=== PATIENT | female | born 2005 | race Caucasian/White ===

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

== ENCOUNTER → 2024-01-06 | Outpatient (CLI) | payer OTHER, MEDICAID, SELFPAY ==
[2024-01-06 16:58] LABS: Absolute Lymphocyte Count 1.44 X10^3/uL (0.83-4.51); Absolute Neutrophil Count 5.6 X10^3/uL (2.0-7.7); Basophil# 0.02 X10^3/uL; Basophil% 0.3 % (0-1); Eosinophil# 0.05 X10^3/uL; Eosinophils% 0.7 % (0-5); Hematocrit 37.3 % (37-47); Hemoglobin 12.7 g/dL (12.0-15.0); Lymphocyte # 1.44 X10^3/ul (0.83-4.51); Lymphocyte % 19.2 % (19-41); Mean Platelet Vol. 11.2 fl (6.2-12.0); Monocyte# 0.32 X10^3/uL; Monocyte% 4.3 % (0-10); NRBC Flagged by Analyzer 0 % (0-5); Neutrophil # 5.63 X10^3/uL (2.7-7.7); Neutrophil % 75.1 % (47-70); Platelet Count 202 K/mm3 (150-450); RBC Distribution Width CV 12.4 % (11.6-14.6); RBC Distribution Width SD 39.9 fl (35.1-43.9); Red Blood Count 4.24 M/mm3 (4.2-5.4); White Blood Count 7.5 K/mm3 (4.4-11.0)
[2024-01-06 18:32] LABS: HIV - WCH Non-Reactive (Nonreactive); Hepatitis B Surface Antigen Non-Reactive (Nonreactive); Hepatitis C Antibody Non-Reactive (Nonreactive); Rubella IgG Reactive (Nonreactive); Syphilis Antibodies Non-reactive
== END | disposition home or self-care (01) ==
LOC: BWCLAB 15:56
PROVIDERS: PCP Nurse Practitioner Family; Referring Provider Advanced Practice Midwife; Visit Provider Advanced Practice Midwife
DX: Z34.81 Encounter for supervision of other normal pregnancy, first trimester (principal); Z3A.00 Weeks of gestation of pregnancy not specified
CPT/HCPCS: 36415; 85025; 86703; 86762; 86780; 86803; 86850; 86900; 86901; 87340

== ENCOUNTER → 2024-04-28 | Outpatient (CLI) | payer BC, MEDICAID, SELFPAY ==
[2024-04-28 14:18] LABS: Absolute Lymphocyte Count 1.43 X10^3/uL (0.83-4.51); Absolute Neutrophil Count 8.8 X10^3/uL (2.0-7.7); Basophil# 0.02 X10^3/uL; Basophil% 0.2 % (0-1); Eosinophil# 0.12 X10^3/uL; Eosinophils% 1.1 % (0-5); Hematocrit 30.9 % (37-47); Hemoglobin 10.2 g/dL (12.0-15.0); Lymphocyte # 1.43 X10^3/ul (0.83-4.51); Mean Corpuscular Hgb 30.1 pg (27.0-32.0); Mean Corpuscular Volume 91.2 fL (81-99); Mean Platelet Vol. 11.4 fl (6.2-12.0); Monocyte# 0.56 X10^3/uL; Monocyte% 5.1 % (0-10); NRBC Flagged by Analyzer 0 % (0-5); Neutrophil # 8.79 X10^3/uL (2.7-7.7); Neutrophil % 79.9 % (47-70); Platelet Count 176 K/mm3 (150-450); RBC Distribution Width SD 42.4 fl (35.1-43.9); Red Blood Count 3.39 M/mm3 (4.2-5.4)
[2024-04-28 15:56] LABS: Glucose Challenge Gest 1H 50g 74 mg/dL; HIV Nonreactive (Nonreactive); Syphilis Antibodies Nonreactive (Nonreactive)
== END | disposition home or self-care (01) ==
PROVIDERS: PCP Nurse Practitioner Family; Referring Provider Obstetrics & Gynecology; Visit Provider Obstetrics & Gynecology
DX: Z34.90 Encounter for supervision of normal pregnancy, unspecified, unspecified trimester (principal); Z3A.00 Weeks of gestation of pregnancy not specified
CPT/HCPCS: 82950; 85025; 86703; 86780

== ENCOUNTER → 2024-05-25 | Outpatient (CLI) | payer BC, MEDICAID, SELFPAY ==
[2024-05-25 14:00] LABS: Absolute Neutrophil Count 9.8 X10^3/uL (2.0-7.7); Basophil# 0.02 X10^3/uL; Basophil% 0.2 % (0-1); Eosinophils% 1.6 % (0-5); Hematocrit 30.8 % (37-47); Hemoglobin 10.2 g/dL (12.0-15.0); Lymphocyte % 13.7 % (19-41); Mean Corp Hgb Conc 33.1 g/dL (32-36); Mean Corpuscular Hgb 29.8 pg (27.0-32.0); Mean Corpuscular Volume 90.1 fL (81-99); Mean Platelet Vol. 10.7 fl (6.2-12.0); Monocyte# 0.63 X10^3/uL; Monocyte% 5.1 % (0-10); NRBC Flagged by Analyzer 0 % (0-5); Neutrophil # 9.82 X10^3/uL (2.7-7.7); Neutrophil % 78.8 % (47-70); Platelet Count 178 K/mm3 (150-450); RBC Distribution Width CV 13.2 % (11.6-14.6); RBC Distribution Width SD 43.2 fl (35.1-43.9); Red Blood Count 3.42 M/mm3 (4.2-5.4); White Blood Count 12.4 K/mm3 (4.4-11.0)
== END | disposition home or self-care (01) ==
LOC: LAB 13:24
PROVIDERS: PCP Nurse Practitioner Family; Referring Provider Obstetrics & Gynecology; Visit Provider Obstetrics & Gynecology
DX: D64.9 Anemia, unspecified (principal)
CPT/HCPCS: 36415; 85025

== ENCOUNTER → 2024-07-04 | Outpatient (CLI) | payer BC, MEDICAID, SELFPAY | END | disposition home or self-care (01) | LOC: LABSPEC 14:57 | PROVIDERS: PCP Nurse Practitioner Family; Referring Provider Advanced Practice Midwife; Visit Provider Advanced Practice Midwife | DX: Z34.90 Encounter for supervision of normal pregnancy, unspecified, unspecified trimester (principal) | CPT/HCPCS: 87081 ==

== ENCOUNTER → 2024-07-20 | Outpatient (CLI) | payer BC, MEDICAID, SELFPAY ==
[2024-07-20 15:12] LABS: Absolute Lymphocyte Count 1.97 X10^3/uL (0.83-4.51); Absolute Neutrophil Count 9.6 X10^3/uL (2.0-7.7); Basophil# 0.03 X10^3/uL; Basophil% 0.2 % (0-1); Eosinophil# 0.18 X10^3/uL; Eosinophils% 1.4 % (0-5); Hemoglobin 10.5 g/dL (12.0-15.0); Lymphocyte # 1.97 X10^3/ul (0.83-4.51); Lymphocyte % 15.7 % (19-41); Mean Corp Hgb Conc 32.8 g/dL (32-36); Mean Corpuscular Hgb 28.8 pg (27.0-32.0); Mean Corpuscular Volume 87.9 fL (81-99); Mean Platelet Vol. 11.9 fl (6.2-12.0); Monocyte# 0.67 X10^3/uL; Monocyte% 5.3 % (0-10); NRBC Flagged by Analyzer 0 % (0-5); Neutrophil # 9.64 X10^3/uL (2.7-7.7); Neutrophil % 76.8 % (47-70); Platelet Count 158 K/mm3 (150-450); RBC Distribution Width SD 44.4 fl (35.1-43.9); Red Blood Count 3.64 M/mm3 (4.2-5.4); White Blood Count 12.6 K/mm3 (4.4-11.0)
[2024-07-20 15:24] LABS: ALB/GLOB Ratio 1.3 RATIO (0.9-2.4); AST(SGOT) 18 U/L (<=31); Alanine Aminotransfer ALT/SGPT 9 U/L (<=34); Albumin, Serum 3.6 g/dL (3.5-5.0); Alkaline Phosphatase 160 U/L (35-104); Anion Gap 10 (5-15); BUN 6 mg/dL (4-19); Calcium,Total 8.8 mg/dL (7.6-11.0); Carbon Dioxide 22.1 mmol/L (21.0-32.0); Chloride 104 mmol/L (98-108); Creatinine, Serum 0.51 mg/dL (0.70-1.20); EST Glomerular Filtration Rate 138 (>60); Globulin 2.9 g/dL (2.2-4.2); Glucose 80 mg/dL (70-99); Potassium 3.8 mmol/L (3.3-5.1); Protein, Total 6.5 g/dL (5.9-8.4); Sodium Level 136 mmol/L (133-145); Total Bilirubin 0.66 mg/dL (0.00-1.30)
[2024-07-20 15:30] LABS: Protein, Urine (Random) 27.8 mg/dL (0.0-12.0); Protein:Creat Ratio 178 mg/g CRE (0-200)
== END | disposition home or self-care (01) ==
PROVIDERS: PCP Nurse Practitioner Family; Referring Provider Obstetrics & Gynecology; Visit Provider Obstetrics & Gynecology
DX: O16.3 Unspecified maternal hypertension, third trimester (principal); Z3A.00 Weeks of gestation of pregnancy not specified
CPT/HCPCS: 36415; 80053; 82570; 84156; 85025

== ENCOUNTER 2024-08-05 08:08 | Inpatient (IN) | payer BC, MEDICAID, SELFPAY ==
[2024-08-05] VITALS (43 sets, daily range): BP systolic 92–134; BP diastolic 51–80; PULSE 66–107; RESP 14–16; TEMP 36.9–37.3; O2SAT 92–97; BMI 30.2
--- OUTSIDE RECORDS SUMMARY | 2024-08-05 07:14 | XMS RPT_ITS | CCD ---
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 on above: Performed By: #### L 501.0900, L500.4050, L100.0100 ####[facility] [address] [place], [address] Basophils/100 WBC (Bld) 0.2 % Normal 0-1 [facility] Comment on above: Performed By: #### L 501.0900, L500.4050, L100.0100 ####[facility] [address] [place], [address] Eosinophils/100 WBC (Bld) 1.4 % Normal 0-5 [facility] Comment on above: Performed By: #### L 501.0900, L500.4050, L100.0100 ####[facility] [address] [place], [address] Erythrocyte distribution width (RBC) [Ratio] 14.0 % Normal 11.6-14.6 [facility] Comment on above: Performed By: #### L 501.0900, L500.4050, L100.0100 ####[facility] [address] [place], [address] Hematocrit (Bld) [Volume fraction] 32.0 % Low 37-47 [facility] Comment on above: Performed By: #### L 501.0900, L500.4050, L100.0100 ####[facility] [address] [place], [address] Hemoglobin (Bld) [Mass/Vol] 10.5 g/dL Low 12.0-15.0 [facility] Comment on above: Performed By: #### L 501.0900, L500.4050, L100.0100 ####[facility] [address] [place], [address] IG% 0.600 Normal 0.0-0.9 [facility] Comment on above: Result Comment: IG% - Immature Granulocytes (promyelocytes, myelocytes and metamyelocytes) > 1% indicates that a LEFT SHIFT is Present. Performed By: #### L 501.0900, L500.4050, L100.0100 ####[facility] [address] [place], [address] Lymphocytes/100 WBC (Bld) 15.7 % Low 19-41 [facility] Comment on above: Performed By: #### L 501.0900, L500.4050, L100.0100 ####[facility] [address] [place], [address] MCH (RBC) [Entitic mass] 28.8 pg Normal 27.0-32.0 [facility] Comment on above: Performed By: #### L 501.0900, L500.4050, L100.0100 ####[facility] [address] [place], [address] MCHC (RBC) [Mass/Vol] 32.8 g/dL Normal 32-36 [facility] Comment on above: Performed By: #### L 501.0900, L500.4050, L100.0100 ####[facility] [address] [place], [address] MCV (RBC) [Entitic vol] 87.9 fL Normal 81-99 [facility] Comment on above: Performed By: #### L 501.0900, L500.4050, L100.0100 ####[facility] [address] [place], [address] Monocytes/100 WBC (Bld) 5.3 % Normal 0-10 [facility] Comment on above: Performed By: #### L 501.0900, L500.4050, L100.0100 ####[facility] [address] [place], [address] Neutrophils/100 WBC (Bld) 76.8 % High 47-70 [facility] Comment on above: Performed By: #### L 501.0900, L500.4050, L100.0100 ####[facility] [address] [place], [address] Nucleated RBC (Bld) [#/Vol] 0 10*3/uL Normal 0-5 [facility] Comment on above: Performed By: #### L 501.0900, L500.4050, L100.0100 ####[facility] [address] [place], [address] Platelet mean volume (Bld) [Entitic vol] 11.9 fL Normal 6.2-12.0 [facility] Comment on above: Performed By: #### L 501.0900, L500.4050, L100.0100 ####[facility] [address] [place], [address] Platelets (Bld) [#/Vol] 158 10*3/uL Normal 150-450 [facility] Comment on above: Performed By: #### L 501.0900, L500.4050, L100.0100 ####[facility] [address] [place], [address] RBC (Bld) [#/Vol] 3.64 10*6/uL Low 4.2-5.4 [facility] Comment on above: Performed By: #### L 501.0900, L500.4050, L100.0100 ####[facility] [address] [place], [address] RDW SD 44.4 fl High 35.1-43.9 [facility] Comment on above: Performed By: #### L 501.0900, L500.4050, L100.0100 ####[facility] [address] [place], [address] WBC (Bld) [#/Vol] 12.6 10*3/uL High 4.4-11.0 [facility] Comment on above: Performed By: #### L 501.0900, L500.4050, L100.0100 ####[facility] [address] [place], [address] Carbon dioxide, total [Moles /volume] in Central venous bloodOrdered By: Francesca Yeung on 07-20-2024 CO2 [Moles/Vol] 22.1 mmol/L 21.0-32.0 [facility] Chloride assayOrdered By: Raciel Yeung on 07-20-2024 Chloride [Moles/Vol] 104 mmol/L 98-[address] [facility] Comprehensive Metabolic Prof ilon 07-20-2024 Albumin [Mass/Vol] 3.6 g/dL Normal 3.5-5.0 [facility] Comment on above: Performed By: #### L 501.0900, L500.4050, L100.0100 ####[facility] [address] [place], [address] Albumin/Globulin [Mass ratio] 1.3 {ratio} Normal 0.9-2.4 [facility] Comment on above: Performed By: #### L 501.0900, L500.4050, L100.0100 ####[facility] [address] [place], [address] ALK PHOS 160 U/L High 35-104 [facility] Comment on above: Performed By: #### L 501.0900, L500.4050, L100.0100 ####[facility] [address] [place], [address] ALT [Catalytic activity/Vol] 9 U/L Normal <=34 [facility] Comment on above: Performed By: #### L 501.0900, L500.4050, L100.0100 ####[facility] [address] [place], [address] AST [Catalytic activity/Vol] 18 U/L Normal <=31 [facility] Comment on above: Performed By: #### L 501.0900, L500.4050, L100.0100 ####[facility] [address] [place], [address] Bilirubin [Mass/Vol] 0.66 mg/dL Normal 0.00-1.[address] [facility] Comment on above: Performed By: #### L 501.0900, L500.4050, L100.0100 ####[facility] [address] [place], [address] BUN/CRE 12.0 RATIO Normal 10-20 [facility] Comment on above: Performed By: #### L 501.0900, L500.4050, L100.0100 ####[facility] [address] [place], [address] Calcium [Mass/Vol] 8.8 mg/dL Normal 7.6-11.0 [facility] Comment on above: Performed By: #### L 501.0900, L500.4050, L100.0100 ####[facility] [address] [place], [address] Chloride [Moles/Vol] 104 mmol/L Normal 98-[address] [facility] Comment on above: Performed By: #### L 501.0900, L500.4050, L100.0100 ####[facility] [address] [place], [address] CO2 [Moles/Vol] 22.1 mmol/L Normal 21.0-32.0 [facility] Comment on above: Performed By: #### L 501.0900, L500.4050, L100.0100 ####[facility] [address] [place], [address] Creatinine [Mass/Vol] 0.51 mg/dL Low 0.70-1.20 [facility] Comment on above: Performed By: #### L 501.0900, L500.4050, L100.0100 ####[facility] [address] [place], [address] GAP 10 Normal 5-15 [facility] Comment on above: Performed By: #### L 501.0900, L500.4050, L100.0100 ####[facility] [address] [place], [address] GFR/1.73 sq M.predicted among non-blacks MDRD (S/P/Bld) [Vol rate/Area] 138 mL/min/{1.73_m2} Normal >60 [facility] Comment on above: Result Comment: mL/m in/1.73m2 CKD-EPI Creatinine Equation (2020) Performed By: #### L 501.0900, L500.4050, L100.0100 ####[facility] [address] [place], [address] Globulin (S) [Mass/Vol] 2.9 g/dL Normal 2.2-4.2 [facility] Comment on above: Performed By: #### L 501.0900, L500.4050, L100.0100 ####[facility] [address] [place], [address] Glucose [Mass/Vol] 80 mg/dL Normal 70-99 [facility] Comment on above: Performed By: #### L 501.0900, L500.4050, L100.0100 ####[facility] [address] [place], [address] Potassium [Moles/Vol] 3.8 mmol/L Normal 3.3-5.1 [facility] Comment on above: Performed By: #### L 501.0900, L500.4050, L100.0100 ####[facility] [address] [place], [address] Sodium [Moles/Vol] 136 mmol/L Normal 133-145 [facility] Comment on above: Performed By: #### L 501.0900, L500.4050, L100.0100 ####[facility] [address] [place], [address] T PROT 6.5 g/dL Normal 5.9-8.4 [facility] Comment on above: Performed By: #### L 501.0900, L500.4050, L100.0100 ####[facility] [address] [place], [address] Urea nitrogen [Mass/Vol] 6 mg/dL Normal 4-19 [facility] Comment on above: Performed By: #### L 501.0900, L500.4050, L100.0100 ####[facility] [address] [place], [address] Eosinophil percentageOrdered By: Francesca Yeung on 07-20-2024 Eosinophils/100 WBC (Bld) 1.4 % 0-5 [facility] Erythrocyte distribution wid th ratioOrdered By: Francesca Yeung on 07-20-2024 Erythrocyte distribution width (RBC) [Ratio] 14.0 % 11.6-14.6 [facility] Erythrocyte distribution wid th standard deviationOrdered By: Francesca Yeung on 07-20-2024 Erythrocyte distribution width (RBC) [Ratio] 44.4 fl High 35.1-43.9 [facility] Glomerular filtration rate ( GFR) estimation/1.73 sq m using serum, plasma, or whole bOrdered By: Francesca Yeung on 07-20-2024 GFR/1.73 sq M.predicted among non-blacks MDRD (S/P/Bld) [Vol rate/Area] 138 mL/min/{1.73_m2} >60 [facility] Comment on above: mL/min/1.73m2 CKD-EP I Creatinine Equation (2020) Hematocrit Auto (Bld) [Volum e fraction]Ordered By: Francesca Yeung on 07-20-2024 Hematocrit (Bld) [Volume fraction] 32.0 % Low 37-47 [facility] Hemoglobin measurementOrdere d By: Francesca Yeung on 07-20-2024 Hemoglobin (Bld) [Mass/Vol] 10.5 g/dL Low 12.0-15.0 [facility] Immature granulocytes/100 WB C Auto (Bld)Ordered By: Francesca Yeung on 07-20-2024 Immature granulocytes/100 WBC (Bld) 0.600 % 0.0-0.9 [facility] Comment on above: IG% - Immature Granu locytes (promyelocytes, myelocytes and metamyelocytes) > 1% indicates that a LEFT SHIFT is Present. Laboratory - Chemistry and C hemistry - challengeOrdered By: Francesca Yeung on 07-20-2024 AST [Catalytic activity/Vol] 18 U/L <32 [facility] Glucose Ql (U) Negative [facility] Laboratory - UrinalysisOrder ed By: Francesca Yeung on 07-20-2024 Protein Ql (U) 1+ [facility] MCV (mean corpuscular volume ) determinationOrdered By: Francesca Yeung on 07-20-2024 MCV (RBC) [Entitic vol] 87.9 fL 81-99 [facility] Mean corpuscular hemoglobin (MCH) determinationOrdered By: Francesca Yeung on 07-20-2024 MCH (RBC) [Entitic mass] 28.8 pg 27.0-32.0 [facility] Mean corpuscular hemoglobin concentration (MCHC) determinationOrdered By: Francesca Yeung on 07-20-2024 MCHC (RBC) [Mass/Vol] 32.8 g/dL 32-36 [facility] Mean platelet volume determi nationOrdered By: Francesca Yeung on 07-20-2024 Platelet mean volume (Bld) [Entitic vol] 11.9 fL 6.2-12.0 [facility] Monocyte percentageOrdered B y: Francesca Yeung on 07-20-2024 Monocytes/100 WBC (Bld) 5.3 % 0-10 [facility] Neutrophil percentageOrdered By: Francescaoscar Turkulices on 07-20-2024 Neutrophils/100 WBC (Bld) 76.8 % High 47-70 [facility] Nucleated red blood cell per centageOrdered By: Francesca Yeung on 07-20-2024 Nucleated RBC/100 WBC (Bld) [Ratio] 0 % 0-5 [facility] [employer] Office Visit Reporton 07-20-2024 [employer] Office Visit Report [facility] [address], [address] [place] [address] OFFICE VISIT Date of Service: 07/20/24 MR#: [id number] Acct: [id number] Name: JD PRINGLE Rep #: [id number] : 2005 Provider: Dr. 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 Occupational Required: No Is patient in pain?: No Feel stressed/tense/nervo us/anxious/difficult y sleeping: not at all Allergies No Known Allergies Allergy (Verified 07/20/24 14:35) Medications ???Medication ???Instructions ???Recorded ???Confirmed ???Type PNV 153-FA 400 mcg-om3 35 mg-dha 1 tab PO 09/15/22 History 25 mg-epa 5 mg-fish oil chew tablet ferrous sulfate 325 mg (65 mg 325 mg PO QDAY 07/20/24 07/20/24 H istory iron) tablet Last Menstrual Period: 10/28/23 Zika: Zika virus screening: Negative : No PFSH PFSH Medical History Refuses tetanus, diphtheria, and acellular pertussis (Tdap) vaccination Anemia in preg-unspec Vaginal delivery Family History Mother Learning disability Grandmother Breast cancer Social History adopted: No household members: significant other, family and children current occupational status: unemployed current occupation: [employer] current occupational exposures/hazards: No pets and animals: Yes pets and animals: dog(s) history of recent travel: No sexually active: Yes Smoking Status: Never smoker alcohol intake: never substance use type: does not use well-balanced diet: about half the time caffeine: No eating out: 1-3 times/week during the past year weight has: remained stable what type of physical activity do you participate in: walking frequency: 3-4 times per week duration: 15-30 minutes/day roseline/yarsani: Buddhist seatbelt use: sometimes do you feel safe at home: Yes additional social history: BF: Arnold - Unemployed History 2 Elective abortions Hx Para 1 Spontaneous abortions Hx # Term Pregnancies 1 Ectopic pregnancies Hx # Pregnancies Multiple births # of living children 1 Past Pregnancies Del. Date Name GA/Weeks Outcome Route Bth Weight Infant Gen Labor Lgth Anesthesia Del Locatn Provider FOB 04/03/23 Everlee 39 live - full term 7lbs 10oz Female epidural [facility] Julia Ortiz Altaf Delivery Date: 04/03/23 Last Updated by: Catherine Day IOL poly HPI 38wk ob Details: JD PRINGLE is a 18 year old who presents for routine OB visit. OB Visit SARAHI Calculator Estimated Delivery Date Method Current WG Current Estimate 08/03/24 LMP (Certain) 38w 0d Other Estimates 08/04/24 Ultrasound #1 37w 6d Expected Delivery Route/Plan Labor Preferences- CB/BF classes: [] labor support person: [] labor intervention preferences: [] pain management options preferred: [] cut cord/dad catch: [] : [] PP control planned: [] discussed possible routes of delivery and associated risks: [] special requests: [] Specific Issue/Plans Covid status: [] Flu vaccine: [] Tdap vaccine: declined Rhogam: na LARC form signed: declined movement and labor precautions reviewed. Problem list reviewed and updated with the most current plan of care details and appropriate orders placed. Relevant counseling for the gestational age provided. Continue routine care and follow up unless otherwise noted in visit notes/problem list details Initial Weight: 132 lb Date -???-???-???-???-??? -???-???-???-???-??? -???-???- EGA Weight BP Urine Prot -???-???-???-???-??? -???-???-???-???-??? -???-???- Glucose FHR FuHt Pres Dilation -???-???-???-???-??? -???-???-???-???-??? -???-???- Effaced St Visit Note 12/30/23 -???-???-???-???-??? -???-???-???-???-??? -???-???- 9w 0d 132 lb (+0 oz) 96/52 -???-???-???-???-??? -???-???-???-???-??? -???-???- 171 -???-???-???-???-??? -???-???-???-???-??? -???-???- KW- CRL cons with dates. Accepts NIPT 02/01/24 -???-???-???-???-??? -???-???-???-???-??? -???-???- 13w 5d 132 lb (+0 oz) 109/55 Negative -???-???-???-???-??? -???-???-???-???-??? -???-???- Negative 144 -???-???-???-???-??? -???-???-???-???-??? -???-???- JV- panorama reviewed. CRL appropriate for gestational age. no complaints. 03/07/24 -???-???-???-???-??? -???-???-???-???-??? -???-???- 18w 5d 138 lb 4 oz (+6 lb 4 oz) 120/70 Negative -???-???-???-???-??? -??? (more content not included)... Normal [facility] Platelet countOrdered By: Raciel Yeung on 07-20-2024 Platelets (Bld) [#/Vol] 158 10*3/uL 150-450 [facility] Potassium measurement (mass/ volume)Ordered By: Francesca Yeung on 07-20-2024 Potassium (Unsp spec) [Mass/Vol] 3.8 mmol/L 3.3-5.1 [facility] Protein+Creatinine Ratio,Uri neon 07-20-2024 PROT:CRE RATIO 178 mg/g CRE Normal 0-200 [facility] Comment on above: Performed By: #### L 501.0900, L500.4050, L100.0100 ####[facility] [address] [place], [address] Protein (U) [Mass/Vol] 27.8 mg/dL High 0.0-12.0 [facility] Comment on above: Performed By: #### L 501.0900, L500.4050, L100.0100 ####[facility] [address] [place], [address] UR CREAT 156.00 mg/dL Normal 28.00-217.00 [facility] Comment on above: Performed By: #### L 501.0900, L500.4050, L100.0100 ####[facility] [address] [place], [address] RBC Auto (Bld) [#/Vol]Ordere d By: Francesca Yeung on 07-20-2024 RBC (Bld) [#/Vol] 3.64 10*6/uL Low 4.2-5.4 [facility] Random urine creatinine luis urement (mass/volume)Ordered By: Francesca Yeung on 07-20-2024 Creatinine Unsp time (U) [Mass/Vol] 156.00 mg/dL 28.00-217.00 [facility] Serum creatinine measurement (mass/volume)Ordered By: Francesca Yeung on 07-20-2024 Creatinine [Mass/Vol] 0.51 mg/dL Low 0.70-1.20 [facility] Serum globulin measurementOr dered By: Francesca Yeung on 07-20-2024 Globulin (S) [Mass/Vol] 2.9 g/dL 2.2-4.2 [facility] Serum glucose measurement (m ass/volume)Ordered By: Francesca Yeung on 07-20-2024 Glucose [Mass/Vol] 80 mg/dL 70-99 [facility] Serum or plasma alanine tate otransferase (ALT) measurementOrdered By: Francesca Yeung on 07-20-2024 ALT [Catalytic activity/Vol] 9 U/L <35 [facility] Serum or plasma albumin luis urement (mass/volume)Ordered By: Francesca Yeung on 07-20-2024 Albumin [Mass/Vol] 3.6 g/dL 3.5-5.0 [facility] Serum or plasma albumin/glob ulin mass ratioOrdered By: Francesca Yeung on 07-20-2024 Albumin/Globulin [Mass ratio] 1.3 {ratio} 0.9-2.4 [facility] Serum or plasma alkaline chi sphatase measurementOrdered By: Francesca Yeung on 07-20-2024 ALP [Catalytic activity/Vol] 160 U/L High 35-104 [facility] Serum or plasma calcium luis urement (mass/volume)Ordered By: Francesca Yeung on 07-20-2024 Calcium [Mass/Vol] 8.8 mg/dL 7.6-11.0 [facility] Serum or plasma urea nitroge n measurement (mass/volume)Ordered By: Francesca Yeung on 07-20-2024 Urea nitrogen [Mass/Vol] 6 mg/dL 4-19 [facility] Sodium levelOrdered By: Mick Yeung on 07-20-2024 Sodium [Moles/Vol] 136 mmol/L 133-145 [facility] Total proteinOrdered By: Hank Yeung on 07-20-2024 Protein [Mass/Vol] 6.5 g/dL 5.9-8.4 [facility] Urine protein measurement (m ass/volume)Ordered By: Francesca Yeung on 07-20-2024 Protein (U) [Mass/Vol] 27.8 mg/dL High 0.0-12.0 [facility] Urine protein/creatinine mas s ratioOrdered By: Francesca Yeung on 07-20-2024 Protein/Creatinine (U) [Mass ratio] 178 mg/g CRE 0-200 [facility] White blood cell (WBC) count Ordered By: Francesca Yeung on 07-20-2024 WBC (Bld) [#/Vol] 12.6 10*3/uL High 4.4-11.0 [facility] Laboratory - Chemistry and C hemistry - challengeOrdered By: Francesca Yeung on 07-13-2024 Glucose Ql (U) Negative [facility] Laboratory - UrinalysisOrder ed By: Francesca Yeung on 07-13-2024 Protein Ql (U) Trace [facility] Axle Bearing [employer]isher Office Visit Reporton 07-13-2024 Axle Bearing Polisher Office Visit Report [facility], [address] [place] [address] OFFICE VISIT Date of Service: 07/13/24 MR#: [id number] Acct: [id number] Name: JD PRINGLE Rep #: [id number] : 2005 Provider: Dr. 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 Occupational Required: No Is patient in pain?: No Feel stressed/tense/nervo us/anxious/difficult y sleeping: not at all Allergies No Known Allergies Allergy (Verified 07/13/24 13:40) Medications ???Medication ???Instructions ???Recorded ???Confirmed ???Type PNV 153-FA 400 mcg-om3 35 mg-dha 1 tab PO 09/15/22 History 25 mg-epa 5 mg-fish oil chew tablet Last Menstrual Period: 10/28/23 Zika: Zika virus screening: Negative : No PFSH PFSH Medical History Refuses tetanus, diphtheria, and acellular pertussis (Tdap) vaccination Anemia in preg-unspec Vaginal delivery Family History Mother Learning disability Grandmother Breast cancer Social History adopted: No household members: significant other, family and children current occupational status: unemployed current occupation: [employer] current occupational exposures/hazards: No pets and animals: Yes pets and animals: dog(s) history of recent travel: No sexually active: Yes Smoking Status: Never smoker alcohol intake: never substance use type: does not use well-balanced diet: about half the time caffeine: No eating out: 1-3 times/week during the past year weight has: remained stable what type of physical activity do you participate in: walking frequency: 3-4 times per week duration: 15-30 minutes/day roseline/yarsani: Buddhist seatbelt use: sometimes do you feel safe at home: Yes additional social history: BF: Arnold - Unemployed History 2 Elective abortions Hx Para 1 Spontaneous abortions Hx # Term Pregnancies 1 Ectopic pregnancies Hx # Pregnancies Multiple births # of living children 1 Past Pregnancies Del. Date Name GA/Weeks Outcome Route Bth Weight Gen Labor Lgth Anesthesia Del Locatn Provider FOB 04/03/23 Eversania 39 live - full term 7lbs 10oz Female epidural [facility] Julia Solitario Delivery Date: 04/03/23 Last Updated by: Catherine Day IOL poly HPI 37wk ob Details: JD PRINGLE is a 18 year old who presents for routine OB visit. OB Visit SARAHI Calculator Estimated Delivery Date Method Current WG Current Estimate 08/03/24 LMP (Certain) 37w 0d Other Estimates 08/04/24 Ultrasound #1 36w 6d Expected Delivery Route/Plan Labor Preferences- CB/BF classes: [] labor support person: [] labor intervention preferences: [] pain management options preferred: [] cut cord/dad catch: [] : [] PP control planned: [] discussed possible routes of delivery and associated risks: [] special requests: [] Specific Issue/Plans Covid status: [] Flu vaccine: [] Tdap vaccine: declined Rhogam: na LARC form signed: declined movement and labor precautions reviewed. Problem list reviewed and updated with the most current plan of care details and appropriate orders placed. Relevant counseling for the gestational age provided. Continue routine care and follow up unless otherwise noted in visit notes/problem list details Initial Weight: 132 lb Date -???-???-???-???-??? -???-???-???-???-??? -???-???- EGA Weight BP Urine Prot -???-???-???-???-??? -???-???-???-???-??? -???-???- Glucose FHR FuHt Pres Dilation -???-???-???-???-??? -???-???-???-???-??? -???-???- Effaced St Visit Note 12/30/23 -???-???-???-???-??? -???-???-???-???-??? -???-???- 9w 0d 132 lb (+0 oz) 96/52 -???-???-???-???-??? -???-???-???-???-??? -???-???- 171 -???-???-???-???-??? -???-???-???-???-??? -???-???- KW- CRL cons with dates. Accepts NIPT 02/01/24 -???-???-???-???-??? -???-???-???-???-??? -???-???- 13w 5d 132 lb (+0 oz) 109/55 Negative -???-???-???-???-??? -???-???-???-???-??? -???-???- Negative 144 -???-???-???-???-??? -???-???-???-???-??? -???-???- JV- panorama reviewed. CRL appropriate for gestational age. no complaints. 03/07/24 -???-???-???-???-??? -???-???-???-???-??? -???-???- 18w 5d 138 lb 4 oz (+6 lb 4 oz) 120/70 Negative -???-???-???-???-??? -???-???-???-???-??? -???-???- Negative 155 -???-???-???-???-??? -???-???-???-???-??? -???-???- JV (more content not included)... Normal [facility] Rule out Beta Strep (Grp. B) on 07-08-2024 ASHA Group B Beta Streptococcus is not isolated. Normal [facility] Comment on above: Performed By: #### M 100.2255 #### [facility] [address] [place], [address] Laboratory - Chemistry and C hemistry - challengeOrdered By: Julia Ortiz on 07-04-2024 Glucose Ql (U) Negative [facility] - UrinalysisOrder ed By: Julia Ortiz on 07-04-2024 Protein Ql (U) Negative [facility] Axle Bearing Polisher Office Visit Reporton 07-04-2024 Axle Bearing Polisher Office Visit Report [facility] [address], [address] [place] [address] OFFICE VISIT Date of Service: 07/04/24 MR#: [id number] Acct: [id number] Name: JD PRINGLE Rep #: [id number] : 2005 Provider: YAIR Brandt ams Age/Sex: 18/F Location: [facility] Status: Signed Intake Vital Signs 04/28/24 14:11 06/19/24 13:37 07/04/24 13:30 Height 5 ft 6 in 5 ft 6 in 5 ft 6 in Weight: 172 lb 8 oz BMI 27.8 BP 119/76 Intake Visit Reasons: 36 wk ob 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 Occupational Required: No Is patient in pain?: No Allergies No Known Allergies Allergy (Verified 07/04/24 13:29) Medications ???Medication ???Instructions ???Recorded ???Confirmed ???Type PNV 153-FA 400 mcg-om3 35 mg-dha 1 tab PO 09/15/22 History 25 mg-epa 5 mg-fish oil chew tablet Last Menstrual Period: 10/28/23 : No PFSH PFSH Medical History Refuses tetanus, diphtheria, and acellular pertussis (Tdap) vaccination Anemia in preg-unspec Vaginal delivery Family History Mother Learning disability Grandmother Breast cancer Social History adopted: No household members: significant other, family and children 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 current occupational exposures/hazards: No pets and animals: Yes pets and animals: dog(s) history of recent travel: No sexually active: Yes Smoking Status: Never smoker alcohol intake: never substance use type: does not use well-balanced diet: about half the time caffeine: No eating out: 1-3 times/week during the past year weight has: remained stable what type of physical activity do you participate in: walking frequency: 3-4 times per week duration: 15-30 minutes/day roseline/yarsani: Buddhist seatbelt use: sometimes do you feel safe at home: Yes additional social history: BF: Arnold - Unemployed History 2 Elective abortions Hx Para 1 Spontaneous abortions Hx # Term Pregnancies 1 Ectopic pregnancies Hx # Pregnancies Multiple births # of living children 1 Past Pregnancies Del. Date Name GA/Weeks Outcome Route Bth Weight Gen Labor Lgth Anesthesia Del Locatn Provider FOB 04/03/23 Everlee 39 live - full term 7lbs 10oz Female epidural [facility] Julia Solitaroi Delivery Date: 04/03/23 Last Updated by: Catherine Day IOL poly HPI 36 wk ob Details: JD PRINGLE is a 18 year old who presents for routine OB visit. OB Visit SARAHI Calculator Estimated Delivery Date Method Current WG Current Estimate 08/03/24 LMP (Certain) 35w 5d Other Estimates 08/04/24 Ultrasound #1 35w 4d Expected Delivery Route/Plan Labor Preferences- CB/BF classes: [] labor support person: [] labor intervention preferences: [] pain management options preferred: [] cut cord/dad catch: [] : [] PP control planned: [] discussed possible routes of delivery and associated risks: [] special requests: [] Specific Issue/Plans Covid status: [] Flu vaccine: [] Tdap vaccine: declined Rhogam: na LARC form signed: declined movement and labor precautions reviewed. Problem list reviewed and updated with the most current plan of care details and appropriate orders placed. Relevant counseling for the gestational age provided. Continue routine care and follow up unless otherwise noted in visit notes/problem list details Initial Weight: 132 lb Date -???-???-???-???-??? -???-???-???-???-??? -???-???- EGA Weight BP Urine Prot -???-???-???-???-??? -???-???-???-???-??? -???-???- Glucose FHR FuHt Pres Dilation -???-???-???-???-??? -???-???-???-???-??? -???-???- Effaced St Visit Note 12/30/23 -???-???-???-???-??? -???-???-???-???-??? -???-???- 9w 0d 132 lb (+0 oz) 96/52 -???-???-???-???-??? -???-???-???-???-??? -???-???- 171 -???-???-???-???-??? -???-???-???-???-??? -???-???- KW- CRL cons with dates. Accepts NIPT 02/01/24 -???-???-???-???-??? -???-???-???-???-??? -???-???- 13w 5d 132 lb (+0 oz) 109/55 Negative -???-???-???-???-??? -???-???-???-???-??? -???-???- Negative 144 -???-???-???-???-??? -???-???-???-???-??? -???-???- JV- panorama reviewed. CRL appropriate for gestational age. no complaints. 03/07/24 -???-???-???-???-??? -???-???-???-???-??? -???-???- 18w 5d 138 lb 4 oz (+6 lb 4 oz) 120/70 Negative -???-???-???-???-??? -???-???-???-???-??? -???-???- Negative 155 -???-???-???-???-??? -???-???-???-???-??? -???-???- JV- no compl aints today. questions how much weight should gain and when should feel baby move. has anatomy scan scheduled (more content not included)... Normal [facility] Screening beta-hemolytic Str eptococcus cultureOrdered By: Julia Ortiz on 07-04-2024 Beta-hemolytic Streptococcus culture Group B Beta Streptococcus is not isolated. [facility] - Chemistry and C hemistry - challengeOrdered By: Julia Ortiz on 06-19-2024 Glucose Ql (U) Negative [facility] - UrinalysisOrder ed By: Julia Ortiz on 06-19-2024 Protein Ql (U) Negative [facility] Axle Bearing Polisher Office Visit Reporton 06-19-2024 Axle Bearing Polisher Office Visit Report [facility] [address], [address] [place] [address] OFFICE VISIT Date of Service: 06/19/24 MR#: [id number] Acct: [id number] Name: JD PRINGLE Rep #: [id number] : 2005 Provider: YAIR Brandt ams Age/Sex: 18/F Location[place] [facility] [place] Status: Signed Intake Vital Signs 12/30/23 14:44 05/31/24 14:46 06/19/24 13:33 06/19/24 13:37 Height 5 ft 6 in 5 ft 6 in 5 ft 6 in 5 ft 6 in Weight: 170 lb BMI 27.4 BP 107/73 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 Occupational Required: No Is patient in pain?: No Allergies No Known Allergies Allergy (Verified 06/19/24 13:36) Medications ???Medication ???Instructions ???Recorded ???Confirmed ???Type PNV 153-FA 400 mcg-om3 35 mg-dha 1 tab PO 09/15/22 History 25 mg-epa 5 mg-fish oil chew tablet Last Menstrual Period: 10/28/23 Zika: Zika virus screening: Negative : No Have you fallen in the past year?: No PFSH PFSH Medical History Refuses tetanus, diphtheria, and acellular pertussis (Tdap) vaccination Anemia in preg-unspec Vaginal delivery Family History Mother Learning disability Grandmother Breast cancer Social History adopted: No household members: significant other, family and children current occupational status: unemployed current occupation: [employer] current occupational exposures/hazards: No pets and animals: Yes pets and animals: dog(s) history of recent travel: No sexually active: Yes Smoking Status: Never smoker alcohol intake: never substance use type: does not use well-balanced diet: about half the time caffeine: No eating out: 1-3 times/week during the past year weight has: remained stable what type of physical activity do you participate in: walking frequency: 3-4 times per week duration: 15-30 minutes/day roseline/yarsani: Buddhist seatbelt use: sometimes do you feel safe at home: Yes additional social history: BF: Arnold - Unemployed History 2 Elective abortions Hx Para 1 Spontaneous abortions Hx # Term Pregnancies 1 Ectopic pregnancies Hx # Pregnancies Multiple births # of living children 1 Past Pregnancies Del. Date Name GA/Weeks Outcome Route Bth Weight Infant Gen Labor Lgth Anesthesia Del Locatn Provider FOB 04/03/23 Everlee 39 live - full term 7lbs 10oz Female epidural [facility] Julia Solitario Delivery Date: 04/03/23 Last Updated by: Catherine Day IOL poly HPI 33wk ob Details: JD PRINGLE is a 18 year old who presents for routine OB visit. OB Visit SARAHI Calculator Estimated Delivery Date Method Current WG Current Estimate 08/03/24 LMP (Certain) 33w 4d Other Estimates 08/04/24 Ultrasound #1 33w 3d Expected Delivery Route/Plan Labor Preferences- CB/BF classes: [] labor support person: [] labor intervention preferences: [] pain management options preferred: [] cut cord/dad catch: [] : [] PP control planned: [] discussed possible routes of delivery and associated risks: [] special requests: [] Specific Issue/Plans Covid status: [] Flu vaccine: [] Tdap vaccine: declined Rhogam: na LARC form signed: declined movement and labor precautions reviewed. Problem list reviewed and updated with the most current plan of care details and appropriate orders placed. Relevant counseling for the gestational age provided. Continue routine care and follow up unless otherwise noted in visit notes/problem list details Initial Weight: 132 lb Date -???-???-???-???-??? -???-???-???-???-??? -???-???- EGA Weight BP Urine Prot -???-???-???-???-??? -???-???-???-???-??? -???-???- Glucose FHR FuHt Pres Dilation -???-???-???-???-??? -???-???-???-???-??? -???-???- Effaced St Visit Note 12/30/23 -???-???-???-???-??? -???-???-???-???-??? -???-???- 9w 0d 132 lb (+0 oz) 96/52 -???-???-???-???-??? -???-???-???-???-??? -???-???- 171 -???-???-???-???-??? -???-???-???-???-??? -???-???- KW- CRL cons with dates. Accepts NIPT 02/01/24 -???-???-???-???-??? -???-???-???-???-??? -???-???- 13w 5d 132 lb (+0 oz) 109/55 Negative -???-???-???-???-??? -???-???-???-???-??? -???-???- Negative 144 -???-???-???-???-??? -???-???-???-???-??? -???-???- JV- panorama reviewed. CRL appropriate for gestational age. no complaints. 03/07/24 -???-???-???-???-??? -???-???-???-???-??? -???-???- 18w 5d 138 lb 4 oz (+6 lb 4 oz) 120/70 Negative -???-???-???-???-??? -???-???-???-???-??? -???-???- Negative 155 -???-???-???-???-??? -???-???-???-???-??? -???-???- JV- no compl aints today. questions how muc (more content not included)... Normal [facility] - Chemistry and C hemistry - challengeOrdered By: Francesca Yeung on 05-31-2024 Glucose Ql (U) Negative [facility] - UrinalysisOrder ed By: Francesca Yeung on 05-31-2024 Protein Ql (U) Negative [facility] Axle Bearing Polisher Office Visit Reporton 05-31-2024 Axle Bearing Polisher Office Visit Report [facility] [address], [address] [place] [address] OFFICE VISIT Date of Service: 05/31/24 MR#: [id number] Acct: [id number] Name: JD PRINGLE Rep #: [id number] : 2005 Provider: Dr. 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 Required: No Is patient in pain?: No Feel stressed/tense/nervo us/anxious/difficult y sleeping: not at all Allergies No Known Allergies Allergy (Verified 05/31/24 14:48) Medications ???Medication ???Instructions ???Recorded ???Confirmed ???Type PNV 153-FA 400 mcg-om3 35 mg-dha 1 tab PO 09/15/22 History 25 mg-epa 5 mg-fish oil chew tablet Last Menstrual Period: 10/28/23 Zika: Zika virus screening: Negative : No PFSH PFSH Medical History Refuses tetanus, diphtheria, and acellular pertussis (Tdap) vaccination Anemia in preg-unspec Vaginal delivery Family History Mother Learning disability Grandmother Breast cancer Social History adopted: No household members: significant other, family and children current occupational status: unemployed current occupation: [employer] current occupational exposures/hazards: No pets and animals: Yes pets and animals: dog(s) history of recent travel: No sexually active: Yes Smoking Status: Never smoker alcohol intake: never substance use type: does not use well-balanced diet: about half the time caffeine: No eating out: 1-3 times/week during the past year weight has: remained stable what type of physical activity do you participate in: walking frequency: 3-4 times per week duration: 15-30 minutes/day roseline/yarsani: Buddhist seatbelt use: sometimes do you feel safe at home: Yes additional social history: BF: Arnold - Unemployed History 2 Elective abortions Hx Para 1 Spontaneous abortions Hx # Term Pregnancies 1 Ectopic pregnancies Hx # Pregnancies Multiple births # of living children 1 Past Pregnancies Del. Date Name GA/Weeks Outcome Route Bth Weight Infant Gen Labor Lgth Anesthesia Del Locatn Provider FOB 04/03/23 Everlee 39 live - full term 7lbs 10oz Female epidural [facility] Julia Angel Altaf Delivery Date: 04/03/23 Last Updated by: Catherine Day IOL poly HPI 31wk ob Details: JD PRINGLE is a 18 year old who presents for routine OB visit. OB Visit SARAHI Calculator Estimated Delivery Date Method Current WG Current Estimate 08/03/24 LMP (Certain) 30w 6d Other Estimates 08/04/24 Ultrasound #1 30w 5d Expected Delivery Route/Plan Labor Preferences- CB/BF classes: [] labor support person: [] labor intervention preferences: [] pain management options preferred: [] cut cord/dad catch: [] : [] PP control planned: [] discussed possible routes of delivery and associated risks: [] special requests: [] Specific Issue/Plans Covid status: [] Flu vaccine: [] Tdap vaccine: declined Rhogam: na LARC form signed: declined movement and labor precautions reviewed. Problem list reviewed and updated with the most current plan of care details and appropriate orders placed. Relevant counseling for the gestational age provided. Continue routine care and follow up unless otherwise noted in visit notes/problem list details Initial Weight: 132 lb Date -???-???-???-???-??? -???-???-???-???-??? -???-???- EGA Weight BP Urine Prot -???-???-???-???-??? -???-???-???-???-??? -???-???- Glucose FHR FuHt Pres Dilation -???-???-???-???-??? -???-???-???-???-??? -???-???- Effaced St Visit Note 12/30/23 -???-???-???-???-??? -???-???-???-???-??? -???-???- 9w 0d 132 lb (+0 oz) 96/52 -???-???-???-???-??? -???-???-???-???-??? -???-???- 171 -???-???-???-???-??? -???-???-???-???-??? -???-???- KW- CRL cons with dates. Accepts NIPT 02/01/24 -???-???-???-???-??? -???-???-???-???-??? -???-???- 13w 5d 132 lb (+0 oz) 109/55 Negative -???-???-???-???-??? -???-???-???-???-??? -???-???- Negative 144 -???-???-???-???-??? -???-???-???-???-??? -???-???- JV- panorama reviewed. CRL appropriate for gestational age. no complaints. 03/07/24 -???-???-???-???-??? -???-???-???-???-??? -???-???- 18w 5d 138 lb 4 oz (+6 lb 4 oz) 120/70 Negative -???-???-???-???-??? -???-???-???-???-??? -???-???- Negative 155 -???-???-???-???-??? -???-???-???-???-??? -???-???- JV- no compl aints today. q (more content not included)... Normal [facility] Absolute lymphocyte countOrd ered By: Tabatha Severino on 05-25-2024 Lymphocytes Auto (Unsp spec) [#/Vol] 1.70 10*3/uL 0.83-4.51 [facility] Absolute neutrophil countOrd ered By: Tabatha Severino on 05-25-2024 Neutrophils (Bld) [#/Vol] 9.8 10*3/uL High 2.0-7.7 [facility] Automated blood erythrocyte countOrdered By: Tabatha Severino on 05-25-2024 RBC (Bld) [#/Vol] 3.42 10*6/uL Low 4.2-5.4 [facility] Comment on above: Performed By: #### L 100.0100 ####[facility] [address] [place], [place], [phone] Automated blood hematocrit ( percentage)Ordered By: Tabatha Severino on 05-25-2024 Hematocrit (Bld) [Volume fraction] 30.8 % Low 37-47 [facility] Comment on above: Performed By: #### L 100.0100 ####[facility] [address] [place], [place], [id number] Automated lymphocyte count a s percentage of total leukocytesOrdered By: Tabatha Severino on 05-25-2024 Lymphocytes/100 WBC (Bld) 13.7 % Low 19-41 [facility] Comment on above: Performed By: #### L 100.0100 ####[facility] [address] [place], [address] Lymphocytes/100 WBC Auto (Unsp spec) 13.7 % Low 19-41 [facility] Basophil percentageOrdered B y: Tabatha Severino on 05-25-2024 Basophils/100 WBC (Bld) 0.2 % Normal 0-1 [facility] Comment on above: Performed By: #### L 100.0100 ####[facility] [address] [place], [address] CBC W/Diff, Automatedon 04-30 Absolute Lymph 1.70 X10 3/uL Normal 0.83-4.51 [facility] Comment on above: Performed By: #### L 100.0100 ####[facility] [address] [place], [address] Absolute Neut 9.8 X10 3/uL High 2.0-7.7 [facility] Comment on above: Performed By: #### L 100.0100 ####[facility] [address] [place], [address] IG% 0.600 Normal 0.0-0.9 [facility] Comment on above: Result Comment: IG% - Immature Granulocytes (promyelocytes, myelocytes and metamyelocytes) > 1% indicates that a LEFT SHIFT is Present. Performed By: #### L 100.0100 ####[facility] [address] [place], [address] Nucleated RBC (Bld) [#/Vol] 0 10*3/uL Normal 0-5 [facility] Comment on above: Performed By: #### L 100.0100 ####[facility] [address] [place], [address] RDW SD 43.2 fl Normal 35.1-43.9 [facility] Comment on above: Performed By: #### L 100.0100 ####[facility] [address] [place], [address] Eosinophil percentageOrdered By: Tabatha Severino on 05-25-2024 Eosinophils/100 WBC (Bld) 1.6 % Normal 0-5 [facility] Comment on above: Performed By: #### L 100.0100 ####[facility] [address] [place], [address] Erythrocyte distribution wid th (RBC) [Ratio]Ordered By: Tabatha Severino on 05-25-2024 Erythrocyte distribution width (RBC) [Entitic vol] 43.2 fL 35.1-43.9 [facility] Erythrocyte distribution wid th ratioOrdered By: Tabatha Severino on 05-25-2024 Erythrocyte distribution width (RBC) [Ratio] 13.2 % Normal 11.6-14.6 [facility] Comment on above: Performed By: #### L 100.0100 ####[facility] [address] [facility] [place], [place], [phone]) Erythrocyte distribution wid th standard deviationOrdered By: Tabatha Severino on 05-25-2024 Erythrocyte distribution width (RBC) [Ratio] 43.2 fl 35.1-43.9 [facility] Hemoglobin measurementOrdere d By: Tabatha Severino on 05-25-2024 Hemoglobin (Bld) [Mass/Vol] 10.2 g/dL Low 12.0-15.0 [facility] Comment on above: Performed By: #### L 100.0100 ####[facility] [address] [facility]. [place], [place], [phone]) Immature granulocytes/100 WB C Auto (Bld)Ordered By: Tabatha Severino on 05-25-2024 Immature granulocytes/100 WBC (Bld) 0.600 % 0.0-0.9 [facility] Comment on above: IG% - Immature Granu locytes (promyelocytes, myelocytes and metamyelocytes) > 1% indicates that a LEFT SHIFT is Present. Lymphocytes Auto (Unsp spec) [#/Vol]Ordered By: Tabatha Severino on 05-25-2024 Lymphocytes (Bld) [#/Vol] 1.70 10*3/uL 0.83-4.51 [facility] MCV (mean corpuscular volume ) determinationOrdered By: Tabatha Severino on 05-25-2024 MCV (RBC) [Entitic vol] 90.1 fL Normal 81-99 [facility] Comment on above: Performed By: #### L 100.0100 ####[facility] [address] [place], [address] Mean corpuscular hemoglobin (MCH) determinationOrdered By: Tabatha Severino on 05-25-2024 MCH (RBC) [Entitic mass] 29.8 pg Normal 27.0-32.0 [facility] Comment on above: Performed By: #### L 100.0100 ####[facility] [address] [facility] [address] Mean corpuscular hemoglobin concentration (MCHC) determinationOrdered By: Tabatha Severino on 05-25-2024 MCHC (RBC) [Mass/Vol] 33.1 g/dL Normal 32-36 [facility] Comment on above: Performed By: #### L 100.0100 ####[facility] [address] [place], [address] Mean platelet volume determi nationOrdered By: Tabatha Severino on 05-25-2024 Platelet mean volume (Bld) [Entitic vol] 10.7 fL Normal 6.2-12.0 [facility] Comment on above: Performed By: #### L 100.0100 ####[facility] [address] [place], [address] Monocyte percentageOrdered B y: Tabatha Severino on 05-25-2024 Monocytes/100 WBC (Bld) 5.1 % Normal 0-10 [facility] Comment on above: Performed By: #### L 100.0100 ####[facility] [address] [place], [place], [id number] Neutrophil percentageOrdered By: Tabatha Mere on 05-25-2024 Neutrophils/100 WBC (Bld) 78.8 % High 47-70 [facility] Comment on above: Performed By: #### L 100.0100 ####[facility] [address] [place], [place], [phone] Nucleated red blood cell per centageOrdered By: Tabatha Severino on 05-25-2024 Nucleated RBC/100 WBC (Bld) [Ratio] 0 % 0-5 [facility] Platelet countOrdered By: Rick deannajose Mere on 05-25-2024 Platelets (Bld) [#/Vol] 178 10*3/uL Normal 150-450 [facility] Comment on above: Performed By: #### L 100.0100 ####[facility] [address] [place], [place], [phone] White blood cell (WBC) count Ordered By: Tabatha Severino on 05-25-2024 WBC (Bld) [#/Vol] 12.4 10*3/uL High 4.4-11.0 [facility] Comment on above: Performed By: #### L 100.0100 ####[facility] [address] [place], [place], [phone] Absolute lymphocyte countOrd ered By: Tabatha Severino on 04-28-2024 Lymphocytes Auto (Unsp spec) [#/Vol] 1.43 10*3/uL 0.83-4.51 [facility] Absolute neutrophil countOrd ered By: Tabatha Severino on 04-28-2024 Neutrophils (Bld) [#/Vol] 8.8 10*3/uL High 2.0-7.7 [facility] Automated lymphocyte count a s percentage of total leukocytesOrdered By: Tabatha Severino on 04-28-2024 Lymphocytes/100 WBC Auto (Unsp spec) 13.0 % Low 19-41 [facility] Basophil percentageOrdered B y: Tabatha Severino on 04-28-2024 Basophils/100 WBC (Bld) 0.2 % 0-1 [facility] CBC W/Diff, Automatedon 02-2 -2024 Absolute Lymph 1.43 X10 3/uL Normal 0.83-4.51 [facility] Comment on above: Performed By: #### L 100.0100, L501.0250, L3890.6006, L509.8002 ####[facility] [address] [place], [address] Absolute Neut 8.8 X10 3/uL High 2.0-7.7 [facility] Comment on above: Performed By: #### L 100.0100, L501.0250, L3890.6006, L509.8002 ####[facility] [address] [place], [address] Basophils/100 WBC (Bld) 0.2 % Normal 0-1 [facility] Comment on above: Performed By: #### L 100.0100, L501.0250, L3890.6006, L509.8002 ####[facility] [address] [place], [address] Eosinophils/100 WBC (Bld) 1.1 % Normal 0-5 [facility] Comment on above: Performed By: #### L 100.0100, L501.0250, L3890.6006, L509.8002 ####[facility] [address] [place], [address] Erythrocyte distribution width (RBC) [Ratio] 13.0 % Normal 11.6-14.6 [facility] Comment on above: Performed By: #### L 100.0100, L501.0250, L3890.6006, L509.8002 ####[facility] [address] [place], [address] Hematocrit (Bld) [Volume fraction] 30.9 % Low 37-47 [facility] Comment on above: Performed By: #### L 100.0100, L501.0250, L3890.6006, L509.8002 ####[facility] [address] [place], [address] Hemoglobin (Bld) [Mass/Vol] 10.2 g/dL Low 12.0-15.0 [facility] Comment on above: Performed By: #### L 100.0100, L501.0250, L3890.6006, L509.8002 ####[facility] [address] [place], [address] IG% 0.700 Normal 0.0-0.9 [facility] Comment on above: Result Comment: IG% - Immature Granulocytes (promyelocytes, myelocytes and metamyelocytes) > 1% indicates that a LEFT SHIFT is Present. Performed By: #### L 100.0100, L501.0250, L3890.6006, L509.8002 ####[facility] [address] [place], [address] Lymphocytes/100 WBC (Bld) 13.0 % Low 19-41 [facility] Comment on above: Performed By: #### L 100.0100, L501.0250, L3890.6006, L509.8002 ####[facility] [address] [place], [address] MCH (RBC) [Entitic mass] 30.1 pg Normal 27.0-32.0 [facility] Comment on above: Performed By: #### L 100.0100, L501.0250, L3890.6006, L509.8002 ####[facility] [address] [place], [address] MCHC (RBC) [Mass/Vol] 33.0 g/dL Normal 32-36 [facility] Comment on above: Performed By: #### L 100.0100, L501.0250, L3890.6006, L509.8002 ####[facility] [address] [place], [address] MCV (RBC) [Entitic vol] 91.2 fL Normal 81-99 [facility] Comment on above: Performed By: #### L 100.0100, L501.0250, L3890.6006, L509.8002 ####[facility] [address] [place], [address] Monocytes/100 WBC (Bld) 5.1 % Normal 0-10 [facility] Comment on above: Performed By: #### L 100.0100, L501.0250, L3890.6006, L509.8002 ####[facility] [address] [place], [address] Neutrophils/100 WBC (Bld) 79.9 % High 47-70 [facility] Comment on above: Performed By: #### L 100.0100, L501.0250, L3890.6006, L509.8002 ####[facility] [address] [place], [address] Nucleated RBC (Bld) [#/Vol] 0 10*3/uL Normal 0-5 [facility] Comment on above: Performed By: #### L 100.0100, L501.0250, L3890.6006, L509.8002 ####[facility] [address] [place], [address] Platelet mean volume (Bld) [Entitic vol] 11.4 fL Normal 6.2-12.0 [facility] Comment on above: Performed By: #### L 100.0100, L501.0250, L3890.6006, L509.8002 ####[facility] [address] [place], [address] Platelets (Bld) [#/Vol] 176 10*3/uL Normal 150-450 [facility] Comment on above: Performed By: #### L 100.0100, L501.0250, L3890.6006, L509.8002 ####[facility] [address] [place], [address] RBC (Bld) [#/Vol] 3.39 10*6/uL Low 4.2-5.4 [facility] Comment on above: Performed By: #### L 100.0100, L501.0250, L3890.6006, L509.8002 ####[facility] [address] [place], [address] RDW SD 42.4 fl Normal 35.1-43.9 [facility] Comment on above: Performed By: #### L 100.0100, L501.0250, L3890.6006, L509.8002 ####[facility] [address] [place], [address] WBC (Bld) [#/Vol] 11.0 10*3/uL Normal 4.4-11.0 [facility] Comment on above: Performed By: #### L 100.0100, L501.0250, L3890.6006, L509.8002 ####[facility] [address] [place], [address] Eosinophil percentageOrdered By: Tabatha Severino on 04-28-2024 Eosinophils/100 WBC (Bld) 1.1 % 0-5 [facility] Erythrocyte distribution wid th ratioOrdered By: Tabatha Severino on 04-28-2024 Erythrocyte distribution width (RBC) [Ratio] 13.0 % 11.6-14.6 [facility] Erythrocyte distribution wid th standard deviationOrdered By: Tabatha Severino on 04-28-2024 Erythrocyte distribution width (RBC) [Entitic vol] 42.4 fL 35.1-43.9 [facility] Erythrocyte distribution width (RBC) [Ratio] 42.4 fl 35.1-43.9 [facility] Glucose 60min post-GTT OBOrd ered By: Tabatha Severino on 04-28-2024 Glucose [Mass/Vol] 74 mg/dL [facility] Glucose Challenge Gest 1H 50 namrata 04-28-2024 GLU GEST 50g 1H 74 mg/dL Normal [facility] Comment on above: Performed By: #### L 100.0100, L501.0250, L3890.6006, L509.8002 ####[facility] [address] [place], [place], [address] Hematocrit Auto (Bld) [Volum e fraction]Ordered By: Tabatha Severino on 04-28-2024 Hematocrit (Bld) [Volume fraction] 30.9 % Low 37-47 [facility] Hemoglobin measurementOrdere d By: Tabatha Severino on 04-28-2024 Hemoglobin (Bld) [Mass/Vol] 10.2 g/dL Low 12.0-15.0 [facility] Immature granulocytes/100 WB C Auto (Bld)Ordered By: Tabatha Severino on 04-28-2024 Immature granulocytes/100 WBC (Bld) 0.700 % 0.0-0.9 [facility] Comment on above: IG% - Immature Granu locytes (promyelocytes, myelocytes and metamyelocytes) > 1% indicates that a LEFT SHIFT is Present. L3890.6006on 04-28-2024 HIV Non-Reactive Normal Nonreactive [facility] Comment on above: Result Comment: Non- Reactive Reactive Repeatedly reactive samples must be confirmed according to CDC recommended confirmatory algorithms. The subresults for either HIVAG or AHIV can be used as an aid in the selection of the confirmation algorithm for reactive samples. Send out specimens with Reactive results to [facility] for confirmation. Order the HIV antibody detection and differentiation: lc#[id number] Performed By: #### L 100.0100, L501.0250, L3890.6006, L509.8002 ####[facility] [address] [place], [place], [id number] L509.8002on 04-28-2024 Syphilis Abs Non-Reactive Normal Nonreactive [facility] Comment on above: Performed By: #### L 100.0100, L501.0250, L3890.6006, L509.8002 ####[facility] [address] [place], [address] Laboratory - Chemistry and C hemistry - challengeOrdered By: Seema Ruiz on 04-28-2024 Glucose Ql (U) Negative [facility] Laboratory - UrinalysisOrder ed By: Seema Ruiz on 04-28-2024 Protein Ql (U) Negative [facility] Lymphocytes Auto (Unsp spec) [#/Vol]Ordered By: Tabatha Severino on 04-28-2024 Lymphocytes (Bld) [#/Vol] 1.43 10*3/uL 0.83-4.51 [facility] Lymphocytes/100 WBC Auto (Un sp spec)Ordered By: Tabatha Severino on 04-28-2024 Lymphocytes/100 WBC (Bld) 13.0 % Low 19-41 [facility] MCV (mean corpuscular volume ) determinationOrdered By: Tabatha Severino on 04-28-2024 MCV (RBC) [Entitic vol] 91.2 fL 81-99 [facility] Mean corpuscular hemoglobin (MCH) determinationOrdered By: Tabatha Severino on 04-28-2024 MCH (RBC) [Entitic mass] 30.1 pg 27.0-32.0 [facility] Mean corpuscular hemoglobin concentration (MCHC) determinationOrdered By: Tabatha Severino on 04-28-2024 MCHC (RBC) [Mass/Vol] 33.0 g/dL 32-36 [facility] Mean platelet volume determi nationOrdered By: Tabatha Severino on 04-28-2024 Platelet mean volume (Bld) [Entitic vol] 11.4 fL 6.2-12.0 [facility] Monocyte percentageOrdered B y: Tabatha Severino on 04-28-2024 Monocytes/100 WBC (Bld) 5.1 % 0-10 [facility] Neutrophil percentageOrdered By: Tabatha Severino on 04-28-2024 Neutrophils/100 WBC (Bld) 79.9 % High 47-70 [facility] No Panel InformationOrdered By: Tabatha Severino on 04-28-2024 HIV (1&2) Antibody Non-Reactive Nonreactive [facility] Comment on above: Non-ReactiveReactive Repeatedly reactive samples must be confirmed according to CDC recommended confirmatory algorithms. The subresults for either HIVAG or AHIV can be used as an aid in the selection of the confirmation algorithm for reactive samples.Send out specimens with Reactive results to [facility] for confirmation.Order the HIV antibody detection and differentiation: #[id number] Nucleated red blood cell per centageOrdered By: Tabatha Severino on 04-28-2024 Nucleated RBC/100 WBC (Bld) [Ratio] 0 % 0-5 [facility] Axle Bearing Polisher Office Visit Reporton 04-28-2024 Axle Bearing Polisher Office Visit Report [facility] [address], [address] [place] [address] OFFICE VISIT Date of Service: 04/28/24 MR#: [id number] Acct: [id number] Name: JD PRINGLE Rep #: [id number] : 2005 Provider: YAIR jorge Age/Sex: 18/F Location: [facility] Status: Signed Intake Vital Signs 12/30/23 14:44 04/06/24 13:42 04/28/24 14:11 Height 5 ft 6 in 5 ft 6 in 5 ft 6 in Weight: 157 lb 6 oz BMI 25.4 BP 88/55 L Intake Visit Reasons: 25 WK OB *pt needs to reschedule 05/17 appt* Therapist Occupational Required: No Is patient in pain?: No Allergies No Known Allergies Allergy (Verified 04/28/24 14:14) Medications ???Medication ???Instructions ???Recorded ???Confirmed ???Type PNV 153-FA 400 mcg-om3 35 mg-dha 1 tab PO 09/15/22 History 25 mg-epa 5 mg-fish oil chew tablet Last Menstrual Period: 10/28/23 : No PFSH PFSH Medical History Refuses tetanus, diphtheria, and acellular pertussis (Tdap) vaccination Anemia in preg-unspec Vaginal delivery Family History Mother Learning disability Grandmother Breast cancer Social History adopted: No household members: significant other, family and children current occupational status: unemployed current occupation: [employer] current occupational exposures/hazards: No pets and animals: Yes pets and animals: dog(s) history of recent travel: No sexually active: Yes Smoking Status: Never smoker alcohol intake: never substance use type: does not use well-balanced diet: about half the time caffeine: No eating out: 1-3 times/week during the past year weight has: remained stable what type of physical activity do you participate in: walking frequency: 3-4 times per week duration: 15-30 minutes/day roseline/yarsani: Buddhist seatbelt use: sometimes do you feel safe at home: Yes additional social history: BF: Arnold - Unemployed History 2 Elective abortions Hx Para 1 Spontaneous abortions Hx # Term Pregnancies 1 Ectopic pregnancies Hx # Pregnancies Multiple births # of living children 1 Past Pregnancies Del. Date Name GA/Weeks Outcome Route Bth Weight Infant Gen Labor Lgth Anesthesia Del Locatn Provider FOB 04/03/23 Everlee 39 live - full term 7lbs 10oz Female epidural [facility] Julia [facility] Delivery Date: 04/03/23 Last Updated by: Catherine Day IOL poly HPI 25 WK OB *pt needs to reschedule 05/17 appt* Details: JD PRINGLE is a 18 year old who presents for routine OB visit. OB Visit SARAHI Calculator Estimated Delivery Date Method Current WG Current Estimate 08/03/24 LMP (Certain) 26w 1d Other Estimates 08/04/24 Ultrasound #1 26w 0d Expected Delivery Route/Plan Labor Preferences- CB/BF classes: [] labor support person: [] labor intervention preferences: [] pain management options preferred: [] cut cord/dad catch: [] : [] PP control planned: [] discussed possible routes of delivery and associated risks: [] special requests: [] Specific Issue/Plans Covid status: [] Flu vaccine: [] Tdap vaccine: [] Rhogam: [] LARC form signed: [] Problem list reviewed and updated with the most current plan of care details and appropriate orders placed. Relevant counseling for the gestational age provided. Continue routine care and follow up unless otherwise noted in visit notes/problem list details Initial Weight: 132 lb Date -???-???-???-???-??? -???-???-???-???-??? -???-???- EGA Weight BP Urine Prot -???-???-???-???-??? -???-???-???-???-??? -???-???- Glucose FHR FuHt Pres Dilation -???-???-???-???-??? -???-???-???-???-??? -???-???- Effaced St Visit Note 12/30/23 -???-???-???-???-??? -???-???-???-???-??? -???-???- 9w 0d 132 lb (+0 oz) 96/52 -???-???-???-???-??? -???-???-???-???-??? -???-???- 171 -???-???-???-???-??? -???-???-???-???-??? -???-???- KW- CRL cons with dates. Accepts NIPT 02/01/24 -???-???-???-???-??? -???-???-???-???-??? -???-???- 13w 5d 132 lb (+0 oz) 109/55 Negative -???-???-???-???-??? -???-???-???-???-??? -???-???- Negative 144 -???-???-???-???-??? -???-???-???-???-??? -???-???- JV- panorama reviewed. CRL appropriate for gestational age. no complaints. 03/07/24 -???-???-???-???-??? -???-???-???-???-??? -???-???- 18w 5d 138 lb 4 oz (+6 lb 4 oz) 120/70 Negative -???-???-???-???-??? -???-???-???-???-??? -???-???- Negative 155 -???-???-???-???-??? -???-???-???-???-??? -???-???- JV- no compl aints today. questions how much weight should gain and when should feel baby move. has anatomy scan scheduled in 2 days. (more content not included)... Normal [facility] Platelet countOrdered By: Rick Severino on 04-28-2024 Platelets (Bld) [#/Vol] 176 10*3/uL 150-450 [facility] RBC Auto (Bld) [#/Vol]Ordere d By: Tabatha Severino on 04-28-2024 RBC (Bld) [#/Vol] 3.39 10*6/uL Low 4.2-5.4 [facility] T. pallidum abOrdered By: Rick Severino on 04-28-2024 Syphilis Total Antibody Non-Reactive Nonreactiv e [facility] White blood cell (WBC) count Ordered By: Tabatha Severino on 04-28-2024 WBC (Bld) [#/Vol] 11.0 10*3/uL 4.4-11.0 [facility] Laboratory - Chemistry and C hemistry - challengeOrdered By: Tabatha Severino on 04-06-2024 Glucose Ql (U) Negative [facility] Laboratory - UrinalysisOrder ed By: Tabatha Severino on 04-06-2024 Protein Ql (U) Negative [facility] Axle Bearing Polisher Office Visit Reporton 04-06-2024 Axle Bearing Polisher Office Visit Report [facility] [address], [address] [place] [address] OFFICE VISIT Date of Service: 04/06/24 MR#: [id number] Acct: [id number] Name: JD PRINGLE Rep #: [id number] : 2005 Provider: YAIR Brandt ams Age/Sex: 18/F Location: [facility] Status: Signed Intake Vital Signs 03/07/24 11:37 04/06/24 13:40 04/06/24 13:42 Height 5 ft 6 in 5 ft 6 in 5 ft 6 in Weight: 147 lb 8 oz BMI 23.8 BP 106/70 Intake Visit Reasons: 22 wk ob Therapist Occupational Required: No Is patient in pain?: No Allergies No Known Allergies Allergy (Verified 04/06/24 13:40) Medications ???Medication ???Instructions ???Recorded ???Confirmed ???Type PNV 153-FA 400 mcg-om3 35 mg-dha 1 tab PO 09/15/22 History 25 mg-epa 5 mg-fish oil chew tablet Last Menstrual Period: 10/28/23 Zika: Zika virus screening: Negative : No PFSH PFSH Medical History Refuses tetanus, diphtheria, and acellular pertussis (Tdap) vaccination Anemia in preg-unspec Vaginal delivery Family History Mother Learning disability Grandmother Breast cancer Social History adopted: No household members: significant other, family and children current occupational status: unemployed current occupation: [employer] current occupational exposures/hazards: No pets and animals: Yes pets and animals: dog(s) history of recent travel: No sexually active: Yes Smoking Status: Never smoker alcohol intake: never substance use type: does not use well-balanced diet: about half the time caffeine: No eating out: 1-3 times/week during the past year weight has: remained stable what type of physical activity do you participate in: walking frequency: 3-4 times per week duration: 15-30 minutes/day roseline/yarsani: Buddhist seatbelt use: sometimes do you feel safe at home: Yes additional social history: BF: Arnold - Unemployed History 2 Elective abortions Hx Para 1 Spontaneous abortions Hx # Term Pregnancies 1 Ectopic pregnancies Hx # Pregnancies Multiple births # of living children 1 Past Pregnancies Del. Date Name GA/Weeks Outcome Route Bth Weight Gen Labor Lgth Anesthesia Del Locatn Provider FOB 04/03/23 Everlee 39 live - full term 7lbs 10oz Female epidural [facility] Julia [facility] Delivery Date: 04/03/23 Last Updated by: Catherine Day IOL poly HPI 22 wk ob Details: JD PRINGLE is a 18 year old who presents for routine OB visit. OB Visit SARAHI Calculator Estimated Delivery Date Method Current WG Current Estimate 08/03/24 LMP (Certain) 23w 0d Other Estimates 08/04/24 Ultrasound #1 22w 6d Expected Delivery Route/Plan Labor Preferences- CB/BF classes: [] labor support person: [] labor intervention preferences: [] pain management options preferred: [] cut cord/dad catch: [] : [] PP control planned: [] discussed possible routes of delivery and associated risks: [] special requests: [] Specific Issue/Plans Covid status: [] Flu vaccine: [] Tdap vaccine: [] Rhogam: [] LARC form signed: [] Problem list reviewed and updated with the most current plan of care details and appropriate orders placed. Relevant counseling for the gestational age provided. Continue routine care and follow up unless otherwise noted in visit notes/problem list details Initial Weight: 132 lb Date -???-???-???-???-??? -???-???-???-???-??? -???-???- EGA Weight BP Urine Prot -???-???-???-???-??? -???-???-???-???-??? -???-???- Glucose FHR FuHt Pres Dilation -???-???-???-???-??? -???-???-???-???-??? -???-???- Effaced St Visit Note 12/30/23 -???-???-???-???-??? -???-???-???-???-??? -???-???- 9w 0d 132 lb (+0 oz) 96/52 -???-???-???-???-??? -???-???-???-???-??? -???-???- 171 -???-???-???-???-??? -???-???-???-???-??? -???-???- KW- CRL cons with dates. Accepts NIPT 02/01/24 -???-???-???-???-??? -???-???-???-???-??? -???-???- 13w 5d 132 lb (+0 oz) 109/55 Negative -???-???-???-???-??? -???-???-???-???-??? -???-???- Negative 144 -???-???-???-???-??? -???-???-???-???-??? -???-???- JV- panorama reviewed. CRL appropriate for gestational age. no complaints. 03/07/24 -???-???-???-???-??? -???-???-???-???-??? -???-???- 18w 5d 138 lb 4 oz (+6 lb 4 oz) 120/70 Negative -???-???-???-???-??? -???-???-???-???-??? -???-???- Negative 155 -???-???-???-???-??? -???-???-???-???-??? -???-???- JV- no compl aints today. questions how much weight should gain and when should feel baby move. has anatomy scan scheduled in 2 days. 04/06/24 -???-???-???- (more content not included)... Normal [facility] Laboratory - Chemistry and C hemistry - challengeon 03-07-2024 Glucose Ql (U) Negative [facility] Laboratory - Urinalysison Protein Ql (U) Negative [facility] Axle Bearing Polisher Office Visit Reporton 03-07-2024 Axle Bearing Polisher Office Visit Report [facility] [address], [address] [place] [address] OFFICE VISIT Date of Service: 03/07/24 MR#: [id number] Acct: [id number] Name: JD PRINGLE Rep #: [id number] : 2005 Provider: Dr. Tabatha Sotelo DO Age/Sex: 18/F Location: [facility] Status: Signed Intake Vital Signs 12/30/23 14:44 02/01/24 14:31 03/07/24 11:36 03/07/24 11:37 Height 5 ft 6 in 5 ft 6 in 5 ft 6 in 5 ft 6 in Weight: 138 lb 4 oz BMI 22.3 BP 120/70 Intake Visit Reasons: 17 WK OB Therapist Occupational Required: No Is patient in pain?: No Allergies No Known Allergies Allergy (Verified 02/01/24 14:30) Medications ???Medication ???Instructions ???Recorded ???Confirmed ???Type PNV 153-FA 400 mcg-om3 35 mg-dha 1 tab PO 09/15/22 03/07/24 History 25 mg-epa 5 mg-fish oil chew tablet Last Menstrual Period: 10/28/23 Zika: Zika virus screening: Negative : No PFSH PFSH Medical History Refuses tetanus, diphtheria, and acellular pertussis (Tdap) vaccination Anemia in preg-unspec Vaginal delivery Family History Mother Learning disability Grandmother Breast cancer Social History adopted: No household members: significant other, family and children current occupational status: unemployed current occupation: [employer] current occupational exposures/hazards: No pets and animals: Yes pets and animals: dog(s) history of recent travel: No sexually active: Yes Smoking Status: Never smoker alcohol intake: never substance use type: does not use well-balanced diet: about half the time caffeine: No eating out: 1-3 times/week during the past year weight has: remained stable what type of physical activity do you participate in: walking frequency: 3-4 times per week duration: 15-30 minutes/day roseline/yarsani: Buddhist seatbelt use: sometimes do you feel safe at home: Yes additional social history: BF: Arnold - Unemployed History 2 Elective abortions Hx Para 1 Spontaneous abortions Hx # Term Pregnancies 1 Ectopic pregnancies Hx # Pregnancies Multiple births # of living children 1 Past Pregnancies Del. Date Name GA/Weeks Outcome Route Bth Weight Gen Labor Lgth Anesthesia Del Locatn Provider FOB 04/03/23 Everlee 39 live - full term 7lbs 10oz Female epidural [facility] Julia [facility] Delivery Date: 04/03/23 Last Updated by: Catherine Day IOL poly HPI 17 WK OB Details: JD PRINGLE is a 18 year old who presents for routine OB visit. OB Visit SARAHI Calculator Estimated Delivery Date Method Current WG Current Estimate 08/03/24 LMP (Certain) 18w 5d Other Estimates 08/04/24 Ultrasound #1 18w 4d Expected Delivery Route/Plan Labor Preferences- CB/BF classes: [] labor support person: [] labor intervention preferences: [] pain management options preferred: [] cut cord/dad catch: [] : [] PP control planned: [] discussed possible routes of delivery and associated risks: [] special requests: [] Specific Issue/Plans Covid status: [] Flu vaccine: [] Tdap vaccine: [] Rhogam: [] LARC form signed: [] Problem list reviewed and updated with the most current plan of care details and appropriate orders placed. Relevant counseling for the gestational age provided. Continue routine care and follow up unless otherwise noted in visit notes/problem list details Initial Weight: Not Recorded Date -???-???-???-???-??? -???-???-???-???-??? -???-???- EGA Weight BP Urine Prot -???-???-???-???-??? -???-???-???-???-??? -???-???- Glucose FHR FuHt Pres Dilation -???-???-???-???-??? -???-???-???-???-??? -???-???- Effaced St Visit Note 12/30/23 -???-???-???-???-??? -???-???-???-???-??? -???-???- 9w 0d 132 lb 96/52 -???-???-???-???-??? -???-???-???-???-??? -???-???- 171 -???-???-???-???-??? -???-???-???-???-??? -???-???- KW- CRL cons with dates. Accepts NIPT 02/01/24 -???-???-???-???-??? -???-???-???-???-??? -???-???- 13w 5d 132 lb 109/55 Negative -???-???-???-???-??? -???-???-???-???-??? -???-???- Negative 144 -???-???-???-???-??? -???-???-???-???-??? -???-???- JV- panorama reviewed. CRL appropriate for gestational age. no complaints. 03/07/24 -???-???-???-???-??? -???-???-???-???-??? -???-???- 18w 5d 138 lb 4 oz 120/70 Negative -???-???-???-???-??? -???-???-???-???-??? -???-???- Negative 155 -???-???-???-???-??? -???-???-???-???-??? -???-???- JV- no compl aints today. questions how much weight should gain and when should feel baby move. has anatomy scan scheduled in 2 days. ACOG First (more content not included)... Normal [facility] Laboratory - Chemistry and C hemistry - challengeon 02-01-2024 Glucose Ql (U) Negative [facility] Laboratory - Urinalysison Protein Ql (U) Negative [facility] Axle Bearing Polisher Office Visit Reporton 02-01-2024 Axle Bearing Polisher Office Visit Report [facility] [address], [address] [place] [address] OFFICE VISIT Date of Service: 02/01/24 MR#: [id number] Acct: [id number] Name: JD PRINGLE Rep #: [id number] : 2005 Provider: Dr. Tabatha Sotelo DO Age/Sex: 18/F [place] [facility] Status: Signed Intake Vital Signs 05/14/23 10:41 12/30/23 14:44 02/01/24 14:30 02/01/24 14:31 Height 5 ft 6 in 5 ft 6 in 5 ft 6 in 5 ft 6 in Weight: 132 lb BMI 21.3 BP 109/55 L Intake Visit Reasons: 13wk OB Therapist Occupational Required: No Is patient in pain?: No Allergies No Known Allergies Allergy (Verified 02/01/24 14:30) Medications ???Medication ???Instructions ???Recorded ???Confirmed ???Type PNV 153-FA 400 mcg-om3 35 mg-dha 1 tab PO 09/15/22 02/01/24 History 25 mg-epa 5 mg-fish oil chew tablet Last Menstrual Period: 10/28/23 Zika: Zika virus screening: Negative : No PFSH PFSH Medical History Refuses tetanus, diphtheria, and acellular pertussis (Tdap) vaccination Anemia in preg-unspec Vaginal delivery Family History Mother Learning disability Grandmother Breast cancer Social History adopted: No household members: significant other, family and children current occupational status: unemployed current occupation: [employer] current occupational exposures/hazards: No pets and animals: Yes pets and animals: dog(s) history of recent travel: No sexually active: Yes Smoking Status: Never smoker alcohol intake: never substance use type: does not use well-balanced diet: about half the time caffeine: No eating out: 1-3 times/week during the past year weight has: remained stable what type of physical activity do you participate in: walking frequency: 3-4 times per week duration: 15-30 minutes/day roseline/yarsani: Buddhist seatbelt use: sometimes do you feel safe at home: Yes additional social history: BF: Arnold - Unemployed History 2 Elective abortions Hx Para 1 Spontaneous abortions Hx # Term Pregnancies 1 Ectopic pregnancies Hx # Pregnancies Multiple births # of living children 1 Past Pregnancies Del. Date Name GA/Weeks Outcome Route Bth Weight Gen Labor Lgth Anesthesia Del Locatn Provider FOB 04/03/23 Everlee 39 live - full term 7lbs 10oz Female epidural [facility] Julia Solitario Delivery Date: 04/03/23 Last Updated by: Catherine Day IOL poly HPI 13wk OB Details: JD PRINGLE is a 18 year old who presents for routine OB visit. OB Visit SARAHI Calculator Estimated Delivery Date Method Current WG Current Estimate 08/03/24 LMP (Certain) 13w 5d Other Estimates 08/04/24 Ultrasound #1 13w 4d Expected Delivery Route/Plan Labor Preferences- CB/BF classes: [] labor support person: [] labor intervention preferences: [] pain management options preferred: [] cut cord/dad catch: [] : [] PP control planned: [] discussed possible routes of delivery and associated risks: [] special requests: [] Specific Issue/Plans Covid status: [] Flu vaccine: [] Tdap vaccine: [] Rhogam: [] LARC form signed: [] Problem list reviewed and updated with the most current plan of care details and appropriate orders placed. Relevant counseling for the gestational age provided. Continue routine care and follow up unless otherwise noted in visit notes/problem list details Initial Weight: Not Recorded Date -???-???-???-???-??? -???-???-???-???-??? -???-???- EGA Weight BP Urine Prot -???-???-???-???-??? -???-???-???-???-??? -???-???- Glucose FHR FuHt Pres Dilation -???-???-???-???-??? -???-???-???-???-??? -???-???- Effaced St Visit Note 12/30/23 -???-???-???-???-??? -???-???-???-???-??? -???-???- 9w 0d 132 lb 96/52 -???-???-???-???-??? -???-???-???-???-??? -???-???- 171 -???-???-???-???-??? -???-???-???-???-??? -???-???- KW- CRL cons with dates. Accepts NIPT 02/01/24 -???-???-???-???-??? -???-???-???-???-??? -???-???- 13w 5d 132 lb 109/55 Negative -???-???-???-???-??? -???-???-???-???-??? -???-???- Negative 144 -???-???-???-???-??? -???-???-???-???-??? -???-???- JV- panorama reviewed. CRL appropriate for gestational age. no complaints. ACOG First Trimester First Trimester: Discussed Second Trimester Second Trimester: Signs and Symptoms of Labor, Selecting a care provider, Reproductive Life Planning Contreception, Care Planning, Depression/Anxiety and Intimate Partner Violence; Discussed Tobacco Cessation Third Trimester Third Trimester: Pain Management (more content not included)... Normal [facility] CBC W/Diff, Automatedon 11-0 Absolute Lymph 1.44 X10 3/uL Normal 0.83-4.51 [facility] Comment on above: Performed By: #### L 3890.6005, L900.0098, L3890.6300, BTS, L509.4005, L3890.6100, L509.8000, L100.0100 #### [facility] [address] [place], [address] Absolute Neut 5.6 X10 3/uL Normal 2.0-7.7 [facility] Comment on above: Performed By: #### L 3890.6005, L900.0098, L3890.6300, BTS, L509.4005, L3890.6100, L509.8000, L100.0100 #### [facility] [address] [place], [address] Basophils/100 WBC (Bld) 0.3 % Normal 0-1 [facility] Comment on above: Performed By: #### L 3890.6005, L900.0098, L3890.6300, BTS, L509.4005, L3890.6100, L509.8000, L100.0100 #### [facility] [address] [place], [address] Eosinophils/100 WBC (Bld) 0.7 % Normal 0-5 [facility] Comment on above: Performed By: #### L 3890.6005, L900.0098, L3890.6300, BTS, L509.4005, L3890.6100, L509.8000, L100.0100 #### [facility] [address] [place], [address] Erythrocyte distribution width (RBC) [Ratio] 12.4 % Normal 11.6-14.6 [facility] Comment on above: Performed By: #### L 3890.6005, L900.0098, L3890.6300, BTS, L509.4005, L3890.6100, L509.8000, L100.0100 #### [facility] [address] [place], [address] Hematocrit (Bld) [Volume fraction] 37.3 % Normal 37-47 [facility] Comment on above: Performed By: #### L 3890.6005, L900.0098, L3890.6300, BTS, L509.4005, L3890.6100, L509.8000, L100.0100 #### [facility] [address] [place], [address] Hemoglobin (Bld) [Mass/Vol] 12.7 g/dL Normal 12.0-15.0 [facility] Comment on above: Performed By: #### L 3890.6005, L900.0098, L3890.6300, BTS, L509.4005, L3890.6100, L509.8000, L100.0100 #### [facility] [address] [place], [address] IG% 0.400 Normal 0.0-0.9 [facility] Comment on above: Result Comment: IG% - Immature Granulocytes (promyelocytes, myelocytes and metamyelocytes) > 1% indicates that a LEFT SHIFT is Present. Performed By: #### L 3890.6005, L900.0098, L3890.6300, BTS, L509.4005, L3890.6100, L509.8000, L100.0100 #### [facility] [address] [place], [address] Lymphocytes/100 WBC (Bld) 19.2 % Normal 19-41 [facility] Comment on above: Performed By: #### L 3890.6005, L900.0098, L3890.6300, BTS, L509.4005, L3890.6100, L509.8000, L100.0100 #### [facility] [address] [place], [address] MCH (RBC) [Entitic mass] 30.0 pg Normal 27.0-32.0 [facility] Comment on above: Performed By: #### L 3890.6005, L900.0098, L3890.6300, BTS, L509.4005, L3890.6100, L509.8000, L100.0100 #### [facility] [address] [place], [address] MCHC (RBC) [Mass/Vol] 34.0 g/dL Normal 32-36 [facility] Comment on above: Performed By: #### L 3890.6005, L900.0098, L3890.6300, BTS, L509.4005, L3890.6100, L509.8000, L100.0100 #### [facility] [address] [place], [address] MCV (RBC) [Entitic vol] 88.0 fL Normal 81-99 [facility] Comment on above: Performed By: #### L 3890.6005, L900.0098, L3890.6300, BTS, L509.4005, L3890.6100, L509.8000, L100.0100 #### [facility] [address] [place], [address] Monocytes/100 WBC (Bld) 4.3 % Normal 0-10 [facility] Comment on above: Performed By: #### L 3890.6005, L900.0098, L3890.6300, BTS, L509.4005, L3890.6100, L509.8000, L100.0100 #### [facility] [address] [place], [address] Neutrophils/100 WBC (Bld) 75.1 % High 47-70 [facility] Comment on above: Performed By: #### L 3890.6005, L900.0098, L3890.6300, BTS, L509.4005, L3890.6100, L509.8000, L100.0100 #### [facility] [address] [place], [address] Nucleated RBC (Bld) [#/Vol] 0 10*3/uL Normal 0-5 [facility] Comment on above: Performed By: #### L 3890.6005, L900.0098, L3890.6300, BTS, L509.4005, L3890.6100, L509.8000, L100.0100 #### [facility] [address] [place], [address] Platelet mean volume (Bld) [Entitic vol] 11.2 fL Normal 6.2-12.0 [facility] Comment on above: Performed By: #### L 3890.6005, L900.0098, L3890.6300, BTS, L509.4005, L3890.6100, L509.8000, L100.0100 #### [facility] [address] [place], [address] Platelets (Bld) [#/Vol] 202 10*3/uL Normal 150-450 [facility] Comment on above: Performed By: #### L 3890.6005, L900.0098, L3890.6300, BTS, L509.4005, L3890.6100, L509.8000, L100.0100 #### [facility] [address] [place], [address] RBC (Bld) [#/Vol] 4.24 10*6/uL Normal 4.2-5.4 [facility] Comment on above: Performed By: #### L 3890.6005, L900.0098, L3890.6300, BTS, L509.4005, L3890.6100, L509.8000, L100.0100 #### [facility] [address] [place], [address] RDW SD 39.9 fl Normal 35.1-43.9 [facility] Comment on above: Performed By: #### L 3890.6005, L900.0098, L3890.6300, BTS, L509.4005, L3890.6100, L509.8000, L100.0100 #### [facility] [address] [place], [address] WBC (Bld) [#/Vol] 7.5 10*3/uL Normal 4.4-11.0 [facility] Comment on above: Performed By: #### L 3890.6005, L900.0098, L3890.6300, BTS, L509.4005, L3890.6100, L509.8000, L100.0100 #### [facility] [address] [place], [address] HIV - WCHon 01-06-2024 HIV Non-Reactive Normal Nonreactive [facility] Comment on above: Order Comment: Reaso n for Exam: Performed By: #### L 3890.6005, L900.0098, L3890.6300, BTS, L509.4005, L3890.6100, L509.8000, L100.0100 ####[facility] [address] [facility] [place], [place], [id number] Hepatitis B Surface Antigeno n 01-06-2024 HEP B Surf Ag [facility] Comment on above: Order Comment: Reaso n for Exam: Performed By: #### L 3890.6005, L900.0098, L3890.6300, BTS, L509.4005, L3890.6100, L509.8000, L100.0100 ####[facility] [address] [facility]. [place], [place], [id number] Hepatitis C Antibodyon 01-05 Hepatitis C AB Non-Reactive [facility] Comment on above: Order Comment: Reaso n for Exam: Result Comment: Non Reactive: < 0.8 Equivocal: >/= 0.8 to < 1.0 Reactive: >/= 1.0 The CDC requires that a reactive/equivocal HCV antibody result be sent out for confirmation. HCV Quant by PCR testing. Performed By: #### L 3890.6005, L900.0098, L3890.6300, BTS, L509.4005, L3890.6100, L509.8000, L100.0100 ####[facility] [address] [place], [address] L509.8000on 01-06-2024 Syphilis Abs Non-Reactive Normal [facility] Comment on above: Order Comment: Reaso n for Exam: Performed By: #### L 3890.6005, L900.0098, L3890.6300, BTS, L509.4005, L3890.6100, L509.8000, L100.0100 ####[facility] [address] [place], [address] NATERAon 01-06-2024 NATURA SEE SCANNED REPORT Normal [facility] Comment on above: Performed By: #### L 3890.6005, L900.0098, L3890.6300, BTS, L509.4005, L3890.6100, L509.8000, L100.0100 #### [facility] [address] [place], [address] Rubella IgGon 01-06-2024 Rubella IgG Reactive Normal Nonreactive [facility] Comment on above: Order Comment: Reaso n for Exam: Result Comment: Anti body Results Interpretation of Immune Status Non Reactive Presumed Non-Immune Equivocal Equivocal Reactive Presumed Immune Performed By: #### L 3890.6005, L900.0098, L3890.6300, BTS, L509.4005, L3890.6100, L509.8000, L100.0100 ####[facility] [address] [place], [address] Type AND Screenon 01-06-2024 ABO and Rh group Nom (Bld) Blood group A Rh(D) positive Normal [facility] Comment on above: Order Comment: PN Performed By: #### L 3890.6005, L900.0098, L3890.6300, BTS, L509.4005, L3890.6100, L509.8000, L100.0100 ####[facility] [address] [place], [address] Chlamydia/GC ANT aptimaon CHLAMY,NUC ACID Negative Normal Negative [facility] Comment on above: Performed By: #### L 7000.1800, M100.2200 ####[facility] [address] [place], [address] GC BY NUC ACID Negative Normal Negative [facility] Comment on above: Result Comment: Perf ormed at: =G - [facility] [address] [id number] Land Leveler: Rossy Modi MD, Phone: [phone] Performed By: #### L 7000.1800, M100.2200 ####[facility] [address] [place], [address] Urine Cultureon 01-01-2024 [facility] [place] Count = 7000 cfu/mL Below infection level. Presumptive E. coli [place] Count 1000-10,000 Normal [facility] Comment on above: Performed By: #### L 7000.1800, M100.2200 ####[facility] [address] [place], [address] [employer]earing [employer]isher Office Visit Reporton 12-30-2023 [employer]earing [employer] Office Visit Report [facility] [address], [address] [place] [address] OFFICE VISIT Date of Service: 12/30/23 MR#: [id number] Acct: [id number] Name: JD PRINGLE Rep #: [id number] : 2005 Provider: YAIR Brandt ams Age/Sex: 18/F Location: [facility] Status: Signed Intake Vital Signs 05/14/23 10:41 12/30/23 14:42 12/30/23 14:44 Height 5 ft 6 in 5 ft 6 in 5 ft 6 in Weight: 132 lb BMI 21.3 BP 96/52 L Intake Visit Reasons: New OB, LMP 10/27, SARAHI 08/03 Therapist Occupational Required: No Is patient in pain?: No Allergies No Known Allergies Allergy (Verified 12/30/23 14:42) Medications ???Medication ???Instructions ???Recorded ???Confirmed ???Type PNV 153-FA 400 mcg-om3 35 mg-dha 1 tab PO 09/15/22 12/30/23 History 25 mg-epa 5 mg-fish oil chew tablet Last Menstrual Period: 10/28/23 Zika: Zika virus screening: Negative : No Have you fallen in the past year?: No PFSH PFSH Medical History Refuses tetanus, diphtheria, and acellular pertussis (Tdap) vaccination Anemia in preg-unspec Vaginal delivery Family History Mother Learning disability Grandmother Breast cancer Social History adopted: No household members: significant other, family and children service: No current occupational status: unemployed current occupation: [employer] current occupational exposures/hazards: No pets and animals: Yes pets and animals: dog(s) history of recent travel: No sexually active: Yes Smoking Status: Never smoker alcohol intake: never substance use type: does not use well-balanced diet: about half the time caffeine: No eating out: 1-3 times/week during the past year weight has: remained stable what type of physical activity do you participate in: walking frequency: 3-4 times per week duration: 15-30 minutes/day roseline/yarsani: Buddhist seatbelt use: sometimes do you feel safe at home: Yes additional social history: BF: Arnold - Unemployed History 2 Elective abortions Hx Para 1 Spontaneous abortions Hx # Term Pregnancies 1 Ectopic pregnancies Hx # Pregnancies Multiple births # of living children 1 Past Pregnancies Del. Date Name GA/Weeks Outcome Route Bth Weight Infant Gen Labor Lgth Anesthesia Del Locatn Provider FOB 04/03/23 Everlee 39 live - full term 7lbs 10oz Female epidural [facility] Julia Solitario Delivery Date: 04/03/23 Last Updated by: Catherine Day IOL poly HPI New OB, LMP 10/27, SARAHI 08/03 Details: JD PRINGLE is a 18 year old who presents for New OB visit. OB Visit SARAHI Calculator Estimated Delivery Date Method Current WG Current Estimate 08/03/24 LMP (Certain) 9w 0d Other Estimates 08/04/24 Ultrasound #1 8w 6d Estimated Due Date: 08/03/24 Expected Delivery Route/Plan Labor Preferences- CB/BF classes: [] labor support person: [] labor intervention preferences: [] pain management options preferred: [] cut cord/dad catch: [] : [] PP control planned: [] discussed possible routes of delivery and associated risks: [] special requests: [] Specific Issue/Plans Covid status: [] Flu vaccine: [] Tdap vaccine: [] Rhogam: [] LARC form signed: [] Problem list reviewed and updated with the most current plan of care details and appropriate orders placed. Relevant counseling for the gestational age provided. Continue routine care and follow up unless otherwise noted in visit notes/problem list details Initial Weight: Not Recorded Date -???-???-???-???-??? -???-???-???-???-??? -???-???- EGA Weight BP Urine Prot -???-???-???-???-??? -???-???-???-???-??? -???-???- Glucose FHR FuHt Pres Dilation -???-???-???-???-??? -???-???-???-???-??? -???-???- Effaced St Visit Note 12/30/23 -???-???-???-???-??? -???-???-???-???-??? -???-???- 9w 0d 132 lb 96/52 -???-???-???-???-??? -???-???-???-???-??? -???-???- 171 -???-???-???-???-??? -???-???-???-???-??? -???-???- KW- CRL cons with dates. Accepts NIPT Menstrual History Last Menstrual Period: 10/28/23 Reported LMP: definite Normal amount/duration: Yes Frequency in days: 28 On hormonal BC at conception: No hCG+: 11/25/23 Antepartum Record Genetic Screening: Congenital Heart Defect: Other, Neural Tube Defect: Other, Hemoglobinopathy Or Carrier: Other, Cystic Fibrosis: Other, Chromosome Abnormality: Other, Hernandez-Sachs: Other, Hemophilia: Other, Intellectual Disability/Autism: Patient (Pt's mom with intellectual disability ), Recurrent Loss/Stillbirth: Other, Other Structural Defect: Other, Ot (more content not included)... Normal [facility] Absolute lymphocyte countOrd ered By: Julia Ortiz on 04-02-2023 Lymphocytes Auto (Unsp spec) [#/Vol] 1.60 10*3/uL 0.83-4.51 [facility] Automated lymphocyte count a s percentage of total leukocytesOrdered By: Julia Ortiz on 04-02-2023 Lymphocytes/100 WBC Auto (Unsp spec) 10.2 % 25-45 [facility] Basophil percentageOrdered B y: Julia Ortiz on 04-02-2023 Basophils/100 WBC (Bld) 0.2 % 0-1 [facility] Eosinophils/100 WBC (Bld) 0.6 % 0-3 [facility] Hemoglobin (Bld) [Mass/Vol] 11.8 g/dL 12.0-15.0 [facility] Monocytes/100 WBC (Bld) 5.9 % 3-6 [facility] Neutrophils (Bld) [#/Vol] 12.9 10*3/uL 2.0-7.7 [facility] Neutrophils/100 WBC (Bld) 82.5 % 34-64 [facility] WBC (Bld) [#/Vol] 15.6 10*3/uL 4.5-13.0 [facility] Determination of erythrocyte mean corpuscular volume (MCV)Ordered By: Julia Ortiz on 04-02-2023 MCV (RBC) [Entitic vol] 92.1 fL 78-96 [facility] Erythrocyte distribution wid th ratioOrdered By: Julia Ortiz on 04-02-2023 Erythrocyte distribution width (RBC) [Ratio] 12.8 % 11.6-14.6 [facility] Erythrocyte distribution wid th standard deviationOrdered By: Julia Ortiz on 04-02-2023 Erythrocyte distribution width (RBC) [Entitic vol] 42.5 fL 35.1-43.9 [facility] Hematocrit Auto (Bld) [Volum e fraction]Ordered By: Julia Ortiz on 04-02-2023 Hematocrit (Bld) [Volume fraction] 35.2 % 37-46 [facility] Immature granulocytes/100 WB C Auto (Bld)Ordered By: Julia Ortiz on 04-02-2023 Immature granulocytes/100 WBC (Bld) 0.600 % 0.0-0.9 [facility] Comment on above: IG% - Immature Granu locytes (promyelocytes, myelocytes and metamyelocytes) > 1% indicates that a LEFT SHIFT is Present. Laboratory - Hematology and Cell countsOrdered By: Julia Ortiz on 04-02-2023 MCH (RBC) [Entitic mass] 30.9 pg 25.0-35.0 [facility] MCHC (RBC) [Mass/Vol] 33.5 g/dL 32-36 [facility] Nucleated RBC/100 WBC (Bld) [Ratio] 0 % 0-5 [facility] Platelets (Bld) [#/Vol] 182 10*3/uL 150-450 [facility] Platelet mean volume Brent-Ec ker (Bld) [Entitic vol]Ordered By: Julia Ortiz on 04-02-2023 Platelet mean volume (Bld) [Entitic vol] 12.2 fL 6.2-12.0 [facility] RBC Auto (Bld) [#/Vol]Ordere d By: Julia Ortiz on 04-02-2023 RBC (Bld) [#/Vol] 3.82 10*6/uL 4.1-4.8 [facility] Serum Treponema species anti body detectionOrdered By: Julia Ortiz on 04-02-2023 Treponema sp Ab Ql (S) Non-Reactive [facility] - Chemistry and C hemistry - challengeon 03-31-2023 Glucose Ql (U) Negative [facility] - Urinalysison 01 -31-2024 Protein Ql (U) Negative [facility] - Chemistry and C hemistry - challengeon 03-24-2023 Glucose Ql (U) Negative [facility] - Urinalysison Protein Ql (U) Negative [facility] No Panel InformationOrdered By: Francesca Yeung on 03-18-2023 Group B Streptococcus Culture Group B Beta Streptococcus is not isolated. [facility] - Chemistry and C hemistry - challengeon 03-10-2023 Glucose Ql (U) Negative [facility] - Urinalysison Protein Ql (U) Negative [facility] Absolute lymphocyte countOrd ered By: Rosa Knight on 02-24-2023 Lymphocytes Auto (Unsp spec) [#/Vol] 1.60 10*3/uL 0.83-4.51 [facility] Basophil percentageOrdered B y: Rosa Knight on 02-24-2023 Basophils/100 WBC (Bld) 0.2 % 0-1 [facility] Eosinophils/100 WBC (Bld) 1.5 % 0-3 [facility] Neutrophils (Bld) [#/Vol] 10.4 10*3/uL 2.0-7.7 [facility] Neutrophils/100 WBC (Bld) 78.2 % 34-64 [facility] WBC (Bld) [#/Vol] 13.3 10*3/uL 4.5-13.0 [facility] Blood erythrocytes count (nu mber/volume)Ordered By: Rosa Knight on 02-24-2023 RBC (Bld) [#/Vol] 3.59 10*6/uL 4.1-4.8 [facility] Blood hemoglobin measurement (mass/volume)Ordered By: Rosa Knight on 02-24-2023 Hemoglobin (Bld) [Mass/Vol] 11.5 g/dL 12.0-15.0 [facility] Blood lymphocytes/100 leukoc ytesOrdered By: Rosa Knight on 02-24-2023 Lymphocytes/100 WBC (Bld) 12.0 % 25-45 [facility] Blood monocytes/100 leukocyt esOrdered By: Rosa Knight on 02-24-2023 Monocytes/100 WBC (Bld) 7.3 % 3-6 [facility] Blood platelet mean volumeOr dered By: Rosa Knight on 02-24-2023 Platelet mean volume (Bld) [Entitic vol] 11.0 fL 6.2-12.0 [facility] Determination of erythrocyte mean corpuscular volume (MCV)Ordered By: Rosa Knight on 02-24-2023 MCV (RBC) [Entitic vol] 94.2 fL 78-96 [facility] Hematocrit Auto (Bld) [Volum e fraction]Ordered By: Rosa Knight on 02-24-2023 Hematocrit (Bld) [Volume fraction] 33.8 % 37-46 [facility] - Chemistry and C hemistry - challengeon 02-24-2023 Glucose Ql (U) Negative [facility] - Hematology and Cell countsOrdered By: Rosa Knight on 02-24-2023 Erythrocyte distribution width (RBC) [Entitic vol] 43.5 fL 35.1-43.9 [facility] Erythrocyte distribution width (RBC) [Ratio] 12.6 % 11.6-14.6 [facility] Immature granulocytes/100 WBC (Bld) 0.800 % 0.0-0.9 [facility] Comment on above: IG% - Immature Granu locytes (promyelocytes, myelocytes and metamyelocytes) > 1% indicates that a LEFT SHIFT is Present. MCH (RBC) [Entitic mass] 32.0 pg 25.0-35.0 [facility] Nucleated RBC/100 WBC (Bld) [Ratio] 0 % 0-5 [facility] - Urinalysison Protein Ql (U) Trace [facility] MCHC Auto (RBC) [Mass/Vol]Or dered By: Rosa Knight on 02-24-2023 MCHC (RBC) [Mass/Vol] 34.0 g/dL 32-36 [facility] Platelets bldOrdered By: Darshan Knight on 02-24-2023 Platelets (Bld) [#/Vol] 170 10*3/uL 150-450 [facility] - Chemistry and C hemistry - challengeon 02-09-2023 Glucose Ql (U) Negative [facility] - Urinalysison Protein Ql (U) Negative [facility] - Chemistry and C hemistry - challengeon 01-29-2023 Glucose Ql (U) Negative [facility] - Urinalysison Protein Ql (U) Negative [facility] Absolute lymphocyte countOrd ered By: Rosa Knight on 01-08-2023 Lymphocytes Auto (Unsp spec) [#/Vol] 1.42 10*3/uL 0.83-4.51 [facility] Basophil percentageOrdered B y: Rosa Knight on 01-08-2023 Basophils/100 WBC (Bld) 0.3 % 0-1 [facility] Eosinophils/100 WBC (Bld) 2.1 % 0-3 [facility] Neutrophils (Bld) [#/Vol] 10.3 10*3/uL 2.0-7.7 [facility] Neutrophils/100 WBC (Bld) 80.1 % 34-64 [facility] WBC (Bld) [#/Vol] 12.9 10*3/uL 4.5-13.0 [facility] Blood erythrocytes count (nu mber/volume)Ordered By: Rosa Knight on 01-08-2023 RBC (Bld) [#/Vol] 3.45 10*6/uL 4.1-4.8 [facility] Blood hemoglobin measurement (mass/volume)Ordered By: Rosa Knight on 01-08-2023 Hemoglobin (Bld) [Mass/Vol] 10.8 g/dL 12.0-15.0 [facility] Blood lymphocytes/100 leukoc ytesOrdered By: Rosa Knight on 01-08-2023 Lymphocytes/100 WBC (Bld) 11.0 % 25-45 [facility] Blood monocytes/100 leukocyt esOrdered By: Rosa Knight on 01-08-2023 Monocytes/100 WBC (Bld) 5.8 % 3-6 [facility] Blood platelet mean volumeOr dered By: Rosa Knight on 01-08-2023 Platelet mean volume (Bld) [Entitic vol] 11.3 fL 6.2-12.0 [facility] Determination of erythrocyte mean corpuscular volume (MCV)Ordered By: Rosa Knight on 01-08-2023 MCV (RBC) [Entitic vol] 98.0 fL 78-96 [facility] Gestational diabetes screen 1-hour screen with 50g oral glucose loadOrdered By: Rosa Knight on 01-08-2023 Glucose 1 Hr post 50 g glucose PO [Mass/Vol] 104 mg/dL 70-140 [facility] HIV 1 and HIV-2 antibody ass ay with HIV-1 p24 antigen detectionOrdered By: Rosa Knight on 01-08-2023 HIV 1+2 Ab+HIV1 p24 Ag IA Ql Non-Reactive Nonreactive [facility] Hematocrit Auto (Bld) [Volum e fraction]Ordered By: Rosa Knight on 01-08-2023 Hematocrit (Bld) [Volume fraction] 33.8 % 37-46 [facility] Laboratory - Hematology and Cell countsOrdered By: Rosa Knight on 01-08-2023 Erythrocyte distribution width (RBC) [Entitic vol] 45.4 fL 35.1-43.9 [facility] Erythrocyte distribution width (RBC) [Ratio] 12.8 % 11.6-14.6 [facility] Immature granulocytes/100 WBC (Bld) 0.700 % 0.0-0.9 [facility] Comment on above: IG% - Immature Granu locytes (promyelocytes, myelocytes and metamyelocytes) > 1% indicates that a LEFT SHIFT is Present. MCH (RBC) [Entitic mass] 31.3 pg 25.0-35.0 [facility] Nucleated RBC/100 WBC (Bld) [Ratio] 0 % 0-5 [facility] MCHC Auto (RBC) [Mass/Vol]Or dered By: Rosa Knight on 01-08-2023 MCHC (RBC) [Mass/Vol] 32.0 g/dL 32-36 [facility] Platelets bldOrdered By: Darshan Knight on 01-08-2023 Platelets (Bld) [#/Vol] 178 10*3/uL 150-450 [facility] Serum Treponema species anti body detectionOrdered By: Rosa Knight on 11-10-2023 Treponema sp Ab Ql (S) Non-Reactive [facility] Laboratory - Chemistry and C hemistry - challengeon 10-16-2022 Glucose Ql (U) Negative [facility] - Urinalysison Protein Ql (U) Negative [facility] Absolute lymphocyte countOrd ered By: Tabatha Severino on 09-17-2022 Lymphocytes Auto (Unsp spec) [#/Vol] 1.42 10*3/uL 0.83-4.51 [facility] Basophil percentageOrdered B y: Tabatha Severino on 09-17-2022 Basophils/100 WBC (Bld) 0.2 % 0-1 [facility] Eosinophils/100 WBC (Bld) 0.3 % 0-3 [facility] Neutrophils (Bld) [#/Vol] 8.0 10*3/uL 2.0-7.7 [facility] Neutrophils/100 WBC (Bld) 80.5 % 34-64 [facility] WBC (Bld) [#/Vol] 10.0 10*3/uL 4.5-13.0 [facility] Blood erythrocytes count (nu mber/volume)Ordered By: Tabatha Severino on 09-17-2022 RBC (Bld) [#/Vol] 4.17 10*6/uL 4.1-4.8 [facility] Blood hemoglobin measurement (mass/volume)Ordered By: Tabatha Severino on 09-17-2022 Hemoglobin (Bld) [Mass/Vol] 12.9 g/dL 12.0-15.0 [facility] Blood lymphocytes/100 leukoc ytesOrdered By: Tabatha Severino on 09-17-2022 Lymphocytes/100 WBC (Bld) 14.3 % 25-45 [facility] Blood monocytes/100 leukocyt esOrdered By: Tabatha Severino on 09-17-2022 Monocytes/100 WBC (Bld) 4.1 % 3-6 [facility] Blood platelet mean volumeOr dered By: Tabatha Seevrino on 09-17-2022 Platelet mean volume (Bld) [Entitic vol] 10.3 fL 6.2-12.0 [facility] Chlamydia trachomatis rRNA d etection by probe and target amplification methodOrdered By: Tabatha Severino on 09-17-2022 C. trachomatis rRNA ANT+probe Ql (Unsp spec) Negative Negative [facility] Culture, urineOrdered By: Rick Severino on 09-17-2022 Bacteria identified Cx Nom (U) Staphylococcus saprophyticus [facility] Determination of erythrocyte mean corpuscular volume (MCV)Ordered By: Tabatha Severino on 09-17-2022 MCV (RBC) [Entitic vol] 92.1 fL 78-96 [facility] HIV 1 and HIV-2 antibody ass ay with HIV-1 p24 antigen detectionOrdered By: Tabatha Severino on 09-17-2022 HIV 1+2 Ab+HIV1 p24 Ag IA Ql Non-Reactive Nonreactive [facility] Hematocrit Auto (Bld) [Volum e fraction]Ordered By: Tabatha Severino on 09-17-2022 Hematocrit (Bld) [Volume fraction] 38.4 % 37-46 [facility] - Hematology and Cell countsOrdered By: Tabatha Severino on 09-17-2022 Erythrocyte distribution width (RBC) [Entitic vol] 40.5 fL 35.1-43.9 [facility] Erythrocyte distribution width (RBC) [Ratio] 12.0 % 11.6-14.6 [facility] Immature granulocytes/100 WBC (Bld) 0.600 % 0.0-0.9 [facility] Comment on above: IG% - Immature Granu locytes (promyelocytes, myelocytes and metamyelocytes) > 1% indicates that a LEFT SHIFT is Present. MCH (RBC) [Entitic mass] 30.9 pg 25.0-35.0 [facility] Nucleated RBC/100 WBC (Bld) [Ratio] 0 % 0-5 [facility] - Microbiology an d Antimicrobial susceptibilityOrdered By: Tabatha Severino on 09-17-2022 N. gonorrhoeae DNA ANT+probe Ql (Unsp spec) Negative Negative [facility] Comment on above: Performed at: =G - [address] [id number] Director: Rossy Modi MD, Phone: [phone] MCHC Auto (RBC) [Mass/Vol]Or dered By: Tabatha Severino on 09-17-2022 MCHC (RBC) [Mass/Vol] 33.6 g/dL 32-36 [facility] No Panel InformationOrdered By: Tabatha Severino on 09-17-2022 Hepatitis B Surface Antigen Non-Reactive Nonreactive [facility] Hepatitis C Antibody Non-Reactive Nonreactive [facility] Comment on above: Non Reactive: < 0.8 Equivocal: >/= 0.8 to < 1.0 Reactive: >/= 1.0The CDC recommends that a reactive/equivocal HCV antibody result be followed up by the HCV Nucleic Acid Amplificationtest (015290) Miscellaneous Test Comment MAILED SPECIMEN [facility] Rubella IgG Antibody Reactive Nonreactive [facility] Comment on above: Antibody Results Int erpretation of Immune Status Non Reactive Presumed Non-Immune Equivocal Equivocal Reactive Presumed Immune Platelets bldOrdered By: Lizbeth Severino on 09-17-2022 Platelets (Bld) [#/Vol] 192 10*3/uL 150-450 [facility] Serum Treponema species anti body detectionOrdered By: Tabatha Severino on 09-17-2022 Treponema sp Ab Ql (S) Non-Reactive [facility] PLASMA ZINCon 01-27-2017 PLASMA ZINC 84 ug/dL Normal 56-134 [facility] Comment on above: Result Comment: Dete ction Limit = 5PERFORMED AT [facility] Performed By: #### A CBC, CHEM7F, CHOL, FE2, FRTN ####[place] [address]#### GARRET XIONG ####Testing performed at [facility] SERUM COPPERon 01-27-2017 SERUM COPPER 95 ug/dL Normal 72-166 [facility] Comment on above: Result Comment: Dete ction Limit = 5PERFORMED AT [facility] Performed By: #### A CBC, CHEM7F, CHOL, FE2, FRTN ####[place] [address]#### ANTHONYPGARRET ####Testing performed at [facility] CBCon 11-27-2017 ABSOLUTE BAS 0.0 X10 Normal [facility] Comment on above: Result Comment: Test ing performed at [place] [address] Performed By: #### A CBC, CHEM7F, CHOL, FE2, FRTN ####[place] [address]#### LCOPP, LZN ####Testing performed at [facility] ABSOLUTE EOS 0.30 X10 Normal [facility] Comment on above: Performed By: #### A CBC, CHEM7F, CHOL, FE2, FRTN ####[place] [address]#### LCOPP, LZN ####Testing performed at [facility] Basophils/100 WBC Auto (Bld) 0.6 % Normal 0.0-2.0 [facility] Comment on above: Performed By: #### A CBC, CHEM7F, CHOL, FE2, FRTN ####[place] [address]#### LCOPP, LZN ####Testing performed at [facility] DTYPE AUTO DIFF [facility] Comment on above: Performed By: #### A CBC, CHEM7F, CHOL, FE2, FRTN ####[place] [address]#### LCOPP, LZN ####Testing performed at [facility] Eosinophils/100 leukocytes 4.1 % Normal 0.0-11.0 [facility] Comment on above: Performed By: #### A CBC, CHEM7F, CHOL, FE2, FRTN ####[place] [address]#### LCOPP, LZN ####Testing performed at [facility] Lymphocytes 1.80 X10 [facility] Comment on above: Performed By: #### A CBC, CHEM7F, CHOL, FE2, FRTN ####[place] [address]#### LCOPP, LZN ####Testing performed at [facility] Lymphocytes/100 leukocytes 27.9 % Normal 20.0-55.0 [facility] Comment on above: Performed By: #### A CBC, CHEM7F, CHOL, FE2, FRTN ####[place] [address]#### LCOPP, LZN ####Testing performed at [facility] Monocytes 0.6 X10 Normal [facility] Comment on above: Performed By: #### A CBC, CHEM7F, CHOL, FE2, FRTN ####[place] [address]#### LCOPP, LZN ####Testing performed at [facility] Monocytes/100 leukocytes 9.1 % Normal 0.0-10.0 [facility] Comment on above: Performed By: #### A CBC, CHEM7F, CHOL, FE2, FRTN ####[place] [address]#### LCOPP, LZN ####Testing performed at [facility] Neutrophils 3.7 x10 Normal 1.0-7.0 [facility] Comment on above: Performed By: #### A CBC, CHEM7F, CHOL, FE2, FRTN ####[place] [address]#### LCOPP, LZN ####Testing performed at [facility] Neutrophils/100 leukocytes 58.3 % Normal 37.0-75.0 [facility] Comment on above: Performed By: #### A CBC, CHEM7F, CHOL, FE2, FRTN ####[place] [address]#### LCOPP, LZN ####Testing performed at [facility] Erythrocyte distribution width Auto Ratio (RBC) 12.9 % Normal 11.5-14.5 [facility] Comment on above: Performed By: #### A CBC, CHEM7F, CHOL, FE2, FRTN ####[place] [address]#### LCOPP, LZN ####Testing performed at [facility] Erythrocytes (RBC) 4.46 /cmm Normal 4.0-5.4 [facility] Comment on above: Performed By: #### A CBC, CHEM7F, CHOL, FE2, FRTN ####[place] [address]#### LCOPP, LZN ####Testing performed at [facility] Hematocrit (HCT) 39.9 % Normal 36.0-48.0 [facility] Comment on above: Performed By: #### A CBC, CHEM7F, CHOL, FE2, FRTN ####[place] [address]#### LCOPP, LZN ####Testing performed at [facility] Hemoglobin mass conc (Bld) 13.3 g/dL Normal 12.0-16.0 [facility] Comment on above: Performed By: #### A CBC, CHEM7F, CHOL, FE2, FRTN ####[place] [address]#### LCOPP, LZN ####Testing performed at [facility] MCH 30.0 pg Normal 26.0-35.0 [facility] Comment on above: Performed By: #### A CBC, CHEM7F, CHOL, FE2, FRTN ####[place] [address]#### LCOPP, LZN ####Testing performed at [facility] MCHC mass conc (RBC) 33.5 g/dL Normal 27.0-37.0 [facility] Comment on above: Performed By: #### A CBC, CHEM7F, CHOL, FE2, FRTN ####[place] [address]#### LCOPP, LZN ####Testing performed at [facility] MCV 89.5 fL Normal 80.0-100.0 [facility] Comment on above: Performed By: #### A CBC, CHEM7F, CHOL, FE2, FRTN ####[place] [address]#### LCOPP, LZN ####Testing performed at [facility] Platelet mean volume (PMV) 8.9 fL Normal 7.4-11.0 [facility] Comment on above: Performed By: #### A CBC, CHEM7F, CHOL, FE2, FRTN ####[place] [address]#### LCOPP, LZN ####Testing performed at [facility] Platelets 168 /cmm Normal 130.0-400.0 [facility] Comment on above: Performed By: #### A CBC, CHEM7F, CHOL, FE2, FRTN ####[place] [address]#### LCOPP, LZN ####Testing performed at [facility] WBC (Leukocytes) 6.3 /cmm Normal 3.6-13.0 [facility] Comment on above: Performed By: #### A CBC, CHEM7F, CHOL, FE2, FRTN ####[place] [address]#### LCOPP, LZN ####Testing performed at [facility] CHEM 7 FASTINGon 01-25-2017 BUN (urea nitrogen) 11 mg/dL Normal 7-18 [facility] Comment on above: Performed By: #### A CBC, CHEM7F, CHOL, FE2, FRTN ####[place] [address]#### LCOPP, LZN ####Testing performed at [facility] Chloride 105 mmol/L Normal 98-107 [facility] Comment on above: Performed By: #### A CBC, CHEM7F, CHOL, FE2, FRTN ####[place] [address]#### LCOPP, LZN ####Testing performed at [facility] CO2 26 mmol/L Normal 22-30 [facility] Comment on above: Performed By: #### A CBC, CHEM7F, CHOL, FE2, FRTN ####[place] [address]#### LCOPP, LZN ####Testing performed at [facility] Creatinine 0.5 mg/dL Normal 0.4-1.0 [facility] Comment on above: Performed By: #### A CBC, CHEM7F, CHOL, FE2, FRTN ####[place] [address]#### LCOPP, LZN ####Testing performed at [facility] eGFR (non-black) Unable to calculate GFR due to inappropriate age/gender/creatinin e value. Normal [facility] Comment on above: Result Comment: Test ing performed at [place] [address] Performed By: #### A CBC, CHEM7F, CHOL, FE2, FRTN ####[place] [address]#### LCOPP, LZN ####Testing performed at [facility] Glucose mass conc 84 mg/dL Normal 70-100 [facility] Comment on above: Result Comment: NORM AL <100 mg/dLPREDIABETES 101-126 mg/dLDIABETES 126 mg/dL or higher Performed By: #### A CBC, CHEM7F, CHOL, FE2, FRTN ####[place] [address]#### LCOPP, LZN ####Testing performed at [facility] Potassium molar conc 4.1 mmol/L Normal 3.5-5.1 [facility] Comment on above: Performed By: #### A CBC, CHEM7F, CHOL, FE2, FRTN ####[place] [address]#### LCOPP, LZN ####Testing performed at [facility] Sodium 140 mmol/L Normal 137-145 [facility] Comment on above: Performed By: #### A CBC, CHEM7F, CHOL, FE2, FRTN ####[place] [address]#### LCOPP, LZN ####Testing performed at [facility] CHOLESTEROLon 01-25-2017 Cholesterol 175 mg/dL Normal 126-214 [facility] Comment on above: Result Comment: Test ing performed at [place] [address] Performed By: #### A CBC, CHEM7F, CHOL, FE2, FRTN ####[place] [address]#### LCOPP, LZN ####Testing performed at [facility] FERRITINon 01-25-2017 FERRITIN 20 NG/ML Normal 6.24-137 [facility] Comment on above: Result Comment: LUL ENOPAUSAL FEMALES 6.9-282.5POSTMENOPAUSAL FEMALES 14.0-233.1Testing performed at [place] [address] Performed By: #### A CBC, CHEM7F, CHOL, FE2, FRTN ####[place] [address]#### LCOPP, LZN ####Testing performed at [facility] IRONon 01-25-2017 Iron 72 ug/dL Normal 37-170 [facility] Comment on above: Result Comment: Test ing performed at [place] [address] Performed By: #### A CBC, CHEM7F, CHOL, FE2, FRTN ####Testing performed at [facility] [place] [address]#### LCGARRET MODI ####Testing performed at [facility] 01-19-2017 [facility] NOTES Normal [facility] Vital Signs Date Time Vital Sign Value Performing Clinician Facility 08-03-2024 15:26-0400 Body height 167.64 cm Supriya Callahan [employer] Work Phone: [facility] 08-03-2024 15:26-0400 Body mass index (BMI) [Percentile] Per age and sex 90.7 % Supriya Callahan [employer] Work Phone: [facility] 08-03-2024 15:26-0400 Body mass index (BMI) [Ratio] 28.4 kg/m2 Supriya Callahan [employer] Work Phone: [facility] 08-03-2024 15:26-0400 Body weight 79.94 kg Supriya Callahan [employer] Work Phone: [facility] 08-03-2024 15:26-0400 Diastolic blood pressure 83 mm[Hg] Supriya Callahan [employer] Work Phone: [facility] 08-03-2024 15:26-0400 Systolic blood pressure 118 mm[Hg] Supriya Callahan [employer] Work Phone: [facility] 07-28-2024 14:12-0400 Body height 167.64 cm Supriya Callahan [employer] Work Phone: [facility] 07-28-2024 14:12-0400 Body mass index (BMI) [Percentile] Per age and sex 90.3 % Supriya Callahan [employer] Work Phone: [facility] 07-28-2024 14:12-0400 Body mass index (BMI) [Ratio] 28.2 kg/m2 Supriya Callahan [employer] Work Phone: [facility] 07-28-2024 14:12-0400 Body weight 79.37 kg Supriya Callahan [employer] Work Phone: [facility] 07-28-2024 14:12-0400 Diastolic blood pressure 69 mm[Hg] Supriya Callahan [employer] Work Phone: [facility] 07-28-2024 14:12-0400 Systolic blood pressure 103 mm[Hg] Supriya Callahan [employer] Work Phone: [facility] 07-20-2024 14:34-0400 Body height 167.64 cm Supriya Callahan [employer] Work Phone: [facility] 07-20-2024 14:34-0400 Body mass index (BMI) [Percentile] Per age and sex 90.5 % Supriya Callahan [employer] Work Phone: [facility] 07-20-2024 14:34-0400 Body mass index (BMI) [Ratio] 28.3 kg/m2 Supriya Callahan [employer] Work Phone: [facility] 07-20-2024 14:34-0400 Body weight 79.43 kg Supriya Callahan [employer] Work Phone: [facility] 07-20-2024 14:34-0400 Diastolic blood pressure 78 mm[Hg] Supriya Callahan [employer] Work Phone: [facility] 07-20-2024 14:34-0400 Systolic blood pressure 122 mm[Hg] Supriya Callahan [employer] Work Phone: [facility] 07-13-2024 13:42-0400 Body height 167.64 cm Supriya Callahan [employer] Work Phone: [facility] 07-13-2024 13:42-0400 Body mass index (BMI) [Percentile] Per age and sex 89.6 % Supriya Callahan [employer] Work Phone: [facility] 07-13-2024 13:42-0400 Body mass index (BMI) [Ratio] 27.9 kg/m2 Supriya Callahan [employer] Work Phone: [facility] 07-13-2024 13:42-0400 Body weight 78.52 kg Supriya Callahan [employer] Work Phone: [facility] 07-13-2024 13:42-0400 Diastolic blood pressure 72 mm[Hg] Supriya Callahan [employer] Work Phone: [facility] 07-13-2024 13:42-0400 Systolic blood pressure 103 mm[Hg] Supriya Callahan [employer] Work Phone: [facility] 07-04-2024 13:30-0400 Body height 167.64 cm Supriya Callahan [employer] Work Phone: [facility] 07-04-2024 13:30-0400 Body mass index (BMI) [Percentile] Per age and sex 89.4 % Supriya Callahan [employer] Work Phone: [facility] 07-04-2024 13:30-0400 Body mass index (BMI) [Ratio] 27.8 kg/m2 Supriya Callahan [employer] Work Phone: [facility] 07-04-2024 13:30-0400 Body weight 78.24 kg Supriya Callahan [employer] Work Phone: [facility] 07-04-2024 13:30-0400 Diastolic blood pressure 76 mm[Hg] Supriya Callahan [employer] Work Phone: [facility] 07-04-2024 13:30-0400 Systolic blood pressure 119 mm[Hg] Supriya Callahan [employer] Work Phone: [facility] 06-19-2024 13:33-0400 Body mass index (BMI) [Percentile] Per age and sex 88.5 % Supriya Callahan [employer] Work Phone: [facility] 06-19-2024 13:33-0400 Body mass index (BMI) [Ratio] 27.4 kg/m2 Supriya Callahan [employer] Work Phone: [facility] 06-19-2024 13:33-0400 Body weight 77.11 kg Supriya Callahan [employer] Work Phone: [facility] 06-19-2024 13:33-0400 Diastolic blood pressure 73 mm[Hg] Supriya Callahan [employer] Work Phone: [facility] 06-19-2024 13:33-0400 Systolic blood pressure 107 mm[Hg] Supriya Callahan [employer] Work Phone: [facility] 05-31-2024 14:46-0400 Body height 167.64 cm Supriya Callahan [employer] Work Phone: [facility] 05-31-2024 14:46-0400 Body mass index (BMI) [Percentile] Per age and sex 87.1 % Supriya Callahan [employer] Work Phone: [facility] 05-31-2024 14:46-0400 Body mass index (BMI) [Ratio] 26.9 kg/m2 Supriya Callahan [employer] Work Phone: [facility] 05-31-2024 14:46-0400 Body weight 75.86 kg Supriya Callahan [employer] Work Phone: [facility] 05-31-2024 14:46-0400 Diastolic blood pressure 65 mm[Hg] Supriya Callahan [employer] Work Phone: [facility] 05-31-2024 14:46-0400 Systolic blood pressure 105 mm[Hg] Supriya Callahan [employer] Work Phone: [facility] 04-28-2024 14:11-0500 Body height 167.64 cm Supriya Callahan [employer] Work Phone: [facility] 04-28-2024 14:11-0500 Body mass index (BMI) [Percentile] Per age and sex 81.4 % Supriya Callahan [employer] Work Phone: [facility] 04-28-2024 14:11-0500 Body mass index (BMI) [Ratio] 25.4 kg/m2 Supriya Callahan [employer] Work Phone: [facility] 04-28-2024 14:11-0500 Body weight 71.38 kg Supriya Callahan [employer] Work Phone: [facility] 04-28-2024 14:11-0500 Diastolic blood pressure 55 mm[Hg] Supriya Callahan [employer] Work Phone: [facility] 04-28-2024 14:11-0500 Systolic blood pressure 88 mm[Hg] Supriya Callahan [employer] Work Phone: [facility] 04-06-2024 13:40-0500 Body mass index (BMI) [Percentile] Per age and sex 71.7 % Supriya Callahan [employer] [facility] Phone: [facility] [facility] 04-06-2024 13:40-0500 Body mass index (BMI) [Ratio] 23.8 kg/m2 Supriya Callahan [employer]ILLWRIGHT INSTRUCTOR-C Work Phone: [facility] 04-06-2024 13:40-0500 Body weight 66.9 kg Supriya Callahan MILLWRIGHT INSTRUCTOR-C Work Phone: [facility] 04-06-2024 13:40-0500 Diastolic blood pressure 70 mm[Hg] Supriya Callahan MILLWRIGHT INSTRUCTOR-C Work Phone: [facility] 04-06-2024 13:40-0500 Systolic blood pressure 106 mm[Hg] Supriya Callahan MILLWRIGHT INSTRUCTOR-C Work Phone: [facility] 03-07-2024 11:36-0500 Body mass index (BMI) [Percentile] Per age and sex 58.1 % Supriya Callahan MILLWRIGHT INSTRUCTOR-C Work Phone: [facility] 03-07-2024 11:36-0500 Body mass index (BMI) [Ratio] 22.3 kg/m2 Supriya Callahan MILLWRIGHT INSTRUCTOR-C Work Phone: [facility] 03-07-2024 11:36-0500 Body weight 62.7 kg Supriya Callahan MILLWRIGHT INSTRUCTOR-C Work Phone: [facility] 03-07-2024 11:36-0500 Diastolic blood pressure 70 mm[Hg] Supriya Callahan MILLWRIGHT INSTRUCTOR-C Work Phone: [facility] 03-07-2024 11:36-0500 Systolic blood pressure 120 mm[Hg] Supriya Callahan MILLWRIGHT INSTRUCTOR-C Work Phone: [facility] 02-01-2024 14:30-0500 Body mass index (BMI) [Percentile] Per age and sex 46.4 % Supriya Callahan MILLWRIGHT INSTRUCTOR-C Work Phone: [facility] 02-01-2024 14:30-0500 Body mass index (BMI) [Ratio] 21.3 kg/m2 Supriya Callahan MILLWRIGHT INSTRUCTOR-C Work Phone: [facility] 02-01-2024 14:30-0500 Body weight 59.87 kg Supriya Callahan MILLWRIGHT INSTRUCTOR-C Work Phone: [facility] 02-01-2024 14:30-0500 Diastolic blood pressure 55 mm[Hg] Supriya Callahan MILLWRIGHT INSTRUCTOR-C Work Phone: [facility] 02-01-2024 14:30-0500 Systolic blood pressure 109 mm[Hg] Supriya Callahan MILLWRIGHT INSTRUCTOR-C Work Phone: [facility] 04-05-2023 09:15-0500 Diastolic blood pressure 59 mm[Hg] [employer]WR[employer] INSTRUCTOR-C Supriya Callahan MILLWRIGHT INSTRUCTOR Work Phone: [facility] 04-05-2023 09:15-0500 Heart rate 89 /min [employer] IN[employer]CTOR-C Supriya Callahan MILLWRIGHT INSTRUCTOR Work Phone: [facility] 04-05-2023 09:15-0500 SaO2% (BldA) [Mass fraction] 98 % [employer] IN[employer]CTOR-C Supriya Callahan MILLWRIGHT INSTRUCTOR Work Phone: [facility] 04-05-2023 09:15-0500 Systolic blood pressure 100 mm[Hg] M[employer]WR[employer] INSTRUCTOR-C Supriya Callahan MILLWRIGHT INSTRUCTOR Work Phone: [facility] 04-05-2023 09:13-0500 Body temperature 97 [degF] [employer] IN[employer]CTOR-C Supriya Callahan MILLWRIGHT INSTRUCTOR Work Phone: [facility] 04-05-2023 09:13-0500 Respiratory rate 16 /min [employer] IN[employer]CTOR-C Supriya Callahan MILLWRIGHT INSTRUCTOR Work Phone: [facility] 04-02-2023 19:34-0500 Body height 167.64 cm [employer]WR[employer] INSTRUCTOR-C Supriya Callahan MILLWRIGHT INSTRUCTOR Work Phone: [facility] 04-02-2023 19:34-0500 Body mass index (BMI) [Percentile] Per age and sex 92.3 % [employer] IN[employer]CTOR-C Supriya Callahan MILLWRIGHT INSTRUCTOR Work Phone: [facility] 04-02-2023 19:34-0500 Body mass index (BMI) [Ratio] 28.5 kg/m2 [employer] IN[employer]CTOR-C Supriya Callaahn MILLWRIGHT INSTRUCTOR Work Phone: [facility] 04-02-2023 19:34-0500 Body weight 80.1 kg [employer]WR[employer] INSTRUCTOR-C Supriya Callahan MILLWRIGHT INSTRUCTOR Work Phone: [facility] 04-02-2023 14:23-0500 Body mass index (BMI) [Percentile] Per age and sex 92.1 % [employer] IN[employer]CTOR-C Supriya Callahan MILLWRIGHT INSTRUCTOR Work Phone: [facility] 04-02-2023 14:23-0500 Body mass index (BMI) [Ratio] 28.4 kg/m2 [employer] IN[employer]CTOR-C Supriya Callahan MILLWRIGHT INSTRUCTOR Work Phone: [facility] 04-02-2023 14:23-0500 Body weight 79.88 kg [employer]WR[employer] INSTRUCTOR-C Supriya Callahan MILLWRIGHT INSTRUCTOR Work Phone: [facility] 04-02-2023 14:23-0500 Diastolic blood pressure 67 mm[Hg] M[employer] INSTRUCTOR-C Supriya Callahan MILLWRIGHT INSTRUCTOR Work Phone: [facility] 04-02-2023 14:23-0500 Systolic blood pressure 113 mm[Hg] M[employer]WR[employer] INSTRUCTOR-C Supriya Callahan MILLWRIGHT INSTRUCTOR Work Phone: [facility] 03-31-2023 14:01-0500 Body mass index (BMI) [Percentile] Per age and sex 92.3 % [employer] IN[employer]CTOR-C Supriya Callahan MILLWRIGHT INSTRUCTOR Work Phone: [facility] 03-31-2023 14:01-0500 Body mass index (BMI) [Ratio] 28.5 kg/m2 [employer] IN[employer]CTOR-C Supriya Callahan MILLWRIGHT INSTRUCTOR Work Phone: [facility] 03-31-2023 14:01-0500 Body weight 80.28 kg [employer]WR[employer] INSTRUCTOR-C Supriya Callahan MILLWRIGHT INSTRUCTOR Work Phone: [facility] 03-31-2023 14:01-0500 Diastolic blood pressure 71 mm[Hg] M[employer]WR[employer] INSTRUCTOR-C Supriya Callahan MILLWRIGHT INSTRUCTOR Work Phone: [facility] 03-31-2023 14:01-0500 Systolic blood pressure 109 mm[Hg] M[employer]WR[employer] INSTRUCTOR-C Supriya Callahan MILLWRIGHT INSTRUCTOR Work Phone: [facility] 03-24-2023 15:05-0500 Body mass index (BMI) [Percentile] Per age and sex 91.5 % [employer] IN[employer]CTOR-C Supriya Callahan MILLWRIGHT INSTRUCTOR Work Phone: [facility] 03-24-2023 15:05-0500 Body mass index (BMI) [Ratio] 28.1 kg/m2 [employer] IN[employer]CTOR-C Supriya Callahan MILLWRIGHT INSTRUCTOR Work Phone: [facility] 03-24-2023 15:05-0500 Body weight 79.03 kg [employer]WR[employer] INSTRUCTOR-C Supriya Callahan MILLWRIGHT INSTRUCTOR Work Phone: [facility] 03-24-2023 15:05-0500 Diastolic blood pressure 72 mm[Hg] M[employer]WR[employer] INSTRUCTOR-C Supriya Callahan MILLWRIGHT INSTRUCTOR Work Phone: [facility] 03-24-2023 15:05-0500 Systolic blood pressure 106 mm[Hg] M[employer]WR[employer] INSTRUCTOR-C Supriya Callahan MILLWRIGHT INSTRUCTOR Work Phone: [facility] 03-18-2023 14:24-0500 Body height 167.64 cm [employer]WR[employer] INSTRUCTOR-C Supriya Callahan MILLWRIGHT INSTRUCTOR Work Phone: [facility] 03-18-2023 14:22-0500 Body mass index (BMI) [Percentile] Per age and sex 91.3 % [employer] IN[employer]CTOR-C Supriya Callahan MILLWRIGHT INSTRUCTOR Work Phone: [facility] 03-18-2023 14:22-0500 Body mass index (BMI) [Ratio] 28 kg/m2 [employer] INSTRUCTOR-C Supriya Callahan MILLWRIGHT INSTRUCTOR Work Phone: [facility] 03-18-2023 14:22-0500 Body weight 78.92 kg [employer]WR[employer] INSTRUCTOR-C Supriya Callahan MILLWRIGHT INSTRUCTOR Work Phone: [facility] 03-18-2023 14:22-0500 Diastolic blood pressure 62 mm[Hg] [employer]WR[employer] INSTRUCTOR-C Supriya Callahan MILLWRIGHT INSTRUCTOR Work Phone: [facility] 03-18-2023 14:22-0500 Systolic blood pressure 97 mm[Hg] M[employer]WR[employer] INSTRUCTOR-C Supriya Callahan MILLWRIGHT INSTRUCTOR Work Phone: [facility] 03-10-2023 14:03-0500 Body mass index (BMI) [Percentile] Per age and sex 91.2 % [employer] IN[employer]CTOR-C Supriya Callahan MILLWRIGHT INSTRUCTOR Work Phone: [facility] 03-10-2023 14:03-0500 Body mass index (BMI) [Ratio] 27.9 kg/m2 [employer] INSTRUCTOR-C Supriya Callahan MILLWRIGHT INSTRUCTOR Work Phone: [facility] 03-10-2023 14:03-0500 Body weight 78.58 kg [employer]WR[employer] INSTRUCTOR-C Supriya Callahan MILLWRIGHT INSTRUCTOR Work Phone: [facility] 03-10-2023 14:03-0500 Diastolic blood pressure 66 mm[Hg] M[employer]WR[employer] INSTRUCTOR-C Supriya Callahan MILLWRIGHT INSTRUCTOR Work Phone: [facility] 03-10-2023 14:03-0500 Systolic blood pressure 102 mm[Hg] M[employer]WR[employer] INSTRUCTOR-C Supriya Callahan MILLWRIGHT INSTRUCTOR Work Phone: [facility] 03-03-2023 11:19-0500 Body height 167.64 cm [employer]ILLWRIGHT INSTRUCTOR-C Supriya Callahan MILLWRIGHT INSTRUCTOR Work Phone: [facility] 03-03-2023 11:19-0500 Body mass index (BMI) [Percentile] Per age and sex 89.6 % [employer]WR[employer] INSTRUCTOR-C Supriya Vikki MILLWRIGHT INSTRUCTOR Work Phone: [facility] 03-03-2023 11:19-0500 Body mass index (BMI) [Ratio] 27.2 kg/m2 [employer]WR[employer] INSTRUCTOR-C Supriya Vikki MILLWRIGHT INSTRUCTOR Work Phone: [facility] 03-03-2023 11:19-0500 Body weight 76.65 kg [employer]WR[employer] INSTRUCTOR-C Supriya Callahan MILLWRIGHT INSTRUCTOR Work Phone: [facility] 03-03-2023 10:58-0500 Body temperature 98.3 [degF] M[employer]WR[employer] INSTRUCTOR-C Supriya Callahan MILLWRIGHT INSTRUCTOR Work Phone: [facility] 03-03-2023 10:58-0500 SaO2% (BldA) [Mass fraction] 98 % [employer]WR[employer] INSTRUCTOR-C Supriya Callahan MILLWRIGHT INSTRUCTOR Work Phone: [facility] 02-24-2023 15:52-0500 Body mass index (BMI) [Percentile] Per age and sex 88.8 % [employer] IN[employer]CTOR-C Supriya Vikki MILLWRIGHT INSTRUCTOR Work Phone: [facility] 02-24-2023 15:52-0500 Body mass index (BMI) [Ratio] 26.9 kg/m2 [employer]WR[employer] INSTRUCTOR-C Supriya Callahan MILLWRIGHT INSTRUCTOR Work Phone: [facility] 02-24-2023 15:52-0500 Body weight 75.86 kg MILLWR[employer] INSTRUCTOR-C Supriya Callahan MILLWRIGHT INSTRUCTOR Work Phone: [facility] 02-24-2023 15:52-0500 Diastolic blood pressure 74 mm[Hg] M[employer]WR[employer] INSTRUCTOR-C Supriya Callahan MILLWRIGHT INSTRUCTOR Work Phone: [facility] 02-24-2023 15:52-0500 Systolic blood pressure 112 mm[Hg] M[employer]WR[employer] INSTRUCTOR-C Supriya Callahan MILLWRIGHT INSTRUCTOR Work Phone: [facility] 02-09-2023 13:46-0500 Body mass index (BMI) [Percentile] Per age and sex 88.6 % [employer] IN[employer]CTOR-C Supriya Callahan MILLWRIGHT INSTRUCTOR Work Phone: [facility] 02-09-2023 13:46-0500 Body mass index (BMI) [Ratio] 26.8 kg/m2 [employer]WR[employer] INSTRUCTOR-C Supriya Callahan MILLWRIGHT INSTRUCTOR Work Phone: [facility] 02-09-2023 13:46-0500 Body weight 75.4 kg M[employer]WR[employer] INSTRUCTOR-C Supriya Callahan MILLWRIGHT INSTRUCTOR Work Phone: [facility] 02-09-2023 13:46-0500 Diastolic blood pressure 72 mm[Hg] M[employer]WR[employer] INSTRUCTOR-C Supriya Callahan MILLWRIGHT INSTRUCTOR Work Phone: [facility] 02-09-2023 13:46-0500 Systolic blood pressure 111 mm[Hg] M[employer]WR[employer] INSTRUCTOR-C Supriya Callahan MILLWRIGHT INSTRUCTOR Work Phone: [facility] 01-29-2023 16:10-0500 Body mass index (BMI) [Percentile] Per age and sex 85.2 % [employer]WR[employer] INSTRUCTOR-C Supriya Callahan MILLWRIGHT INSTRUCTOR Work Phone: [facility] 01-29-2023 16:10-0500 Body mass index (BMI) [Ratio] 25.8 kg/m2 [employer]WR[employer] INSTRUCTOR-C Supriya Callahan MILLWRIGHT INSTRUCTOR Work Phone: [facility] 01-29-2023 16:10-0500 Body weight 72.63 kg MILLWRIGHT INSTRUCTOR-C Supriya Callahan MILLWRIGHT INSTRUCTOR Work Phone: [facility] 01-29-2023 16:10-0500 Diastolic blood pressure 72 mm[Hg] M[employer]WRIGHT INSTRUCTOR-C Supriya Callahan MILLWRIGHT INSTRUCTOR Work Phone: [facility] 01-29-2023 16:10-0500 Systolic blood pressure 110 mm[Hg] M[employer]WR[employer] INSTRUCTOR-C Supriya Callahan MILLWRIGHT INSTRUCTOR Work Phone: [facility] 01-08-2023 15:38-0500 Body height 167.64 cm MILLWRIGHT INSTRUCTOR-C Supriya Callahan MILLWRIGHT INSTRUCTOR Work Phone: [facility] 01-08-2023 15:38-0500 Body mass index (BMI) [Percentile] Per age and sex 84.1 % [employer]WR[employer] INSTRUCTOR-C Supriya Callahan MILLWRIGHT INSTRUCTOR Work Phone: [facility] 01-08-2023 15:38-0500 Body mass index (BMI) [Ratio] 25.5 kg/m2 [employer]WR[employer] INSTRUCTOR-C Supriya Callahan MILLWRIGHT INSTRUCTOR Work Phone: [facility] 01-08-2023 15:38-0500 Body weight 71.89 kg [employer]WR[employer] INSTRUCTOR-C Supriya Callahan MILLWRIGHT INSTRUCTOR Work Phone: [facility] 01-08-2023 15:38-0500 Diastolic blood pressure 62 mm[Hg] M[employer]WR[employer] INSTRUCTOR-C Supriya Callahan MILLWRIGHT INSTRUCTOR Work Phone: [facility] 01-08-2023 15:38-0500 Systolic blood pressure 102 mm[Hg] M[employer]WRIGHT INSTRUCTOR-C Supriya Callahan MILLWRIGHT INSTRUCTOR Work Phone: [facility] 12-09-2022 13:43-0400 Body mass index (BMI) [Percentile] Per age and sex 71.9 % [employer]WR[employer] INSTRUCTOR-C Supriya Callahan MILLWRIGHT INSTRUCTOR Work Phone: [facility] 12-09-2022 13:43-0400 Body mass index (BMI) [Ratio] 23.4 kg/m2 M[employer]WR[employer] INSTRUCTOR-C Supriya Callahan MILLWRIGHT INSTRUCTOR Work Phone: [facility] 12-09-2022 13:43-0400 Body weight 65.88 kg MILLWRIGHT INSTRUCTOR-C Supriya Callahan MILLWRIGHT INSTRUCTOR Work Phone: [facility] 12-09-2022 13:43-0400 Diastolic blood pressure 64 mm[Hg] M[employer]WR[employer] INSTRUCTOR-C Supriya Callahan MILLWRIGHT INSTRUCTOR Work Phone: [facility] 12-09-2022 13:43-0400 Systolic blood pressure 100 mm[Hg] M[employer]WRIGHT INSTRUCTOR-C Supriya Callahan MILLWRIGHT INSTRUCTOR Work Phone: [facility] 11-13-2022 13:10-0400 Body mass index (BMI) [Percentile] Per age and sex 62.1 % [employer]WR[employer] INSTRUCTOR-C Supriya Callahan MILLWRIGHT INSTRUCTOR Work Phone: [facility] 11-13-2022 13:10-0400 Body mass index (BMI) [Ratio] 22.3 kg/m2 M[employer]WR[employer] INSTRUCTOR-C Supriya Callahan MILLWRIGHT INSTRUCTOR Work Phone: [facility] 11-13-2022 13:10-0400 Body weight 62.76 kg MILLWR[employer] INSTRUCTOR-C Supriya Callahan MILLWRIGHT INSTRUCTOR Work Phone: [facility] 11-13-2022 13:10-0400 Diastolic blood pressure 66 mm[Hg] M[employer]WR[employer] INSTRUCTOR-C Supriya Callahan MILLWRIGHT INSTRUCTOR Work Phone: [facility] 11-13-2022 13:10-0400 Systolic blood pressure 101 mm[Hg] M[employer]WR[employer] INSTRUCTOR-C Supriya Callahan MILLWRIGHT INSTRUCTOR Work Phone: [facility] 10-16-2022 14:43-0400 Body mass index (BMI) [Percentile] Per age and sex 56.9 % [employer]WR[employer] INSTRUCTOR-C Supriya Callahan MILLWRIGHT INSTRUCTOR Work Phone: [facility] 10-16-2022 14:43-0400 Body mass index (BMI) [Ratio] 21.8 kg/m2 M[employer]WR[employer] INSTRUCTOR-C Supriya Callahan MILLWRIGHT INSTRUCTOR Work Phone: [facility] 10-16-2022 14:43-0400 Body weight 61.34 kg MILLWRIGHT INSTRUCTOR-C Supriya Callahan MILLWRIGHT INSTRUCTOR Work Phone: [facility] 10-16-2022 14:43-0400 Diastolic blood pressure 62 mm[Hg] M[employer]WR[employer] INSTRUCTOR-C Supriya Callahan MILLWRIGHT INSTRUCTOR Work Phone: [facility] 10-16-2022 14:43-0400 Systolic blood pressure 97 mm[Hg] M[employer]WR[employer] INSTRUCTOR-C Supriya Callahan MILLWRIGHT INSTRUCTOR Work Phone: [facility] 09-17-2022 08:11-0400 Body mass index (BMI) [Percentile] Per age and sex 48.7 % [employer]WR[employer] INSTRUCTOR-C Supriya Callahan MILLWRIGHT INSTRUCTOR Work Phone: [facility] 09-17-2022 08:11-0400 Body mass index (BMI) [Ratio] 21.1 kg/m2 MILLWR[employer] INSTRUCTOR-C Supriya Tarangoson MILLWRIGHT INSTRUCTOR Work Phone: [facility] 09-17-2022 08:11-0400 Body weight 59.42 kg M[employer]WRIGHT INSTRUCTOR-C Supriya Callahan MILLWRIGHT INSTRUCTOR Work Phone: [facility] 09-17-2022 08:11-0400 Diastolic blood pressure 66 mm[Hg] M[employer]WR[employer] INSTRUCTOR-C Supriya Callahan MILLWRIGHT INSTRUCTOR Work Phone: [facility] 09-17-2022 08:11-0400 Systolic blood pressure 96 mm[Hg] M[employer]WRIGHT INSTRUCTOR-C Supriya Callahan MILLWRIGHT INSTRUCTOR Work Phone: [facility] 03-17-2022 01:44-0500 Body height 167.6 cm ABRAHAM PISANO MD [facility] 03-17-2022 01:44-0500 Body temperature 98.24 [degF] ABRAHAM PISANO MD [facility] 03-17-2022 01:44-0500 Body weight 64 kg ABRAHAM PISANO MD [facility] 03-17-2022 01:44-0500 Diastolic Blood Pressure Non-Invasive 78 1 ABRAHAM PISANO MD [facility] 03-17-2022 01:44-0500 Heart rate 85 /min ABRAHAM PISANO MD [facility] 03-17-2022 01:44-0500 Height ZScore 0.71 ABRAHAM PISANO MD [facility] Comment on above: Result Comment: ^~:!ZScore Source -[facility] 03-17-2022 01:44-0500 Percent Height for Age 76.20 1 ABRAHAM PISANO MD [facility] Comment on above: Result Comment: ^~:!Percentile Source -[facility] 03-17-2022 01:44-0500 Respiratory rate 16 /min ABRAHAM PISANO MD [facility] 03-17-2022 01:44-0500 Systolic Blood Pressure Non-Invasive 123 1 ABRAHAM PISANO MD [facility] Encounters Encounter Date Encounter Type Care Provider Facility Start: 08-03-2024 End: 08-03-2024 Patient encounter procedure Julia Ortiz CNM -[facility] Work Phone: Start: 08-03-2024 End: 08-03-2024 ambulatory Supriya Callahan MILLWRIGHT INSTRUCTOR Facility[place] Start: 07-28-2024 End: 07-28-2024 Patient encounter procedure Seema Ruiz CNM -[facility] Work Phone: Start: 07-28-2024 End: 07-28-2024 ambulatory Supriya Callahan MILLWRIGHT INSTRUCTOR-C Work Phone: [facility] Work Phone: Start: 07-20-2024 End: 07-20-[address] Francesca Yeung MD -[facility] Work Phone: Start: 07-20-2024 End: 07-20-2024 ambulatory Supriya Callahan MILLWRIGHT INSTRUCTOR-C Work Phone: [facility] Work Phone: Start: 07-20-2024 End: 07-20-2024 ambulatory Francesca Yeung Facility:[facility] Start: 07-13-2024 End: 07-13-[address] Francesca Yeung MD -[facility] Work Phone: Start: 07-13-2024 End: 07-13-2024 ambulatory Supriya Callahan MILLWRIGHT INSTRUCTOR-C Work Phone: [facility] Work Phone: Start: 07-04-2024 End: 07-04-2024 ambulatory Supriya Callahan MILLWRIGHT INSTRUCTOR-C Work Phone: [facility] Work Phone: Start: 07-04-2024 End: 07-04-2024 Patient encounter procedure Julia Ortiz CNM -Laboratory, Specimen Work Phone: Start: 07-04-2024 End: 07-04-2024 Patient encounter procedure Julia Ortiz [facility] -[facility] Work Phone: Start: 07-04-2024 End: 07-04-2024 ambulatory Supriya Callahan NP Facility:[facility] Start: 07-04-2024 End: 07-04-2024 ambulatory Supriya Callahan MILLWRIGHT INSTRUCTOR Facility:[facility] Start: 06-29-2024 ambulatory Supriya Callahan MILLWRIGHT INSTRUCTOR Facil ity:[facility] Start: 06-19-2024 End: 06-19-2024 Patient encounter procedure Julia Ortiz [facility] -[facility] Work Phone: Start: 06-19-2024 End: 06-19-2024 ambulatory Supriya Callahan MILLWRIGHT INSTRUCTOR Facility:[facility] Start: 05-31-2024 End: 05-31-[address] Francesca Yeung MD -[facility] Work Phone: Start: 05-31-2024 End: 05-31-2024 ambulatory Francesca Yeung Facility:[facility] Start: 05-25-2024 End: 05-25-2024 ambulatory Supriya Callahan MILLWRIGHT INSTRUCTOR-C Work Phone: [facility] Work Phone: Start: 05-25-2024 End: 05-25-[address] Tabatha Daniel DO -Laboratory Work Phone: Start: 05-25-2024 End: 05-25-2024 ambulatory Tabatha Daniel Facility:[facility] Start: 05-18-2024 ambulatory Supriya Callahan NP Facil ity:[facility] Start: 04-28-2024 End: 04-28-2024 ambulatory Supriya Callahan MILLWRIGHT INSTRUCTOR-C Work Phone: [facility] Work Phone: Start: 04-28-2024 End: 04-28-2024 Patient encounter procedure Seema Ruiz [facility] -[facility] Work Phone: Start: 04-28-2024 End: 04-28-2024 ambulatory Tabatha Daniel Facility:[facility] Start: 04-06-2024 End: 04-06-2024 Patient encounter procedure Julia Angel MAZARIEGOS -[facility] Work Phone: Start: 04-06-2024 End: 04-06-2024 ambulatory Supriya Callahan MILLWRIGHT INSTRUCTOR Facility:[facility] Start: 03-28-2024 ambulatory Francesca Scott lity:[facility] Start: 03-23-2024 End: 03-23-2024 ambulatory TABATHA Erin [facility] Start: 03-09-2024 End: 03-09-2024 [facility]ulatory [facility] Start: 03-07-2024 End: 03-07-[address] Tabatha Daniel DO [facility] Work Phone: Start: 03-07-2024 End: 03-07-2024 ambulatory Tabatha Daniel Facility:[facility] Start: 02-01-2024 End: 02-01-[address] Tabatha Daniel DO [facility] Work Phone: Start: 02-01-2024 End: 02-01-2024 ambulatory Tabatha Daniel Facility:[facility] Start: 01-06-2024 End: 01-06-2024 ambulatory Supriya Callahan MILLWRIGHT INSTRUCTOR Facility:[facility] Start: 12-30-2023 End: 12-30-2023 ambulatory Supriya Callahan MILLWRIGHT INSTRUCTOR Facility:[facility] Start: 12-30-2023 End: 12-30-2023 ambulatory Supriya Callahan MILLWRIGHT INSTRUCTOR Facility:[facility] Start: 12-17-2023 ambulatory Missy Carter Facility :[facility] Start: 04-05-2023 Non-patient / Non-visit [employer]WR[employer] INSTRUCTOR-C Supriya Callahan MILLWRIGHT INSTRUCTOR Work Phone: [facility] Start: 04-04-2023 Non-patient / Non-visit M[employer]WRIGHT INSTRUCTOR-C Supriya Callahan MILLWRIGHT INSTRUCTOR Work Phone: [facility] Start: 04-03-2023 Non-patient / Non-visit M[employer]WRIGHT INSTRUCTOR-C Supriya Callahan MILLWRIGHT INSTRUCTOR Work Phone: [facility] Start: 04-02-2023 Non-patient / Non-visit MILLWRIGHT INSTRUCTOR-C Supriya Callahan MILLWRIGHT INSTRUCTOR Work Phone: [facility] Start: 04-02-2023 End: 04-05-2023 Evaluation and management of inpatient MILLWRIGHT INSTRUCTOR-C Supriya Callahan MILLWRIGHT INSTRUCTOR Work Phone: [facility] Work Phone: Start: 04-02-2023 End: 04-02-2023 Patient encounter procedure M[employer]WRIGHT INSTRUCTOR-C Supriya Callahan MILLWRIGHT INSTRUCTOR Work Phone: [facility] Work Phone: Start: 04-02-2023 End: 04-02-2023 ambulatory MILLWRIGHT INSTRUCTOR-C Supriya Callahan MILLWRIGHT INSTRUCTOR Work Phone: [facility] Work Phone: Start: 04-02-2023 End: 04-02-2023 Patient encounter procedure M[employer]WRIGHT INSTRUCTOR-C Supriya Callahan MILLWRIGHT INSTRUCTOR Work Phone: [facility] Work Phone: Start: 03-31-2023 End: 03-31-2023 Patient encounter procedure M[employer]WRIGHT INSTRUCTOR-C Supriya Callahan MILLWRIGHT INSTRUCTOR Work Phone: [facility] Work Phone: Start: 03-24-2023 End: 03-24-2023 Patient encounter procedure M[employer]WRIGHT INSTRUCTOR-C Supriya Callahan MILLWRIGHT INSTRUCTOR Work Phone: [facility] Work Phone: Start: 03-18-2023 End: 03-18-2023 ambulatory MILLWRIGHT INSTRUCTOR-C Supriya Callahan MILLWRIGHT INSTRUCTOR Work Phone: [facility] Work Phone: Start: 03-18-2023 End: 03-18-2023 Patient encounter procedure M[employer]WRIGHT INSTRUCTOR-C Supriya Callahan MILLWRIGHT INSTRUCTOR Work Phone: [facility]-Laboratory, Specimen Work Phone: Start: 03-18-2023 End: 03-18-2023 Patient encounter procedure M[employer]WRIGHT INSTRUCTOR-C Supriya Callahan MILLWRIGHT INSTRUCTOR Work Phone: [facility] Work Phone: Start: 03-10-2023 End: 03-10-2023 Patient encounter procedure MILLWRIGHT INSTRUCTOR-C Supriya Callahan MILLWRIGHT INSTRUCTOR Work Phone: [facility] Work Phone: Start: 03-03-2023 Non-patient / Non-visit M[employer]WRIGHT INSTRUCTOR-C Supriya Callahan MILLWRIGHT INSTRUCTOR Work Phone: [facility] Start: 03-03-2023 End: 03-03-2023 ambulatory MILLWRIGHT INSTRUCTOR-C Supriya Callahan MILLWRIGHT INSTRUCTOR Work Phone: [facility] Work Phone: Start: 03-03-2023 End: 03-03-2023 Patient encounter procedure M[employer]WRIGHT INSTRUCTOR-C Supriya Callahan MILLWRIGHT INSTRUCTOR [facility] Work Phone: Start: 02-24-2023 End: 02-24-2023 Patient encounter procedure MILLWRIGHT INSTRUCTOR-C Supriya Callahan MILLWRIGHT INSTRUCTOR Work Phone: [facility] Work Phone: Start: 02-09-2023 End: 02-09-2023 Patient encounter procedure MILLWRIGHT INSTRUCTOR-C Supriya Callahan MILLWRIGHT INSTRUCTOR Work Phone: [facility] Work Phone: Start: 01-29-2023 End: 01-29-2023 Patient encounter procedure M[employer]WRIGHT INSTRUCTOR-C Supriya Callahan [employer] Work Phone: [facility] Work Phone: Start: 01-08-2023 End: 01-08-2023 ambulatory [employer]-C Supriya Callahan [employer] Work Phone: [facility] Work Phone: Start: 01-08-2023 End: 01-08-2023 Patient encounter procedure [employer]-C Supriya Callahan [employer]CTOR Work Phone: [facility] Work Phone: Start: 12-17-2022 End: 12-17-2022 Patient encounter procedure [employer]-C Supriya Callahan [employer] IN[employer]CTOR Work Phone: [facility], [facility] Work Phone: Start: 12-09-2022 End: 12-09-2022 Patient encounter procedure [employer]-C Supriya Callahan M[employer]WR[employer] INSTRUCTOR Work Phone: [facility] Work Phone: Start: 11-13-2022 End: 11-13-2022 Patient encounter procedure [employer]-C Supriya Callahan [employer] IN[employer]CTOR Work Phone: [facility] Work Phone: Start: 10-16-2022 End: 10-16-2022 Patient encounter procedure [employer]-C Supriya Callahan [employer] IN[employer]CTOR Work Phone: [facility] Work Phone: Start: 09-17-2022 End: 09-17-2022 Patient encounter procedure [employer]-C Supriya Callahan [employer] IN[employer]CTOR Work Phone: [facility] Work Phone: Start: 03-17-2022 End: 03-17-2022 Emergency department patient visit ABRAHAM PISANO MD Facility:B Start: 03-17-2022 End: 03-17-2022 Emergency department patient visit ABRAHAM PISANO MD [facility] Start: 02-19-2017 Ambulatory [facility] Start: 02-02-2017 Ambulatory [facility] Start: 01-25-2017 Ambulatory [facility] Start: 01-19-2017 Ambulatory [facility] Start: 01-19-2017 [facility] Procedures Date Procedure Procedure Detail Performing Clinician Start: 07-04-2024 Beta-hemolytic Strep tococcus culture Supriya Callahan M[employer]WR[employer] INSTRUCTOR-C Work Phone: Start: 04-28-2024 Serologic test for syphilis Supriya Callahan MILLWR[employer] INSTRUCTOR-C Work Phone: Start: 04-02-2023 Ultrasound scan for growth MILLWRIGHT INSTRUCTOR-Meeta Callahan M[employer]WR[employer] INSTRUCTOR Work Phone: Start: 03-18-2023 Group B Streptococcu s Culture [employer]WR[employer] IN[employer]CTOR-Meeta Callahan [employer]WR[employer] INSTRUCTOR Work Phone: Start: 12-17-2022 Ultrasonography in f irst trimester [employer]WR[employer] IN[employer]CTOR-Meeta Callahan M[employer]WR[employer] INSTRUCTOR Work Phone: Start: 09-17-2022 Urine culture [employer]WR[employer] INSTRUCTOR-C Jennifer Callahan M[employer]WR[employer] INSTRUCTOR Work Phone: Plan of Treatment Date Care Activity Detail Author Start: 04-05-2023 Patient discharge [facility] Start: 04-03-2023 Administration of medication [facility] Start: 04-03-2023 Application of ice c ollar, cap or bag [facility] Start: 04-03-2023 Catheterization of vein [facility] Start: 04-03-2023 Introduction of urinary catheter [facility] Start: 04-03-2023 Measuring intake and output [facility] Start: 04-03-2023 Notification of physician [facility] Start: 04-03-2023 Procedure discontinued [facility] Start: 04-03-2023 Provision of activity privileges [facility] Start: 04-03-2023 Vital signs measurements [facility] Start: 04-03-2023 [facility] Start: 04-03-2023 Consultation [facility] Start: 04-02-2023 Admission procedure [facility] Start: 03-03-2023 Nonstress test [facility] Start: 03-03-2023 Obstetric monitoring [facility] Start: 03-03-2023 [facility] Start: 03-03-2023 Vital signs measurements [facility] Start: 03-03-2023 Patient discharge [facility] Patient Education [facility] Work Phone: Patient referral [facility] Work Phone: [facility] Immunizations Immunization Date Immunization Notes Care Provider Fa cili 01-08-2019 influenza virus vacc ine, unspecified formulation ABRAHAM PISANO MD [facility] 10-22-2017 Human Papillomavirus Quadval ABRAHAM PISANO MD [facility] 10-22-2017 meningococcal polysaccharide (groups A, C, Y and W-135) diphtheria toxoid conjugate vaccine (MCV4P) ABRAHAM IPSANO MD [facility] 10-22-2017 tetanus toxoid, redu momo diphtheria toxoid, and acellular pertussis vaccine, adsorbed ABRAHAM PISANO MD [facility] 02-02-2017 meningococcal B vacc ine, recombinant, OMV, adjuvanted ABRAHAM PISANO MD [facility] 02-02-2017 tetanus toxoid, redu momo diphtheria toxoid, and acellular pertussis vaccine, adsorbed ABRAHAM PISANO MD [facility] 01-19-2017 influenza virus vacc ine, unspecified formulation ABRAHAM PISANO MD [facility] 01-19-2017 meningococcal polysaccharide (groups A, C, Y and W-135) diphtheria toxoid conjugate vaccine (MCV4P) ABRAHAM PISANO MD [facility] 12-29-2014 influenza virus vacc ine, unspecified formulation ABRAHAM PISANO MD [facility] 10-27-2013 hepatitis A vaccine, pediatric dosage, unspecified formulation ABRAHAM PISANO MD [facility] 09-22-2012 hepatitis A vaccine, pediatric dosage, unspecified formulation ABRAHAM PISANO MD [facility] 06-25-2010 varicella virus vaccine MAIKEL PISANO MD [facility] 01-02-2009 diphtheria, tetanus toxoids and acellular pertussis vaccine, unspecified formulation ABRAHAM PISANO MD [facility] 01-02-2009 measles/mumps/rubell a virus vaccine ABRAHAM PISANO MD [facility] 01-02-2009 poliovirus vaccine, inactivated ABRAHAM PISANO MD [facility] 06-01-2006 diphtheria, tetanus toxoids and acellular pertussis vaccine, unspecified formulation ABRAHAM PISANO MD [facility] 06-01-2006 poliovirus vaccine, inactivated ABRAHAM PISANO MD [facility] 04-01-2006 haemophilus influenz ae type b conjugate and Hepatitis B vaccine ABRAHAM PISANO MD [facility] 04-01-2006 measles/mumps/rubell a virus vaccine ABRAHAM PISANO MD [facility] 03-01-2006 measles/mumps/rubell a virus vaccine ABRAHAM PISANO MD [facility] 12-03-2005 pneumococcal conjuga te vaccine, 13 valboyd PISANO MD [facility] 12-03-2005 varicella virus vaccine MAIKEL PSIANO MD [facility] 09-02-2005 pneumococcal conjuga te vaccine, 13 valboyd PISANO MD [facility] 06-02-2005 diphtheria, tetanus toxoids and acellular pertussis vaccine, unspecified formulation ABRAHAM PISANO MD [facility] 06-02-2005 pneumococcal conjuga te vaccine, 13 valboyd PISANO MD [facility] 04-02-2005 diphtheria, tetanus toxoids and acellular pertussis vaccine, unspecified formulation ABRAHAM PISANO MD [facility] 04-02-2005 haemophilus influenz ae type b conjugate and Hepatitis B vaccine ABRAHAM PISANO MD [facility] 04-02-2005 poliovirus vaccine, inactivated ABRAHAM PISANO MD [facility] 01-27-2005 diphtheria, tetanus toxoids and acellular pertussis vaccine, unspecified formulation ABRAHAM PISANO MD [facility] 01-27-2005 haemophilus influenz ae type b conjugate and Hepatitis B vaccine ABRAHAM PISANO MD [facility] 01-27-2005 poliovirus vaccine, inactivated ABRAHAM PISANO MD [facility] Payers Date Payer Category Payer Unknown [id number] 2023 Self-pay [id number] 2023 Unknown [id number] 2022 Private Health Insurance [facility] [id number] 2022 Unknown [id number] 2004 Unknown [id number] 2.16. [id number] 2004 Unknown [id number] 2.16. 840.1.586655.3.579.2.479 1961 Unknown [id number] 2.16.8 40.1.150079.3.579.2.627 Unknown [id number] 2.16.8 40.1.609745.3.579.2.462 Unknown [id number] 2.16.8 40.1.305493.3.579.2.462 Unknown [id number] 2.16.8 40.1.648247.3.579.2.462 Unknown [id number] 2.16.8 40.1.294111.3.579.2.462 Unknown [id number] 2.16.8 40.1.577774.3.579.2.462 Unknown [id number] 2.16.8 40.1.785896.3.579.2.462 Unknown [id number] 2.16.8 40.1.608586.3.579.2.462 Unknown [id number] 2.16.8 40.1.991570.3.579.2.462 Unknown [id number] 2.16.8 40.1.961242.3.579.2.462 Unknown [id number] 2.16.8 40.1.730828.3.579.2.462 Unknown [id number] 2.16.8 40.1.081917.3.579.2.462 Unknown [id number] 2.16.8 40.1.672406.3.579.2.462 Unknown [id number] 2.16.8 40.1.857568.3.579.2.462 Unknown [id number] 2.16.8 40.1.587993.3.579.2.462 Unknown [id number] 2.16.8 40.1.736961.3.579.2.462 Unknown [id number] 2.16.8 40.1.979015.3.579.2.462 Unknown [id number] 2.16.8 40.1.008691.3.579.2.462 Unknown [id number] 2.16.8 40.1.676307.3.579.2.462 Unknown [id number] 2.16.8 40.1.229675.3.579.2.462 Unknown [id number] 2.16.8 40.1.339480.3.579.2.462 Unknown [id number] 2.16.8 40.1.826253.3.579.2.462 Unknown [id number] 2.16.8 40.1.693416.3.579.2.462 Social History Date Type Detail Facility Start: 11-10-2018 End: 12-17-2023 Tobacco smoking status Never smoked tobacco (finding) [facility] Start: 2005 Sex Assigned At Female [facility] Start: 01-08-2023 End: 04-02-2023 Tobacco smoking status ARIS Unknown if ever smoked [facility] Start: 05-12-2024 End: 06-01-2024 Sex Female (finding) [facility] Goals Date Patient Goal Desired Activity /State Functional Status Date Assessment Result Facility 03-17-2022 Functional Status Ambulating in rao, Ambulating in room, Awake [facility] Mental Status Date Assessment Result Facility 03-17-2022 Mental Status Orientation Oriented x 4 [facility]3] Clinical Notes 03-17-2022 to 08-03-2024 Note Date & Type Note Facility 08-03-2024 Progress note [facility] 08-03-2024 Progress note Note Date/Time August 03, 2024 3:48pm [facility] [address], [address] [place] [address] OFFICE VISIT Date of Service: 08/03/24 MR#: [id number] Acct: [id number] Name: JD PRINGLE Rep #: [id number] : 2005 Provider: YAIR Ortiz Age/Sex: 18/F Location: [facility] Status: Signed Intake Vital Signs 07/28/24 14:12 08/03/24 15:26 Height 5 ft 6 in 5 ft 6 in Weight: 175 lb 176 lb 4 oz BMI 28.2 28.4 BP 103/69 118/83 H Intake Visit Reasons: Happy Due Date! 40wk Chief Complaint: 40 Week OB Therapist Occupational Required: No Is patient in pain?: No Allergies No Known Allergies Allergy (Verified 08/03/24 15:28) Medications ?Medication ?Instructions ?Recorded ?Confirmed ?Type PNV 153-FA 400 mcg-om3 35 mg-dha 1 tab PO 08/03/24 History 25 mg-epa 5 mg-fish oil chew tablet ferrous sulfate 325 mg (65 mg 325 mg PO QDAY 07/20/24 08/03/24 History iron) tablet Last Menstrual Period: 10/28/23 Zika: Zika virus screening: Negative : No PFSH PFSH Medical History Refuses tetanus, diphtheria, and acellular pertussis (Tdap) vaccination Anemia in preg-unspec Vaginal delivery Family History Mother Learning disability Grandmother Breast cancer Social History adopted: No household members: significant other, family and children current occupational status: unemployed current occupation: [employer] current occupational exposures/hazards: No pets and animals: Yes pets and animals: dog(s) history of recent travel: No sexually active: Yes Smoking Status: Never smoker alcohol intake: never substance use type: does not use well-balanced diet: about half the time caffeine: No eating out: 1-3 times/week during the past year weight has: remained stable what type of physical activity do you participate in: walking frequency: 3-4 times per week duration: 15-30 minutes/day roseline/yarsani: Buddhist seatbelt use: sometimes do you feel safe at home: Yes additional social history: BF: Arnold - Unemployed History 2 Elective abortions Hx Para 1 Spontaneous abortions Hx # Term Pregnancies 1 Ectopic pregnancies Hx # Pregnancies Multiple births # of living children 1 Past Pregnancies Del. Date Name GA/Weeks Outcome Route Bth Weight Gen Labor Lgth Anesthesia Del Locatn Provider FOB 04/03/23 Everlee 39 live - full term 7lbs 10oz Female epidural [facility] Julia Ortiz Altaf Delivery Date: 04/03/23 Last Updated by: Catherine Day IOL poly HPI Happy Due Date! 40wk Details: JD PRINGLE is a 18 year old who presents for routine OB visit. OB Visit SARAHI Calculator Estimated Delivery Date Method Current WG Current Estimate 08/03/24 LMP (Certain) 40w 0d Other Estimates 08/04/24 Ultrasound #1 39w 6d Expected Delivery Route/Plan Labor Preferences- CB/BF classes: [] labor support person: [] labor intervention preferences: [] pain management options preferred: [] cut cord/dad catch: [] : [] PP control planned: [] discussed possible routes of delivery and associated risks: [] special requests: [] Specific Issue/Plans Covid status: [] Flu vaccine: [] Tdap vaccine: declined Rhogam: na LARC form signed: declined movement and labor precautions reviewed. Problem list reviewed and updated with the most current plan of care details and appropriate orders placed. Relevant counseling for the gestational age provided. Continue routine care and follow up unless otherwise noted in visit notes/problem list details Initial Weight: 132 lb Date -?-?-?-?-?-?-?-?-?-?-?-?- EGA Weight BP Urine Prot -?-?-?-?-?-?-?-?-?-?-?-?- Glucose FHR FuHt Pres Dilation -?-?-?-?-?-?-?-?-?-?-?-?- Effaced St Visit Note 12/30/23 -?-?-?-?-?-?-?-?-?-?-?-?- 9w 0d 132 lb (+0 oz) 96/52 -?-?-?-?-?-?-?-?-?-?-?-?- 171 -?-?-?-?-?-?-?-?-?-?-?-?- KW- CRL cons wit h dates. Accepts NIPT 02/01/24 -?-?-?-?-?-?-?-?-?-?-?-?- 13w 5d 132 lb (+0 oz) 109/55 Negative -?-?-?-?-?-?-?-?-?-?-?-?- Negative 144 -?-?-?-?-?-?-?-?-?-?-?-?- JV- panorama rev iewed. CRL appropriate for gestational age. no complaints. 03/07/24 -?-?-?-?-?-?-?-?-?-?-?-?- 18w 5d 138 lb 4 oz (+6 lb 4 oz) 120/70 Negative -?-?-?-?-?-?-?-?-?-?-?-?- Negative 155 -?-?-?-?-?-?-?-?-?-?-?-?- JV- no complaint s today. questions how much weight should gain and when should feel baby move. has anatomy scan scheduled in 2 days. 04/06/24 -?-?-?-?-?-?-?-?-?-?-?-?- 23w 0d 147 lb 8 oz (+15 lb 8 oz) 106/70 Negative -?-?-?-?-?-?-?-?-?-?-?-?- Negative 155 -?-?-?-?-?-?-?-?-?-?-?-?- KW- no vb/lof/ct x. good fm. 28 week labs discussed. 04/28/24 -?-?-?-?-?-?-?-?-?-?-?-?- 26w 1d 157 lb 6 oz (+25 lb 6 oz) 88/55 Negative -?-?-?-?-?-?-?-?-?-?-?-?- Negative 147 -?-?-?-?-?-?-?-?-?-?-?-?- LC- no vb/ctx/lo f. glucose obtained. hgb 10.2 to start on iron and repeat in 4 weeks. 05/31/24 -?-?-?-?-?-?-?-?-?-?-?-?- 30w 6d 167 lb 4 oz (+35 lb 4 oz) 105/65 Negative -?-?-?-?-?-?-?-?-?-?-?-?- Negative 145 31 -?-?-?-?-?-?-?-?-?-?-?-?- SM- no vb lof go od fm no reuglar ctx 06/19/24 -?-?-?-?-?-?-?-?-?-?-?-?- 33w 4d 170 lb (+38 lb) 107/73 Negative -?-?-?-?-?-?-?-?-?-?-?-?- Negative 140 34 -?-?-?-?-?-?-?-?-?-?-?-?- KW- no vb/lof/ct x. good fm. KW- no vb/lof/ctx. good fm. GBS next visit 07/04/24 -?-?-?-?-?-?-?-?-?-?-?-?- 35w 5d 172 lb 8 oz (+40 lb 8 oz) 119/76 Negative -?-?-?-?-?-?-?-?-?-?-?-?- Negative 130 36 Cephalic -?-?-?-?-?-?-?-?-?-?-?-?- KW- no vb/lof/ct x. good fm GBS today. 07/13/24 -?-?-?-?-?-?-?-?-?-?-?-?- 37w 0d 173 lb 2 oz (+41 lb 2 oz) 103/72 Trace -?-?-?-?-?-?-?-?-?-?-?-?- Negative 130 38 Cephalic -?-?-?-?-?-?-?-?-?-?-?-?- SM- no vb lof go od fm nr oegualr ctx 07/20/24 -?-?-?-?-?-?-?-?-?-?-?-?- 38w 0d 175 lb 2 oz (+43 lb 2 oz) 122/78 1+ -?-?-?-?-?-?-?-?-?-?-?-?- Negative 130 39 Cephalic -?-?-?-?-?-?-?-?-?-?-?-?- SM- no vb lof go od fm no regular ctx 07/28/24 -?-?-?-?-?-?-?-?-?-?-?-?- 39w 1d 175 lb (+43 lb) 103/69 Trace -?-?-?-?-?-?-?-?-?-?-?-?- Negative 132 39 Cephalic -?-?-?-?-?-?-?-?-?-?-?-?- LC- no vb/ctx/lo f. good fm. no concerns. 08/03/24 -?-?-?-?-?-?-?-?-?-?-?-?- 40w 0d 176 lb 4 oz (+44 lb 4 oz) 118/83 -?-?-?-?-?-?-?-?-?-?-?-?- 150 40 Cephalic 2.5 -?-?-?-?-?-?-?-?-?-?-?-?- 70 -1 KW- no vb/ lof/ctx. good fm. membrane sweep and IOL set up for 41 weeks ACOG First Trimester First Trimester: Discussed Second Trimester Second Trimester: Signs and Symptoms of Labor, Selecting a care provider, Reproductive Life Planning & Contreception, Care Planning, Depression/Anxiety and Intimate Partner Violence; Discussed Tobacco Cessation Third Trimester Third Trimester: Pain Management Plans, Labor support person(s), Immediate Larc, Movement Monitoring, Signs and Symptoms of Preeclampsia and Beatrice Education ROS Const Reports system reviewed and no additional complaints, except as documented Eyes Reports system reviewed and no additional complaints, except as documented ENT Reports system reviewed and no additional complaints, except as documented Card Reports system reviewed and no additional complaints, except as documented Resp Reports system reviewed and no additional complaints, except as documented GI Reports system reviewed and no additional complaints, except as documented, Denies nausea and Denies vomiting Reports system reviewed and no additional complaints, except as documented Musc Reports system reviewed and no additional complaints, except as documented Skin/Breast Reports system reviewed and no additional complaints, except as documented Neuro Yes system reviewed and no additional complaints, except as documented Psych Reports system reviewed and no additional complaints, except as documented Endo Reports system reviewed and no additional complaints, except as documented Yonatan/Lymph Reports system reviewed and no additional complaints, except as documented Aller/Immun Reports system reviewed and no additional complaints, except as documented Exam Const General: cooperative, healthy appearing and no acute distress Orientation: alert, awake and oriented x3 Neck Neck: normal visual inspection and full ROM Resp Effort & Inspection: normal respiratory effort, able to speak in complete sentences and symmetric chest movement GI Inspection: normal to inspection Palpation: soft and other Other: gravid Skin General: no rashes or lesions noted Neuro General: patient alert, patient awake and patient oriented x3 Cognition: normal cognition Speech: speech normal Gait: normal gait Motor: muscle tone normal throughout Extrem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 Callahan MILLWRIGHT INSTRUCTOR, MILLWRIGHT INSTRUCTOR-C Primary Care Provider Active Julia Ortiz CNM Admit Provider, Att ending Provider, Referring Provider Active Team Status: Inactive Member Role Status Dates Supriya Callahan MILLWRIGHT INSTRUCTOR, MILLWRIGHT INSTRUCTOR-C Primary Care Provider Active Start: February 01, 2024 End: February 01, 2024 Supriya Callahan MILLWRIGHT INSTRUCTOR, MILLWRIGHT INSTRUCTOR-C Referring Provider Active Start: February 01, 2024 End: February 01, 2024 Dr. Tabatha Daniel , Attending Provider Activ e Start: February 01, 2024 End: February 01, 2024 Team Status: Inactive Member Role Status Dates Supriya Callahan MILLWRIGHT INSTRUCTOR, MILLWRIGHT INSTRUCTOR-C Primary Care Provider Active Start: March 07, 2024 End: March 07, 2024 Supriya Callahan MILLWRIGHT INSTRUCTOR, MILLWRIGHT INSTRUCTOR-C Referring Provider Active Start: March 07, 2024 End: March 07, 2024 Dr. Tabatha Daniel DO Attending Provider Activ e Start: March 07, 2024 End: March 07, 2024 Team Status: Inactive Member Role Status Dates Supriya Callahan MILLWRIGHT INSTRUCTOR, MILLWRIGHT INSTRUCTOR-C Primary Care Provider Active Start: April 06, 2024 End: April 06, 2024 Supriya Callahan MILLWRIGHT INSTRUCTOR, MILLWRIGHT INSTRUCTOR-C Referring Provider Active Start: April 06, 2024 End: April 06, 2024 Julia Ortiz CNM Attending Provider Active S tart: April 06, 2024 End: April 06, 2024 Team Status: Inactive Member Role Status Dates Supriya Callahan MILLWRIGHT INSTRUCTOR, MILLWRIGHT INSTRUCTOR-C Primary Care Provider Active Start: April 28, 2024 End: April 28, 2024 Dr. Tabatha Daniel , Attending Provider Activ e Start: April 28, 2024 End: April 28, 2024 Dr. Tabatha Daniel DO Referring Provider Activ e Start: April 28, 2024 End: April 28, 2024 Team Status: Inactive Member Role Status Dates Supriya Callahan MILLWRIGHT INSTRUCTOR, MILLWRIGHT INSTRUCTOR-C Primary Care Provider Active Start: April 28, 2024 End: April 28, 2024 Supriya Callahan MILLWRIGHT INSTRUCTOR, MILLWRIGHT INSTRUCTOR-C Referring Provider Active Start: April 28, 2024 End: April 28, 2024 Seema Ruiz CNM Attending Provider Active Start: April 28, 2024 End: April 28, 2024 Team Status: Inactive Member Role Status Dates Supriya Callahan MILLWRIGHT INSTRUCTOR, MILLWRIGHT INSTRUCTOR-C Primary Care Provider Active Start: May 25, 2024 End: May 25, 2024 Dr. Tabatha Daniel DO Attending Provider Activ e Start: May 25, 2024 End: May 25, 2024 Dr. Tabatha Daniel DO Referring Provider Activ e Start: May 25, 2024 End: May 25, 2024 Team Status: Inactive Member Role Status Dates Supriya Callahan MILLWRIGHT INSTRUCTOR, MILLWRIGHT INSTRUCTOR-C Primary Care Provider Active Start: May 31, 2024 End: May 31, 2024 Supriya Callahan MILLWRIGHT INSTRUCTOR, MILLWRIGHT INSTRUCTOR-C Referring Provider Active Start: May 31, 2024 End: May 31, 2024 Dr. Francesca Yeung MD Attending Provider Active Start: May 31, 2024 End: May 31, 2024 Team Status: Inactive Member Role Status Dates Supriya Callahan MILLWRIGHT INSTRUCTOR, MILLWRIGHT INSTRUCTOR-C Primary Care Provider Active Start: June 19, 2024 End: June 19, 2024 Supriya Callahan MILLWRIGHT INSTRUCTOR, MILLWRIGHT INSTRUCTOR-C Referring Provider Active Start: June 19, 2024 End: June 19, 2024 Julia Ortiz CNM Attending Provider Active S tart: June 19, 2024 End: June 19, 2024 Team Status: Inactive Member Role Status Dates Supriya Callahan MILLWRIGHT INSTRUCTOR, MILLWRIGHT INSTRUCTOR-C Primary Care Provider Active Start: July 04, 2024 End: July 04, 2024 Supriya Callahan NP, MILLWRIGHT INSTRUCTOR-C Referring Provider Active Start: July 04, 2024 End: July 04, 2024 Julia Ortiz CNM Attending Provider Active S tart: July 04, 2024 End: July 04, 2024 Team Status: Inactive Member Role Status Dates Supriya Callahan [employer]IGHT [employer]STRUCTOR, [employer]WRIGHT INSTRUCTOR-C Primary Care Provider Active Start: July 04, 2024 End: July 04, 2024 Julia Ortiz CNM Attending Provider Active S tart: July 04, 2024 End: July 04, 2024 Julia Ortiz CNM Referring Provider Active S tart: July 04, 2024 End: July 04, 2024 Team Status: Inactive Member Role Status Dates Supriya Callahan NP, MILLWRIGHT INSTRUCTOR-C Primary Care Provider Active Start: July 13, 2024 End: July 13, 2024 Supriya Callahan NP, [employer]WRIGHT INSTRUCTOR-C Referring Provider Active Start: July 13, 2024 End: July 13, 2024 Dr. Francesca Yeung MD Attending Provider Active Start: July 13, 2024 End: July 13, 2024 Team Status: Inactive Member Role Status Dates Supriya Callahan NP, [employer]WR[employer] INSTRUCTOR-C Primary Care Provider Active Start: July 20, 2024 End: July 20, 2024 Supriya Callahan NP, M[employer]WR[employer] INSTRUCTOR-C Referring Provider Active Start: July 20, 2024 End: July 20, 2024 Dr. Francesca Yeung MD Attending Provider Active Start: July 20, 2024 End: July 20, 2024 Team Status: Inactive Member Role Status Dates Supriya Callahan NP, [employer]WR[employer] INSTRUCTOR-C Primary Care Provider Active Start: July 20, 2024 End: July 20, 2024 Dr. Francesca Yeung MD Attending Provider Active Start: July 20, 2024 End: July 20, 2024 Dr. Francesca Yeung MD Referring Provider Active Start: July 20, 2024 End: July 20, 2024 Team Status: Inactive Member Role Status Dates Supriya Callahan NP, [employer]WR[employer] INSTRUCTOR-C Primary Care Provider Active Start: July 28, 2024 End: July 28, 2024 Supriya Callahan NP, M[employer]WRIGHT INSTRUCTOR-C Referring Provider Active Start: July 28, 2024 End: July 28, 2024 Seema Ruiz CNM Attending Provider Active Start: July 28, 2024 End: July 28, 2024 Team Status: Inactive Member Role Status Dates Supriya Callahan NP, M[employer]WRIGHT INSTRUCTOR-C Primary Care Provider Active Start: August 03, 2024 End: August 03, 2024 Supriya Callahan NP, M[employer]WR[employer] INSTRUCTOR-C Referring Provider Active Start: August 03, 2024 End: August 03, 2024 Julia Ortiz CNM Attending Provider Active S tart: August 03, 2024 End: August 03, 2024 Goals (unrecognized section and content) Goals may be documented in a n alternate section FOR RECORDS PERTAINING TO PATIENTS WHO ARE [...] BE BASED ON THE PRIMARY CLINICAL RECORDS. [employer] [facility]. provides no warranty or guarantee of the accuracy or completeness of information in this document.
--- OUTSIDE RECORDS SUMMARY | 2024-08-05 08:26 | XMS RPT_ITS | CCD ---
Author Organization [facility] Care Team Providers Care Drug Safety Scientist Name Role Phone CHAVEZ, NAVID M Unavailable Unavailable SELF, SELF Unavailable Unavailable CHAVEZ, NAVID M Unavailable Unavailable CHAVEZ, NAVID M Unavailable Unavailable CHAVEZ, NAVID M Unavailable Unavailable CHAVEZ, NAVID M Unavailable Unavailable CHAVEZ, NAVID M Unavailable Unavailable SELF, SELF Unavailable Unavailable CHAVEZ, NAVID M Unavailable Unavailable SELF, SELF Unavailable Unavailable VIKKI DIETETIC AIDE-RN MDS COORDINATOR, SUPRIYA Primary Care Physician NORRIS JUAREZ, ABRAHAM Bee Attending Unavailable VIKKI DIETETIC AIDE-RN MDS COORDINATOR, SUPRIYA Primary Care Unavail able Vikki AFTERNOON BABYSITTER, AFTERNOON BABYSITTER-C Supriya Primary Care Provider Vikki AFTERNOON BABYSITTER, AFTERNOON BABYSITTER-C Supriya Referring Provider [phone] Dr. Tabatha Daniel Attending Provider [phone] Dr. Francesca Yeung Attending Provider [phone] Eugene GALARZA, AFTERNOON BABYSITTER-C Rosa Attending Provider [phone] YAIR Ortiz Attending Provider [phone] Vikki AFTERNOON BABYSITTER, AFTERNOON BABYSITTER-C Supriya Primary Care Provider [phone] Vikki AFTERNOON BABYSITTER, AFTERNOON BABYSITTER-C Supriya Referring Provider [phone] Dr. Tabatha Daniel Attending Provider [phone] Vikki AFTERNOON BABYSITTER, AFTERNOON BABYSITTER-C Supriya Primary Care Provider Vikki AFTERNOON BABYSITTER, AFTERNOON BABYSITTER-C Supriya Referring Provider [phone] Dr. Francesca Yeung Attending Provider [phone] YAIR Ruiz Attending Provider [phone] YAIR Ruiz Referring Provider [phone] YAIR Ruiz Other Provider [phone] YAIR Ortiz Admit Provider [phone] YAIR Ortiz Referring Provider [phone] YAIR Ortiz Other Provider [phone] TABATHA VALENTE Referring Unavailab le LORSON, SUPRIYA C Primary Care Unavailable JALEESA WASHINGTON Attending Unavailable TABATHA VALENTE Referring Unavailab le LORSON, SUPRIYA C Primary Care Unavailable RONNIE CORRALES Attending Unavailable [place] AFTERNOON BABYSITTER-C, [place] Primary Care Provider [phone] [place]on AFTERNOON BABYSITTER-C, Supriya Referring Provider [phone] Dr. Tabatha Daniel DO Attending Provider Julia Ortiz CNM Attending Provider [phone] Dr. Tabatha Daniel DO Referring Provider Joseph MAZARIEGOS, Seema Attending Provider [phone] [place] AFTERNOON BABYSITTER-C, [facility] Care Provider [phone] [place]on AFTERNOON BABYSITTER-C, [place] Referring Provider [phone] Dr. Tabatha Daniel DO Attending Provider Dr. Francesca Yeung MD Attending Provider [place] AFTERNOON BABYSITTER-C, [facility] Care Provider [phone] [place] AFTERNOON BABYSITTER-C, [place] Referring Provider [phone] Dr. Tabatha Daniel DO Attending Provider Julia Ortiz CNM Referring Provider [phone] Francesca Yeung MD Referring Provider [phone] Tabatha Daniel Referring Unavailabl e Tabatha Daniel Attending Unavailabl e [place] AFTERNOON BABYSITTER, [facility] Unavailable [place] AFTERNOON BABYSITTER, [place] Primary Care Unavailable [place] AFTERNOON BABYSITTER, [place] Referring Unavailable Julia Ortiz Attending Unavailable [place] AFTERNOON BABYSITTER, [place] Primary Care Unavailable [place] AFTERNOON BABYSITTER, Supriya Referring Unavailable Julia Ortiz Attending Unavailable [place] AFTERNOON BABYSITTER, [place] Primary Care Unavailable Julia Ortiz Referring Unavailable Julia Ortiz Attending Unavailable [place] AFTERNOON BABYSITTER, [place] Primary Care Unavailable Julia Ortiz Referring Unavailable Julia Ortiz Attending Unavailable [place] AFTERNOON BABYSITTER, [facility] Unavailable Julia Ortiz Referring Unavailable Julia Ortiz Attending Unavailable Francesca Yeung Referring Unavailable Francesca Yeung Attending Unavailable [place] AFTERNOON BABYSITTER, [facility] Unavailable Tabatha Daniel Referring UnavailTabatha Zamora Attending Unavailabl e [place] AFTERNOON BABYSITTER, [facility] Unavailable Seema Ruiz Attending Unavailable [place] AFTERNOON BABYSITTER, [place] Referring Unavailable [place] AFTERNOON BABYSITTER, [facility] Unavailable Francesca Yeung Attending Unavailable [place] AFTERNOON BABYSITTER, [facility] Unavailable [place] AFTERNOON BABYSITTER, [place] Referring Unavailable Francesca Yeung Attending Unavailable [place] AFTERNOON BABYSITTER, [facility] Unavailable [place] AFTERNOON BABYSITTER, [place] Referring Unavailable Seema Ruiz Attending Unavailable [place] AFTERNOON BABYSITTER, [facility] Unavailable [place] AFTERNOON BABYSITTER, [place] Referring Unavailable Francesca Yeung Attending Unavailable [place] AFTERNOON BABYSITTER, [facility] Unavailable [place] AFTERNOON BABYSITTER, [place] Referring Unavailable [place] AFTERNOON BABYSITTER, [facility] Unavailable [place] AFTERNOON BABYSITTER, [place] Referring Unavailable Julia Ortiz Attending Unavailable Tabatha Daniel Attending Unavailabl e [place] AFTERNOON BABYSITTER, [facility] Unavailable [place] AFTERNOON BABYSITTER, [place] Referring Unavailable Francesca Yeung Attending Unavailable [place] AFTERNOON BABYSITTER, [place] Referring Unavailable [place] AFTERNOON BABYSITTER, [facility] Unavailable Missy Carter Attending Unavailable [place] AFTERNOON BABYSITTER, [facility] Unavailable [place] AFTERNOON BABYSITTER, [facility] Unavailable [place] AFTERNOON BABYSITTER, [place] Referring Unavailable Julia Ortiz Attending Unavailable [place] AFTERNOON BABYSITTER, [facility] Unavailable [place] AFTERNOON BABYSITTER, [place] Referring Unavailable Julia Ortiz Attending Unavailable Tabatha Daniel Attending Unavailabl e [place] AFTERNOON BABYSITTER, [facility] Unavailable [place] AFTERNOON BABYSITTER, [place] Referring Unavailable [place] AFTERNOON BABYSITTER, [place] Referring Unavailable [place] AFTERNOON BABYSITTER, [facility] Unavailable Julia Ortiz Attending Unavailable [place] AFTERNOON BABYSITTER, [facility] Unavailable Julia Ortiz Attending Unavailable [place] AFTERNOON BABYSITTER, [place] Referring Unavailable Medications Current Medications Medication Drug Class(es) Dates Sig (Normalized) Sig (Original) ferrous sulfate 325 mg oral tablet (3 sources) Start: 07-20-2024 take 1 tablet by mouth once daily Ferrous Sulfate 325 mg (65 mg iron) tablet Active 325 mg PO daily July 20, 2024 12:00am Pn No.789-Nk-Bx4-Dha-E pa-Fish (5 sources) Start: 09-15-2022 Pnv No.301-Wt-On6-Dha- Epa-Fish Active 1 TABLET PO September 14, 2022 11:00pm Start: 09-15-2022 Pnv No.153-Fa- Mu9-Rcx-Tqy-Fish Active TABLET PO September 14, 2022 11:00pm Pnv No.620-Ex-Sw1-Dha-Epa-Fi sh 400 mcg-35 mg- 25 mg-5 mg tablet,chewable (7 sources) Start: 09-15-2022 Pnv No.935-Qe-Mh6-Dha-Epa-Fi sh 400 mcg-35 mg- 25 mg-5 mg [...] Test Name Value Interpretation Reference Range Facility Furnace Stock Inspector Office Visit Reporton 08-03-2024 Furnace Stock Inspector Office Visit Report [facility]'s [address], [address] [place] [address] OFFICE VISIT Date of Service: 08/03/24 MR#: [id number] Acct: [id number] Name: JD PRINGLE Rep #: [id number] : 2005 Provider: YAIR Brandt ams Age/Sex: 18/F Location: [facility] Status: Signed Intake Vital Signs 07/28/24 14:12 08/03/24 15:26 Height 5 ft 6 in 5 ft 6 in Weight: 175 lb 176 lb 4 oz BMI 28.2 28.4 BP 103/69 118/83 H Intake Visit Reasons: Happy Due Date! 40wk Chief Complaint: 40 Week OB Diagnostic Radiologic Technologist Required: No Is patient in pain?: No [...] children current occupational status: unemployed current occupation: [employer] current occupational exposures/hazards: No pets and animals: [...] 3-4 times per week duration: 15-30 minutes/day roseline/cheondoism: Hoahaoism seatbelt use: sometimes do you feel safe [...] - full term 7lbs 10oz Female epidural [facility] Julia Solitario Delivery Date: 04/03/23 Last Updated [...] 155 -???- (more content not included)... Normal [facility] Laboratory - Chemistry and C hemistry - challengeOrdered By: Seema Ruiz on 07-28-2024 Glucose Ql (U) Negative [facility] Laboratory - UrinalysisOrder ed By: Seema Ruiz on 07-28-2024 Protein Ql (U) Trace [facility] Furnace Stock Inspector Office Visit Reporton 07-28-2024 Furnace Stock Inspector Office Visit Report [facility]'s [facility] [address], [address] [place] [address] OFFICE VISIT Date of Service: 07/28/24 MR#: [id number] Acct: [id number] Name: JD PRINGLE Rep #: [id number] : 2005 Provider: YAIR jorge Age/Sex: 18/F Location[place] [facility] Status: Signed Intake Vital Signs 12/30/23 14:44 07/20/24 14:34 07/28/24 14:12 Height 5 ft 6 in 5 ft 6 in 5 ft 6 in Weight: 175 lb BMI 28.2 BP 103/69 Intake Visit Reasons: 39wk ob Diagnostic Radiologic Technologist Required: No Is patient in pain?: No [...] 3-4 times per week duration: 15-30 minutes/day roseline/cheondoism: Hoahaoism seatbelt use: sometimes do you feel safe [...] presents for routine OB visit. OB Visit SAARHI Calculator Estimated Delivery Date Method Current WG [...] -???-???-???-???-??? -???-???-???-? (more content not included)... Normal [facility] Absolute lymphocyte countOrd ered By: Francesca Yeung on 07-20-2024 Lymphocytes Auto (Unsp spec) [#/Vol] 1.97 10*3/uL 0.83-4.51 [facility] Absolute neutrophil countOrd ered By: Francesca Yeung on 07-20-2024 Neutrophils (Bld) [#/Vol] 9.6 10*3/uL High 2.0-7.7 [facility] Anion gap in Serum or Plasma Ordered By: Francesca Yeung on 07-20-2024 Anion gap [Moles/Vol] 10 mmol/L 5-15 [facility] Automated lymphocyte count a s percentage of total leukocytesOrdered By: Francesca Yeung on 07-20-2024 Lymphocytes/100 WBC Auto (Unsp spec) 15.7 % Low 19-41 [facility] BUN/creatinine ratioOrdered By: Francesca Yeung on 07-20-2024 Urea nitrogen/Creatinine [Mass ratio] 12.0 mg/mg 10-20 [facility] Basophil percentageOrdered B y: Francesca Yeung on 07-20-2024 Basophils/100 WBC (Bld) 0.2 % 0-1 [facility] Bilirubin, totalOrdered By: Francesca Yeung on 07-20-2024 Bilirubin [Mass/Vol] 0.66 mg/dL 0.00-1.30 [facility] CBC W/Diff, Automatedon 06-30 Absolute Lymph 1.97 X10 3/uL Normal 0.83-4.51 [facility] Comment on above: Performed By: #### L 501.0900, L500.4050, L100.0100 ####[facility] [address] [place], [address] Absolute Neut 9.6 X10 3/uL High 2.0-7.7 [facility] Comment on above: Performed By: #### L 501.0900, L500.4050, L100.0100 ####[facility] [address] [place], [address] Basophils/100 WBC (Bld) 0.2 % Normal 0-1 [facility] Comment on above: Performed By: #### L 501.0900, L500.4050, L100.0100 ####[facility] [address] [place], [address] Eosinophils/100 WBC (Bld) 1.4 % Normal 0-5 [facility] Comment on above: Performed By: #### L 501.0900, L500.4050, L100.0100 ####[facility] [address] [place], [address] Erythrocyte distribution width (RBC) [Ratio] 14.0 % Normal 11.6-14.6 [facility] Comment on above: Performed By: #### L 501.0900, L500.4050, L100.0100 ####[facility] [address] [place], [address] Hematocrit (Bld) [Volume fraction] 32.0 % Low 37-47 [facility] Comment on above: Performed By: #### L 501.0900, L500.4050, L100.0100 ####[facility] [address] [place], [address] Hemoglobin (Bld) [Mass/Vol] 10.5 g/dL Low 12.0-15.0 [facility] Comment on above: Performed By: #### L 501.0900, L500.4050, L100.0100 ####[facility] [address] [place], [address] IG% 0.600 Normal 0.0-0.9 [facility] Comment on above: Result Comment: IG% - Immature Granulocytes (promyelocytes, myelocytes and metamyelocytes) > 1% indicates that a LEFT SHIFT is Present. Performed By: #### L 501.0900, L500.4050, L100.0100 ####[facility] [address] [place], [address] Lymphocytes/100 WBC (Bld) 15.7 % Low 19-41 [facility] Comment on above: Performed By: #### L 501.0900, L500.4050, L100.0100 ####[facility] [address] [place], [address] MCH (RBC) [Entitic mass] 28.8 pg Normal 27.0-32.0 [facility] Comment on above: Performed By: #### L 501.0900, L500.4050, L100.0100 ####[facility] [address] [place], [address] MCHC (RBC) [Mass/Vol] 32.8 g/dL Normal 32-36 [facility] Comment on above: Performed By: #### L 501.0900, L500.4050, L100.0100 ####[facility] [address] [place], [address] MCV (RBC) [Entitic vol] 87.9 fL Normal 81-99 [facility] Comment on above: Performed By: #### L 501.0900, L500.4050, L100.0100 ####[facility] [address] [place], [address] Monocytes/100 WBC (Bld) 5.3 % Normal 0-10 [facility] Comment on above: Performed By: #### L 501.0900, L500.4050, L100.0100 ####[facility] [address] [place], [address] Neutrophils/100 WBC (Bld) 76.8 % High 47-70 [facility] Comment on above: Performed By: #### L 501.0900, L500.4050, L100.0100 ####[facility] [address] [place], [address] Nucleated RBC (Bld) [#/Vol] 0 10*3/uL Normal 0-5 [facility] Comment on above: Performed By: #### L 501.0900, L500.4050, L100.0100 ####[facility] [address] [place], [address] Platelet mean volume (Bld) [Entitic vol] 11.9 fL Normal 6.2-12.0 [facility] Comment on above: Performed By: #### L 501.0900, L500.4050, L100.0100 ####[facility] [address] [place], [address] Platelets (Bld) [#/Vol] 158 10*3/uL Normal 150-450 [facility] Comment on above: Performed By: #### L 501.0900, L500.4050, L100.0100 ####[facility] [address] [place], [address] RBC (Bld) [#/Vol] 3.64 10*6/uL Low 4.2-5.4 [facility] Comment on above: Performed By: #### L 501.0900, L500.4050, L100.0100 ####[facility] [address] [place], [address] RDW SD 44.4 fl High 35.1-43.9 [facility] Comment on above: Performed By: #### L 501.0900, L500.4050, L100.0100 ####[facility] [address] [place], [address] WBC (Bld) [#/Vol] 12.6 10*3/uL High 4.4-11.0 [facility] Comment on above: Performed By: #### L 501.0900, L500.4050, L100.0100 ####[facility] [address] [place], [address] Carbon dioxide, total [Moles /volume] in Central venous bloodOrdered By: Francesca Yeung on 07-20-2024 CO2 [Moles/Vol] 22.1 mmol/L 21.0-32.0 [facility] Chloride assayOrdered By: Raciel Yeung on 07-20-2024 Chloride [Moles/Vol] 104 mmol/L 98-108 [facility] Comprehensive Metabolic Prof ilon 07-20-2024 Albumin [Mass/Vol] 3.6 g/dL Normal 3.5-5.0 [facility] Comment on above: Performed By: #### L 501.0900, L500.4050, L100.0100 ####[facility] [address] [place], [address] Albumin/Globulin [Mass ratio] 1.3 {ratio} Normal 0.9-2.4 [facility] Comment on above: Performed By: #### L 501.0900, L500.4050, L100.0100 ####[facility] [address] [place], [address] ALK PHOS 160 U/L High 35-104 [facility] Comment on above: Performed By: #### L 501.0900, L500.4050, L100.0100 ####[facility] [address] [place], [address] ALT [Catalytic activity/Vol] 9 U/L Normal <=34 [facility] Comment on above: Performed By: #### L 501.0900, L500.4050, L100.0100 ####[facility] [address] [place], [address] AST [Catalytic activity/Vol] 18 U/L Normal <=31 [facility] Comment on above: Performed By: #### L 501.0900, L500.4050, L100.0100 ####[facility] [address] [place], [address] Bilirubin [Mass/Vol] 0.66 mg/dL Normal 0.00-1.30 [facility] Comment on above: Performed By: #### L 501.0900, L500.4050, L100.0100 ####[facility] [address] [place], [address] BUN/CRE 12.0 RATIO Normal 10-20 [facility] Comment on above: Performed By: #### L 501.0900, L500.4050, L100.0100 ####[facility] [address] [place], [address] Calcium [Mass/Vol] 8.8 mg/dL Normal 7.6-11.0 [facility] Comment on above: Performed By: #### L 501.0900, L500.4050, L100.0100 ####[facility] [address] [place], [address] Chloride [Moles/Vol] 104 mmol/L Normal 98-108 [facility] Comment on above: Performed By: #### L 501.0900, L500.4050, L100.0100 ####[facility] [address] [place], [address] CO2 [Moles/Vol] 22.1 mmol/L Normal 21.0-32.0 [facility] Comment on above: Performed By: #### L 501.0900, L500.4050, L100.0100 ####[facility] [address] [place], [address] Creatinine [Mass/Vol] 0.51 mg/dL Low 0.70-1.20 [facility] Comment on above: Performed By: #### L 501.0900, L500.4050, L100.0100 ####[facility] [address] [place], [address] GAP 10 Normal 5-15 [facility] Comment on above: Performed By: #### L 501.0900, L500.4050, L100.0100 ####[facility] [address] [place], [address] GFR/1.73 sq M.predicted among non-blacks MDRD (S/P/Bld) [Vol rate/Area] 138 mL/min/{1.73_m2} Normal >60 [facility] Comment on above: Result Comment: mL/m in/1.73m2 CKD-EPI Creatinine Equation (2020) Performed By: #### L 501.0900, L500.4050, L100.0100 ####[facility] [address] [place], [address] Globulin (S) [Mass/Vol] 2.9 g/dL Normal 2.2-4.2 [facility] Comment on above: Performed By: #### L 501.0900, L500.4050, L100.0100 ####[facility] [address] [place], [address] Glucose [Mass/Vol] 80 mg/dL Normal 70-99 [facility] Comment on above: Performed By: #### L 501.0900, L500.4050, L100.0100 ####[facility] [address] [place], [address] Potassium [Moles/Vol] 3.8 mmol/L Normal 3.3-5.1 [facility] Comment on above: Performed By: #### L 501.0900, L500.4050, L100.0100 ####[facility] [address] [place], [address] Sodium [Moles/Vol] 136 mmol/L Normal 133-145 [facility] Comment on above: Performed By: #### L 501.0900, L500.4050, L100.0100 ####[facility] [address] [place], [address] T PROT 6.5 g/dL Normal 5.9-8.4 [facility] Comment on above: Performed By: #### L 501.0900, L500.4050, L100.0100 ####[facility] [address] [place], [address] Urea nitrogen [Mass/Vol] 6 mg/dL Normal 4-19 [facility] Comment on above: Performed By: #### L 501.0900, L500.4050, L100.0100 ####[facility] [address] [place], [address] Eosinophil percentageOrdered By: Francesca Yeung on 07-20-2024 Eosinophils/100 WBC (Bld) 1.4 % 0-5 [facility] Erythrocyte distribution wid th ratioOrdered By: Francesca Yeung on 07-20-2024 Erythrocyte distribution width (RBC) [Ratio] 14.0 % 11.6-14.6 [facility] Erythrocyte distribution wid th standard deviationOrdered By: Francesca Yeung on 07-20-2024 Erythrocyte distribution width (RBC) [Ratio] 44.4 fl High 35.1-43.9 [facility] Glomerular filtration rate ( GFR) estimation/1.73 sq m using serum, plasma, or whole bOrdered By: Francesca Yeung on 07-20-2024 GFR/1.73 sq M.predicted among non-blacks MDRD (S/P/Bld) [Vol rate/Area] 138 mL/min/{1.73_m2} >60 [facility] Comment on above: mL/min/1.73m2 CKD-EP I Creatinine Equation (2020) Hematocrit Auto (Bld) [Volum e fraction]Ordered By: Francesca Yeung on 07-20-2024 Hematocrit (Bld) [Volume fraction] 32.0 % Low 37-47 [facility] Hemoglobin measurementOrdere d By: Francesca Yeung on 07-20-2024 Hemoglobin (Bld) [Mass/Vol] 10.5 g/dL Low 12.0-15.0 [facility] Immature granulocytes/100 WB C Auto (Bld)Ordered By: Francesca Yeung on 07-20-2024 Immature granulocytes/100 WBC (Bld) 0.600 % 0.0-0.9 [facility] Comment on above: IG% - Immature Granu locytes (promyelocytes, myelocytes and metamyelocytes) > 1% indicates that a LEFT SHIFT is Present. Laboratory - Chemistry and C hemistry - challengeOrdered By: Francesca Yeung on 07-20-2024 AST [Catalytic activity/Vol] 18 U/L <32 [facility] Glucose Ql (U) Negative [facility] Laboratory - UrinalysisOrder ed By: Francesca Yeung on 07-20-2024 Protein Ql (U) 1+ [facility] MCV (mean corpuscular volume ) determinationOrdered By: Francesca Yeung on 07-20-2024 MCV (RBC) [Entitic vol] 87.9 fL 81-99 [facility] Mean corpuscular hemoglobin (MCH) determinationOrdered By: Francesca Yeung on 07-20-2024 MCH (RBC) [Entitic mass] 28.8 pg 27.0-32.0 [facility] Mean corpuscular hemoglobin concentration (MCHC) determinationOrdered By: Francesca Yeung on 07-20-2024 MCHC (RBC) [Mass/Vol] 32.8 g/dL 32-36 [facility] Mean platelet volume determi nationOrdered By: Francesca Yeung on 07-20-2024 Platelet mean volume (Bld) [Entitic vol] 11.9 fL 6.2-12.0 [facility] Monocyte percentageOrdered B y: Francesca Yeung on 07-20-2024 Monocytes/100 WBC (Bld) 5.3 % 0-10 [facility] Neutrophil percentageOrdered By: Francescaoscar Turkulices on 07-20-2024 Neutrophils/100 WBC (Bld) 76.8 % High 47-70 [facility] Nucleated red blood cell per centageOrdered By: Francesca Yeung on 07-20-2024 Nucleated RBC/100 WBC (Bld) [Ratio] 0 % 0-5 [facility] Furnace Stock Inspector Office Visit Reporton 07-20-2024 Furnace Stock Inspector Office Visit Report [facility] [address], [address] [place] [address] OFFICE VISIT Date of Service: 07/20/24 MR#: [id number] Acct: [id number] Name: JD PRINGLE Rep #: [id number] : 2005 Provider: Dr. Francesca shannon MD Age/Sex: 18/F [place] [facility] [place]: Signed Intake Vital Signs 12/30/23 14:44 04/28/24 14:11 07/13/24 13:42 07/20/24 14:34 Height 5 ft 6 in 5 ft 6 in 5 ft 6 in 5 ft 6 in Weight: 175 lb 2 oz BMI 28.3 BP 122/78 H Intake Visit Reasons: 38wk ob Diagnostic Radiologic Technologist Required: No Is patient in pain?: No [...] children current occupational status: unemployed current occupation: [employer] current occupational exposures/hazards: No pets and animals: [...] 3-4 times per week duration: 15-30 minutes/day roseline/cheondoism: Hoahaoism seatbelt use: sometimes do you feel safe [...] - full term 7lbs 10oz Female epidural [facility] Julia Ortiz Altaf Delivery Date: 04/03/23 Last [...] -???-???-???-???-??? -??? (more content not included)... Normal [facility] Platelet countOrdered By: aRciel Yeung on 07-20-2024 Platelets (Bld) [#/Vol] 158 10*3/uL 150-450 [facility] Potassium measurement (mass/ volume)Ordered By: Francesca Yeung on 07-20-2024 Potassium (Unsp spec) [Mass/Vol] 3.8 mmol/L 3.3-5.1 [facility] Protein+Creatinine Ratio,Uri neon 07-20-2024 PROT:CRE RATIO 178 mg/g CRE Normal 0-200 [facility] Comment on above: Performed By: #### L 501.0900, L500.4050, L100.0100 ####[facility] [address] [place], [address] Protein (U) [Mass/Vol] 27.8 mg/dL High 0.0-12.0 [facility] Comment on above: Performed By: #### L 501.0900, L500.4050, L100.0100 ####[facility] [address] [place], [address] UR CREAT 156.00 mg/dL Normal 28.00-217.00 [facility] Comment on above: Performed By: #### L 501.0900, L500.4050, L100.0100 ####[facility] [address] [place], [address] RBC Auto (Bld) [#/Vol]Ordere d By: Francesca Yeung on 07-20-2024 RBC (Bld) [#/Vol] 3.64 10*6/uL Low 4.2-5.4 [facility] Random urine creatinine luis urement (mass/volume)Ordered By: Francesca Yeung on 07-20-2024 Creatinine Unsp time (U) [Mass/Vol] 156.00 mg/dL 28.00-217.00 [facility] Serum creatinine measurement (mass/volume)Ordered By: Francesca Yeung on 07-20-2024 Creatinine [Mass/Vol] 0.51 mg/dL Low 0.70-1.20 [facility] Serum globulin measurementOr dered By: Francesca Yeung on 07-20-2024 Globulin (S) [Mass/Vol] 2.9 g/dL 2.2-4.2 [facility] Serum glucose measurement (m ass/volume)Ordered By: Francesca Yeung on 07-20-2024 Glucose [Mass/Vol] 80 mg/dL 70-99 [facility] Serum or plasma alanine tate otransferase (ALT) measurementOrdered By: Francesca Yeung on 07-20-2024 ALT [Catalytic activity/Vol] 9 U/L <35 [facility] Serum or plasma albumin luis urement (mass/volume)Ordered By: Francesca Yeung on 07-20-2024 Albumin [Mass/Vol] 3.6 g/dL 3.5-5.0 [facility] Serum or plasma albumin/glob ulin mass ratioOrdered By: Francesca Yeung on 07-20-2024 Albumin/Globulin [Mass ratio] 1.3 {ratio} 0.9-2.4 [facility] Serum or plasma alkaline chi sphatase measurementOrdered By: Francesca Yeung on 07-20-2024 ALP [Catalytic activity/Vol] 160 U/L High 35-104 [facility] Serum or plasma calcium luis urement (mass/volume)Ordered By: Francesca eYung on 07-20-2024 Calcium [Mass/Vol] 8.8 mg/dL 7.6-11.0 [facility] Serum or plasma urea nitroge n measurement (mass/volume)Ordered By: Francesca Yeung on 07-20-2024 Urea nitrogen [Mass/Vol] 6 mg/dL 4-19 [facility] Sodium levelOrdered By: Mick Yeung on 07-20-2024 Sodium [Moles/Vol] 136 mmol/L 133-145 [facility] Total proteinOrdered By: Hank Yeung on 07-20-2024 Protein [Mass/Vol] 6.5 g/dL 5.9-8.4 [facility] Urine protein measurement (m ass/volume)Ordered By: Francesca Yeung on 07-20-2024 Protein (U) [Mass/Vol] 27.8 mg/dL High 0.0-12.0 [facility] Urine protein/creatinine mas s ratioOrdered By: Francesca Yeung on 07-20-2024 Protein/Creatinine (U) [Mass ratio] 178 mg/g CRE 0-200 [facility] White blood cell (WBC) count Ordered By: Francesca Yeung on 07-20-2024 WBC (Bld) [#/Vol] 12.6 10*3/uL High 4.4-11.0 [facility] Laboratory - Chemistry and C hemistry - challengeOrdered By: Francesca Yeung on 07-13-2024 Glucose Ql (U) Negative [facility] Laboratory - UrinalysisOrder ed By: Francesca Yeung on 07-13-2024 Protein Ql (U) Trace [facility] Furnace Stock Inspector Office Visit Reporton 07-13-2024 Furnace Stock Inspector Office Visit Report [facility]'[address], [address] [place] [address] OFFICE VISIT Date of Service: 07/13/24 MR#: [id number] Acct: [id number] Name: JD PRINGLE Rep #: [id number] : 2005 Provider: Dr. Francesca shannon MD Age/Sex: 18/F Location: [facility] Status: Signed Intake Vital Signs 12/30/23 14:44 06/19/24 13:37 07/04/24 13:30 07/13/24 13:42 Height 5 ft 6 in 5 ft 6 in 5 ft 6 in 5 ft 6 in Weight: 173 lb 2 oz BMI 27.9 BP 103/72 Intake Visit Reasons: 37wk ob Diagnostic Radiologic Technologist Required: No Is patient in pain?: No [...] children current occupational status: unemployed current occupation: [employer] current occupational exposures/hazards: No pets and [...] 3-4 times per week duration: 15-30 minutes/day roseline/cheondoism: Hoahaoism seatbelt use: sometimes do you feel safe [...] - full term 7lbs 10oz Female epidural [facility] Julia Solitario Delivery Date: 04/03/23 Last Updated [...] -???-???- JV (more content not included)... Normal [facility] Rule out Beta Strep (Grp. B) on 07-08-2024 ASHA Group B Beta Streptococcus is not isolated. Normal [facility] Comment on above: Performed By: #### M 100.5743 #### [facility] Laboratory [address] [place], [address] Laboratory - Chemistry and C hemistry - challengeOrdered By: Julia Ortiz on 07-04-2024 Glucose Ql (U) Negative [facility] Laboratory - UrinalysisOrder ed By: Julia Ortiz on 07-04-2024 Protein Ql (U) Negative [facility] Furnace Stock Inspector Office Visit Reporton 07-04-2024 Furnace Stock Inspector Office Visit Report [facility]'s [address], [address] [place] [address] OFFICE VISIT Date of Service: 07/04/24 MR#: [id number] Acct: [id number] Name: JD PRINGLE Rep #: [id number] : 2005 Provider: YAIR Brandt ams Age/Sex: 18/F [place] [facility] [place]: Signed Intake Vital Signs 04/28/24 14:11 06/19/24 13:37 07/04/24 13:30 Height 5 ft 6 in 5 ft 6 in 5 ft 6 in Weight: 172 lb 8 oz BMI 27.8 BP 119/76 Intake Visit Reasons: 36 wk ob Chief Complaint: 36wk OB Diagnostic Radiologic Technologist Required: No Is patient in pain?: No [...] 3-4 times per week duration: 15-30 minutes/day roseline/cheondoism: Hoahaoism seatbelt use: sometimes do you feel safe [...] scan scheduled (more content not included)... Normal [facility] Screening beta-hemolytic Str eptococcus cultureOrdered By: Julia Ortiz on 07-04-2024 Beta-hemolytic Streptococcus culture Group B Beta Streptococcus is not isolated. [facility] Laboratory - Chemistry and C hemistry - challengeOrdered By: Julia Ortiz on 06-19-2024 Glucose Ql (U) Negative [facility] Laboratory - UrinalysisOrder ed By: Julia Ortiz on 06-19-2024 Protein Ql (U) Negative [facility] Furnace Stock Inspector Office Visit Reporton 06-19-2024 Furnace Stock Inspector Office Visit Report [facility] [address], [address] [place] [address] OFFICE VISIT Date of Service: 06/19/24 MR#: [id number] Acct: [id number] Name: JD PRINGLE Rep #: [id number] : 2005 Provider: YAIR Brandt ams Age/Sex: 18/F Location: [facility] Status: Signed Intake Vital Signs 12/30/23 14:44 05/31/24 14:46 06/19/24 13:33 06/19/24 13:37 Height 5 ft 6 in 5 ft 6 in 5 ft 6 in 5 ft 6 in Weight: 170 lb BMI 27.4 BP 107/73 Intake Visit Reasons: 33wk ob Diagnostic Radiologic Technologist Required: No Is patient in pain?: No [...] children current occupational status: unemployed current occupation: [employer] current occupational exposures/hazards: No pets and animals: [...] 3-4 times per week duration: 15-30 minutes/day roseline/cheondoism: Hoahaoism seatbelt use: sometimes do you feel safe [...] - full term 7lbs 10oz Female epidural [facility] Julia Solitario Delivery Date: 04/03/23 Last Updated [...] how muc (more content not included)... Normal [facility] Laboratory - Chemistry and C hemistry - challengeOrdered By: Francesca Yeung on 05-31-2024 Glucose Ql (U) Negative [facility] Laboratory - UrinalysisOrder ed By: Francesca Yeung on 05-31-2024 Protein Ql (U) Negative [facility] Furnace Stock Inspector Office Visit Reporton 05-31-2024 Furnace Stock Inspector Office Visit Report [facility]'s [facility] [address], [address] [place] [address] OFFICE VISIT Date of Service: 05/31/24 MR#: [id number] Acct: [id number] Name: JD PRINGLE Rep #: [id number] : 2005 Provider: Dr. Francesca shannon MD Age/Sex: 18/F Location[place] [facility] [place]: Signed Intake Vital Signs 12/30/23 14:44 04/28/24 14:11 05/31/24 14:46 Height 5 ft 6 in 5 ft 6 in 5 ft 6 in Weight: 167 lb 4 oz BMI 26.9 BP 105/65 Intake Visit Reasons: 31wk ob Diagnostic Radiologic Technologist Required: No Is patient in pain?: No [...] children current occupational status: unemployed current occupation: [employer] current occupational exposures/hazards: No pets and animals: [...] 3-4 times per week duration: 15-30 minutes/day roseline/cheondoism: Hoahaoism seatbelt use: sometimes do you feel safe [...] - full term 7lbs 10oz Female epidural [facility] Julia [place] Altaf Delivery Date: 04/03/23 Last [...] today. q (more content not included)... Normal [facility] Absolute lymphocyte countOrd ered By: Tabatha Severino on 05-25-2024 Lymphocytes Auto (Unsp spec) [#/Vol] 1.70 10*3/uL 0.83-4.51 [facility] Absolute neutrophil countOrd ered By: Tabatha Severino on 05-25-2024 Neutrophils (Bld) [#/Vol] 9.8 10*3/uL High 2.0-7.7 [facility] Automated blood erythrocyte countOrdered By: Tabatha Severino on 05-25-2024 RBC (Bld) [#/Vol] 3.42 10*6/uL Low 4.2-5.4 [facility] Comment on above: Performed By: #### L 100.0100 ####[facility] [address] [place], [place], [id number] Automated blood hematocrit ( percentage)Ordered By: Tabatha Severino on 05-25-2024 Hematocrit (Bld) [Volume fraction] 30.8 % Low 37-47 [facility] Comment on above: Performed By: #### L 100.0100 ####[facility] [address] [place], [place], [id number] Automated lymphocyte count a s percentage of total leukocytesOrdered By: Tabatha Severino on 05-25-2024 Lymphocytes/100 WBC (Bld) 13.7 % Low 19-41 [facility] Comment on above: Performed By: #### L 100.0100 ####[facility] [address] [place], [address] Lymphocytes/100 WBC Auto (Unsp spec) 13.7 % Low 19-41 [facility] Basophil percentageOrdered B y: Tabatha Severino on 05-25-2024 Basophils/100 WBC (Bld) 0.2 % Normal 0-1 [facility] Comment on above: Performed By: #### L 100.0100 ####[facility] [address] [place], [address] CBC W/Diff, Automatedon 04-30 Absolute Lymph 1.70 X10 3/uL Normal 0.83-4.51 [facility] Comment on above: Performed By: #### L 100.0100 ####[facility] [address] [place], [address] Absolute Neut 9.8 X10 3/uL High 2.0-7.7 [facility] Comment on above: Performed By: #### L 100.0100 ####[facility] [address] [place], [address] IG% 0.600 Normal 0.0-0.9 [facility] Comment on above: Result Comment: IG% - Immature Granulocytes (promyelocytes, myelocytes and metamyelocytes) > 1% indicates that a LEFT SHIFT is Present. Performed By: #### L 100.0100 ####[facility] [address] [place], [address] Nucleated RBC (Bld) [#/Vol] 0 10*3/uL Normal 0-5 [facility] Comment on above: Performed By: #### L 100.0100 ####[facility] [address] [place], [address] RDW SD 43.2 fl Normal 35.1-43.9 [facility] Comment on above: Performed By: #### L 100.0100 ####[facility] [address] [place], [address] Eosinophil percentageOrdered By: Tabatha Severino on 05-25-2024 Eosinophils/100 WBC (Bld) 1.6 % Normal 0-5 [facility] Comment on above: Performed By: #### L 100.0100 ####[facility] [address] [place], [address] Erythrocyte distribution wid th (RBC) [Ratio]Ordered By: Tabatha Severino on 05-25-2024 Erythrocyte distribution width (RBC) [Entitic vol] 43.2 fL 35.1-43.9 [facility] Erythrocyte distribution wid th ratioOrdered By: Tabatha Severino on 05-25-2024 Erythrocyte distribution width (RBC) [Ratio] 13.2 % Normal 11.6-14.6 [facility] Comment on above: Performed By: #### L 100.0100 ####[facility] [address] [facility] [place], [place], [phone] Erythrocyte distribution wid th standard deviationOrdered By: Tabatha Severino on 05-25-2024 Erythrocyte distribution width (RBC) [Ratio] 43.2 fl 35.1-43.9 [facility] Hemoglobin measurementOrdere d By: Tabatha Severino on 05-25-2024 Hemoglobin (Bld) [Mass/Vol] 10.2 g/dL Low 12.0-15.0 [facility] Comment on above: Performed By: #### L 100.0100 ####[facility] [address] [facility] [place], [place], [phone] Immature granulocytes/100 WB C Auto (Bld)Ordered By: Tabatha Severino on 05-25-2024 Immature granulocytes/100 WBC (Bld) 0.600 % 0.0-0.9 [facility] Comment on above: IG% - Immature Granu locytes (promyelocytes, myelocytes and metamyelocytes) > 1% indicates that a LEFT SHIFT is Present. Lymphocytes Auto (Unsp spec) [#/Vol]Ordered By: Tabatha Severino on 05-25-2024 Lymphocytes (Bld) [#/Vol] 1.70 10*3/uL 0.83-4.51 [facility] MCV (mean corpuscular volume ) determinationOrdered By: Tabatha Severino on 05-25-2024 MCV (RBC) [Entitic vol] 90.1 fL Normal 81-99 [facility] Comment on above: Performed By: #### L 100.0100 ####[facility] [address] [place], [address] Mean corpuscular hemoglobin (MCH) determinationOrdered By: Tabatha Severino on 05-25-2024 MCH (RBC) [Entitic mass] 29.8 pg Normal 27.0-32.0 [facility] Comment on above: Performed By: #### L 100.0100 ####[facility] [address] [facility] [address] Mean corpuscular hemoglobin concentration (MCHC) determinationOrdered By: Tabatha Severino on 05-25-2024 MCHC (RBC) [Mass/Vol] 33.1 g/dL Normal 32-36 [facility] Comment on above: Performed By: #### L 100.0100 ####[facility] [address] [place], [address] Mean platelet volume determi nationOrdered By: Tabatha Severino on 05-25-2024 Platelet mean volume (Bld) [Entitic vol] 10.7 fL Normal 6.2-12.0 [facility] Comment on above: Performed By: #### L 100.0100 ####[facility] [address] [place], [address] Monocyte percentageOrdered B y: Tabatha Severino on 05-25-2024 Monocytes/100 WBC (Bld) 5.1 % Normal 0-10 [facility] Comment on above: Performed By: #### L 100.0100 ####[facility] [address] [place], [place], [address] Neutrophil percentageOrdered By: Tabatha Mere on 05-25-2024 Neutrophils/100 WBC (Bld) 78.8 % High 47-70 [facility] Comment on above: Performed By: #### L 100.0100 ####[facility] [address] [place], [place], [phone] Nucleated red blood cell per centageOrdered By: Tabatha Severino on 05-25-2024 Nucleated RBC/100 WBC (Bld) [Ratio] 0 % 0-5 [facility] Platelet countOrdered By: Rick deannajose Mere on 05-25-2024 Platelets (Bld) [#/Vol] 178 10*3/uL Normal 150-450 [facility] Comment on above: Performed By: #### L 100.0100 ####[facility] [address] [place], [place], [phone] White blood cell (WBC) count Ordered By: Tabatha Severino on 05-25-2024 WBC (Bld) [#/Vol] 12.4 10*3/uL High 4.4-11.0 [facility] Comment on above: Performed By: #### L 100.0100 ####[facility] [address] [place], [place], [phone] Absolute lymphocyte countOrd ered By: Tabatha Severino on 04-28-2024 Lymphocytes Auto (Unsp spec) [#/Vol] 1.43 10*3/uL 0.83-4.51 [facility] Absolute neutrophil countOrd ered By: Tabatha Severino on 04-28-2024 Neutrophils (Bld) [#/Vol] 8.8 10*3/uL High 2.0-7.7 [facility] Automated lymphocyte count a s percentage of total leukocytesOrdered By: Tabatha Severino on 04-28-2024 Lymphocytes/100 WBC Auto (Unsp spec) 13.0 % Low 19-41 [facility] Basophil percentageOrdered B y: Tabatha Severino on 04-28-2024 Basophils/100 WBC (Bld) 0.2 % 0-1 [facility] CBC W/Diff, Automatedon 02-2 -2024 Absolute Lymph 1.43 X10 3/uL Normal 0.83-4.51 [facility] Comment on above: Performed By: #### L 100.0100, L501.0250, L3890.6006, L509.8002 ####[facility] [address] [place], [address] Absolute Neut 8.8 X10 3/uL High 2.0-7.7 [facility] Comment on above: Performed By: #### L 100.0100, L501.0250, L3890.6006, L509.8002 ####[facility] [address] [place], [address] Basophils/100 WBC (Bld) 0.2 % Normal 0-1 [facility] Comment on above: Performed By: #### L 100.0100, L501.0250, L3890.6006, L509.8002 ####[facility] [address] [place], [address] Eosinophils/100 WBC (Bld) 1.1 % Normal 0-5 [facility] Comment on above: Performed By: #### L 100.0100, L501.0250, L3890.6006, L509.8002 ####[facility] [address] [place], [address] Erythrocyte distribution width (RBC) [Ratio] 13.0 % Normal 11.6-14.6 [facility] Comment on above: Performed By: #### L 100.0100, L501.0250, L3890.6006, L509.8002 ####[facility] [address] [place], [address] Hematocrit (Bld) [Volume fraction] 30.9 % Low 37-47 [facility] Comment on above: Performed By: #### L 100.0100, L501.0250, L3890.6006, L509.8002 ####[facility] [address] [place], [address] Hemoglobin (Bld) [Mass/Vol] 10.2 g/dL Low 12.0-15.0 [facility] Comment on above: Performed By: #### L 100.0100, L501.0250, L3890.6006, L509.8002 ####[facility] [address] [place], [address] IG% 0.700 Normal 0.0-0.9 [facility] Comment on above: Result Comment: IG% - Immature Granulocytes (promyelocytes, myelocytes and metamyelocytes) > 1% indicates that a LEFT SHIFT is Present. Performed By: #### L 100.0100, L501.0250, L3890.6006, L509.8002 ####[facility] [address] [place], [address] Lymphocytes/100 WBC (Bld) 13.0 % Low 19-41 [facility] Comment on above: Performed By: #### L 100.0100, L501.0250, L3890.6006, L509.8002 ####[facility] [address] [place], [address] MCH (RBC) [Entitic mass] 30.1 pg Normal 27.0-32.0 [facility] Comment on above: Performed By: #### L 100.0100, L501.0250, L3890.6006, L509.8002 ####[facility] [address] [place], [address] MCHC (RBC) [Mass/Vol] 33.0 g/dL Normal 32-36 [facility] Comment on above: Performed By: #### L 100.0100, L501.0250, L3890.6006, L509.8002 ####[facility] [address] [place], [address] MCV (RBC) [Entitic vol] 91.2 fL Normal 81-99 [facility] Comment on above: Performed By: #### L 100.0100, L501.0250, L3890.6006, L509.8002 ####[facility] [address] [place], [address] Monocytes/100 WBC (Bld) 5.1 % Normal 0-10 [facility] Comment on above: Performed By: #### L 100.0100, L501.0250, L3890.6006, L509.8002 ####[facility] [address] [place], [address] Neutrophils/100 WBC (Bld) 79.9 % High 47-70 [facility] Comment on above: Performed By: #### L 100.0100, L501.0250, L3890.6006, L509.8002 ####[facility] [address] [place], [address] Nucleated RBC (Bld) [#/Vol] 0 10*3/uL Normal 0-5 [facility] Comment on above: Performed By: #### L 100.0100, L501.0250, L3890.6006, L509.8002 ####[facility] [address] [place], [address] Platelet mean volume (Bld) [Entitic vol] 11.4 fL Normal 6.2-12.0 [facility] Comment on above: Performed By: #### L 100.0100, L501.0250, L3890.6006, L509.8002 ####[facility] [address] [place], [address] Platelets (Bld) [#/Vol] 176 10*3/uL Normal 150-450 [facility] Comment on above: Performed By: #### L 100.0100, L501.0250, L3890.6006, L509.8002 ####[facility] [address] [place], [address] RBC (Bld) [#/Vol] 3.39 10*6/uL Low 4.2-5.4 [facility] Comment on above: Performed By: #### L 100.0100, L501.0250, L3890.6006, L509.8002 ####[facility] [address] [place], [address] RDW SD 42.4 fl Normal 35.1-43.9 [facility] Comment on above: Performed By: #### L 100.0100, L501.0250, L3890.6006, L509.8002 ####[facility] [address] [place], [address] WBC (Bld) [#/Vol] 11.0 10*3/uL Normal 4.4-11.0 [facility] Comment on above: Performed By: #### L 100.0100, L501.0250, L3890.6006, L509.8002 ####[facility] [address] [place], [address] Eosinophil percentageOrdered By: Tabatha Severino on 04-28-2024 Eosinophils/100 WBC (Bld) 1.1 % 0-5 [facility] Erythrocyte distribution wid th ratioOrdered By: Tabatha Severino on 04-28-2024 Erythrocyte distribution width (RBC) [Ratio] 13.0 % 11.6-14.6 [facility] Erythrocyte distribution wid th standard deviationOrdered By: Tabatha Severino on 04-28-2024 Erythrocyte distribution width (RBC) [Entitic vol] 42.4 fL 35.1-43.9 [facility] Erythrocyte distribution width (RBC) [Ratio] 42.4 fl 35.1-43.9 [facility] Glucose 60min post-GTT OBOrd ered By: Tabatha Severino on 04-28-2024 Glucose [Mass/Vol] 74 mg/dL [facility] Glucose Challenge Gest 1H 50 namrata 04-28-2024 GLU GEST 50g 1H 74 mg/dL Normal [facility] Comment on above: Performed By: #### L 100.0100, L501.0250, L3890.6006, L509.8002 ####[facility] [address] [place], [place], [id number] Hematocrit Auto (Bld) [Volum e fraction]Ordered By: Tabatha Severino on 04-28-2024 Hematocrit (Bld) [Volume fraction] 30.9 % Low 37-47 [facility] Hemoglobin measurementOrdere d By: Tabatha Severino on 04-28-2024 Hemoglobin (Bld) [Mass/Vol] 10.2 g/dL Low 12.0-15.0 [facility] Immature granulocytes/100 WB C Auto (Bld)Ordered By: Tabatha Severino on 04-28-2024 Immature granulocytes/100 WBC (Bld) 0.700 % 0.0-0.9 [facility] Comment on above: IG% - Immature Granu locytes (promyelocytes, myelocytes and metamyelocytes) > 1% indicates that a LEFT SHIFT is Present. L3890.6006on 04-28-2024 HIV Non-Reactive Normal Nonreactive [facility] Comment on above: Result Comment: Non- Reactive Reactive Repeatedly reactive samples must be confirmed according to CDC recommended confirmatory algorithms. The subresults for either HIVAG or AHIV can be used as an aid in the selection of the confirmation algorithm for reactive samples. Send out specimens with Reactive results to [facility] for confirmation. Order the HIV antibody detection and differentiation: lc#[id number] Performed By: #### L 100.0100, L501.0250, L3890.6006, L509.8002 ####[facility] [address] [place], [place], [id number] L509.8002on 04-28-2024 Syphilis Abs Non-Reactive Normal Nonreactive [facility] Comment on above: Performed By: #### L 100.0100, L501.0250, L3890.6006, L509.8002 ####[facility] [address] [place], [address] Laboratory - Chemistry and C hemistry - challengeOrdered By: Seema Ruiz on 04-28-2024 Glucose Ql (U) Negative [facility] Laboratory - UrinalysisOrder ed By: Seema Ruiz on 04-28-2024 Protein Ql (U) Negative [facility] Lymphocytes Auto (Unsp spec) [#/Vol]Ordered By: Tabatha Severino on 04-28-2024 Lymphocytes (Bld) [#/Vol] 1.43 10*3/uL 0.83-4.51 [facility] Lymphocytes/100 WBC Auto (Un sp spec)Ordered By: Tabatha Severino on 04-28-2024 Lymphocytes/100 WBC (Bld) 13.0 % Low 19-41 [facility] MCV (mean corpuscular volume ) determinationOrdered By: Tabatha Severino on 04-28-2024 MCV (RBC) [Entitic vol] 91.2 fL 81-99 [facility] Mean corpuscular hemoglobin (MCH) determinationOrdered By: Tabatha Severino on 04-28-2024 MCH (RBC) [Entitic mass] 30.1 pg 27.0-32.0 [facility] Mean corpuscular hemoglobin concentration (MCHC) determinationOrdered By: Tabatha Severino on 04-28-2024 MCHC (RBC) [Mass/Vol] 33.0 g/dL 32-36 [facility] Mean platelet volume determi nationOrdered By: Tabatha Severino on 04-28-2024 Platelet mean volume (Bld) [Entitic vol] 11.4 fL 6.2-12.0 [facility] Monocyte percentageOrdered B y: Tabatha Severino on 04-28-2024 Monocytes/100 WBC (Bld) 5.1 % 0-10 [facility] Neutrophil percentageOrdered By: Tabatha Severino on 04-28-2024 Neutrophils/100 WBC (Bld) 79.9 % High 47-70 [facility] No Panel InformationOrdered By: Tabatha Severino on 04-28-2024 HIV (1&2) Antibody Non-Reactive Nonreactive [facility] Comment on above: Non-ReactiveReactive Repeatedly reactive samples must be confirmed according to CDC recommended confirmatory algorithms. The subresults for either HIVAG or AHIV can be used as an aid in the selection of the confirmation algorithm for reactive samples.Send out specimens with Reactive results to [facility] for confirmation.Order the HIV antibody detection and differentiation: #[id number] Nucleated red blood cell per centageOrdered By: Tabatha Severino on 04-28-2024 Nucleated RBC/100 WBC (Bld) [Ratio] 0 % 0-5 [facility] Furnace Stock Inspector Office Visit Reporton 04-28-2024 Furnace Stock Inspector Office Visit Report [facility]'s [address], [address] [place] [address] OFFICE VISIT Date of Service: 04/28/24 MR#: [id number] Acct: [id number] Name: JD PRINGLE Rep #: [id number] : 2005 Provider: YAIR jorge Age/Sex: 18/F [place] [facility] [place]: Signed Intake Vital Signs 12/30/23 14:44 04/06/24 13:42 04/28/24 14:11 Height 5 ft 6 in 5 ft 6 in 5 ft 6 in Weight: 157 lb 6 oz BMI 25.4 BP 88/55 L Intake Visit Reasons: 25 WK OB *pt needs to reschedule 05/17 appt* Diagnostic Radiologic Technologist Required: No Is patient in pain?: No [...] children current occupational status: unemployed current occupation: [employer] current occupational exposures/hazards: No pets and animals: [...] 3-4 times per week duration: 15-30 minutes/day roseline/cheondoism: Hoahaoism seatbelt use: sometimes do you feel safe [...] - full term 7lbs 10oz Female epidural [facility] Julia [facility] Delivery Date: 04/03/23 Last Updated by: [...] 2 days. (more content not included)... Normal [facility] Platelet countOrdered By: Rick Severino on 04-28-2024 Platelets (Bld) [#/Vol] 176 10*3/uL 150-450 [facility] RBC Auto (Bld) [#/Vol]Ordere d By: Tabatha Severino on 04-28-2024 RBC (Bld) [#/Vol] 3.39 10*6/uL Low 4.2-5.4 [facility] T. pallidum abOrdered By: Rick Severino on 04-28-2024 Syphilis Total Antibody Non-Reactive Nonreactiv e [facility] White blood cell (WBC) count Ordered By: Tabatha Severino on 04-28-2024 WBC (Bld) [#/Vol] 11.0 10*3/uL 4.4-11.0 [facility] Laboratory - Chemistry and C hemistry - challengeOrdered By: Tabatha Severino on 04-06-2024 Glucose Ql (U) Negative [facility] Laboratory - UrinalysisOrder ed By: Tabatha Severino on 04-06-2024 Protein Ql (U) Negative [facility] Furnace Stock Inspector Office Visit Reporton 04-06-2024 Furnace Stock Inspector Office Visit Report [facility] [address], [address] [place] [address] OFFICE VISIT Date of Service: 04/06/24 MR#: [id number] Acct: [id number] Name: JD PRINGLE Rep #: [id number] : 2005 Provider: YAIR Brandt ams Age/Sex: 18/F [place] [facility] [place]: Signed Intake Vital Signs 03/07/24 11:37 04/06/24 13:40 04/06/24 13:42 Height 5 ft 6 in 5 ft 6 in 5 ft 6 in Weight: 147 lb 8 oz BMI 23.8 BP 106/70 Intake Visit Reasons: 22 wk ob Diagnostic Radiologic Technologist Required: No Is patient in pain?: No [...] children current occupational status: unemployed current occupation: [employer] current occupational exposures/hazards: No pets and animals: [...] 3-4 times per week duration: 15-30 minutes/day roseline/cheondoism: Hoahaoism seatbelt use: sometimes do you feel safe [...] - full term 7lbs 10oz Female epidural [facility] Julia Ortiz [employer] Delivery Date: 04/03/23 Last [...] 04/06/24 -???-???-???- (more content not included)... Normal [facility] Laboratory - Chemistry and C hemistry - challengeon 03-07-2024 Glucose Ql (U) Negative [facility] Laboratory - Urinalysison Protein Ql (U) Negative [facility] Furnace Stock Inspector Office Visit Reporton 03-07-2024 Furnace Stock Inspector Office Visit Report [facility] [address], [address] [place] [address] OFFICE VISIT Date of Service: 03/07/24 MR#: [id number] Acct: [id number] Name: JD PRINGLE Rep #: [id number] : 2005 Provider: Dr. Tabatha Sotelo DO Age/Sex: 18/F Location[place] [facility] [place]: Signed Intake Vital Signs 12/30/23 14:44 02/01/24 14:31 03/07/24 11:36 03/07/24 11:37 Height 5 ft 6 in 5 ft 6 in 5 ft 6 in 5 ft 6 in Weight: 138 lb 4 oz BMI 22.3 BP 120/70 Intake Visit Reasons: 17 WK OB Diagnostic Radiologic Technologist Required: No Is patient in pain?: No [...] children current occupational status: unemployed current occupation: [employer] current occupational exposures/hazards: No pets and animals: [...] 3-4 times per week duration: 15-30 minutes/day roseline/cheondoism: Hoahaoism seatbelt use: sometimes do you feel safe [...] - full term 7lbs 10oz Female epidural [facility] Julia Solitario Delivery Date: 04/03/23 Last Updated [...] ACOG First (more content not included)... Normal [facility] Laboratory - Chemistry and C hemistry - challengeon 02-01-2024 Glucose Ql (U) Negative [facility] Laboratory - Urinalysison Protein Ql (U) Negative [facility] Furnace Stock Inspector Office Visit Reporton 02-01-2024 Furnace Stock Inspector Office Visit Report [facility] [address], [address] [place] [address] OFFICE VISIT Date of Service: 02/01/24 MR#: [id number] Acct: [id number] Name: JD PRINGLE Rep #: [id number] : 2005 Provider: Dr. Tabatha Sotelo DO Age/Sex: 18/F [place] [facility] [place]: Signed Intake Vital Signs 05/14/23 10:41 12/30/23 14:44 02/01/24 14:30 02/01/24 14:31 Height 5 ft 6 in 5 ft 6 in 5 ft 6 in 5 ft 6 in Weight: 132 lb BMI 21.3 BP 109/55 L Intake Visit Reasons: 13wk OB Diagnostic Radiologic Technologist Required: No Is patient in pain?: No [...] children current occupational status: unemployed current occupation: [employer] current occupational exposures/hazards: No pets and animals: [...] 3-4 times per week duration: 15-30 minutes/day roseline/cheondoism: Hoahaoism seatbelt use: sometimes do you feel safe [...] - full term 7lbs 10oz Female epidural [facility] Julia Solitario Delivery Date: 04/03/23 Last Updated [...] Pain Management (more content not included)... Normal [facility] CBC W/Diff, Automatedon 11-0 Absolute Lymph 1.44 X10 3/uL Normal 0.83-4.51 [facility] Comment on above: Performed By: #### L 3890.6005, L900.0098, L3890.6300, BTS, L509.4005, L3890.6100, L509.8000, L100.0100 #### [facility] Laboratory [address] [place], [address] Absolute Neut 5.6 X10 3/uL Normal 2.0-7.7 [facility] Comment on above: Performed By: #### L 3890.6005, L900.0098, L3890.6300, BTS, L509.4005, L3890.6100, L509.8000, L100.0100 #### [facility] [address] [place], [address] Basophils/100 WBC (Bld) 0.3 % Normal 0-1 [facility] Comment on above: Performed By: #### L 3890.6005, L900.0098, L3890.6300, BTS, L509.4005, L3890.6100, L509.8000, L100.0100 #### [facility] [address] [place], [address] Eosinophils/100 WBC (Bld) 0.7 % Normal 0-5 [facility] Comment on above: Performed By: #### L 3890.6005, L900.0098, L3890.6300, BTS, L509.4005, L3890.6100, L509.8000, L100.0100 #### [facility] [address] [place], [address] Erythrocyte distribution width (RBC) [Ratio] 12.4 % Normal 11.6-14.6 [facility] Comment on above: Performed By: #### L 3890.6005, L900.0098, L3890.6300, BTS, L509.4005, L3890.6100, L509.8000, L100.0100 #### [facility] [address] [place], [address] Hematocrit (Bld) [Volume fraction] 37.3 % Normal 37-47 [facility] Comment on above: Performed By: #### L 3890.6005, L900.0098, L3890.6300, BTS, L509.4005, L3890.6100, L509.8000, L100.0100 #### [facility] [address] [place], [address] Hemoglobin (Bld) [Mass/Vol] 12.7 g/dL Normal 12.0-15.0 [facility] Comment on above: Performed By: #### L 3890.6005, L900.0098, L3890.6300, BTS, L509.4005, L3890.6100, L509.8000, L100.0100 #### [facility] [address] [place], [address] IG% 0.400 Normal 0.0-0.9 [facility] Comment on above: Result Comment: IG% - Immature Granulocytes (promyelocytes, myelocytes and metamyelocytes) > 1% indicates that a LEFT SHIFT is Present. Performed By: #### L 3890.6005, L900.0098, L3890.6300, BTS, L509.4005, L3890.6100, L509.8000, L100.0100 #### [facility] [address] [place], [address] Lymphocytes/100 WBC (Bld) 19.2 % Normal 19-41 [facility] Comment on above: Performed By: #### L 3890.6005, L900.0098, L3890.6300, BTS, L509.4005, L3890.6100, L509.8000, L100.0100 #### [facility] [address] [place], [address] MCH (RBC) [Entitic mass] 30.0 pg Normal 27.0-32.0 [facility] Comment on above: Performed By: #### L 3890.6005, L900.0098, L3890.6300, BTS, L509.4005, L3890.6100, L509.8000, L100.0100 #### [facility] [address] [place], [address] MCHC (RBC) [Mass/Vol] 34.0 g/dL Normal 32-36 [facility] Comment on above: Performed By: #### L 3890.6005, L900.0098, L3890.6300, BTS, L509.4005, L3890.6100, L509.8000, L100.0100 #### [facility] [address] [place], [address] MCV (RBC) [Entitic vol] 88.0 fL Normal 81-99 [facility] Comment on above: Performed By: #### L 3890.6005, L900.0098, L3890.6300, BTS, L509.4005, L3890.6100, L509.8000, L100.0100 #### [facility] [address] [place], [address] Monocytes/100 WBC (Bld) 4.3 % Normal 0-10 [facility] Comment on above: Performed By: #### L 3890.6005, L900.0098, L3890.6300, BTS, L509.4005, L3890.6100, L509.8000, L100.0100 #### [facility] [address] [place], [address] Neutrophils/100 WBC (Bld) 75.1 % High 47-70 [facility] Comment on above: Performed By: #### L 3890.6005, L900.0098, L3890.6300, BTS, L509.4005, L3890.6100, L509.8000, L100.0100 #### [facility] [address] [place], [address] Nucleated RBC (Bld) [#/Vol] 0 10*3/uL Normal 0-5 [facility] Comment on above: Performed By: #### L 3890.6005, L900.0098, L3890.6300, BTS, L509.4005, L3890.6100, L509.8000, L100.0100 #### [facility] [address] [place], [address] Platelet mean volume (Bld) [Entitic vol] 11.2 fL Normal 6.2-12.0 [facility] Comment on above: Performed By: #### L 3890.6005, L900.0098, L3890.6300, BTS, L509.4005, L3890.6100, L509.8000, L100.0100 #### [facility] [address] [place], [address] Platelets (Bld) [#/Vol] 202 10*3/uL Normal 150-450 [facility] Comment on above: Performed By: #### L 3890.6005, L900.0098, L3890.6300, BTS, L509.4005, L3890.6100, L509.8000, L100.0100 #### [facility] [address] [place], [address] RBC (Bld) [#/Vol] 4.24 10*6/uL Normal 4.2-5.4 [facility] Comment on above: Performed By: #### L 3890.6005, L900.0098, L3890.6300, BTS, L509.4005, L3890.6100, L509.8000, L100.0100 #### [facility] [address] [place], [address] RDW SD 39.9 fl Normal 35.1-43.9 [facility] Comment on above: Performed By: #### L 3890.6005, L900.0098, L3890.6300, BTS, L509.4005, L3890.6100, L509.8000, L100.0100 #### [facility] [address] [place], [address] WBC (Bld) [#/Vol] 7.5 10*3/uL Normal 4.4-11.0 [facility] Comment on above: Performed By: #### L 3890.6005, L900.0098, L3890.6300, BTS, L509.4005, L3890.6100, L509.8000, L100.0100 #### [facility] [address] [place], [address] HIV - WCHon 01-06-2024 HIV Non-Reactive Normal Nonreactive [facility] Comment on above: Order Comment: Reaso n for Exam: Performed By: #### L 3890.6005, L900.0098, L3890.6300, BTS, L509.4005, L3890.6100, L509.8000, L100.0100 ####[facility] [address] [facility] [place], [place], [address] Hepatitis B Surface Antigeno n 01-06-2024 HEP B Surf Ag Non-Reactive [facility] Comment on above: Order Comment: Reaso n for Exam: Performed By: #### L 3890.6005, L900.0098, L3890.6300, BTS, L509.4005, L3890.6100, L509.8000, L100.0100 ####[facility] [address] [facility] [place], [place], [address] Hepatitis C Antibodyon 01-05 Hepatitis C AB Non-Reactive Normal [facility] Comment on above: Order Comment: Reaso n for Exam: Result Comment: Non Reactive: < 0.8 Equivocal: >/= 0.8 to < 1.0 Reactive: >/= 1.0 The CDC requires that a reactive/equivocal HCV antibody result be sent out for confirmation. HCV Quant by PCR testing. Performed By: #### L 3890.6005, L900.0098, L3890.6300, BTS, L509.4005, L3890.6100, L509.8000, L100.0100 ####[facility] [address] [place], [address] L509.8000on 01-06-2024 Syphilis Abs Non-Reactive Normal [facility] Comment on above: Order Comment: Reaso n for Exam: Performed By: #### L 3890.6005, L900.0098, L3890.6300, BTS, L509.4005, L3890.6100, L509.8000, L100.0100 ####[facility] [address] [place], [address] NATERAon 01-06-2024 NATURA SEE SCANNED REPORT Normal [facility] Comment on above: Performed By: #### L 3890.6005, L900.0098, L3890.6300, BTS, L509.4005, L3890.6100, L509.8000, L100.0100 #### [facility] [address] [place], [address] Rubella IgGon 01-06-2024 Rubella IgG Reactive Normal Nonreactive [facility] Comment on above: Order Comment: Reaso n for Exam: Result Comment: Anti body Results Interpretation of Immune Status Non Reactive Presumed Non-Immune Equivocal Equivocal Reactive Presumed Immune Performed By: #### L 3890.6005, L900.0098, L3890.6300, BTS, L509.4005, L3890.6100, L509.8000, L100.0100 ####[facility] [address] [place], [address] Type AND Screenon 01-06-2024 ABO and Rh group Nom (Bld) Blood group A Rh(D) positive Normal [facility] Comment on above: Order Comment: PN Performed By: #### L 3890.6005, L900.0098, L3890.6300, BTS, L509.4005, L3890.6100, L509.8000, L100.0100 ####[facility] [address] [place], [address] Chlamydia/GC ANT aptimaon CHLAMY,NUC ACID Negative Normal Negative [facility] Comment on above: Performed By: #### L 7000.1800, M100.2200 ####[facility] [address] [place], [address] GC BY NUC ACID Negative Normal Negative [facility] Comment on above: Result Comment: Perf ormed at: =G - [facility] [address] [id number] Cleaner Touch Up Worker: Rossy Modi MD, Phone: [phone] Performed By: #### L 7000.1800, M100.2200 ####[facility] [address] [place], [address] Urine Cultureon 01-01-2024 URC [place] Count = 7000 cfu/mL Below infection level. Presumptive E. coli [place] Count 1000-10,000 Normal [facility] Comment on above: Performed By: #### L 7000.1800, M100.2200 ####[facility] [address] [place], [address] Furnace Stock Inspector Office Visit Reporton 12-30-2023 Furnace Stock Inspector Office Visit Report [facility] [address], [address] [place] [address] OFFICE VISIT Date of Service: 12/30/23 MR#: [id number] Acct: [id number] Name: JD PRINGLE Rep #: [id number] : 2005 Provider: YAIR Brandt ams Age/Sex: 18/F [place] [facility] [place]: Signed Intake Vital Signs 05/14/23 10:41 12/30/23 14:42 12/30/23 14:44 Height 5 ft 6 in 5 ft 6 in 5 ft 6 in Weight: 132 lb BMI 21.3 BP 96/52 L Intake Visit Reasons: New OB, LMP 10/27, SARAHI 08/03 Diagnostic Radiologic Technologist Required: No Is patient in pain?: No [...] No current occupational status: unemployed current occupation: [employer] current occupational exposures/hazards: No pets and animals: [...] 3-4 times per week duration: 15-30 minutes/day roseline/cheondoism: Hoahaoism seatbelt use: sometimes do you feel safe [...] - full term 7lbs 10oz Female epidural [facility] Julia Solitario Delivery Date: 04/03/23 Last Updated [...] Other, Cystic Fibrosis: Other, Chromosome Abnormality: Other, Ehrnandez-Sachs: Other, Hemophilia: Other, Intellectual Disability/Autism: Patient (Pt's mom with intellectual disability ), Recurrent Loss/Stillbirth: Other, Other Structural Defect: Other, Ot (more content not included)... Normal [facility] Absolute lymphocyte countOrd ered By: Julia Ortiz on 04-02-2023 Lymphocytes Auto (Unsp spec) [#/Vol] 1.60 10*3/uL 0.83-4.51 [facility] Automated lymphocyte count a s percentage of total leukocytesOrdered By: Julia Ortiz on 04-02-2023 Lymphocytes/100 WBC Auto (Unsp spec) 10.2 % 25-45 [facility] Basophil percentageOrdered B y: Julia Ortiz on 04-02-2023 Basophils/100 WBC (Bld) 0.2 % 0-1 [facility] Eosinophils/100 WBC (Bld) 0.6 % 0-3 [facility] Hemoglobin (Bld) [Mass/Vol] 11.8 g/dL 12.0-15.0 [facility] Monocytes/100 WBC (Bld) 5.9 % 3-6 [facility] Neutrophils (Bld) [#/Vol] 12.9 10*3/uL 2.0-7.7 [facility] Neutrophils/100 WBC (Bld) 82.5 % 34-64 [facility] WBC (Bld) [#/Vol] 15.6 10*3/uL 4.5-13.0 [facility] Determination of erythrocyte mean corpuscular volume (MCV)Ordered By: Julia Ortiz on 04-02-2023 MCV (RBC) [Entitic vol] 92.1 fL 78-96 [facility] Erythrocyte distribution wid th ratioOrdered By: Julia Ortiz on 04-02-2023 Erythrocyte distribution width (RBC) [Ratio] 12.8 % 11.6-14.6 [facility] Erythrocyte distribution wid th standard deviationOrdered By: Julia Ortiz on 04-02-2023 Erythrocyte distribution width (RBC) [Entitic vol] 42.5 fL 35.1-43.9 [facility] Hematocrit Auto (Bld) [Volum e fraction]Ordered By: Julia Ortiz on 04-02-2023 Hematocrit (Bld) [Volume fraction] 35.2 % 37-46 [facility] Immature granulocytes/100 WB C Auto (Bld)Ordered By: Julia Ortiz on 04-02-2023 Immature granulocytes/100 WBC (Bld) 0.600 % 0.0-0.9 [facility] Comment on above: IG% - Immature Granu locytes (promyelocytes, myelocytes and metamyelocytes) > 1% indicates that a LEFT SHIFT is Present. Laboratory - Hematology and Cell countsOrdered By: Julia Ortiz on 04-02-2023 MCH (RBC) [Entitic mass] 30.9 pg 25.0-35.0 [facility] MCHC (RBC) [Mass/Vol] 33.5 g/dL 32-36 [facility] Nucleated RBC/100 WBC (Bld) [Ratio] 0 % 0-5 [facility] Platelets (Bld) [#/Vol] 182 10*3/uL 150-450 [facility] Platelet mean volume Brent-Ec ker (Bld) [Entitic vol]Ordered By: Julia Ortiz on 04-02-2023 Platelet mean volume (Bld) [Entitic vol] 12.2 fL 6.2-12.0 [facility] RBC Auto (Bld) [#/Vol]Ordere d By: Julia Ortiz on 04-02-2023 RBC (Bld) [#/Vol] 3.82 10*6/uL 4.1-4.8 [facility] Serum Treponema species anti body detectionOrdered By: Julia Ortiz on 04-02-2023 Treponema sp Ab Ql (S) Non-Reactive [facility] Laboratory - Chemistry and C hemistry - challengeon 03-31-2023 Glucose Ql (U) Negative [facility] Laboratory - Urinalysison 01 -31-2024 Protein Ql (U) Negative [facility] Laboratory - Chemistry and C hemistry - challengeon 03-24-2023 Glucose Ql (U) Negative [facility] Laboratory - Urinalysison Protein Ql (U) Negative [facility] No Panel InformationOrdered By: Francesca Yeung on 03-18-2023 Group B Streptococcus Culture Group B Beta Streptococcus is not isolated. [facility] Laboratory - Chemistry and C hemistry - challengeon 03-10-2023 Glucose Ql (U) Negative [facility] Laboratory - Urinalysison Protein Ql (U) Negative [facility] Absolute lymphocyte countOrd ered By: Rosa Knight on 02-24-2023 Lymphocytes Auto (Unsp spec) [#/Vol] 1.60 10*3/uL 0.83-4.51 [facility] Basophil percentageOrdered B y: Rosa Knight on 02-24-2023 Basophils/100 WBC (Bld) 0.2 % 0-1 [facility] Eosinophils/100 WBC (Bld) 1.5 % 0-3 [facility] Neutrophils (Bld) [#/Vol] 10.4 10*3/uL 2.0-7.7 [facility] Neutrophils/100 WBC (Bld) 78.2 % 34-64 [facility] WBC (Bld) [#/Vol] 13.3 10*3/uL 4.5-13.0 [facility] Blood erythrocytes count (nu mber/volume)Ordered By: Rosa Knight on 02-24-2023 RBC (Bld) [#/Vol] 3.59 10*6/uL 4.1-4.8 [facility] Blood hemoglobin measurement (mass/volume)Ordered By: Rosa Knight on 02-24-2023 Hemoglobin (Bld) [Mass/Vol] 11.5 g/dL 12.0-15.0 [facility] Blood lymphocytes/100 leukoc ytesOrdered By: Rosa Knight on 02-24-2023 Lymphocytes/100 WBC (Bld) 12.0 % 25-45 [facility] Blood monocytes/100 leukocyt esOrdered By: Rosa Knight on 02-24-2023 Monocytes/100 WBC (Bld) 7.3 % 3-6 [facility] Blood platelet mean volumeOr dered By: Rosa Knight on 02-24-2023 Platelet mean volume (Bld) [Entitic vol] 11.0 fL 6.2-12.0 [facility] Determination of erythrocyte mean corpuscular volume (MCV)Ordered By: Rosa Knight on 02-24-2023 MCV (RBC) [Entitic vol] 94.2 fL 78-96 [facility] Hematocrit Auto (Bld) [Volum e fraction]Ordered By: Rosa Knight on 02-24-2023 Hematocrit (Bld) [Volume fraction] 33.8 % 37-46 [facility] Laboratory - Chemistry and C hemistry - challengeon 02-24-2023 Glucose Ql (U) Negative [facility] Laboratory - Hematology and Cell countsOrdered By: Rosa Knight on 02-24-2023 Erythrocyte distribution width (RBC) [Entitic vol] 43.5 fL 35.1-43.9 [facility] Erythrocyte distribution width (RBC) [Ratio] 12.6 % 11.6-14.6 [facility] Immature granulocytes/100 WBC (Bld) 0.800 % 0.0-0.9 [facility] Comment on above: IG% - Immature Granu locytes (promyelocytes, myelocytes and metamyelocytes) > 1% indicates that a LEFT SHIFT is Present. MCH (RBC) [Entitic mass] 32.0 pg 25.0-35.0 [facility] Nucleated RBC/100 WBC (Bld) [Ratio] 0 % 0-5 [facility] Laboratory - Urinalysison Protein Ql (U) Trace [facility] MCHC Auto (RBC) [Mass/Vol]Or dered By: Rosa Knight on 02-24-2023 MCHC (RBC) [Mass/Vol] 34.0 g/dL 32-36 [facility] Platelets bldOrdered By: Darshan Knight on 02-24-2023 Platelets (Bld) [#/Vol] 170 10*3/uL 150-450 [facility] Laboratory - Chemistry and C hemistry - challengeon 02-09-2023 Glucose Ql (U) Negative [facility] Laboratory - Urinalysison Protein Ql (U) Negative [facility] Laboratory - Chemistry and C hemistry - challengeon 01-29-2023 Glucose Ql (U) Negative [facility] Laboratory - Urinalysison Protein Ql (U) Negative [facility] Absolute lymphocyte countOrd ered By: Rosa Knight on 01-08-2023 Lymphocytes Auto (Unsp spec) [#/Vol] 1.42 10*3/uL 0.83-4.51 [facility] Basophil percentageOrdered B y: Rosa Knight on 01-08-2023 Basophils/100 WBC (Bld) 0.3 % 0-1 [facility] Eosinophils/100 WBC (Bld) 2.1 % 0-3 [facility] Neutrophils (Bld) [#/Vol] 10.3 10*3/uL 2.0-7.7 [facility] Neutrophils/100 WBC (Bld) 80.1 % 34-64 [facility] WBC (Bld) [#/Vol] 12.9 10*3/uL 4.5-13.0 [facility] Blood erythrocytes count (nu mber/volume)Ordered By: Rosa Knight on 01-08-2023 RBC (Bld) [#/Vol] 3.45 10*6/uL 4.1-4.8 [facility] Blood hemoglobin measurement (mass/volume)Ordered By: Rosa Knight on 01-08-2023 Hemoglobin (Bld) [Mass/Vol] 10.8 g/dL 12.0-15.0 [facility] Blood lymphocytes/100 leukoc ytesOrdered By: Rosa Knight on 01-08-2023 Lymphocytes/100 WBC (Bld) 11.0 % 25-45 [facility] Blood monocytes/100 leukocyt esOrdered By: Rosa Knight on 01-08-2023 Monocytes/100 WBC (Bld) 5.8 % 3-6 [facility] Blood platelet mean volumeOr dered By: Rosa Knight on 01-08-2023 Platelet mean volume (Bld) [Entitic vol] 11.3 fL 6.2-12.0 [facility] Determination of erythrocyte mean corpuscular volume (MCV)Ordered By: Rosa Knight on 01-08-2023 MCV (RBC) [Entitic vol] 98.0 fL 78-96 [facility] Gestational diabetes screen 1-hour screen with 50g oral glucose loadOrdered By: Rosa Knight on 01-08-2023 Glucose 1 Hr post 50 g glucose PO [Mass/Vol] 104 mg/dL 70-140 [facility] HIV 1 and HIV-2 antibody ass ay with HIV-1 p24 antigen detectionOrdered By: Rosa Knight on 01-08-2023 HIV 1+2 Ab+HIV1 p24 Ag IA Ql Non-Reactive Nonreactive [facility] Hematocrit Auto (Bld) [Volum e fraction]Ordered By: Rosa Knight on 01-08-2023 Hematocrit (Bld) [Volume fraction] 33.8 % 37-46 [facility] Laboratory - Hematology and Cell countsOrdered By: Rosa Knight on 01-08-2023 Erythrocyte distribution width (RBC) [Entitic vol] 45.4 fL 35.1-43.9 [facility] Erythrocyte distribution width (RBC) [Ratio] 12.8 % 11.6-14.6 [facility] Immature granulocytes/100 WBC (Bld) 0.700 % 0.0-0.9 [facility] Comment on above: IG% - Immature Granu locytes (promyelocytes, myelocytes and metamyelocytes) > 1% indicates that a LEFT SHIFT is Present. MCH (RBC) [Entitic mass] 31.3 pg 25.0-35.0 [facility] Nucleated RBC/100 WBC (Bld) [Ratio] 0 % 0-5 [facility] MCHC Auto (RBC) [Mass/Vol]Or dered By: Rosa Knight on 01-08-2023 MCHC (RBC) [Mass/Vol] 32.0 g/dL 32-36 [facility] Platelets bldOrdered By: Darshan Knight on 01-08-2023 Platelets (Bld) [#/Vol] 178 10*3/uL 150-450 [facility] Serum Treponema species anti body detectionOrdered By: Rosa Knight on 11-10-2023 Treponema sp Ab Ql (S) Non-Reactive [facility] Laboratory - Chemistry and C hemistry - challengeon 10-16-2022 Glucose Ql (U) Negative [facility] Laboratory - Urinalysison Protein Ql (U) Negative [facility] Absolute lymphocyte countOrd ered By: Tabatha Severino on 09-17-2022 Lymphocytes Auto (Unsp spec) [#/Vol] 1.42 10*3/uL 0.83-4.51 [facility] Basophil percentageOrdered B y: Tabatha Severino on 09-17-2022 Basophils/100 WBC (Bld) 0.2 % 0-1 [facility] Eosinophils/100 WBC (Bld) 0.3 % 0-3 [facility] Neutrophils (Bld) [#/Vol] 8.0 10*3/uL 2.0-7.7 [facility] Neutrophils/100 WBC (Bld) 80.5 % 34-64 [facility] WBC (Bld) [#/Vol] 10.0 10*3/uL 4.5-13.0 [facility] Blood erythrocytes count (nu mber/volume)Ordered By: Tabatha Severino on 09-17-2022 RBC (Bld) [#/Vol] 4.17 10*6/uL 4.1-4.8 [facility] Blood hemoglobin measurement (mass/volume)Ordered By: Tabatha Severino on 09-17-2022 Hemoglobin (Bld) [Mass/Vol] 12.9 g/dL 12.0-15.0 [facility] Blood lymphocytes/100 leukoc ytesOrdered By: Tabatha Severino on 09-17-2022 Lymphocytes/100 WBC (Bld) 14.3 % 25-45 [facility] Blood monocytes/100 leukocyt esOrdered By: Tabatha Severino on 09-17-2022 Monocytes/100 WBC (Bld) 4.1 % 3-6 [facility] Blood platelet mean volumeOr dered By: Tabatha Severino on 09-17-2022 Platelet mean volume (Bld) [Entitic vol] 10.3 fL 6.2-12.0 [facility] Chlamydia trachomatis rRNA d etection by probe and target amplification methodOrdered By: Tabatha Severino on 09-17-2022 C. trachomatis rRNA ANT+probe Ql (Unsp spec) Negative Negative [facility] Culture, urineOrdered By: Rick Severino on 09-17-2022 Bacteria identified Cx Nom (U) Staphylococcus saprophyticus [facility] Determination of erythrocyte mean corpuscular volume (MCV)Ordered By: Tabatha Severino on 09-17-2022 MCV (RBC) [Entitic vol] 92.1 fL 78-96 [facility] HIV 1 and HIV-2 antibody ass ay with HIV-1 p24 antigen detectionOrdered By: Tabatha Severino on 09-17-2022 HIV 1+2 Ab+HIV1 p24 Ag IA Ql Non-Reactive Nonreactive [facility] Hematocrit Auto (Bld) [Volum e fraction]Ordered By: Tabatha Severino on 09-17-2022 Hematocrit (Bld) [Volume fraction] 38.4 % 37-46 [facility] Laboratory - Hematology and Cell countsOrdered By: Tabatha Severino on 09-17-2022 Erythrocyte distribution width (RBC) [Entitic vol] 40.5 fL 35.1-43.9 [facility] Erythrocyte distribution width (RBC) [Ratio] 12.0 % 11.6-14.6 [facility] Immature granulocytes/100 WBC (Bld) 0.600 % 0.0-0.9 [facility] Comment on above: IG% - Immature Granu locytes (promyelocytes, myelocytes and metamyelocytes) > 1% indicates that a LEFT SHIFT is Present. MCH (RBC) [Entitic mass] 30.9 pg 25.0-35.0 [facility] Nucleated RBC/100 WBC (Bld) [Ratio] 0 % 0-5 [facility] Laboratory - Microbiology an d Antimicrobial susceptibilityOrdered By: Tabatha Severino on 09-17-2022 N. gonorrhoeae DNA ANT+probe Ql (Unsp spec) Negative Negative [facility] Comment on above: Performed at: =G - [address] [id number] Director: Rossy Modi MD, Phone: [phone] MCHC Auto (RBC) [Mass/Vol]Or dered By: Tabatha Severino on 09-17-2022 MCHC (RBC) [Mass/Vol] 33.6 g/dL 32-36 [facility] No Panel InformationOrdered By: Tabatha Severino on 09-17-2022 Hepatitis B Surface Antigen Non-Reactive Nonreactive [facility] Hepatitis C Antibody Non-Reactive Nonreactive [facility] Comment on above: Non Reactive: < 0.8 Equivocal: >/= 0.8 to < 1.0 Reactive: >/= 1.0The CDC recommends that a reactive/equivocal HCV antibody result be followed up by the HCV Nucleic Acid Amplificationtest (016017) Miscellaneous Test Comment MAILED SPECIMEN [facility] Rubella IgG Antibody Reactive Nonreactive [facility] Comment on above: Antibody Results Int erpretation of Immune Status Non Reactive Presumed Non-Immune Equivocal Equivocal Reactive Presumed Immune Platelets bldOrdered By: Lizbeth Severino on 09-17-2022 Platelets (Bld) [#/Vol] 192 10*3/uL 150-450 [facility] Serum Treponema species anti body detectionOrdered By: Tabatha Severino on 09-17-2022 Treponema sp Ab Ql (S) Non-Reactive [facility] PLASMA ZINCon 01-27-2017 PLASMA ZINC 84 ug/dL Normal 56-134 [facility] Comment on above: Result Comment: Dete ction Limit = 5PERFORMED AT [facility] Performed By: #### A CBC, CHEM7F, CHOL, FE2, FRTN ####[place] [address]#### GARRET XIONG ####Testing performed at [facility] SERUM COPPERon 01-27-2017 SERUM COPPER 95 ug/dL Normal 72-166 [facility] Comment on above: Result Comment: Dete ction Limit = 5PERFORMED AT [facility] Performed By: #### A CBC, CHEM7F, CHOL, FE2, FRTN ####[place] [address]#### ANTHONYPGARRET ####Testing performed at [facility] CBCon 11-27-2017 ABSOLUTE BAS 0.0 X10 Normal [facility] Comment on above: Result Comment: Test ing performed at [place] [address] Performed By: #### A CBC, CHEM7F, CHOL, FE2, FRTN ####[place] [address]#### LCOPP, LZN ####Testing performed at [facility] ABSOLUTE EOS 0.30 X10 Normal [facility] Comment on above: Performed By: #### A CBC, CHEM7F, CHOL, FE2, FRTN ####[place] [address]#### LCOPP, LZN ####Testing performed at [facility] Basophils/100 WBC Auto (Bld) 0.6 % Normal 0.0-2.0 [facility] Comment on above: Performed By: #### A CBC, CHEM7F, CHOL, FE2, FRTN ####[place] [address]#### LCOPP, LZN ####Testing performed at [facility] DTYPE AUTO DIFF [facility] Comment on above: Performed By: #### A CBC, CHEM7F, CHOL, FE2, FRTN ####[place] [address]#### LCOPP, LZN ####Testing performed at [facility] Eosinophils/100 leukocytes 4.1 % Normal 0.0-11.0 [facility] Comment on above: Performed By: #### A CBC, CHEM7F, CHOL, FE2, FRTN ####[place] [address]#### LCOPP, LZN ####Testing performed at [facility] Lymphocytes 1.80 X10 [facility] Comment on above: Performed By: #### A CBC, CHEM7F, CHOL, FE2, FRTN ####[place] [address]#### LCOPP, LZN ####Testing performed at [facility] Lymphocytes/100 leukocytes 27.9 % Normal 20.0-55.0 [facility] Comment on above: Performed By: #### A CBC, CHEM7F, CHOL, FE2, FRTN ####[place] [address]#### LCOPP, LZN ####Testing performed at [facility] Monocytes 0.6 X10 Normal [facility] Comment on above: Performed By: #### A CBC, CHEM7F, CHOL, FE2, FRTN ####[place] [address]#### LCOPP, LZN ####Testing performed at [facility] Monocytes/100 leukocytes 9.1 % Normal 0.0-10.0 [facility] Comment on above: Performed By: #### A CBC, CHEM7F, CHOL, FE2, FRTN ####[place] [address]#### LCOPP, LZN ####Testing performed at [facility] Neutrophils 3.7 x10 Normal 1.0-7.0 [facility] Comment on above: Performed By: #### A CBC, CHEM7F, CHOL, FE2, FRTN ####[place] [address]#### LCOPP, LZN ####Testing performed at [facility] Neutrophils/100 leukocytes 58.3 % Normal 37.0-75.0 [facility] Comment on above: Performed By: #### A CBC, CHEM7F, CHOL, FE2, FRTN ####[place] [address]#### LCOPP, LZN ####Testing performed at [facility] Erythrocyte distribution width Auto Ratio (RBC) 12.9 % Normal 11.5-14.5 [facility] Comment on above: Performed By: #### A CBC, CHEM7F, CHOL, FE2, FRTN ####[place] [address]#### LCOPP, LZN ####Testing performed at [facility] Erythrocytes (RBC) 4.46 /cmm Normal 4.0-5.4 [facility] Comment on above: Performed By: #### A CBC, CHEM7F, CHOL, FE2, FRTN ####[place] [address]#### LCOPP, LZN ####Testing performed at [facility] Hematocrit (HCT) 39.9 % Normal 36.0-48.0 [facility] Comment on above: Performed By: #### A CBC, CHEM7F, CHOL, FE2, FRTN ####[place] [address]#### LCOPP, LZN ####Testing performed at [facility] Hemoglobin mass conc (Bld) 13.3 g/dL Normal 12.0-16.0 [facility] Comment on above: Performed By: #### A CBC, CHEM7F, CHOL, FE2, FRTN ####[place] [address]#### LCOPP, LZN ####Testing performed at [facility] MCH 30.0 pg Normal 26.0-35.0 [facility] Comment on above: Performed By: #### A CBC, CHEM7F, CHOL, FE2, FRTN ####[place] [address]#### LCOPP, LZN ####Testing performed at [facility] MCHC mass conc (RBC) 33.5 g/dL Normal 27.0-37.0 [facility] Comment on above: Performed By: #### A CBC, CHEM7F, CHOL, FE2, FRTN ####[place] [address]#### LCOPP, LZN ####Testing performed at [facility] MCV 89.5 fL Normal 80.0-100.0 [facility] Comment on above: Performed By: #### A CBC, CHEM7F, CHOL, FE2, FRTN ####[place] [address]#### LCOPP, LZN ####Testing performed at [facility] Platelet mean volume (PMV) 8.9 fL Normal 7.4-11.0 [facility] Comment on above: Performed By: #### A CBC, CHEM7F, CHOL, FE2, FRTN ####[place] [address]#### LCOPP, LZN ####Testing performed at [facility] Platelets 168 /cmm Normal 130.0-400.0 [facility] Comment on above: Performed By: #### A CBC, CHEM7F, CHOL, FE2, FRTN ####[place] [address]#### LCOPP, LZN ####Testing performed at [facility] WBC (Leukocytes) 6.3 /cmm Normal 3.6-13.0 [facility] Comment on above: Performed By: #### A CBC, CHEM7F, CHOL, FE2, FRTN ####[place] [address]#### LCOPP, LZN ####Testing performed at [facility] CHEM 7 FASTINGon 01-25-2017 BUN (urea nitrogen) 11 mg/dL Normal 7-18 [facility] Comment on above: Performed By: #### A CBC, CHEM7F, CHOL, FE2, FRTN ####[place] [address]#### LCOPP, LZN ####Testing performed at [facility] Chloride 105 mmol/L Normal 98-107 [facility] Comment on above: Performed By: #### A CBC, CHEM7F, CHOL, FE2, FRTN ####[place] [address]#### LCOPP, LZN ####Testing performed at [facility] CO2 26 mmol/L Normal 22-30 [facility] Comment on above: Performed By: #### A CBC, CHEM7F, CHOL, FE2, FRTN ####[place] [address]#### LCOPP, LZN ####Testing performed at [facility] Creatinine 0.5 mg/dL Normal 0.4-1.0 [facility] Comment on above: Performed By: #### A CBC, CHEM7F, CHOL, FE2, FRTN ####[place] [address]#### LCOPP, LZN ####Testing performed at [facility] eGFR (non-black) Unable to calculate GFR due to inappropriate age/gender/creatinin e value. Normal [facility] Comment on above: Result Comment: Test ing performed at [place] [address] Performed By: #### A CBC, CHEM7F, CHOL, FE2, FRTN ####[place] [address]#### LCOPP, LZN ####Testing performed at [facility] Glucose mass conc 84 mg/dL Normal 70-100 [facility] Comment on above: Result Comment: NORM AL <100 mg/dLPREDIABETES 101-126 mg/dLDIABETES 126 mg/dL or higher Performed By: #### A CBC, CHEM7F, CHOL, FE2, FRTN ####[place] [address]#### LCOPP, LZN ####Testing performed at [facility] Potassium molar conc 4.1 mmol/L Normal 3.5-5.1 [facility] Comment on above: Performed By: #### A CBC, CHEM7F, CHOL, FE2, FRTN ####[place] [address]#### LCOPP, LZN ####Testing performed at [facility] Sodium 140 mmol/L Normal 137-145 [facility] Comment on above: Performed By: #### A CBC, CHEM7F, CHOL, FE2, FRTN ####[place] [address]#### LCOPP, LZN ####Testing performed at [facility] CHOLESTEROLon 01-25-2017 Cholesterol 175 mg/dL Normal 126-214 [facility] Comment on above: Result Comment: Test ing performed at [place] [address] Performed By: #### A CBC, CHEM7F, CHOL, FE2, FRTN ####[place] [address]#### LCOPP, LZN ####Testing performed at [facility] FERRITINon 01-25-2017 FERRITIN 20 NG/ML Normal 6.24-137 [facility] Comment on above: Result Comment: LUL ENOPAUSAL FEMALES 6.9-282.5POSTMENOPAUSAL FEMALES 14.0-233.1Testing performed at [place] [address] Performed By: #### A CBC, CHEM7F, CHOL, FE2, FRTN ####[place] [address]#### LCOPP, LZN ####Testing performed at [facility] IRONon 01-25-2017 Iron 72 ug/dL Normal 37-170 [facility] Comment on above: Result Comment: Test ing performed at [place] [address] Performed By: #### A CBC, CHEM7F, CHOL, FE2, FRTN ####Testing performed at [facility] [place] [address]#### LCGARRET MODI ####Testing performed at [facility] 01-19-2017 [facility] NOTES Normal [facility] Vital Signs Date Time Vital Sign Value Performing Clinician Facility 08-03-2024 15:26-0400 Body height 167.64 cm Supriya Callahan [employer] Work Phone: [facility] 08-03-2024 15:26-0400 Body mass index (BMI) [Percentile] Per age and sex 90.7 % Supriya Callahan [employer] Work Phone: [facility] 08-03-2024 15:26-0400 Body mass index (BMI) [Ratio] 28.4 kg/m2 Supriya Callahan [employer] Work Phone: [facility] 08-03-2024 15:26-0400 Body weight 79.94 kg Supriya Callahan [employer] Work Phone: [facility] 08-03-2024 15:26-0400 Diastolic blood pressure 83 mm[Hg] Supriya Callahan [employer] Work Phone: [facility] 08-03-2024 15:26-0400 Systolic blood pressure 118 mm[Hg] Supriya Callahan [employer] Work Phone: [facility] 07-28-2024 14:12-0400 Body height 167.64 cm Supriya Callahan [employer] Work Phone: [facility] 07-28-2024 14:12-0400 Body mass index (BMI) [Percentile] Per age and sex 90.3 % Supriya Callahan [employer] Work Phone: [facility] 07-28-2024 14:12-0400 Body mass index (BMI) [Ratio] 28.2 kg/m2 Supriya Callahan [employer] Work Phone: [facility] 07-28-2024 14:12-0400 Body weight 79.37 kg Supriya Callahan [employer] Work Phone: [facility] 07-28-2024 14:12-0400 Diastolic blood pressure 69 mm[Hg] Supriya Callahan [employer] Work Phone: [facility] 07-28-2024 14:12-0400 Systolic blood pressure 103 mm[Hg] Supriya Callahan [employer] Work Phone: [facility] 07-20-2024 14:34-0400 Body height 167.64 cm Supriya Callahan [employer] Work Phone: [facility] 07-20-2024 14:34-0400 Body mass index (BMI) [Percentile] Per age and sex 90.5 % Supriya Callahan [employer] Work Phone: [facility] 07-20-2024 14:34-0400 Body mass index (BMI) [Ratio] 28.3 kg/m2 Supriya Callahan [employer] Work Phone: [facility] 07-20-2024 14:34-0400 Body weight 79.43 kg Supriya Callahan [employer] Work Phone: [facility] 07-20-2024 14:34-0400 Diastolic blood pressure 78 mm[Hg] Supriya Callahan [employer] Work Phone: [facility] 07-20-2024 14:34-0400 Systolic blood pressure 122 mm[Hg] Supriya Callahan [employer] Work Phone: [facility] 07-13-2024 13:42-0400 Body height 167.64 cm Supriya Callahan [employer] Work Phone: [facility] 07-13-2024 13:42-0400 Body mass index (BMI) [Percentile] Per age and sex 89.6 % Supriya Callahan [employer] Work Phone: [facility] 07-13-2024 13:42-0400 Body mass index (BMI) [Ratio] 27.9 kg/m2 Supriya Callahan [employer] Work Phone: [facility] 07-13-2024 13:42-0400 Body weight 78.52 kg Supriya Callahan [employer] Work Phone: [facility] 07-13-2024 13:42-0400 Diastolic blood pressure 72 mm[Hg] Supriya Callahan [employer] Work Phone: [facility] 07-13-2024 13:42-0400 Systolic blood pressure 103 mm[Hg] Supriya Callahan [employer] Work Phone: [facility] 07-04-2024 13:30-0400 Body height 167.64 cm Supriya Callahan [employer] Work Phone: [facility] 07-04-2024 13:30-0400 Body mass index (BMI) [Percentile] Per age and sex 89.4 % Supriya Callahan [employer] Work Phone: [facility] 07-04-2024 13:30-0400 Body mass index (BMI) [Ratio] 27.8 kg/m2 Supriya Callahan [employer] Work Phone: [facility] 07-04-2024 13:30-0400 Body weight 78.24 kg Supriya Callahan [employer] Work Phone: [facility] 07-04-2024 13:30-0400 Diastolic blood pressure 76 mm[Hg] Supriya Callahan [employer] Work Phone: [facility] 07-04-2024 13:30-0400 Systolic blood pressure 119 mm[Hg] Supriya Callahan [employer] Work Phone: [facility] 06-19-2024 13:33-0400 Body mass index (BMI) [Percentile] Per age and sex 88.5 % Supriya Callahan [employer] Work Phone: [facility] 06-19-2024 13:33-0400 Body mass index (BMI) [Ratio] 27.4 kg/m2 Supriya Callahan [employer] Work Phone: [facility] 06-19-2024 13:33-0400 Body weight 77.11 kg Supriya Callahan [employer] Work Phone: [facility] 06-19-2024 13:33-0400 Diastolic blood pressure 73 mm[Hg] Supriya Callahan [employer] Work Phone: [facility] 06-19-2024 13:33-0400 Systolic blood pressure 107 mm[Hg] Supriya Callahan [employer] Work Phone: [facility] 05-31-2024 14:46-0400 Body height 167.64 cm Supriya Callahan [employer] Work Phone: [facility] 05-31-2024 14:46-0400 Body mass index (BMI) [Percentile] Per age and sex 87.1 % Supriya Callahan [employer] Work Phone: [facility] 05-31-2024 14:46-0400 Body mass index (BMI) [Ratio] 26.9 kg/m2 Supriya Callahan [employer] Work Phone: [facility] 05-31-2024 14:46-0400 Body weight 75.86 kg Supriya Callahan [employer] Work Phone: [facility] 05-31-2024 14:46-0400 Diastolic blood pressure 65 mm[Hg] Supriya Callahan [employer] Work Phone: [facility] 05-31-2024 14:46-0400 Systolic blood pressure 105 mm[Hg] Supriya Callahan [employer] Work Phone: [facility] 04-28-2024 14:11-0500 Body height 167.64 cm Supriya Callahan [employer] Work Phone: [facility] 04-28-2024 14:11-0500 Body mass index (BMI) [Percentile] Per age and sex 81.4 % Supriya Callahan [employer] Work Phone: [facility] 04-28-2024 14:11-0500 Body mass index (BMI) [Ratio] 25.4 kg/m2 Supriya Callahan [employer] Work Phone: [facility] 04-28-2024 14:11-0500 Body weight 71.38 kg Supriya Callahan [employer] Work Phone: [facility] 04-28-2024 14:11-0500 Diastolic blood pressure 55 mm[Hg] Supriya Callahan [employer] Work Phone: [facility] 04-28-2024 14:11-0500 Systolic blood pressure 88 mm[Hg] Supriya Callahan [employer] Work Phone: [facility] 04-06-2024 13:40-0500 Body mass index (BMI) [Percentile] Per age and sex 71.7 % Supriya Callahan [employer] Work Phone: [facility] 04-06-2024 13:40-0500 Body mass index (BMI) [Ratio] 23.8 kg/m2 Supriya Callahan [employer] Work Phone: [facility] 04-06-2024 13:40-0500 Body weight 66.9 kg Supriya Callahan [employer] Work Phone: [facility] 04-06-2024 13:40-0500 Diastolic blood pressure 70 mm[Hg] Supriya Callahan [employer] Work Phone: [facility] 04-06-2024 13:40-0500 Systolic blood pressure 106 mm[Hg] Supriya Callahan [employer] Work Phone: [facility] 03-07-2024 11:36-0500 Body mass index (BMI) [Percentile] Per age and sex 58.1 % Supriya Callahan [employer] Work Phone: [facility] 03-07-2024 11:36-0500 Body mass index (BMI) [Ratio] 22.3 kg/m2 Supriya Callahan [employer] Work Phone: [facility] 03-07-2024 11:36-0500 Body weight 62.7 kg Supriya Callahan [employer] Work Phone: [facility] 03-07-2024 11:36-0500 Diastolic blood pressure 70 mm[Hg] Supriya Callahan [employer] Work Phone: [facility] 03-07-2024 11:36-0500 Systolic blood pressure 120 mm[Hg] Supriya Callahan [employer] Work Phone: [facility] 02-01-2024 14:30-0500 Body mass index (BMI) [Percentile] Per age and sex 46.4 % Supriya Callahan [employer] Work Phone: [facility] 02-01-2024 14:30-0500 Body mass index (BMI) [Ratio] 21.3 kg/m2 Supriya Callahan [employer] Work Phone: [facility] 02-01-2024 14:30-0500 Body weight 59.87 kg Supriya Callahan [employer] Work Phone: [facility] 02-01-2024 14:30-0500 Diastolic blood pressure 55 mm[Hg] Supriya Callahan [employer] Work Phone: [facility] 02-01-2024 14:30-0500 Systolic blood pressure 109 mm[Hg] Supriya Callahan [employer] Work Phone: [facility] 04-05-2023 09:15-0500 Diastolic blood pressure 59 mm[Hg] [employer] Supriya Callahan [employer] Work Phone: [facility] 04-05-2023 09:15-0500 Heart rate 89 /min [employer] Supriya Callahan [employer] Work Phone: [facility] 04-05-2023 09:15-0500 SaO2% (BldA) [Mass fraction] 98 % [employer] Supriya Callahan [employer] Work Phone: [facility] 04-05-2023 09:15-0500 Systolic blood pressure 100 mm[Hg] [employer] Supriya Callahan [employer] Work Phone: [facility] 04-05-2023 09:13-0500 Body temperature 97 [degF] [employer] Supriya Callahan [employer] Work Phone: [facility] 04-05-2023 09:13-0500 Respiratory rate 16 /min [employer] Supriya Callahan [employer] Work Phone: [facility] 04-02-2023 19:34-0500 Body height 167.64 cm [employer] Supriya Callahan [employer] Work Phone: [facility] 04-02-2023 19:34-0500 Body mass index (BMI) [Percentile] Per age and sex 92.3 % [employer] Supriya Callahan [employer] Work Phone: [facility] 04-02-2023 19:34-0500 Body mass index (BMI) [Ratio] 28.5 kg/m2 [employer] Supriya Callahan [employer] Work Phone: [facility] 04-02-2023 19:34-0500 Body weight 80.1 kg [employer] Supriya Callahan [employer] Work Phone: [facility] 04-02-2023 14:23-0500 Body mass index (BMI) [Percentile] Per age and sex 92.1 % [employer] Supriya Callahan [employer] Work Phone: [facility] 04-02-2023 14:23-0500 Body mass index (BMI) [Ratio] 28.4 kg/m2 [employer] Supriya Callahan [employer] Work Phone: [facility] 04-02-2023 14:23-0500 Body weight 79.88 kg [employer] Supriya Callahan [employer] Work Phone: [facility] 04-02-2023 14:23-0500 Diastolic blood pressure 67 mm[Hg] [employer] Supriya Callahan [employer] Work Phone: [facility] 04-02-2023 14:23-0500 Systolic blood pressure 113 mm[Hg] [employer] Supriya Callahan [employer] Work Phone: [facility] 03-31-2023 14:01-0500 Body mass index (BMI) [Percentile] Per age and sex 92.3 % [employer] Supriya Callahan [employer] Work Phone: [facility] 03-31-2023 14:01-0500 Body mass index (BMI) [Ratio] 28.5 kg/m2 [employer] Supriya Callahan [employer] Work Phone: [facility] 03-31-2023 14:01-0500 Body weight 80.28 kg [employer] Supriya Callahan [employer] Work Phone: [facility] 03-31-2023 14:01-0500 Diastolic blood pressure 71 mm[Hg] [employer] Supriya Callahan [employer] Work Phone: [facility] 03-31-2023 14:01-0500 Systolic blood pressure 109 mm[Hg] [employer] Supriya Callahan [employer] Work Phone: [facility] 03-24-2023 15:05-0500 Body mass index (BMI) [Percentile] Per age and sex 91.5 % [employer] Supriya Callahan [employer] Work Phone: [facility] 03-24-2023 15:05-0500 Body mass index (BMI) [Ratio] 28.1 kg/m2 [employer] Supriya Callahan [employer] Work Phone: [facility] 03-24-2023 15:05-0500 Body weight 79.03 kg [employer] Supriya Callahan [employer] Work Phone: [facility] 03-24-2023 15:05-0500 Diastolic blood pressure 72 mm[Hg] [employer] Supriya Callahan [employer] Work Phone: [facility] 03-24-2023 15:05-0500 Systolic blood pressure 106 mm[Hg] [employer] Supriya Callahan [employer] Work Phone: [facility] 03-18-2023 14:24-0500 Body height 167.64 cm [employer] Supriya Callahan [employer] Work Phone: [facility] 03-18-2023 14:22-0500 Body mass index (BMI) [Percentile] Per age and sex 91.3 % [employer] Supriya Callahan [employer] Work Phone: [facility] 03-18-2023 14:22-0500 Body mass index (BMI) [Ratio] 28 kg/m2 [employer] Supriya Callahan [employer] Work Phone: [facility] 03-18-2023 14:22-0500 Body weight 78.92 kg [employer] Supriya Callahan [employer] Work Phone: [facility] 03-18-2023 14:22-0500 Diastolic blood pressure 62 mm[Hg] [employer] Supriya Callahan [employer] Work Phone: [facility] 03-18-2023 14:22-0500 Systolic blood pressure 97 mm[Hg] [employer] Supriya Callahan [employer] Work Phone: [facility] 03-10-2023 14:03-0500 Body mass index (BMI) [Percentile] Per age and sex 91.2 % [employer] Supriya Callahan [employer] Work Phone: [facility] 03-10-2023 14:03-0500 Body mass index (BMI) [Ratio] 27.9 kg/m2 [employer] Supriya Callahan [employer] Work Phone: [facility] 03-10-2023 14:03-0500 Body weight 78.58 kg [employer] Supriya Callahan [employer] Work Phone: [facility] 03-10-2023 14:03-0500 Diastolic blood pressure 66 mm[Hg] [employer] Supriya Callahan [employer] Work Phone: [facility] 03-10-2023 14:03-0500 Systolic blood pressure 102 mm[Hg] [employer] Supriya Callahan [employer] Work Phone: [facility] 03-03-2023 11:19-0500 Body height 167.64 cm [employer] Supriya Callahan [employer] Work Phone: [facility] 03-03-2023 11:19-0500 Body mass index (BMI) [Percentile] Per age and sex 89.6 % [employer] Supriya Vikki [employer] Work Phone: [facility] 03-03-2023 11:19-0500 Body mass index (BMI) [Ratio] 27.2 kg/m2 [employer] Supriya Vikki [employer] Work Phone: [facility] 03-03-2023 11:19-0500 Body weight 76.65 kg [employer] Supriya Callahan [employer] Work Phone: [facility] 03-03-2023 10:58-0500 Body temperature 98.3 [degF] [employer] Supriya Callahan [employer] Work Phone: [facility] 03-03-2023 10:58-0500 SaO2% (BldA) [Mass fraction] 98 % [employer] Supriya Callahan [employer] Work Phone: [facility] 02-24-2023 15:52-0500 Body mass index (BMI) [Percentile] Per age and sex 88.8 % [employer] Supriya Vikki [employer] Work Phone: [facility] 02-24-2023 15:52-0500 Body mass index (BMI) [Ratio] 26.9 kg/m2 [employer] Supriya Callahan [employer] Work Phone: [facility] 02-24-2023 15:52-0500 Body weight 75.86 kg [employer] Supriya Callahan [employer] Work Phone: [facility] 02-24-2023 15:52-0500 Diastolic blood pressure 74 mm[Hg] [employer] Supriya Callahan [employer] Work Phone: [facility] 02-24-2023 15:52-0500 Systolic blood pressure 112 mm[Hg] [employer] Supriya Callahan [employer] Work Phone: [facility] 02-09-2023 13:46-0500 Body mass index (BMI) [Percentile] Per age and sex 88.6 % [employer] Supriya Callahan [employer] Work Phone: [facility] 02-09-2023 13:46-0500 Body mass index (BMI) [Ratio] 26.8 kg/m2 [employer] Supriya Callahan [employer] Work Phone: [facility] 02-09-2023 13:46-0500 Body weight 75.4 kg [employer] Supriya Callahan [employer] Work Phone: [facility] 02-09-2023 13:46-0500 Diastolic blood pressure 72 mm[Hg] [employer] Supriya Callahan [employer] Work Phone: [facility] 02-09-2023 13:46-0500 Systolic blood pressure 111 mm[Hg] [employer] Supriya Callahan [employer] Work Phone: [facility] 01-29-2023 16:10-0500 Body mass index (BMI) [Percentile] Per age and sex 85.2 % [employer] Supriya Callahan [employer] Work Phone: [facility] 01-29-2023 16:10-0500 Body mass index (BMI) [Ratio] 25.8 kg/m2 [employer] Supriya Callahan [employer] Work Phone: [facility] 01-29-2023 16:10-0500 Body weight 72.63 kg [employer] Supriya Callahan [employer] Work Phone: [facility] 01-29-2023 16:10-0500 Diastolic blood pressure 72 mm[Hg] [employer] Supriya Callahan [employer] Work Phone: [facility] 01-29-2023 16:10-0500 Systolic blood pressure 110 mm[Hg] [employer] Supriya Callahan [employer] Work Phone: [facility] 01-08-2023 15:38-0500 Body height 167.64 cm [employer] Supriya Callahan [employer] Work Phone: [facility] 01-08-2023 15:38-0500 Body mass index (BMI) [Percentile] Per age and sex 84.1 % [employer] Supriya Callahan [employer] Work Phone: [facility] 01-08-2023 15:38-0500 Body mass index (BMI) [Ratio] 25.5 kg/m2 [employer] Supriya Callahan [employer] Work Phone: [facility] 01-08-2023 15:38-0500 Body weight 71.89 kg [employer] Supriya Callahan [employer] Work Phone: [facility] 01-08-2023 15:38-0500 Diastolic blood pressure 62 mm[Hg] [employer] Supriya Callahan [employer] Work Phone: [facility] 01-08-2023 15:38-0500 Systolic blood pressure 102 mm[Hg] [employer] Supriya Callahan [employer] Work Phone: [facility] 12-09-2022 13:43-0400 Body mass index (BMI) [Percentile] Per age and sex 71.9 % [employer] Supriya Callahan [employer] Work Phone: [facility] 12-09-2022 13:43-0400 Body mass index (BMI) [Ratio] 23.4 kg/m2 [employer] Supriya Callahan [employer] Work Phone: [facility] 12-09-2022 13:43-0400 Body weight 65.88 kg [employer] Supriya Callahan [employer] Work Phone: [facility] 12-09-2022 13:43-0400 Diastolic blood pressure 64 mm[Hg] [employer] Supriya Callahan [employer] Work Phone: [facility] 12-09-2022 13:43-0400 Systolic blood pressure 100 mm[Hg] [employer] Supriya Callahan [employer] Work Phone: [facility] 11-13-2022 13:10-0400 Body mass index (BMI) [Percentile] Per age and sex 62.1 % [employer] Supriya Callahan [employer] Work Phone: [facility] 11-13-2022 13:10-0400 Body mass index (BMI) [Ratio] 22.3 kg/m2 [employer] Supriya Callahan [employer] Work Phone: [facility] 11-13-2022 13:10-0400 Body weight 62.76 kg [employer] Supriya Callahan [employer] Work Phone: [facility] 11-13-2022 13:10-0400 Diastolic blood pressure 66 mm[Hg] [employer] Supriya Callahan [employer] Work Phone: [facility] 11-13-2022 13:10-0400 Systolic blood pressure 101 mm[Hg] [employer] Supriya Callahan [employer] Work Phone: [facility] 10-16-2022 14:43-0400 Body mass index (BMI) [Percentile] Per age and sex 56.9 % [employer] Supriya Callahan [employer] Work Phone: [facility] 10-16-2022 14:43-0400 Body mass index (BMI) [Ratio] 21.8 kg/m2 [employer] Supriya Callahan [employer] Work Phone: [facility] 10-16-2022 14:43-0400 Body weight 61.34 kg [employer] Supriya Callahan [employer] Work Phone: [facility] 10-16-2022 14:43-0400 Diastolic blood pressure 62 mm[Hg] [employer] Supriya Callahan [employer] Work Phone: [facility] 10-16-2022 14:43-0400 Systolic blood pressure 97 mm[Hg] [employer] Supriya Callahan [employer] Work Phone: [facility] 09-17-2022 08:11-0400 Body mass index (BMI) [Percentile] Per age and sex 48.7 % [employer] Supriya Callahan [employer] Work Phone: [facility] 09-17-2022 08:11-0400 Body mass index (BMI) [Ratio] 21.1 kg/m2 [employer] Supriya Tarangoson [employer] Work Phone: [facility] 09-17-2022 08:11-0400 Body weight 59.42 kg [employer] Supriya Callahan [employer] Work Phone: [facility] 09-17-2022 08:11-0400 Diastolic blood pressure 66 mm[Hg] [employer] Supriya Callahan [employer] Work Phone: [facility] 09-17-2022 08:11-0400 Systolic blood pressure 96 mm[Hg] [employer] Supriya Callahan [employer] Work Phone: [facility] 03-17-2022 01:44-0500 Body height 167.6 cm ABRAHAM PISANO MD [facility] 03-17-2022 01:44-0500 Body temperature 98.24 [degF] ABRAHAM PISANO MD [facility] 03-17-2022 01:44-0500 Body weight 64 kg ABRAHAM PISANO MD [facility] 03-17-2022 01:44-0500 Diastolic Blood Pressure Non-Invasive 78 1 ABRAHAM PISANO MD [facility] 03-17-2022 01:44-0500 Heart rate 85 /min ABRAHAM PISANO MD [facility] 03-17-2022 01:44-0500 Height ZScore 0.71 ABRAHAM PISANO MD [facility] Comment on above: Result Comment: ^~:!ZScore Source -[facility] 03-17-2022 01:44-0500 Percent Height for Age 76.20 1 ABRAHAM PISANO MD [facility] Comment on above: Result Comment: ^~:!Percentile Source -[facility] 03-17-2022 01:44-0500 Respiratory rate 16 /min [facility] [facility] 03-17-2022 01:44-0500 Systolic Blood Pressure Non-Invasive 123 1 ABRAHAM PISANO MD [facility] Encounters Encounter Date Encounter Type Care Provider Facility Start: 08-03-2024 End: 08-03-2024 Patient encounter procedure Julia Ortiz CNM -[facility] Work Phone: Start: 08-03-2024 End: 08-03-2024 ambulatory Supriya Callahan AFTERNOON BABYSITTER Facility:[facility] Start: 07-28-2024 End: 07-28-2024 Patient encounter procedure Seema Ruiz CNM -[facility] Work Phone: Start: 07-28-2024 End: 07-28-2024 ambulatory Supriya Callahan AFTERNOON BABYSITTER-C Work Phone: [facility] Work Phone: Start: 07-20-2024 End: 07-20-[address] Francesca Yeung MD -[facility] Work Phone: Start: 07-20-2024 End: 07-20-2024 ambulatory Supriya Callahan AFTERNOON BABYSITTER-C Work Phone: [facility] Work Phone: Start: 07-20-2024 End: 07-20-2024 ambulatory Francesca Yeung Facility:[facility] Start: 07-13-2024 End: 07-13-[address] Francesca Yeung MD -[facility] Work Phone: Start: 07-13-2024 End: 07-13-2024 ambulatory Supriya Callahan AFTERNOON BABYSITTER-C Work Phone: [facility] Work Phone: Start: 07-04-2024 End: 07-04-2024 ambulatory Supriya Callahan AFTERNOON BABYSITTER-C Work Phone: [facility] Work Phone: Start: 07-04-2024 End: 07-04-2024 Patient encounter procedure Julia Ortiz CNM -Laboratory, Specimen Work Phone: Start: 07-04-2024 End: 07-04-2024 Patient encounter procedure Julia Ortiz [facility] -[facility] Work Phone: Start: 07-04-2024 End: 07-04-2024 ambulatory Supriya Callahan NP Facility:[facility] Start: 07-04-2024 End: 07-04-2024 ambulatory Supriya Callahan AFTERNOON BABYSITTER Facility:[facility] Start: 06-29-2024 ambulatory Supriya Callahan AFTERNOON BABYSITTER Facil ity:[facility] Start: 06-19-2024 End: 06-19-2024 Patient encounter procedure Julia Ortiz [facility] -[facility] Work Phone: Start: 06-19-2024 End: 06-19-2024 ambulatory Supriya Callahan AFTERNOON BABYSITTER Facility:[facility] Start: 05-31-2024 End: 05-31-[address] Francesca Yeung MD -[facility] Work Phone: Start: 05-31-2024 End: 05-31-2024 ambulatory Francesca Yeung Facility:[facility] Start: 05-25-2024 End: 05-25-2024 ambulatory Supriya Callahan AFTER[employer]ON BABYSITTER-C Work Phone: [facility] Work Phone: Start: 05-25-2024 End: 05-25-[address] Tabatha Daniel DO -Laboratory Work Phone: Start: 05-25-2024 End: 05-25-2024 ambulatory Tabatha Daniel Facility:[facility] Start: 05-18-2024 ambulatory Supriya Callahan NP Facil ity:[facility] Start: 04-28-2024 End: 04-28-2024 ambulatory Supriya Callahan [employer]ON BABYSITTER-C Work Phone: [facility] Work Phone: Start: 04-28-2024 End: 04-28-2024 Patient encounter procedure Seema Ruiz [facility] -[facility] Work Phone: Start: 04-28-2024 End: 04-28-2024 ambulatory Tabatha Daniel Facility:[facility] Start: 04-06-2024 End: 04-06-2024 Patient encounter procedure Julia Angel MAZARIEGOS -[facility] Work Phone: Start: 04-06-2024 End: 04-06-2024 ambulatory Supriya Callahan [employer]ON BABYSITTER Facility:[facility] Start: 03-28-2024 ambulatory Francesca Scott lity:[facility] Start: 03-23-2024 End: 03-23-2024 ambulatory TABATHA Erin [facility] Start: 03-09-2024 End: 03-09-2024 ambulatory TABATHA [facility] Start: 03-07-2024 End: 03-07-[address] Tabatha Daniel DO [facility] Work Phone: Start: 03-07-2024 End: 03-07-2024 ambulatory Tabatha Daniel Facility:[facility] Start: 02-01-2024 End: 02-01-[address] Tabatha Daniel DO [facility] Work Phone: Start: 02-01-2024 End: 02-01-2024 ambulatory Tabatha Daniel Facility:[facility] Start: 01-06-2024 End: 01-06-2024 ambulatory Supriya Callahan AFTERNOON BABYSITTER Facility:[facility] Start: 12-30-2023 End: 12-30-2023 ambulatory Supriya Callahan AFTERNOON BABYSITTER Facility:[facility] Start: 12-30-2023 End: 12-30-2023 ambulatory Supriya Callahan AFTERNOON BABYSITTER Facility:[facility] Start: 12-17-2023 ambulatory Missy Carter Facility :[facility] Start: 04-05-2023 Non-patient / Non-visit AFTERNOON BABYSITTER-C Supriya Callahan AFTER[employer]ON BABYSITTER Work Phone: [facility] Start: 04-04-2023 Non-patient / Non-visit AFTERNOON BABYSITTER-C Supriya Callahan AFTER[employer]ON BABYSITTER Work Phone: [facility] Start: 04-03-2023 Non-patient / Non-visit AFTERNOON BABYSITTER-C Supriya Callahan AFTER[employer]ON BABYSITTER Work Phone: [facility] Start: 04-02-2023 Non-patient / Non-visit AFTERNOON BABYSITTER-C Supriya Callahan AFTER[employer]ON BABYSITTER Work Phone: [facility] Start: 04-02-2023 End: 04-05-2023 Evaluation and management of inpatient AFTERNOON BABYSITTER-C Supriya Callahan AFTERNOON BABYSITTER Work Phone: [facility] Work Phone: Start: 04-02-2023 End: 04-02-2023 Patient encounter procedure AFTERNOON BABYSITTER-C Supriya Callahan AFTERNOON BABYSITTER Work Phone: [facility] Work Phone: Start: 04-02-2023 End: 04-02-2023 ambulatory AFTERNOON BABYSITTER-C Supriya Callahan AFTERNOON BABYSITTER Work Phone: [facility] Work Phone: Start: 04-02-2023 End: 04-02-2023 Patient encounter procedure AFTERNOON BABYSITTER-C Supriya Callahan AFTERNOON BABYSITTER Work Phone: [facility] Work Phone: Start: 03-31-2023 End: 03-31-2023 Patient encounter procedure AFTERNOON BABYSITTER-C Supriya Callahan AFTER[employer]ON BABYSITTER Work Phone: [facility] Work Phone: Start: 03-24-2023 End: 03-24-2023 Patient encounter procedure AFTERNOON BABYSITTER-C Supriya Callahan AFTERNOON BABYSITTER Work Phone: [facility] Work Phone: Start: 03-18-2023 End: 03-18-2023 ambulatory AFTERNOON BABYSITTER-C Supriya Callahan AFTERNOON BABYSITTER Work Phone: [facility] Work Phone: Start: 03-18-2023 End: 03-18-2023 Patient encounter procedure AFTERNOON BABYSITTER-C Supriya Callahan AFTERNOON BABYSITTER Work Phone: [facility]-Laboratory, Specimen Work Phone: Start: 03-18-2023 End: 03-18-2023 Patient encounter procedure AFTERNOON BABYSITTER-C Supriya Callahan AFTERNOON BABYSITTER Work Phone: [facility] Work Phone: Start: 03-10-2023 End: 03-10-2023 Patient encounter procedure AFTERNOON BABYSITTER-C Supriya Callahan AFTERNOON BABYSITTER Work Phone: [facility] Work Phone: Start: 03-03-2023 Non-patient / Non-visit AFTERNOON BABYSITTER-C Supriya Callahan AFTERNOON BABYSITTER Work Phone: [facility] Start: 03-03-2023 End: 03-03-2023 ambulatory AFTERNOON BABYSITTER-C Supriya Callahan AFTERNOON BABYSITTER Work Phone: [facility] Work Phone: Start: 03-03-2023 End: 03-03-2023 Patient encounter procedure AFTERNOON BABYSITTER-C Supriya Callahan AFTERNOON BABYSITTER [facility] Work Phone: Start: 02-24-2023 End: 02-24-2023 Patient encounter procedure AFTERNOON BABYSITTER-C Supriya Callahan AFTERNOON BABYSITTER Work Phone: [facility] Work Phone: Start: 02-09-2023 End: 02-09-2023 Patient encounter procedure AFTERNOON BABYSITTER-C Supriya Callahan AFTERNOON BABYSITTER Work Phone: [facility] Work Phone: Start: 01-29-2023 End: 01-29-2023 Patient encounter procedure AFTERNOON BABYSITTER-C Supriya Callahan AFTERNOON BABYSITTER Work Phone: [facility] Work Phone: Start: 01-08-2023 End: 01-08-2023 ambulatory AFTERNOON BABYSITTER-C Supriya Callahan AFTERNOON BABYSITTER Work Phone: [facility] Work Phone: Start: 01-08-2023 End: 01-08-2023 Patient encounter procedure AFTERNOON BABYSITTER-C Supriya Callahan AFTERNOON BABYSITTER Work Phone: [facility] Work Phone: Start: 12-17-2022 End: 12-17-2022 Patient encounter procedure AFTERNOON BABYSITTER-C Supriya Callahan AFTERNOON BABYSITTER Work Phone: [facility]-Ultrasound, [facility] Work Phone: Start: 12-09-2022 End: 12-09-2022 Patient encounter procedure AFTERNOON BABYSITTER-C Supriya Callahan AFTERNOON BABYSITTER Work Phone: [facility] Work Phone: Start: 11-13-2022 End: 11-13-2022 Patient encounter procedure AFTERNOON BABYSITTER-C Supriya Callahan AFTERNOON BABYSITTER Work Phone: [facility] Work Phone: Start: 10-16-2022 End: 10-16-2022 Patient encounter procedure AFTERNOON BABYSITTER-C Supriya Callahan AFTERNOON BABYSITTER [facility] Phone[facility] Work Phone: Start: 09-17-2022 End: 09-17-2022 Patient encounter procedure AFTERNOON BABYSITTER-C Supriya Callahan AFTERNOON BABYSITTER Work Phone: [facility] Work Phone: Start: 03-17-2022 End: 03-17-2022 Emergency department patient visit ABRAHAM PISANO MD Facility:[facility] Start: 03-17-2022 End: 03-17-2022 Emergency department patient visit ABRAHAM PISANO MD [facility] Start: 02-19-2017 Ambulatory [facility] Start: 02-02-2017 Ambulatory [facility] Start: 01-25-2017 Ambulatory [facility] Start: 01-19-2017 Ambulatory [facility] Start: 01-19-2017 [facility] Procedures Date Procedure Procedure Detail Performing Clinician Start: 07-04-2024 Beta-hemolytic Strep tococcus culture Supriya Callahan AFTERNOON BABYSITTER-C Work Phone: Start: 04-28-2024 Serologic test for syphilis Supriya Callahan AFTERNOON BABYSITTER-C Work Phone: Start: 04-02-2023 Ultrasound scan for growth AFTERNOON BABYSITTER-Meeta Callahan AFTERNOON BABYSITTER Work Phone: Start: 03-18-2023 Group B Streptococcu s Culture AFTERNOON BABYSITTER-Meeta Callahan AFTERNOON BABYSITTER Work Phone: Start: 12-17-2022 Ultrasonography in f irst trimester AFTERNOON BABYSITTER-Meeta Callahan AFTERNOON BABYSITTER Work Phone: Start: 09-17-2022 Urine culture AFTERNOON BABYSITTER-C Jennifer Callahan AFTERNOON BABYSITTER Work Phone: Plan of Treatment Date Care Activity Detail Author Start: 04-05-2023 Patient discharge [facility] Start: 04-03-2023 Administration of medication [facility] Start: 04-03-2023 Application of ice c ollar, cap or bag [facility] Start: 04-03-2023 Catheterization of vein [facility] Start: 04-03-2023 Introduction of urinary catheter [facility] Start: 04-03-2023 Measuring intake and output [facility] Start: 04-03-2023 Notification of physician [facility] Start: 04-03-2023 Procedure discontinued [facility] Start: 04-03-2023 Provision of activity privileges [facility] Start: 04-03-2023 Vital signs measurements [facility] Start: 04-03-2023 [facility] Start: 04-03-2023 Consultation [facility] Start: 04-02-2023 Admission procedure [facility] Start: 03-03-2023 Nonstress test [facility] Start: 03-03-2023 Obstetric monitoring [facility] Start: 03-03-2023 [facility] Start: 03-03-2023 Vital signs measurements [facility] Start: 03-03-2023 Patient discharge [facility] Patient Education [facility] Work Phone: Patient referral [facility] Work Phone: [facility] Immunizations Immunization Date Immunization Notes Care Provider Fa cili 01-08-2019 influenza virus vacc ine, unspecified formulation ABRAHAM PISANO MD [facility] 10-22-2017 Human Papillomavirus Quadval ABRAHAM PISANO MD [facility] 10-22-2017 meningococcal polysaccharide (groups A, C, Y and W-135) diphtheria toxoid conjugate vaccine (MCV4P) ABRAHAM PISANO MD [facility] 10-22-2017 tetanus toxoid, redu momo diphtheria toxoid, and acellular pertussis vaccine, adsorbed ABRAHAM PISANO MD [facility] 02-02-2017 meningococcal B vacc ine, recombinant, OMV, adjuvanted ABRAHAM PISANO MD [facility] 02-02-2017 tetanus toxoid, redu momo diphtheria toxoid, and acellular pertussis vaccine, adsorbed ABRAHAM PISANO MD [facility] 01-19-2017 influenza virus vacc ine, unspecified formulation ABRAHAM PISANO MD [facility] 01-19-2017 meningococcal polysaccharide (groups A, C, Y and W-135) diphtheria toxoid conjugate vaccine (MCV4P) ABRAHAM PISANO MD [facility] 12-29-2014 influenza virus vacc ine, unspecified formulation ABRAHAM PISANO MD [facility] 10-27-2013 hepatitis A vaccine, pediatric dosage, unspecified formulation ABRAHAM PISANO MD [facility] 09-22-2012 hepatitis A vaccine, pediatric dosage, unspecified formulation ABRAHAM PISANO MD [facility] 06-25-2010 varicella virus vaccine MAIKEL PISANO MD [facility] 01-02-2009 diphtheria, tetanus toxoids and acellular pertussis vaccine, unspecified formulation ABRAHAM PISANO MD [facility] 01-02-2009 measles/mumps/rubell a virus vaccine ABRAHAM PISANO MD [facility] 01-02-2009 poliovirus vaccine, inactivated ABRAHAM PISANO MD [facility] 06-01-2006 diphtheria, tetanus toxoids and acellular pertussis vaccine, unspecified formulation ABRAHAM PISANO MD [facility] 06-01-2006 poliovirus vaccine, inactivated ABRAHAM PISANO MD [facility] 04-01-2006 haemophilus influenz ae type b conjugate and Hepatitis B vaccine ABRAHAM PISANO MD [facility] 04-01-2006 measles/mumps/rubell a virus vaccine ABRAHAM PISANO MD [facility] 03-01-2006 measles/mumps/rubell a virus vaccine ABRAHAM PISANO MD [facility] 12-03-2005 pneumococcal conjuga te vaccine, 13 valboyd PISANO MD [facility] 12-03-2005 varicella virus vaccine MAIKEL PISANO MD [facility] 09-02-2005 pneumococcal conjuga te vaccine, 13 valboyd PISANO MD [facility] 06-02-2005 diphtheria, tetanus toxoids and acellular pertussis vaccine, unspecified formulation ABRAHAM PISANO MD [facility] 06-02-2005 pneumococcal conjuga te vaccine, 13 valboyd PISANO MD [facility] 04-02-2005 diphtheria, tetanus toxoids and acellular pertussis vaccine, unspecified formulation ABRAHAM PISANO MD [facility] 04-02-2005 haemophilus influenz ae type b conjugate and Hepatitis B vaccine ABRAHAM PISANO MD [facility] 04-02-2005 poliovirus vaccine, inactivated ABRAHAM PISANO MD [facility] 01-27-2005 diphtheria, tetanus toxoids and acellular pertussis vaccine, unspecified formulation ABRAHAM PISANO MD [facility] 01-27-2005 haemophilus influenz ae type b conjugate and Hepatitis B vaccine ABRAHAM PISANO MD [facility] 01-27-2005 poliovirus vaccine, inactivated ABRAHAM PISANO MD [facility] Payers Date Payer Category Payer Unknown [id number] 2023 Self-pay [id number] 2023 Unknown [id number] 2022 Private Health Insurance [facility] [id number] 2022 Unknown [id number] 2004 Unknown [id number] 2.16. [id number] 2004 Unknown [id number] 2.16. [id number] 1961 Unknown [id number] 2.16.8 40.1.102776.3.579.2.627 Unknown [id number] 2.16.8 40.1.311598.3.579.2.462 Unknown [id number] 2.16.8 40.1.659930.3.579.2.462 Unknown [id number] 2.16.8 40.1.127380.3.579.2.462 Unknown [id number] 2.16.8 40.1.438083.3.579.2.462 Unknown [id number] 2.16.8 40.1.178504.3.579.2.462 Unknown [id number] 2.16.8 40.1.200192.3.579.2.462 Unknown [id number] 2.16.8 40.1.016669.3.579.2.462 Unknown [id number] 2.16.8 40.1.124719.3.579.2.462 Unknown [id number] 2.16.8 40.1.354314.3.579.2.462 Unknown [id number] 2.16.8 40.1.799629.3.579.2.462 Unknown [id number] 2.16.8 40.1.491369.3.579.2.462 Unknown [id number] 2.16.8 40.1.388598.3.579.2.462 Unknown [id number] 2.16.8 40.1.824672.3.579.2.462 Unknown [id number] 2.16.8 40.1.890341.3.579.2.462 Unknown [id number] 2.16.8 40.1.313680.3.579.2.462 Unknown [id number] 2.16.8 40.1.312358.3.579.2.462 Unknown [id number] 2.16.8 40.1.463677.3.579.2.462 Unknown [id number] 2.16.8 40.1.408618.3.579.2.462 Unknown [id number] 2.16.8 40.1.549202.3.579.2.462 Unknown [id number] 2.16.8 40.1.656584.3.579.2.462 Unknown [id number] 2.16.8 40.1.224328.3.579.2.462 Unknown [id number] 2.16.8 40.1.900543.3.579.2.462 Social History Date Type Detail Facility Start: 11-10-2018 End: 12-17-2023 Tobacco smoking status Never smoked tobacco (finding) [facility] Start: 2005 Sex Assigned At Female A [facility] Start: 01-08-2023 End: 04-02-2023 Tobacco smoking status INIS Unknown if ever smoked [facility] Start: 05-12-2024 End: 06-01-2024 Sex Female (finding) [facility] Goals Date Patient Goal Desired Activity /State Functional Status Date Assessment Result Facility 03-17-2022 Functional Status Ambulating in rao, Ambulating in room, Awake [facility] Mental Status Date Assessment Result Facility 03-17-2022 Mental Status Orientation Oriented x 4 [facility] Clinical Notes 03-17-2022 to 08-03-2024 Note Date & Type Note Facility 08-03-2024 Progress note [facility] 08-03-2024 Progress note Note Date/Time August 03, 2024 3:48pm [facility] [address], [address] [place] [address] OFFICE VISIT Date of Service: 08/03/24 MR#: [id number] Acct: [id number] Name: JD PRINGLE Rep #: [id number] : 2005 Provider: YAIR Ortiz Age/Sex: 18/F Location[place] [facility] Status: Signed Intake Vital Signs 07/28/24 14:12 08/03/24 15:26 Height 5 ft 6 in 5 ft 6 in Weight: 175 lb 176 lb 4 oz BMI 28.2 28.4 BP 103/69 118/83 H Intake Visit Reasons: Happy Due Date! 40wk Chief Complaint: 40 Week OB Diagnostic Radiologic Technologist Required: No Is patient in pain?: No [...] children current occupational status: unemployed current occupation: [employer] current occupational exposures/hazards: No pets and animals: [...] 3-4 times per week duration: 15-30 minutes/day roseline/cheondoism: Hoahaoism seatbelt use: sometimes do you feel safe [...] - full term 7lbs 10oz Female epidural [facility] Julia Ortiz Altaf Delivery Date: 04/03/23 Last [...] Monitoring, Signs and Symptoms of Preeclampsia and Sanborn Education ROS Const Reports system reviewed and [...] this visit. GA appropriate handout given. 08/03/24 [id number] <Electronically signed by Julia bee CNM> Date _ Julia Ortiz CNM Cosignmarine Signature: Date (if applicable) CC: ~ [facility] Work Phone: 1(862) 965-976605-30-2025 Progress [facility] [address] [place] [address], [address] [place] [address] OFFICE VISIT Date of Service: 07/28/24 MR#: [id number] Acct: [id number] Name: JD PRINGLE Rep #: [id number] : 2005 Provider: YAIR Ruiz Age/Sex: 18/F Location[place] [facility] Status: Signed Intake Vital Signs 12/30/23 14:44 07/20/24 14:34 07/28/24 14:12 Height 5 ft 6 in 5 ft 6 in 5 ft 6 in Weight: 175 lb BMI 28.2 BP 103/69 Intake Visit Reasons: 39wk ob Diagnostic Radiologic Technologist Required: No Is patient in pain?: No [...] children current occupational status: unemployed current occupation: [employer] current occupational exposures/hazards: No pets and [...] 3-4 times per week duration: 15-30 minutes/day roseline/cheondoism: Hoahaoism seatbelt use: sometimes do you feel safe [...] - full term 7lbs 10oz Female epidural [facility] Julia Solitario Delivery Date: 04/03/23 Last Updated [...] Cosigner Signature: Date (if applicable) CC: ~ [facility]05-30-2025 Progress note Author Seema Ruiz [facility] Note Date/Time July 28, 2024 2:38p m [facility] [address] [place] [address], [address] [place] [address] OFFICE VISIT Date of Service: 07/28/24 MR#: [id number] Acct: [id number] Name: JD PRINGLE Rep #: [id number] : 2005 Provider: YAIR Ruiz Age/Sex: 18/F Location: [facility] Status: Signed Intake Vital Signs 12/30/23 14:44 07/20/24 14:34 07/28/24 14:12 Height 5 ft 6 in 5 ft 6 in 5 ft 6 in Weight: 175 lb BMI 28.2 BP 103/69 Intake Visit Reasons: 39wk ob Diagnostic Radiologic Technologist Required: No Is patient in pain?: No [...] children current occupational status: unemployed current occupation: [employer] current occupational exposures/hazards: No pets and animals: [...] 3-4 times per week duration: 15-30 minutes/day roseline/cheondoism: Hoahaoism seatbelt use: sometimes do you feel safe [...] Monitoring, Signs and Symptoms of Preeclampsia and Sanborn Education ROS Const Reports system reviewed and [...] Office Urine Protein Trace Last Edit by Caorle Huffman on 07/28/24 14:19 Coding Level of [...] Smith Signature: Date (if applicable) CC: ~ [facility] Work Phone: 1(993) 927-608105-15-2025 Progress [facility] [address] [place] [address], [address] [place] [address] OFFICE VISIT Date of Service: 07/13/24 MR#: [id number] Acct: [id number] Name: JD PRINGLE Rep #: [id number] : 2005 Provider: Dr. Mick Yeung MD Age/Sex: 18/F Location: [facility] Status: Signed Intake Vital Signs 12/30/23 14:44 06/19/24 13:37 07/04/24 13:30 07/13/24 13:42 Height 5 ft 6 in 5 ft 6 in 5 ft 6 in 5 ft 6 in Weight: 173 lb 2 oz BMI 27.9 BP 103/72 Intake Visit Reasons: 37wk ob Diagnostic Radiologic Technologist Required: No Is patient in pain?: No [...] 3-4 times per week duration: 15-30 minutes/day roseline/cheondoism: Hoahaoism seatbelt use: sometimes do you feel safe at home: Yes additional social history: BF: Arnold - Unemployed History 2 Elective abortions Hx Para 1 Spontaneous abortions Hx # Term Pregnancies 1 Ectopic pregnancies Hx # Pregnancies Multiple births # of living children 1 Past Pregnancies Del. Date Name GA/Weeks Outcome Route Bth Weight Infant [facility] 04/03/23 Everlee 39 live - full term 7lbs 10oz Female epidural [facility] Julia Solitario Delivery Date: 04/03/23 Last Updated [...] Monitoring, Signs and Symptoms of Preeclampsia and Sanborn Education ROS Const Denies fever(s) GI Reports [...] Today 07/13/24 1442 julian JUAREZ> Date _ Francesca Yeung MD Cosign Signature: Date (if applicable) CC: ~ [facility] [id number] Progress note Author Francesca Yeung [facility] Note Date/Time July 13, 2024 2:42p [facility] [address] [place] [address], [address] [place] [address] OFFICE VISIT Date of Service: 07/13/24 MR#: [id number] Acct: [id number] Name: JD PRINGLE Rep #: [id number] : 2005 Provider: Dr. Mick Yeung MD Age/Sex: 18/F Location[place] [facility] Status: Signed Intake Vital Signs 12/30/23 14:44 06/19/24 13:37 07/04/24 13:30 07/13/24 13:42 Height 5 ft 6 in 5 ft 6 in 5 ft 6 in 5 ft 6 in Weight: 173 lb 2 oz BMI 27.9 BP 103/72 Intake Visit Reasons: 37wk ob Diagnostic Radiologic Technologist Required: No Is patient in pain?: No [...] children current occupational status: unemployed current occupation: [employer] current occupational exposures/hazards: No pets and animals: [...] 3-4 times per week duration: 15-30 minutes/day roseline/cheondoism: Hoahaoism seatbelt use: sometimes do you feel safe [...] - full term 7lbs 10oz Female epidural [facility] Julia Solitario Delivery Date: 04/03/23 Last Updated [...] Monitoring, Signs and Symptoms of Preeclampsia and Sanborn Education ROS Const Denies fever(s) GI Reports [...] Acute Comment: PRR, , SARAHI 08/03/24, girl itan PC: [place] BF: Arnold (3) : Status: [...] Cosigner Signature: Date (if applicable) CC: ~ [place] [employer] [facility] Work Phone: 1(912) 634-129202-06-2025 Evaluation note* Diagnosis Onset Date Resolution Status [...] 1:26pm Depression chronic July 04, 2024 1:26pm [facility] Work Phone: 1([phone]) 202-656002-06-2025 Evaluation note* Diagnosis Onset Date Resolution Status [...] 1:15pm Depression chronic July 13, 2024 1:15pm [facility] Work Phone: 1([phone]) 153-675602-06-2025 Evaluation note* Diagnosis Onset Date Resolution Status [...] 2:25pm Depression chronic July 20, 2024 2:25pm [facility] Work Phone: 1([phone]) 718-795702-06-2025 Evaluation note* Diagnosis Onset Date Resolution Status [...] 2:09pm Depression chronic July 28, 2024 2:09pm [facility] Work Phone: [phone]) 314-359402-06-2025 Evaluation note* Diagnosis Onset Date Resolution Status [...] 3:37pm Depression chronic August 03, 2024 3:37pm [facility] Work Phone: 1(902) 247-371101-07-2025 Evaluation note* Diagnosis Onset Date Resolution Status [...] 31 2:38pm Depression chronic May 31 2:38pm [facility] Work Phone: [phone]) 211-755212-03-2024 Evaluation note* Diagnosis Onset Date Resolution Status [...] 2:08pm Depression chronic April 28, 2024 2:08pm [facility] Work Phone: 1(371) 759-993202-05-2024 Discharge summary Author Tabatha Severino [facility] April 05, 2023 6:54am Note Date/Time April 05, 2023 6 :55am [facility] Medical Records Department [address] [place] [address] Discharge Summary 04/05/23 0653 MR#: [id number] Acct: [id number] Name: JD PRINGLE Rep #:[id number] : 2005 17 From: Tabatha Daniel DO PCP: BRISEIDA Anderson Status:ADM I N Location: [place] [address] Providers Date of Admission: 04/02/23 Primary Care [...] NP Discharge Orders/Prescriptions Prescriptions: No Action PNV no.660-CR-in1-jlk-chy-hncw 400 mcg-35 mg- 25 mg-5 mg tablet,chewable 1 tab PO Referrals / Follow Up: Supriya Callahan NP, AFTERNOON BABYSITTER-C [Primary Care Provider] - 04/05/23 0654 <Electronically signed by Tabatha Daniel DO> Cosigner Signature (if applicable): CC: BRISEIDA Callahan; Dr. Tabatha Daniel DO~ Signed [facility] Work Phone: 1(450) 129-798002-04-2024 Progress note Author Julia Ortiz [facility] April 04, 2023 8:31am Note Date/Time April 04, 2023 8 :31am [facility] Medical Records Department [address] [place] [address] Progress Note - OBGYN 04/04/23 0829 MR#: [id number] Acct: [id number] Name: JD PRINGLE Rep #:[id number] : 2005 17 From: Julia Ortiz CNM PCP: SHONA AndersonC Status:ADM I N Location: [place] [address] Subjective Subjective Patient doing well without complaints. [...] trimester COMMENT: PRR , SARAHI 04/21/23 girl [place] lives with aunt Kelsi Villar involved (13) : QUALIFIERS: Weeks of gestation: 39 weeks Qualified Code(s): Z3A.39 - 39 weeks gestation of COMMENT: GBS Negative, carrier testing neg. , NIPT low risk, anatomy nl Charges/Coding Multi Select Codes Urinary/Genital Urinary/Genital CPT Codes: No Charge 04/04/23 0831 <Electronically signed by Julia Ortiz CNM> Cosigner Signature (if applicable): CC: ~ Signed [facility] Work Phone: 1(380) 823-829302-03-2024 Procedure [facility] 04-03-2023 Progress note Author Francesca Yeung [facility] April 03, 2023 3:00am Note Date/Time April 03, 2023 3 :01am [facility] Medical Records Department [address] [place] [address] Progress Note 04/03/23257 MR#: [id number] Acct: [id number] Name: JD PRINGLE Rep #:[id number] : 2005 17 From: Francesca morales MD PCP: Supriya Callahan NP-C Status:ADM I N Location: [place] [id number] Progress Note arom clear fluid internal monitors placed with some blood noted in [facility] current tracing after ROM: FHT: 150 min-Moderate variability reactive no decelerations category II tracing Pickwick: q 1-2 Contractions reviewed tracing abnormalities since last note: had episode of recurrent late decels after lfoley came out, resolved with position changes and then ROM A/P: continue expectantmanagement, now 4-5 70 0 posterior, no pitocin at this time. will start PRN 04/03/23 0300 <Electronically signed by Francesca Yeung MD> Francesca Yeung MD Cosigner Signature (if applicable): CC: ~ Signed [facility] Work Phone: 1(671) 642-239202-03-2024 Progress note Author Julia Ortiz [facility] April 03, 2023 12:07am Note Date/Time April 03, 2023 1 2:08am [facility] Medical Records Department [address] [place] [address] Progress Note 04/03/23 0001 MR#: [id number] Acct: [id number] Name: JD PRINGLE Rep #:[id number] : 2005 17 From: Julia Ortiz CNM PCP: BRISEIDA Anderson Status:ADM I N Location: [place] [address] Progress Note Coping well with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
--- OUTSIDE RECORDS SUMMARY | 2024-08-05 08:28 | XMS RPT_ITS | CCD ---
Author Organization [facility] Care Team Providers Care Building Admin Name Role Phone CHAVEZ, NAVID M Unavailable Unavailable SELF, SELF Unavailable Unavailable CHAVEZ, NAVID M Unavailable Unavailable CHAVEZ, NAVID M Unavailable Unavailable CHAVEZ, NAVID M Unavailable Unavailable CHAVEZ, NAVID M Unavailable Unavailable CHAVEZ, NAVID M Unavailable Unavailable SELF, SELF Unavailable Unavailable CHAVEZ, NAVID M Unavailable Unavailable SELF, SELF Unavailable Unavailable VIKKI CERTIFIED VETERINARY TECHNICIAN-VACUUM FILTER OPERATOR, SUPRIYA Primary Care Physician NORRIS JUAREZ, ABRAHAM Bee Attending Unavailable VIKKI CERTIFIED VETERINARY TECHNICIAN-VACUUM FILTER OPERATOR, SUPRIYA Primary Care Unavail able Vikki FISHER TROLL LINE, FISHER TROLL LINE-C Supriya Primary Care Provider [phone] Vikki FISHER TROLL LINE, FISHER TROLL LINE-C Supriya Referring Provider [phone] Dr. Tabatha Dnaiel Attending Provider [phone] Dr. Francesca Yeung Attending Provider [phone] Eugene GALARZA, FISHER TROLL LINE-C Rosa Attending Provider [phone] YAIR Ortiz Attending Provider [phone] Vikki FISHER TROLL LINE, FISHER TROLL LINE-C Supriya Primary Care Provider Vikki FISHER TROLL LINE, FISHER TROLL LINE-C Supriya Referring Provider [phone] Dr. Tabatha Daniel Attending Provider [phone] Vikki FISHER TROLL LINE, FISHER TROLL LINE-C Supriya Primary Care Provider Vikki FISHER TROLL LINE, FISHER TROLL LINE-C Supriya Referring Provider [phone] Dr. Francesca Yeung Attending Provider [phone] YAIR Ruiz Attending Provider [phone] YAIR Ruiz Referring Provider [phone] YAIR Ruiz Other Provider [phone] YAIR Ortiz Admit Provider [phone] YAIR Ortiz Referring Provider [phone] YAIR Ortiz Other Provider [phone] TABATHA VALENTE Referring Unavailab le LORSON, SUPRIYA C Primary Care Unavailable JALEESA WASHINGTON Attending Unavailable TABATHA VALENTE Referring Unavailab le LORSON, SUPRIYA C Primary Care Unavailable RONNIE CORRALES Attending Unavailable Lorson FISHER TROLL LINE-C, [place] Primary Care Provider [phone] Lorson FISHER TROLL LINE-C, Supriya Referring Provider [phone] Dr. Tabatha Daniel DO Attending Provider Julia Ortiz CNM Attending Provider [phone] Dr. Tabatha Daniel DO Referring Provider Joseph MAZARIEGOS, Seema Attending Provider [phone] Lorson FISHER TROLL LINE-C, [facility] Care Provider [phone] Lorson FISHER TROLL LINE-C, [place] Referring Provider [phone] Dr. Tabatha Daniel DO Attending Provider Dr. Francesca Yeung MD Attending Provider Lorson FISHER TROLL LINE-C, [facility] Care Provider [phone] Lorson FISHER TROLL LINE-C, [place] Referring Provider [phone] Dr. Tabatha Daniel DO Attending Provider Julia Ortiz CNM Referring Provider [phone] Francesca Yeung MD Referring Provider [phone] Tabatha Dainel Referring Unavailabl e Tabatha Daniel Attending Unavailabl e Lorson FISHER TROLL LINE, [facility] Unavailable Lorson FISHER TROLL LINE, [place] [facility] Unavailable Lorson FISHER TROLL LINE, [place] Referring Unavailable Julia Ortiz Attending Unavailable Lorson FISHER TROLL LINE, [place] [facility] Unavailable Lorson FISHER TROLL LINE, Supriya Referring Unavailable Julia Ortiz Attending Unavailable Lorson FISHER TROLL LINE, [place] [facility] Unavailable Julia Ortiz Referring Unavailable Julia Ortiz Attending Unavailable Lorson FISHER TROLL LINE, [place] [facility] Unavailable Julia Ortiz Referring Unavailable Julia Ortiz Attending Unavailable Lorson FISHER TROLL LINE, [facility] Unavailable Julia Ortiz Referring Unavailable Julia Ortiz Attending Unavailable Francesca Yeung Referring Unavailable Francesca Yeung Attending Unavailable [place]on FISHER TROLL LINE, [facility] Unavailable Tabatha Daniel Referring UnavailTabatha Zamora Attending Unavailabl e Lorson FISHER TROLL LINE, [facility] Unavailable Seema Ruiz Attending Unavailable L[place]on FISHER TROLL LINE, [place] Referring Unavailable L[place]on FISHER TROLL LINE, [facility] Care Unavailable Francesca Yeung Attending Unavailable Lorson FISHER TROLL LINE, [facility] Unavailable Lorson FISHER TROLL LINE, [place] Referring Unavailable Francesca Yeung Attending Unavailable L[place]on FISHER TROLL LINE, [facility] Care Unavailable Lorson FISHER TROLL LINE, [place] Referring Unavailable Seema Ruiz Attending Unavailable L[place]on FISHER TROLL LINE, [facility] Unavailable Lorson FISHER TROLL LINE, [place] Referring Unavailable Francesca Yeung Attending Unavailable [place] FISHER TROLL LINE, [facility] Unavailable Lorson FISHER TROLL LINE, [place] Referring Unavailable L[place]on FISHER TROLL LINE, [facility] Care Unavailable Lorson FISHER TROLL LINE, [place] Referring Unavailable Julia Ortiz Attending Unavailable Tabatha Daniel Attending Unavailabl e L[place]on FISHER TROLL LINE, [facility] Unavailable Lorson FISHER TROLL LINE, [place] Referring Unavailable Francesca Yeung Attending Unavailable L[place]on FISHER TROLL LINE, [place] Referring Unavailable L[place]on FISHER TROLL LINE, [facility] Unavailable Missy Carter Attending Unavailable [place]on FISHER TROLL LINE, [facility] Unavailable Lorson FISHER TROLL LINE, [facility] Unavailable Lorson FISHER TROLL LINE, [place] Referring Unavailable Julia Ortiz Attending Unavailable [place] FISHER TROLL LINE, [facility] Unavailable Lorson FISHER TROLL LINE, [place] Referring Unavailable Julia Ortiz Attending Unavailable Tabatha Daniel Attending Unavailabl e [place]on FISHER TROLL LINE, [facility] Unavailable Lorson FISHER TROLL LINE, [place] Referring Unavailable Lorson FISHER TROLL LINE, [place] Referring Unavailable L[place]on FISHER TROLL LINE, [facility] Unavailable Julia Ortiz Attending Unavailable Lorson FISHER TROLL LINE, [facility] Unavailable Julia Ortiz Attending Unavailable Lorson FISHER TROLL LINE, [place] Referring Unavailable Medications Current Medications Medication Drug Class(es) Dates Sig (Normalized) Sig (Original) ferrous sulfate 325 mg oral tablet (3 sources) Start: 07-20-2024 take 1 tablet by mouth once daily Ferrous Sulfate 325 mg (65 mg iron) tablet Active 325 mg PO daily July 20, 2024 12:00am Pn No.051-Oa-Pt5-Dha-E pa-Fish (5 sources) Start: 09-15-2022 Pnv No.281-Rd-Mu8-Dha- Epa-Fish Active 1 TABLET PO September 14, 2022 11:00pm Start: 09-15-2022 Pnv No.153-Fa- Nf5-Cyl-Nis-Fish Active TABLET PO September 14, 2022 11:00pm Pnv No.639-Ya-Uv0-Dha-Epa-Fi sh 400 mcg-35 mg- 25 mg-5 mg tablet,chewable (7 sources) Start: 09-15-2022 Pnv No.224-Xi-Vm4-Dha-Epa-Fi sh 400 mcg-35 mg- 25 mg-5 mg [...] Test Name Value Interpretation Reference Range Facility Exterminator Helper Office Visit Reporton 08-03-2024 Exterminator Helper Office Visit Report [facility]'s [address], [address] [place] [address] OFFICE VISIT Date of Service: 08/03/24 MR#: [id number] Acct: [id number] Name: JD PRINGLE Rep #: [id number] : 2005 Provider: YAIR Brandt ams Age/Sex: 18/F Location: [facility] [place] Status: Signed Intake Vital Signs 07/28/24 14:12 08/03/24 15:26 Height 5 ft 6 in 5 ft 6 in Weight: 175 lb 176 lb 4 oz BMI 28.2 28.4 BP 103/69 118/83 H Intake Visit Reasons: Happy Due Date! 40wk Chief Complaint: 40 Week OB Drug Department Worker Required: No Is patient in pain?: No [...] children current occupational status: unemployed current occupation: [employer] current occupational exposures/hazards: No pets and animals: [...] 3-4 times per week duration: 15-30 minutes/day roseline/spiritism: Rastafarian seatbelt use: sometimes do you feel safe [...] - full term 7lbs 10oz Female epidural [facility] Julia Solitario Delivery Date: 04/03/23 [...] 155 -???- (more content not included)... Normal [facility] - Chemistry and C hemistry - challengeOrdered By: Seema Ruiz on 07-28-2024 Glucose Ql (U) Negative [facility] - UrinalysisOrder ed By: Seema Ruiz on 07-28-2024 Protein Ql (U) Trace [facility] Exterminator Helper Office Visit Reporton 07-28-2024 Exterminator Helper Office Visit Report [facility] [address] [facility], [address] [place] [address] OFFICE VISIT Date of Service: 07/28/24 MR#: [id number] Acct: [id number] Name: JD PRINGLE Rep #: [id number] : 2005 Provider: YAIR jorge Age/Sex: 18/F Location[place] [facility] [place] Status: Signed Intake Vital Signs 12/30/23 14:44 07/20/24 14:34 07/28/24 14:12 Height 5 ft 6 in 5 ft 6 in 5 ft 6 in Weight: 175 lb BMI 28.2 BP 103/69 Intake Visit Reasons: 39wk ob Drug Department Worker Required: No Is patient in pain?: No [...] 3-4 times per week duration: 15-30 minutes/day roseline/spiritism: Rastafarian seatbelt use: sometimes do you feel safe [...] -???-???-???-???-??? -???-???-???-? (more content not included)... [facility] Absolute lymphocyte countOrd ered By: Francesca Yeung on 07-20-2024 Lymphocytes Auto (Unsp spec) [#/Vol] 1.97 10*3/uL 0.83-4.51 [facility] Absolute neutrophil countOrd ered By: Francesca Yeung on 07-20-2024 Neutrophils (Bld) [#/Vol] 9.6 10*3/uL High 2.0-7.7 [facility] Anion gap in Serum or Plasma Ordered By: Francesca Yeung on 07-20-2024 Anion gap [Moles/Vol] 10 mmol/L 5-15 [facility] Automated lymphocyte count a s percentage of total leukocytesOrdered By: Francesca Yeung on 07-20-2024 Lymphocytes/100 WBC Auto (Unsp spec) 15.7 % Low 19-41 [facility] BUN/creatinine ratioOrdered By: Francesca Yeung on 07-20-2024 Urea nitrogen/Creatinine [Mass ratio] 12.0 mg/mg 10-20 [facility] Basophil percentageOrdered B y: Francesca Yeung on 07-20-2024 Basophils/100 WBC (Bld) 0.2 % 0-1 [facility] Bilirubin, totalOrdered By: Francesca Yeung on 07-20-2024 Bilirubin [Mass/Vol] 0.66 mg/dL 0.00-1.30 [facility] CBC W/Diff, Automatedon 06-30 Absolute Lymph 1.97 X10 3/uL Normal 0.83-4.51 [facility] Comment on above: Performed By: #### L 501.0900, L500.4050, L100.0100 ####[facility] [address] [place], [address] Absolute Neut 9.6 X10 3/uL High 2.0-7.7 [facility] Comment on above: Performed By: #### L 501.0900, L500.4050, L100.0100 ####[facility] [address] [place], [address] Basophils/100 WBC (Bld) 0.2 % Normal 0-1 [facility] Comment on above: Performed By: #### L 501.0900, L500.4050, L100.0100 ####[facility] [address] [place], [address] Eosinophils/100 WBC (Bld) 1.4 % Normal 0-5 [facility] Comment on above: Performed By: #### L 501.0900, L500.4050, L100.0100 ####[facility] [address] [place], [address] Erythrocyte distribution width (RBC) [Ratio] 14.0 % Normal 11.6-14.6 [facility] Comment on above: Performed By: #### L 501.0900, L500.4050, L100.0100 ####[facility] [address] [place], [address] Hematocrit (Bld) [Volume fraction] 32.0 % Low 37-47 [facility] Comment on above: Performed By: #### L 501.0900, L500.4050, L100.0100 ####[facility] [address] [place], [address] Hemoglobin (Bld) [Mass/Vol] 10.5 g/dL Low 12.0-15.0 [facility] Comment on above: Performed By: #### L 501.0900, L500.4050, L100.0100 ####[facility] [address] [place], [address] IG% 0.600 Normal 0.0-0.9 [facility] Comment on above: Result Comment: IG% - Immature Granulocytes (promyelocytes, myelocytes and metamyelocytes) > 1% indicates that a LEFT SHIFT is Present. Performed By: #### L 501.0900, L500.4050, L100.0100 ####[facility] [address] [place], [address] Lymphocytes/100 WBC (Bld) 15.7 % Low 19-41 [facility] Comment on above: Performed By: #### L 501.0900, L500.4050, L100.0100 ####[facility] [address] [place], [address] MCH (RBC) [Entitic mass] 28.8 pg Normal 27.0-32.0 [facility] Comment on above: Performed By: #### L 501.0900, L500.4050, L100.0100 ####[facility] [address] [place], [address] MCHC (RBC) [Mass/Vol] 32.8 g/dL Normal 32-36 [facility] Comment on above: Performed By: #### L 501.0900, L500.4050, L100.0100 ####[facility] [address] [place], [address] MCV (RBC) [Entitic vol] 87.9 fL Normal 81-99 [facility] Comment on above: Performed By: #### L 501.0900, L500.4050, L100.0100 ####[facility] [address] [place], [address] Monocytes/100 WBC (Bld) 5.3 % Normal 0-10 [facility] Comment on above: Performed By: #### L 501.0900, L500.4050, L100.0100 ####[facility] [address] [place], [address] Neutrophils/100 WBC (Bld) 76.8 % High 47-70 [facility] Comment on above: Performed By: #### L 501.0900, L500.4050, L100.0100 ####[facility] [address] [place], [address] Nucleated RBC (Bld) [#/Vol] 0 10*3/uL Normal 0-5 [facility] Comment on above: Performed By: #### L 501.0900, L500.4050, L100.0100 ####[facility] [address] [place], [address] Platelet mean volume (Bld) [Entitic vol] 11.9 fL Normal 6.2-12.0 [facility] Comment on above: Performed By: #### L 501.0900, L500.4050, L100.0100 ####[facility] [address] [place], [address] Platelets (Bld) [#/Vol] 158 10*3/uL Normal 150-450 [facility] Comment on above: Performed By: #### L 501.0900, L500.4050, L100.0100 ####[facility] [address] [place], [address] RBC (Bld) [#/Vol] 3.64 10*6/uL Low 4.2-5.4 [facility] Comment on above: Performed By: #### L 501.0900, L500.4050, L100.0100 ####[facility] [address] [place], [address] RDW SD 44.4 fl High 35.1-43.9 [facility] Comment on above: Performed By: #### L 501.0900, L500.4050, L100.0100 ####[facility] [address] [place], [address] WBC (Bld) [#/Vol] 12.6 10*3/uL High 4.4-11.0 [facility] Comment on above: Performed By: #### L 501.0900, L500.4050, L100.0100 ####[facility] [address] [place], [address] Carbon dioxide, total [Moles /volume] in Central venous bloodOrdered By: Francesca Yeung on 07-20-2024 CO2 [Moles/Vol] 22.1 mmol/L 21.0-32.0 [facility] Chloride assayOrdered By: Raciel Yeung on 07-20-2024 Chloride [Moles/Vol] 104 mmol/L 98-108 [facility] Comprehensive Metabolic Prof ilon 07-20-2024 Albumin [Mass/Vol] 3.6 g/dL Normal 3.5-5.0 [facility] Comment on above: Performed By: #### L 501.0900, L500.4050, L100.0100 ####[facility] [address] [place], [address] Albumin/Globulin [Mass ratio] 1.3 {ratio} Normal 0.9-2.4 [facility] Comment on above: Performed By: #### L 501.0900, L500.4050, L100.0100 ####[facility] [address] [place], [address] ALK PHOS 160 U/L High 35-104 [facility] Comment on above: Performed By: #### L 501.0900, L500.4050, L100.0100 ####[facility] [address] [place], [address] ALT [Catalytic activity/Vol] 9 U/L Normal <=34 [facility] Comment on above: Performed By: #### L 501.0900, L500.4050, L100.0100 ####[facility] [address] [place], [address] AST [Catalytic activity/Vol] 18 U/L Normal <=31 [facility] Comment on above: Performed By: #### L 501.0900, L500.4050, L100.0100 ####[facility] [address] [place], [address] Bilirubin [Mass/Vol] 0.66 mg/dL Normal 0.00-1.30 [facility] Comment on above: Performed By: #### L 501.0900, L500.4050, L100.0100 ####[facility] [address] [place], [address] BUN/CRE 12.0 RATIO Normal 10-20 [facility] Comment on above: Performed By: #### L 501.0900, L500.4050, L100.0100 ####[facility] [address] [place], [address] Calcium [Mass/Vol] 8.8 mg/dL Normal 7.6-11.0 [facility] Comment on above: Performed By: #### L 501.0900, L500.4050, L100.0100 ####[facility] [address] [place], [address] Chloride [Moles/Vol] 104 mmol/L Normal 98-108 [facility] Comment on above: Performed By: #### L 501.0900, L500.4050, L100.0100 ####[facility] [address] [place], [address] CO2 [Moles/Vol] 22.1 mmol/L Normal 21.0-32.0 [facility] Comment on above: Performed By: #### L 501.0900, L500.4050, L100.0100 ####[facility] [address] [place], [address] Creatinine [Mass/Vol] 0.51 mg/dL Low 0.70-1.20 [facility] Comment on above: Performed By: #### L 501.0900, L500.4050, L100.0100 ####[facility] [address] [place], [address] GAP 10 Normal 5-15 [facility] Comment on above: Performed By: #### L 501.0900, L500.4050, L100.0100 ####[facility] [address] [place], [address] GFR/1.73 sq M.predicted among non-blacks MDRD (S/P/Bld) [Vol rate/Area] 138 mL/min/{1.73_m2} Normal >60 [facility] Comment on above: Result Comment: mL/m in/1.73m2 CKD-EPI Creatinine Equation (2020) Performed By: #### L 501.0900, L500.4050, L100.0100 ####[facility] [address] [place], [address] Globulin (S) [Mass/Vol] 2.9 g/dL Normal 2.2-4.2 [facility] Comment on above: Performed By: #### L 501.0900, L500.4050, L100.0100 ####[facility] [address] [place], [address] Glucose [Mass/Vol] 80 mg/dL Normal 70-99 [facility] Comment on above: Performed By: #### L 501.0900, L500.4050, L100.0100 ####[facility] [address] [place], [address] Potassium [Moles/Vol] 3.8 mmol/L Normal 3.3-5.1 [facility] Comment on above: Performed By: #### L 501.0900, L500.4050, L100.0100 ####[facility] [address] [place], [address] Sodium [Moles/Vol] 136 mmol/L Normal 133-145 [facility] Comment on above: Performed By: #### L 501.0900, L500.4050, L100.0100 ####[facility] [address] [place], [address] T PROT 6.5 g/dL Normal 5.9-8.4 [facility] Comment on above: Performed By: #### L 501.0900, L500.4050, L100.0100 ####[facility] [address] [place], [address] Urea nitrogen [Mass/Vol] 6 mg/dL Normal 4-19 [facility] Comment on above: Performed By: #### L 501.0900, L500.4050, L100.0100 ####[facility] [address] [place], [address] Eosinophil percentageOrdered By: Francesca Yeung on 07-20-2024 Eosinophils/100 WBC (Bld) 1.4 % 0-5 [facility] Erythrocyte distribution wid th ratioOrdered By: Francesca Yeung on 07-20-2024 Erythrocyte distribution width (RBC) [Ratio] 14.0 % 11.6-14.6 [facility] Erythrocyte distribution wid th standard deviationOrdered By: Francesca Yeung on 07-20-2024 Erythrocyte distribution width (RBC) [Ratio] 44.4 fl High 35.1-43.9 [facility] Glomerular filtration rate ( GFR) estimation/1.73 sq m using serum, plasma, or whole bOrdered By: Francesca Yeung on 07-20-2024 GFR/1.73 sq M.predicted among non-blacks MDRD (S/P/Bld) [Vol rate/Area] 138 mL/min/{1.73_m2} >60 [facility] Comment on above: mL/min/1.73m2 CKD-EP I Creatinine Equation (2020) Hematocrit Auto (Bld) [Volum e fraction]Ordered By: Francesca Yeung on 07-20-2024 Hematocrit (Bld) [Volume fraction] 32.0 % Low 37-47 [facility] Hemoglobin measurementOrdere d By: Francesca Yeung on 07-20-2024 Hemoglobin (Bld) [Mass/Vol] 10.5 g/dL Low 12.0-15.0 [facility] Immature granulocytes/100 WB C Auto (Bld)Ordered By: Francesca Yeung on 07-20-2024 Immature granulocytes/100 WBC (Bld) 0.600 % 0.0-0.9 [facility] Comment on above: IG% - Immature Granu locytes (promyelocytes, myelocytes and metamyelocytes) > 1% indicates that a LEFT SHIFT is Present. Laboratory - Chemistry and C hemistry - challengeOrdered By: Francesca Yeung on 07-20-2024 AST [Catalytic activity/Vol] 18 U/L <32 [facility] Glucose Ql (U) Negative [facility] - UrinalysisOrder ed By: Francesca Yeung on 07-20-2024 Protein Ql (U) 1+ [facility] MCV (mean corpuscular volume ) determinationOrdered By: Francesca Yeung on 07-20-2024 MCV (RBC) [Entitic vol] 87.9 fL 81-99 [facility] Mean corpuscular hemoglobin (MCH) determinationOrdered By: Francesca Yeung on 07-20-2024 MCH (RBC) [Entitic mass] 28.8 pg 27.0-32.0 [facility] Mean corpuscular hemoglobin concentration (MCHC) determinationOrdered By: Francesca Yeung on 07-20-2024 MCHC (RBC) [Mass/Vol] 32.8 g/dL 32-36 [facility] Mean platelet volume determi nationOrdered By: Francesca Yeung on 07-20-2024 Platelet mean volume (Bld) [Entitic vol] 11.9 fL 6.2-12.0 [facility] Monocyte percentageOrdered B y: Francesca Yeung on 07-20-2024 Monocytes/100 WBC (Bld) 5.3 % 0-10 [facility] Neutrophil percentageOrdered By: Francescaoscar Turkulices on 07-20-2024 Neutrophils/100 WBC (Bld) 76.8 % High 47-70 [facility] Nucleated red blood cell per centageOrdered By: Francesca Yeung on 07-20-2024 Nucleated RBC/100 WBC (Bld) [Ratio] 0 % 0-5 [facility] Exterminator Helper Office Visit Reporton 07-20-2024 Exterminator Helper Office Visit Report [facility] [address], [address] [place] [address] OFFICE VISIT Date of Service: 07/20/24 MR#: [id number] Acct: [id number] Name: JD PRINGLE Rep #: [id number] : 2005 Provider: Dr. Francesca shannon MD Age/Sex: 18/F [place] [facility] [place] Status: Signed Intake Vital Signs 12/30/23 14:44 04/28/24 14:11 07/13/24 13:42 07/20/24 14:34 Height 5 ft 6 in 5 ft 6 in 5 ft 6 in 5 ft 6 in Weight: 175 lb 2 oz BMI 28.3 BP 122/78 H Intake Visit Reasons: 38wk ob Drug Department Worker Required: No Is patient in pain?: No [...] children current occupational status: unemployed current occupation: [employer] current occupational exposures/hazards: No pets and animals: [...] 3-4 times per week duration: 15-30 minutes/day roseline/spiritism: Rastafarian seatbelt use: sometimes do you feel safe [...] - full term 7lbs 10oz Female epidural [facility] Julia Ortiz Altaf Delivery Date: [...] -???-???-???-???-??? -??? (more content not included)... [facility] Platelet countOrdered By: Raciel Yeung on 07-20-2024 Platelets (Bld) [#/Vol] 158 10*3/uL 150-450 [facility] Potassium measurement (mass/ volume)Ordered By: Francesca Yeung on 07-20-2024 Potassium (Unsp spec) [Mass/Vol] 3.8 mmol/L 3.3-5.1 [facility] Protein+Creatinine Ratio,Uri neon 07-20-2024 PROT:CRE RATIO 178 mg/g CRE Normal 0-200 [facility] Comment on above: Performed By: #### L 501.0900, L500.4050, L100.0100 ####[facility] [address] [place], [address] Protein (U) [Mass/Vol] 27.8 mg/dL High 0.0-12.0 [facility] Comment on above: Performed By: #### L 501.0900, L500.4050, L100.0100 ####[facility] [address] [place], [address] UR CREAT 156.00 mg/dL Normal 28.00-217.00 [facility] Comment on above: Performed By: #### L 501.0900, L500.4050, L100.0100 ####[facility] [address] [place], [address] RBC Auto (Bld) [#/Vol]Ordere d By: Francesca Yeung on 07-20-2024 RBC (Bld) [#/Vol] 3.64 10*6/uL Low 4.2-5.4 [facility] Random urine creatinine luis urement (mass/volume)Ordered By: Francesca Yeung on 07-20-2024 Creatinine Unsp time (U) [Mass/Vol] 156.00 mg/dL 28.00-217.00 [facility] Serum creatinine measurement (mass/volume)Ordered By: Francesca Yeung on 07-20-2024 Creatinine [Mass/Vol] 0.51 mg/dL Low 0.70-1.20 [facility] Serum globulin measurementOr dered By: Francesca Yeung on 07-20-2024 Globulin (S) [Mass/Vol] 2.9 g/dL 2.2-4.2 [facility] Serum glucose measurement (m ass/volume)Ordered By: Francesca Yeung on 07-20-2024 Glucose [Mass/Vol] 80 mg/dL 70-99 [facility] Serum or plasma alanine tate otransferase (ALT) measurementOrdered By: Francesca Yeung on 07-20-2024 ALT [Catalytic activity/Vol] 9 U/L <35 [facility] Serum or plasma albumin luis urement (mass/volume)Ordered By: Francesca Yeung on 07-20-2024 Albumin [Mass/Vol] 3.6 g/dL 3.5-5.0 [facility] Serum or plasma albumin/glob ulin mass ratioOrdered By: Francesca Yeung on 07-20-2024 Albumin/Globulin [Mass ratio] 1.3 {ratio} 0.9-2.4 [facility] Serum or plasma alkaline chi sphatase measurementOrdered By: Francesca Yeung on 07-20-2024 ALP [Catalytic activity/Vol] 160 U/L High 35-104 [facility] Serum or plasma calcium luis urement (mass/volume)Ordered By: Francesca Yeung on 07-20-2024 Calcium [Mass/Vol] 8.8 mg/dL 7.6-11.0 [facility] Serum or plasma urea nitroge n measurement (mass/volume)Ordered By: Francesca Yeung on 07-20-2024 Urea nitrogen [Mass/Vol] 6 mg/dL 4-19 [facility] Sodium levelOrdered By: Mick Yeung on 07-20-2024 Sodium [Moles/Vol] 136 mmol/L 133-145 [facility] Total proteinOrdered By: Hank Yeung on 07-20-2024 Protein [Mass/Vol] 6.5 g/dL 5.9-8.4 [facility] Urine protein measurement (m ass/volume)Ordered By: Francesca Yeung on 07-20-2024 Protein (U) [Mass/Vol] 27.8 mg/dL High 0.0-12.0 [facility] Urine protein/creatinine mas s ratioOrdered By: Francesca Yeung on 07-20-2024 Protein/Creatinine (U) [Mass ratio] 178 mg/g CRE 0-200 [facility] White blood cell (WBC) count Ordered By: Francesca Yeung on 07-20-2024 WBC (Bld) [#/Vol] 12.6 10*3/uL High 4.4-11.0 [facility] Laboratory - Chemistry and C hemistry - challengeOrdered By: Francesca Yeung on 07-13-2024 Glucose Ql (U) Negative [facility] - UrinalysisOrder ed By: Francesca Yeung on 07-13-2024 Protein Ql (U) Trace [facility] Ex[facility] [employer] Office Visit Reporton 07-13-2024 Exterminator Helper Office Visit Report [facility]'[address], [address] [place] [address] OFFICE VISIT Date of Service: 07/13/24 MR#: [id number] Acct: [id number] Name: JD PRINGLE Rep #: [id number] : 2005 Provider: Dr. Francesca shannon MD Age/Sex: 18/F Location: [facility] [place] Status: Signed Intake Vital Signs 12/30/23 14:44 06/19/24 13:37 07/04/24 13:30 07/13/24 13:42 Height 5 ft 6 in 5 ft 6 in 5 ft 6 in 5 ft 6 in Weight: 173 lb 2 oz BMI 27.9 BP 103/72 Intake Visit Reasons: 37wk ob Drug Department Worker Required: No Is patient in pain?: No [...] children current occupational status: unemployed current occupation: [employer] current occupational exposures/hazards: No pets and [...] 3-4 times per week duration: 15-30 minutes/day roseline/spiritism: Rastafarian seatbelt use: sometimes do you feel safe [...] - full term 7lbs 10oz Female epidural [facility] Julia Solitario Delivery Date: 04/03/23 [...] -???-???- JV (more content not included)... [facility] Rule out Beta Strep (Grp. B) on 07-08-2024 ASHA Group B Beta Streptococcus is not isolated. [facility] Comment on above: Performed By: #### M 100.7413 #### [facility] [address] [place], [address] Laboratory - Chemistry and C hemistry - challengeOrdered By: Julia Ortiz on 07-04-2024 Glucose Ql (U) Negative [facility] - UrinalysisOrder ed By: Julia Ortiz on 07-04-2024 Protein Ql (U) Negative [facility] Exterminator Helper Office Visit Reporton 07-04-2024 Exterminator Helper Office Visit Report [facility]'s [address], [address] [place] [address] OFFICE VISIT Date of Service: 07/04/24 MR#: [id number] Acct: [id number] Name: JD PRINGLE Rep #: [id number] : 2005 Provider: YAIR Brandt ams Age/Sex: 18/F [place] [facility] [place]: Signed Intake Vital Signs 04/28/24 14:11 06/19/24 13:37 07/04/24 13:30 Height 5 ft 6 in 5 ft 6 in 5 ft 6 in Weight: 172 lb 8 oz BMI 27.8 BP 119/76 Intake Visit Reasons: 36 wk ob Chief Complaint: 36wk OB Drug Department Worker Required: No Is patient in pain?: No [...] 3-4 times per week duration: 15-30 minutes/day roseline/spiritism: Rastafarian seatbelt use: sometimes do you feel safe [...] scan scheduled (more content not included)... [facility] Screening beta-hemolytic Str eptococcus cultureOrdered By: Julia Ortiz on 07-04-2024 Beta-hemolytic Streptococcus culture Group B Beta Streptococcus is not isolated. [facility] - Chemistry and C hemistry - challengeOrdered By: Julia Ortiz on 06-19-2024 Glucose Ql (U) Negative [facility] - UrinalysisOrder ed By: Julia Ortiz on 06-19-2024 Protein Ql (U) Negative [facility] Exterminator Helper Office Visit Reporton 06-19-2024 Exterminator Helper Office Visit Report [facility] [address], [address] [place] [address] OFFICE VISIT Date of Service: 06/19/24 MR#: [id number] Acct: [id number] Name: JD PRINGLE Rep #: [id number] : 2005 Provider: YAIR Brandt ams Age/Sex: 18/F Location: [facility] [place] Status: Signed Intake Vital Signs 12/30/23 14:44 05/31/24 14:46 06/19/24 13:33 06/19/24 13:37 Height 5 ft 6 in 5 ft 6 in 5 ft 6 in 5 ft 6 in Weight: 170 lb BMI 27.4 BP 107/73 Intake Visit Reasons: 33wk ob Drug Department Worker Required: No Is patient in pain?: No [...] children current occupational status: unemployed current occupation: [employer] current occupational exposures/hazards: No pets and animals: [...] 3-4 times per week duration: 15-30 minutes/day roseline/spiritism: Rastafarian seatbelt use: sometimes do you feel safe [...] - full term 7lbs 10oz Female epidural [facility] Julia Solitario Delivery Date: 04/03/23 [...] how muc (more content not included)... [facility] Laboratory - Chemistry and C hemistry - challengeOrdered By: Francesca Yeung on 05-31-2024 Glucose Ql (U) Negative [facility] - UrinalysisOrder ed By: Francesca Yeung on 05-31-2024 Protein Ql (U) Negative [facility] Exterminator Helper Office Visit Reporton 05-31-2024 Exterminator Helper Office Visit Report [facility]'s [facility] [address] [facility] [address] [address] [facility], [address] [place] [address] OFFICE VISIT Date of Service: 05/31/24 MR#: [id number] Acct: [id number] Name: JD PRINGLE Rep #: [id number] : 2005 Provider: Dr. Francesca shannon MD Age/Sex: 18/F [place] [facility] [place] Status: Signed Intake Vital Signs 12/30/23 14:44 04/28/24 14:11 05/31/24 14:46 Height 5 ft 6 in 5 ft 6 in 5 ft 6 in Weight: 167 lb 4 oz BMI 26.9 BP 105/65 Intake Visit Reasons: 31wk ob Drug Department Worker Required: No Is patient in pain?: No [...] children current occupational status: unemployed current occupation: [employer] current occupational exposures/hazards: No pets and animals: [...] 3-4 times per week duration: 15-30 minutes/day roseline/spiritism: Rastafarian seatbelt use: sometimes do you feel safe [...] - full term 7lbs 10oz Female epidural [facility] Julai Angel Altaf Delivery Date: 04/03/23 Last Updated [...] today. q (more content not included)... [facility] Absolute lymphocyte countOrd ered By: Tabatha Severino on 05-25-2024 Lymphocytes Auto (Unsp spec) [#/Vol] 1.70 10*3/uL 0.83-4.51 [facility] Absolute neutrophil countOrd ered By: Tabatha Severino on 05-25-2024 Neutrophils (Bld) [#/Vol] 9.8 10*3/uL High 2.0-7.7 [facility] Automated blood erythrocyte countOrdered By: Tabatha Severino on 05-25-2024 RBC (Bld) [#/Vol] 3.42 10*6/uL Low 4.2-5.4 [facility] Comment on above: Performed By: #### L 100.0100 ####[facility] [address] [place], [place], [id number] Automated blood hematocrit ( percentage)Ordered By: Tabatha Severino on 05-25-2024 Hematocrit (Bld) [Volume fraction] 30.8 % Low 37-47 [facility] Comment on above: Performed By: #### L 100.0100 ####[facility] [address] [place], [place], [id number] Automated lymphocyte count a s percentage of total leukocytesOrdered By: Tabatha Severino on 05-25-2024 Lymphocytes/100 WBC (Bld) 13.7 % Low 19-41 [facility] Comment on above: Performed By: #### L 100.0100 ####[facility] [address] [place], [address] Lymphocytes/100 WBC Auto (Unsp spec) 13.7 % Low 19-41 [facility] Basophil percentageOrdered B y: Tabatha Severino on 05-25-2024 Basophils/100 WBC (Bld) 0.2 % Normal 0-1 [facility] Comment on above: Performed By: #### L 100.0100 ####[facility] [address] [place], [address] CBC W/Diff, Automatedon 04-30 Absolute Lymph 1.70 X10 3/uL Normal 0.83-4.51 [facility] Comment on above: Performed By: #### L 100.0100 ####[facility] [address] [place], [address] Absolute Neut 9.8 X10 3/uL High 2.0-7.7 [facility] Comment on above: Performed By: #### L 100.0100 ####[facility] [address] [place], [address] IG% 0.600 Normal 0.0-0.9 [facility] Comment on above: Result Comment: IG% - Immature Granulocytes (promyelocytes, myelocytes and metamyelocytes) > 1% indicates that a LEFT SHIFT is Present. Performed By: #### L 100.0100 ####[facility] [address] [place], [address] Nucleated RBC (Bld) [#/Vol] 0 10*3/uL Normal 0-5 [facility] Comment on above: Performed By: #### L 100.0100 ####[facility] [address] [place], [address] RDW SD 43.2 fl Normal 35.1-43.9 [facility] Comment on above: Performed By: #### L 100.0100 ####[facility] [address] [place], [address] Eosinophil percentageOrdered By: Tabatha Severino on 05-25-2024 Eosinophils/100 WBC (Bld) 1.6 % Normal 0-5 [facility] Comment on above: Performed By: #### L 100.0100 ####[facility] [address] [place], [address] Erythrocyte distribution wid th (RBC) [Ratio]Ordered By: Tabatha Severino on 05-25-2024 Erythrocyte distribution width (RBC) [Entitic vol] 43.2 fL 35.1-43.9 [facility] Erythrocyte distribution wid th ratioOrdered By: Tabatha Severino on 05-25-2024 Erythrocyte distribution width (RBC) [Ratio] 13.2 % Normal 11.6-14.6 [facility] Comment on above: Performed By: #### L 100.0100 ####[facility] [address] [facility] [place], [place], [phone] Erythrocyte distribution wid th standard deviationOrdered By: Tabatha Severino on 05-25-2024 Erythrocyte distribution width (RBC) [Ratio] 43.2 fl 35.1-43.9 [facility] Hemoglobin measurementOrdere d By: Tabatha Severino on 05-25-2024 Hemoglobin (Bld) [Mass/Vol] 10.2 g/dL Low 12.0-15.0 [facility] Comment on above: Performed By: #### L 100.0100 ####[facility] [address] [facility]. [place], [place], [phone] Immature granulocytes/100 WB C Auto (Bld)Ordered By: Tabatha Severino on 05-25-2024 Immature granulocytes/100 WBC (Bld) 0.600 % 0.0-0.9 [facility] Comment on above: IG% - Immature Granu locytes (promyelocytes, myelocytes and metamyelocytes) > 1% indicates that a LEFT SHIFT is Present. Lymphocytes Auto (Unsp spec) [#/Vol]Ordered By: Tabatha Severino on 05-25-2024 Lymphocytes (Bld) [#/Vol] 1.70 10*3/uL 0.83-4.51 [facility] MCV (mean corpuscular volume ) determinationOrdered By: Tabatha Severino on 05-25-2024 MCV (RBC) [Entitic vol] 90.1 fL Normal 81-99 [facility] Comment on above: Performed By: #### L 100.0100 ####[facility] [address] [place], [address] Mean corpuscular hemoglobin (MCH) determinationOrdered By: Tabatha Severino on 05-25-2024 MCH (RBC) [Entitic mass] 29.8 pg Normal 27.0-32.0 [facility] Comment on above: Performed By: #### L 100.0100 ####[facility] [address] [facility] [address] Mean corpuscular hemoglobin concentration (MCHC) determinationOrdered By: Tabatha Severino on 05-25-2024 MCHC (RBC) [Mass/Vol] 33.1 g/dL Normal 32-36 [facility] Comment on above: Performed By: #### L 100.0100 ####[facility] [address] [place], [address] Mean platelet volume determi nationOrdered By: Tabatha Severino on 05-25-2024 Platelet mean volume (Bld) [Entitic vol] 10.7 fL Normal 6.2-12.0 [facility] Comment on above: Performed By: #### L 100.0100 ####[facility] [address] [place], [address] Monocyte percentageOrdered B y: Tabatha Severino on 05-25-2024 Monocytes/100 WBC (Bld) 5.1 % Normal 0-10 [facility] Comment on above: Performed By: #### L 100.0100 ####[facility] [address] [place], [place], [phone] Neutrophil percentageOrdered By: Tabatha Mere on 05-25-2024 Neutrophils/100 WBC (Bld) 78.8 % High 47-70 [facility] Comment on above: Performed By: #### L 100.0100 ####[facility] [address] [place], [place], [phone] Nucleated red blood cell per centageOrdered By: Tabatha Severino on 05-25-2024 Nucleated RBC/100 WBC (Bld) [Ratio] 0 % 0-5 [facility] Platelet countOrdered By: Rick deannajose Mere on 05-25-2024 Platelets (Bld) [#/Vol] 178 10*3/uL Normal 150-450 [facility] Comment on above: Performed By: #### L 100.0100 ####[facility] [address] [place], [place], [phone] White blood cell (WBC) count Ordered By: Tabatha Severino on 05-25-2024 WBC (Bld) [#/Vol] 12.4 10*3/uL High 4.4-11.0 [facility] Comment on above: Performed By: #### L 100.0100 ####[facility] [address] [place], [place], [phone] Absolute lymphocyte countOrd ered By: Tabatha Severino on 04-28-2024 Lymphocytes Auto (Unsp spec) [#/Vol] 1.43 10*3/uL 0.83-4.51 [facility] Absolute neutrophil countOrd ered By: Tabatha Severino on 04-28-2024 Neutrophils (Bld) [#/Vol] 8.8 10*3/uL High 2.0-7.7 [facility] Automated lymphocyte count a s percentage of total leukocytesOrdered By: Tabatha Severino on 04-28-2024 Lymphocytes/100 WBC Auto (Unsp spec) 13.0 % Low 19-41 [facility] Basophil percentageOrdered B y: Tabatha Severino on 04-28-2024 Basophils/100 WBC (Bld) 0.2 % 0-1 [facility] CBC W/Diff, Automatedon 02-2 -2024 Absolute Lymph 1.43 X10 3/uL Normal 0.83-4.51 [facility] Comment on above: Performed By: #### L 100.0100, L501.0250, L3890.6006, L509.8002 ####[facility] [address] [place], [address] Absolute Neut 8.8 X10 3/uL High 2.0-7.7 [facility] Comment on above: Performed By: #### L 100.0100, L501.0250, L3890.6006, L509.8002 ####[facility] [address] [place], [address] Basophils/100 WBC (Bld) 0.2 % Normal 0-1 [facility] Comment on above: Performed By: #### L 100.0100, L501.0250, L3890.6006, L509.8002 ####[facility] [address] [place], [address] Eosinophils/100 WBC (Bld) 1.1 % Normal 0-5 [facility] Comment on above: Performed By: #### L 100.0100, L501.0250, L3890.6006, L509.8002 ####[facility] [address] [place], [address] Erythrocyte distribution width (RBC) [Ratio] 13.0 % Normal 11.6-14.6 [facility] Comment on above: Performed By: #### L 100.0100, L501.0250, L3890.6006, L509.8002 ####[facility] [address] [place], [address] Hematocrit (Bld) [Volume fraction] 30.9 % Low 37-47 [facility] Comment on above: Performed By: #### L 100.0100, L501.0250, L3890.6006, L509.8002 ####[facility] [address] [place], [address] Hemoglobin (Bld) [Mass/Vol] 10.2 g/dL Low 12.0-15.0 [facility] Comment on above: Performed By: #### L 100.0100, L501.0250, L3890.6006, L509.8002 ####[facility] [address] [place], [address] IG% 0.700 Normal 0.0-0.9 [facility] Comment on above: Result Comment: IG% - Immature Granulocytes (promyelocytes, myelocytes and metamyelocytes) > 1% indicates that a LEFT SHIFT is Present. Performed By: #### L 100.0100, L501.0250, L3890.6006, L509.8002 ####[facility] [address] [place], [address] Lymphocytes/100 WBC (Bld) 13.0 % Low 19-41 [facility] Comment on above: Performed By: #### L 100.0100, L501.0250, L3890.6006, L509.8002 ####[facility] [address] [place], [address] MCH (RBC) [Entitic mass] 30.1 pg Normal 27.0-32.0 [facility] Comment on above: Performed By: #### L 100.0100, L501.0250, L3890.6006, L509.8002 ####[facility] [address] [place], [address] MCHC (RBC) [Mass/Vol] 33.0 g/dL Normal 32-36 [facility] Comment on above: Performed By: #### L 100.0100, L501.0250, L3890.6006, L509.8002 ####[facility] [address] [place], [address] MCV (RBC) [Entitic vol] 91.2 fL Normal 81-99 [facility] Comment on above: Performed By: #### L 100.0100, L501.0250, L3890.6006, L509.8002 ####[facility] [address] [place], [address] Monocytes/100 WBC (Bld) 5.1 % Normal 0-10 [facility] Comment on above: Performed By: #### L 100.0100, L501.0250, L3890.6006, L509.8002 ####[facility] [address] [place], [address] Neutrophils/100 WBC (Bld) 79.9 % High 47-70 [facility] Comment on above: Performed By: #### L 100.0100, L501.0250, L3890.6006, L509.8002 ####[facility] [address] [place], [address] Nucleated RBC (Bld) [#/Vol] 0 10*3/uL Normal 0-5 [facility] Comment on above: Performed By: #### L 100.0100, L501.0250, L3890.6006, L509.8002 ####[facility] [address] [place], [address] Platelet mean volume (Bld) [Entitic vol] 11.4 fL Normal 6.2-12.0 [facility] Comment on above: Performed By: #### L 100.0100, L501.0250, L3890.6006, L509.8002 ####[facility] [address] [place], [address] Platelets (Bld) [#/Vol] 176 10*3/uL Normal 150-450 [facility] Comment on above: Performed By: #### L 100.0100, L501.0250, L3890.6006, L509.8002 ####[facility] [address] [place], [address] RBC (Bld) [#/Vol] 3.39 10*6/uL Low 4.2-5.4 [facility] Comment on above: Performed By: #### L 100.0100, L501.0250, L3890.6006, L509.8002 ####[facility] [address] [place], [address] RDW SD 42.4 fl Normal 35.1-43.9 [facility] Comment on above: Performed By: #### L 100.0100, L501.0250, L3890.6006, L509.8002 ####[facility] [address] [place], [address] WBC (Bld) [#/Vol] 11.0 10*3/uL Normal 4.4-11.0 [facility] Comment on above: Performed By: #### L 100.0100, L501.0250, L3890.6006, L509.8002 ####[facility] [address] [place], [address] Eosinophil percentageOrdered By: Tabatha Severino on 04-28-2024 Eosinophils/100 WBC (Bld) 1.1 % 0-5 [facility] Erythrocyte distribution wid th ratioOrdered By: Tabatha Severino on 04-28-2024 Erythrocyte distribution width (RBC) [Ratio] 13.0 % 11.6-14.6 [facility] Erythrocyte distribution wid th standard deviationOrdered By: Tabatha Severino on 04-28-2024 Erythrocyte distribution width (RBC) [Entitic vol] 42.4 fL 35.1-43.9 [facility] Erythrocyte distribution width (RBC) [Ratio] 42.4 fl 35.1-43.9 [facility] Glucose 60min post-GTT OBOrd ered By: Tabatha Severino on 04-28-2024 Glucose [Mass/Vol] 74 mg/dL [facility] Glucose Challenge Gest 1H 50 namrata 04-28-2024 GLU GEST 50g 1H 74 mg/dL Normal [facility] Comment on above: Performed By: #### L 100.0100, L501.0250, L3890.6006, L509.8002 ####[facility] [address] [place], [place], [address] Hematocrit Auto (Bld) [Volum e fraction]Ordered By: Tabatha Severino on 04-28-2024 Hematocrit (Bld) [Volume fraction] 30.9 % Low 37-47 [facility] Hemoglobin measurementOrdere d By: Tabatha Severino on 04-28-2024 Hemoglobin (Bld) [Mass/Vol] 10.2 g/dL Low 12.0-15.0 [facility] Immature granulocytes/100 WB C Auto (Bld)Ordered By: Tabatha Severino on 04-28-2024 Immature granulocytes/100 WBC (Bld) 0.700 % 0.0-0.9 [facility] Comment on above: IG% - Immature Granu locytes (promyelocytes, myelocytes and metamyelocytes) > 1% indicates that a LEFT SHIFT is Present. L3890.6006on 04-28-2024 HIV Non-Reactive Normal Nonreactive [facility] Comment on above: Result Comment: Non- Reactive Reactive Repeatedly reactive samples must be confirmed according to CDC recommended confirmatory algorithms. The subresults for either HIVAG or AHIV can be used as an aid in the selection of the confirmation algorithm for reactive samples. Send out specimens with Reactive results to [facility] for confirmation. Order the HIV antibody detection and differentiation: lc#[id number] Performed By: #### L 100.0100, L501.0250, L3890.6006, L509.8002 ####[facility] [address] [place], [place], [address] L509.8002on 04-28-2024 Syphilis Abs Non-Reactive Normal Nonreactive [facility] Comment on above: Performed By: #### L 100.0100, L501.0250, L3890.6006, L509.8002 ####[facility] [address] [place], [address] Laboratory - Chemistry and C hemistry - challengeOrdered By: Seema Ruiz on 04-28-2024 Glucose Ql (U) Negative [facility] - UrinalysisOrder ed By: Seema Ruiz on 04-28-2024 Protein Ql (U) Negative [facility] Lymphocytes Auto (Unsp spec) [#/Vol]Ordered By: Tabatha Severino on 04-28-2024 Lymphocytes (Bld) [#/Vol] 1.43 10*3/uL 0.83-4.51 [facility] Lymphocytes/100 WBC Auto (Un sp spec)Ordered By: Tabatha Severino on 04-28-2024 Lymphocytes/100 WBC (Bld) 13.0 % Low 19-41 [facility] MCV (mean corpuscular volume ) determinationOrdered By: Tabatha Severino on 04-28-2024 MCV (RBC) [Entitic vol] 91.2 fL 81-99 [facility] Mean corpuscular hemoglobin (MCH) determinationOrdered By: Tabatha Severino on 04-28-2024 MCH (RBC) [Entitic mass] 30.1 pg 27.0-32.0 [facility] Mean corpuscular hemoglobin concentration (MCHC) determinationOrdered By: Tabatha Severino on 04-28-2024 MCHC (RBC) [Mass/Vol] 33.0 g/dL 32-36 [facility] Mean platelet volume determi nationOrdered By: Tabatha Severino on 04-28-2024 Platelet mean volume (Bld) [Entitic vol] 11.4 fL 6.2-12.0 [facility] Monocyte percentageOrdered B y: Tabatha Severino on 04-28-2024 Monocytes/100 WBC (Bld) 5.1 % 0-10 [facility] Neutrophil percentageOrdered By: Tabatha Severino on 04-28-2024 Neutrophils/100 WBC (Bld) 79.9 % High 47-70 [facility] No Panel InformationOrdered By: Tabatha Severino on 04-28-2024 HIV (1&2) Antibody Non-Reactive Nonreactive [facility] Comment on above: Non-ReactiveReactive Repeatedly reactive samples must be confirmed according to CDC recommended confirmatory algorithms. The subresults for either HIVAG or AHIV can be used as an aid in the selection of the confirmation algorithm for reactive samples.Send out specimens with Reactive results to [facility] for confirmation.Order the HIV antibody detection and differentiation: #[id number] Nucleated red blood cell per centageOrdered By: Tabatha Severino on 04-28-2024 Nucleated RBC/100 WBC (Bld) [Ratio] 0 % 0-5 [facility] Ex[employer]ator Helper Office Visit Reporton 04-28-2024 Exterminator Helper Office Visit Report [facility] [address] [address] [place] [address] OFFICE VISIT Date of Service: 04/28/24 MR#: [id number] Acct: [id number] Name: JD PRINGLE Rep #: [id number] : 2005 Provider: YAIR jorge Age/Sex: 18/F [place] [facility] [place]: Signed Intake Vital Signs 12/30/23 14:44 04/06/24 13:42 04/28/24 14:11 Height 5 ft 6 in 5 ft 6 in 5 ft 6 in Weight: 157 lb 6 oz BMI 25.4 BP 88/55 L Intake Visit Reasons: 25 WK OB *pt needs to reschedule 05/17 appt* Drug Department Worker Required: No Is patient in pain?: No [...] children current occupational status: unemployed current occupation: [employer] current occupational exposures/hazards: No pets and animals: [...] 3-4 times per week duration: 15-30 minutes/day roseline/spiritism: Rastafarian seatbelt use: sometimes do you feel safe [...] - full term 7lbs 10oz Female epidural [facility] Julia [facility] Delivery Date: 04/03/23 Last Updated by: [...] 2 days. (more content not included)... [facility] Platelet countOrdered By: Rick Severino on 04-28-2024 Platelets (Bld) [#/Vol] 176 10*3/uL 150-450 [facility] RBC Auto (Bld) [#/Vol]Ordere d By: Tabatha Severino on 04-28-2024 RBC (Bld) [#/Vol] 3.39 10*6/uL Low 4.2-5.4 [facility] T. pallidum abOrdered By: Rick Severino on 04-28-2024 Syphilis Total Antibody Non-Reactive Nonreactiv e [facility] White blood cell (WBC) count Ordered By: Tabatha Severino on 04-28-2024 WBC (Bld) [#/Vol] 11.0 10*3/uL 4.4-11.0 [facility] Laboratory - Chemistry and C hemistry - challengeOrdered By: Tabatha Severino on 04-06-2024 Glucose Ql (U) Negative [facility] - UrinalysisOrder ed By: Tabatha Severino on 04-06-2024 Protein Ql (U) Negative [facility] Exterminator Helper Office Visit Reporton 04-06-2024 Exterminator Helper Office Visit Report [facility] [address] [facility], [address] [place] [address] OFFICE VISIT Date of Service: 04/06/24 MR#: [id number] Acct: [id number] Name: JD PRINGLE Rep #: [id number] : 2005 Provider: YAIR Brandt ams Age/Sex: 18/F [place] [facility] [place]: Signed Intake Vital Signs 03/07/24 11:37 04/06/24 13:40 04/06/24 13:42 Height 5 ft 6 in 5 ft 6 in 5 ft 6 in Weight: 147 lb 8 oz BMI 23.8 BP 106/70 Intake Visit Reasons: 22 wk ob Drug Department Worker Required: No Is patient in pain?: No [...] children current occupational status: unemployed current occupation: [employer] current occupational exposures/hazards: No pets and animals: [...] 3-4 times per week duration: 15-30 minutes/day roseline/spiritism: Rastafarian seatbelt use: sometimes do you feel safe [...] - full term 7lbs 10oz Female epidural [facility] Julia Ortiz Altaf Delivery Date: [...] 04/06/24 -???-???-???- (more content not included)... Normal [facility] Laboratory - Chemistry and C hemistry - challengeon 03-07-2024 Glucose Ql (U) Negative [facility] Laboratory - Urinalysison Protein Ql (U) Negative [facility] Exterminator Helper Office Visit Reporton 03-07-2024 Exterminator Helper Office Visit Report [facility] [address], [address] [place] [address] OFFICE VISIT Date of Service: 03/07/24 MR#: [id number] Acct: [id number] Name: JD PRINGLE Rep #: [id number] : 2005 Provider: Dr. Tabatha Sotelo DO Age/Sex: 18/F [place] [facility] [place] Status: Signed Intake Vital Signs 12/30/23 14:44 02/01/24 14:31 03/07/24 11:36 03/07/24 11:37 Height 5 ft 6 in 5 ft 6 in 5 ft 6 in 5 ft 6 in Weight: 138 lb 4 oz BMI 22.3 BP 120/70 Intake Visit Reasons: 17 WK OB Drug Department Worker Required: No Is patient in pain?: No [...] children current occupational status: unemployed current occupation: [employer] current occupational exposures/hazards: No pets and animals: [...] 3-4 times per week duration: 15-30 minutes/day roseline/spiritism: Rastafarian seatbelt use: sometimes do you feel safe [...] - full term 7lbs 10oz Female epidural [facility] Julia Solitario Delivery Date: 04/03/23 [...] ACOG First (more content not included)... Normal [facility] - Chemistry and C hemistry - challengeon 02-01-2024 Glucose Ql (U) Negative [facility] - Urinalysison Protein Ql (U) Negative [facility] Exterminator Helper Office Visit Reporton 02-01-2024 Exterminator Helper Office Visit Report [facility] [address], [address] [place] [address] OFFICE VISIT Date of Service: 02/01/24 MR#: [id number] Acct: [id number] Name: JD PRINGLE Rep #: [id number] : 2005 Provider: Dr. Tabatha Sotelo DO Age/Sex: 18/F Location[place] [facility] [place] Status: Signed Intake Vital Signs 05/14/23 10:41 12/30/23 14:44 02/01/24 14:30 02/01/24 14:31 Height 5 ft 6 in 5 ft 6 in 5 ft 6 in 5 ft 6 in Weight: 132 lb BMI 21.3 BP 109/55 L Intake Visit Reasons: 13wk OB Drug Department Worker Required: No Is patient in pain?: No [...] children current occupational status: unemployed current occupation: [employer] current occupational exposures/hazards: No pets and animals: [...] 3-4 times per week duration: 15-30 minutes/day roseline/spiritism: Rastafarian seatbelt use: sometimes do you feel safe [...] - full term 7lbs 10oz Female epidural [facility] Julia Solitario Delivery Date: 04/03/23 [...] Pain Management (more content not included)... [facility] CBC W/Diff, Automatedon 11-0 Absolute Lymph 1.44 X10 3/uL Normal 0.83-4.51 [facility] Comment on above: Performed By: #### L 3890.6005, L900.0098, L3890.6300, BTS, L509.4005, L3890.6100, L509.8000, L100.0100 #### [facility] [address] [place], [address] Absolute Neut 5.6 X10 3/uL Normal 2.0-7.7 [facility] Comment on above: Performed By: #### L 3890.6005, L900.0098, L3890.6300, BTS, L509.4005, L3890.6100, L509.8000, L100.0100 #### [facility] [address] [place], [address] Basophils/100 WBC (Bld) 0.3 % Normal 0-1 [facility] Comment on above: Performed By: #### L 3890.6005, L900.0098, L3890.6300, BTS, L509.4005, L3890.6100, L509.8000, L100.0100 #### [facility] [address] [place], [address] Eosinophils/100 WBC (Bld) 0.7 % Normal 0-5 [facility] Comment on above: Performed By: #### L 3890.6005, L900.0098, L3890.6300, BTS, L509.4005, L3890.6100, L509.8000, L100.0100 #### [facility] [address] [place], [address] Erythrocyte distribution width (RBC) [Ratio] 12.4 % Normal 11.6-14.6 [facility] Comment on above: Performed By: #### L 3890.6005, L900.0098, L3890.6300, BTS, L509.4005, L3890.6100, L509.8000, L100.0100 #### [facility] [address] [place], [address] Hematocrit (Bld) [Volume fraction] 37.3 % Normal 37-47 [facility] Comment on above: Performed By: #### L 3890.6005, L900.0098, L3890.6300, BTS, L509.4005, L3890.6100, L509.8000, L100.0100 #### [facility] [address] [place], [address] Hemoglobin (Bld) [Mass/Vol] 12.7 g/dL Normal 12.0-15.0 [facility] Comment on above: Performed By: #### L 3890.6005, L900.0098, L3890.6300, BTS, L509.4005, L3890.6100, L509.8000, L100.0100 #### [facility] [address] [place], [address] IG% 0.400 Normal 0.0-0.9 [facility] Comment on above: Result Comment: IG% - Immature Granulocytes (promyelocytes, myelocytes and metamyelocytes) > 1% indicates that a LEFT SHIFT is Present. Performed By: #### L 3890.6005, L900.0098, L3890.6300, BTS, L509.4005, L3890.6100, L509.8000, L100.0100 #### [facility] [address] [place], [address] Lymphocytes/100 WBC (Bld) 19.2 % Normal 19-41 [facility] Comment on above: Performed By: #### L 3890.6005, L900.0098, L3890.6300, BTS, L509.4005, L3890.6100, L509.8000, L100.0100 #### [facility] [address] [place], [address] MCH (RBC) [Entitic mass] 30.0 pg Normal 27.0-32.0 [facility] Comment on above: Performed By: #### L 3890.6005, L900.0098, L3890.6300, BTS, L509.4005, L3890.6100, L509.8000, L100.0100 #### [facility] [address] [place], [address] MCHC (RBC) [Mass/Vol] 34.0 g/dL Normal 32-36 [facility] Comment on above: Performed By: #### L 3890.6005, L900.0098, L3890.6300, BTS, L509.4005, L3890.6100, L509.8000, L100.0100 #### [facility] [address] [place], [address] MCV (RBC) [Entitic vol] 88.0 fL Normal 81-99 [facility] Comment on above: Performed By: #### L 3890.6005, L900.0098, L3890.6300, BTS, L509.4005, L3890.6100, L509.8000, L100.0100 #### [facility] [address] [place], [address] Monocytes/100 WBC (Bld) 4.3 % Normal 0-10 [facility] Comment on above: Performed By: #### L 3890.6005, L900.0098, L3890.6300, BTS, L509.4005, L3890.6100, L509.8000, L100.0100 #### [facility] [address] [place], [address] Neutrophils/100 WBC (Bld) 75.1 % High 47-70 [facility] Comment on above: Performed By: #### L 3890.6005, L900.0098, L3890.6300, BTS, L509.4005, L3890.6100, L509.8000, L100.0100 #### [facility] [address] [place], [address] Nucleated RBC (Bld) [#/Vol] 0 10*3/uL Normal 0-5 [facility] Comment on above: Performed By: #### L 3890.6005, L900.0098, L3890.6300, BTS, L509.4005, L3890.6100, L509.8000, L100.0100 #### [facility] [address] [place], [address] Platelet mean volume (Bld) [Entitic vol] 11.2 fL Normal 6.2-12.0 [facility] Comment on above: Performed By: #### L 3890.6005, L900.0098, L3890.6300, BTS, L509.4005, L3890.6100, L509.8000, L100.0100 #### [facility] [address] [place], [address] Platelets (Bld) [#/Vol] 202 10*3/uL Normal 150-450 [facility] Comment on above: Performed By: #### L 3890.6005, L900.0098, L3890.6300, BTS, L509.4005, L3890.6100, L509.8000, L100.0100 #### [facility] [address] [place], [address] RBC (Bld) [#/Vol] 4.24 10*6/uL Normal 4.2-5.4 [facility] Comment on above: Performed By: #### L 3890.6005, L900.0098, L3890.6300, BTS, L509.4005, L3890.6100, L509.8000, L100.0100 #### [facility] [address] [place], [address] RDW SD 39.9 fl Normal 35.1-43.9 [facility] Comment on above: Performed By: #### L 3890.6005, L900.0098, L3890.6300, BTS, L509.4005, L3890.6100, L509.8000, L100.0100 #### [facility] [address] [place], [address] WBC (Bld) [#/Vol] 7.5 10*3/uL Normal 4.4-11.0 [facility] Comment on above: Performed By: #### L 3890.6005, L900.0098, L3890.6300, BTS, L509.4005, L3890.6100, L509.8000, L100.0100 #### [facility] [address] [place], [address] HIV - WCHon 01-06-2024 HIV Non-Reactive Normal Nonreactive [facility] Comment on above: Order Comment: Reaso n for Exam: Performed By: #### L 3890.6005, L900.0098, L3890.6300, BTS, L509.4005, L3890.6100, L509.8000, L100.0100 ####[facility] [address] [facility] [place], [place], [address] Hepatitis B Surface Antigeno n 01-06-2024 HEP B Surf Ag Non-Reactive [facility] Comment on above: Order Comment: Reaso n for Exam: Performed By: #### L 3890.6005, L900.0098, L3890.6300, BTS, L509.4005, L3890.6100, L509.8000, L100.0100 ####[facility] [address] [facility] [place], [place], [address] Hepatitis C Antibodyon 01-05 Hepatitis C AB Non-Reactive [facility] Comment on above: Order Comment: Reaso n for Exam: Result Comment: Non Reactive: < 0.8 Equivocal: >/= 0.8 to < 1.0 Reactive: >/= 1.0 The CDC requires that a reactive/equivocal HCV antibody result be sent out for confirmation. HCV Quant by PCR testing. Performed By: #### L 3890.6005, L900.0098, L3890.6300, BTS, L509.4005, L3890.6100, L509.8000, L100.0100 ####[facility] [address] [place], [address] L509.8000on 01-06-2024 Syphilis Abs Non-Reactive Normal [facility] Comment on above: Order Comment: Reaso n for Exam: Performed By: #### L 3890.6005, L900.0098, L3890.6300, BTS, L509.4005, L3890.6100, L509.8000, L100.0100 ####[facility] [address] [place], [address] NATERAon 01-06-2024 NATURA SEE SCANNED REPORT Normal [facility] Comment on above: Performed By: #### L 3890.6005, L900.0098, L3890.6300, BTS, L509.4005, L3890.6100, L509.8000, L100.0100 #### [facility] [address] [place], [address] Rubella IgGon 01-06-2024 Rubella IgG Reactive Normal Nonreactive [facility] Comment on above: Order Comment: Reaso n for Exam: Result Comment: Anti body Results Interpretation of Immune Status Non Reactive Presumed Non-Immune Equivocal Equivocal Reactive Presumed Immune Performed By: #### L 3890.6005, L900.0098, L3890.6300, BTS, L509.4005, L3890.6100, L509.8000, L100.0100 ####[facility] [address] [place], [address] Type AND Screenon 01-06-2024 ABO and Rh group Nom (Bld) Blood group A Rh(D) positive Normal [facility] Comment on above: Order Comment: PN Performed By: #### L 3890.6005, L900.0098, L3890.6300, BTS, L509.4005, L3890.6100, L509.8000, L100.0100 ####[facility] [address] [place], [address] Chlamydia/GC ANT aptimaon CHLAMY,NUC ACID Negative Normal Negative [facility] Comment on above: Performed By: #### L 7000.1800, M100.2200 ####[facility] [address] [place], [address] GC BY NUC ACID Negative Normal Negative [facility] Comment on above: Result Comment: Perf ormed at: =G - [facility] [address] [id number] Family Sociologist: Rossy Modi MD, Phone: [phone] Performed By: #### L 7000.1800, M100.2200 ####[facility] [address] [place], [address] Urine Cultureon 01-01-2024 [facility] [place] Count = 7000 cfu/mL Below infection level. Presumptive E. coli [place] Count 1000-10,000 Normal [facility] Comment on above: Performed By: #### L 7000.1800, M100.2200 ####[facility] [address] [place], [address] Exterminator Helper Office Visit Reporton 12-30-2023 Exterminator Helper Office Visit Report [facility] [address], [address] [place] [address] OFFICE VISIT Date of Service: 12/30/23 MR#: [id number] Acct: [id number] Name: JD PRINGLE Rep #: [id number] : 2005 Provider: YAIR Brandt ams Age/Sex: 18/F [place] [facility] [place] Status: Signed Intake Vital Signs 05/14/23 10:41 12/30/23 14:42 12/30/23 14:44 Height 5 ft 6 in 5 ft 6 in 5 ft 6 in Weight: 132 lb BMI 21.3 BP 96/52 L Intake Visit Reasons: New OB, LMP 10/27, SARAHI 08/03 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 [facility] Absolute lymphocyte countOrd ered By: Julia Ortiz on 04-02-2023 Lymphocytes Auto (Unsp spec) [#/Vol] 1.60 10*3/uL 0.83-4.51 [facility] Automated lymphocyte count a s percentage of total leukocytesOrdered By: Julia Ortiz on 04-02-2023 Lymphocytes/100 WBC Auto (Unsp spec) 10.2 % 25-45 [facility] Basophil percentageOrdered B y: Julia Ortiz on 04-02-2023 Basophils/100 WBC (Bld) 0.2 % 0-1 [facility] Eosinophils/100 WBC (Bld) 0.6 % 0-3 [facility] Hemoglobin (Bld) [Mass/Vol] 11.8 g/dL 12.0-15.0 [facility] Monocytes/100 WBC (Bld) 5.9 % 3-6 [facility] Neutrophils (Bld) [#/Vol] 12.9 10*3/uL 2.0-7.7 [facility] Neutrophils/100 WBC (Bld) 82.5 % 34-64 [facility] WBC (Bld) [#/Vol] 15.6 10*3/uL 4.5-13.0 [facility] Determination of erythrocyte mean corpuscular volume (MCV)Ordered By: Julia Ortiz on 04-02-2023 MCV (RBC) [Entitic vol] 92.1 fL 78-96 [facility] Erythrocyte distribution wid th ratioOrdered By: Julia Ortiz on 04-02-2023 Erythrocyte distribution width (RBC) [Ratio] 12.8 % 11.6-14.6 [facility] Erythrocyte distribution wid th standard deviationOrdered By: Julia Ortiz on 04-02-2023 Erythrocyte distribution width (RBC) [Entitic vol] 42.5 fL 35.1-43.9 [facility] Hematocrit Auto (Bld) [Volum e fraction]Ordered By: Julia Ortiz on 04-02-2023 Hematocrit (Bld) [Volume fraction] 35.2 % 37-46 [facility] Immature granulocytes/100 WB C Auto (Bld)Ordered By: Julia Ortiz on 04-02-2023 Immature granulocytes/100 WBC (Bld) 0.600 % 0.0-0.9 [facility] Comment on above: IG% - Immature Granu locytes (promyelocytes, myelocytes and metamyelocytes) > 1% indicates that a LEFT SHIFT is Present. Laboratory - Hematology and Cell countsOrdered By: Julia Ortiz on 04-02-2023 MCH (RBC) [Entitic mass] 30.9 pg 25.0-35.0 [facility] MCHC (RBC) [Mass/Vol] 33.5 g/dL 32-36 [facility] Nucleated RBC/100 WBC (Bld) [Ratio] 0 % 0-5 [facility] Platelets (Bld) [#/Vol] 182 10*3/uL 150-450 [facility] Platelet mean volume Brent-Ec ker (Bld) [Entitic vol]Ordered By: Julia Ortiz on 04-02-2023 Platelet mean volume (Bld) [Entitic vol] 12.2 fL 6.2-12.0 [facility] RBC Auto (Bld) [#/Vol]Ordere d By: Julia Ortiz on 04-02-2023 RBC (Bld) [#/Vol] 3.82 10*6/uL 4.1-4.8 [facility] Serum Treponema species anti body detectionOrdered By: Julia Ortiz on 04-02-2023 Treponema sp Ab Ql (S) Non-Reactive [facility] Laboratory - Chemistry and C hemistry - challengeon 03-31-2023 Glucose Ql (U) Negative [facility] - Urinalysison 01 -31-2024 Protein Ql (U) Negative [facility] - Chemistry and C hemistry - challengeon 03-24-2023 Glucose Ql (U) Negative [facility] - Urinalysison Protein Ql (U) Negative [facility] No Panel InformationOrdered By: Francesca Yeung on 03-18-2023 Group B Streptococcus Culture Group B Beta Streptococcus is not isolated. [facility] - Chemistry and C hemistry - challengeon 03-10-2023 Glucose Ql (U) Negative [facility] - Urinalysison Protein Ql (U) Negative [facility] Absolute lymphocyte countOrd ered By: Rosa Knight on 02-24-2023 Lymphocytes Auto (Unsp spec) [#/Vol] 1.60 10*3/uL 0.83-4.51 [facility] Basophil percentageOrdered B y: Rosa Knight on 02-24-2023 Basophils/100 WBC (Bld) 0.2 % 0-1 [facility] Eosinophils/100 WBC (Bld) 1.5 % 0-3 [facility] Neutrophils (Bld) [#/Vol] 10.4 10*3/uL 2.0-7.7 [facility] Neutrophils/100 WBC (Bld) 78.2 % 34-64 [facility] WBC (Bld) [#/Vol] 13.3 10*3/uL 4.5-13.0 [facility] Blood erythrocytes count (nu mber/volume)Ordered By: Rosa Knight on 02-24-2023 RBC (Bld) [#/Vol] 3.59 10*6/uL 4.1-4.8 [facility] Blood hemoglobin measurement (mass/volume)Ordered By: Rosa Knight on 02-24-2023 Hemoglobin (Bld) [Mass/Vol] 11.5 g/dL 12.0-15.0 [facility] Blood lymphocytes/100 leukoc ytesOrdered By: Rosa Knight on 02-24-2023 Lymphocytes/100 WBC (Bld) 12.0 % 25-45 [facility] Blood monocytes/100 leukocyt esOrdered By: Rosa Knight on 02-24-2023 Monocytes/100 WBC (Bld) 7.3 % 3-6 [facility] Blood platelet mean volumeOr dered By: Rosa Knight on 02-24-2023 Platelet mean volume (Bld) [Entitic vol] 11.0 fL 6.2-12.0 [facility] Determination of erythrocyte mean corpuscular volume (MCV)Ordered By: Rosa Knight on 02-24-2023 MCV (RBC) [Entitic vol] 94.2 fL 78-96 [facility] Hematocrit Auto (Bld) [Volum e fraction]Ordered By: Rosa Knight on 02-24-2023 Hematocrit (Bld) [Volume fraction] 33.8 % 37-46 [facility] Laboratory - Chemistry and C hemistry - challengeon 02-24-2023 Glucose Ql (U) Negative [facility] Laboratory - Hematology and Cell countsOrdered By: Rosa Knight on 02-24-2023 Erythrocyte distribution width (RBC) [Entitic vol] 43.5 fL 35.1-43.9 [facility] Erythrocyte distribution width (RBC) [Ratio] 12.6 % 11.6-14.6 [facility] Immature granulocytes/100 WBC (Bld) 0.800 % 0.0-0.9 [facility] Comment on above: IG% - Immature Granu locytes (promyelocytes, myelocytes and metamyelocytes) > 1% indicates that a LEFT SHIFT is Present. MCH (RBC) [Entitic mass] 32.0 pg 25.0-35.0 [facility] Nucleated RBC/100 WBC (Bld) [Ratio] 0 % 0-5 [facility] - Urinalysison Protein Ql (U) Trace [facility] MCHC Auto (RBC) [Mass/Vol]Or dered By: Rosa Knight on 02-24-2023 MCHC (RBC) [Mass/Vol] 34.0 g/dL 32-36 [facility] Platelets bldOrdered By: Darshan Knight on 02-24-2023 Platelets (Bld) [#/Vol] 170 10*3/uL 150-450 [facility] - Chemistry and C hemistry - challengeon 02-09-2023 Glucose Ql (U) Negative [facility] - Urinalysison Protein Ql (U) Negative [facility] - Chemistry and C hemistry - challengeon 01-29-2023 Glucose Ql (U) Negative [facility] - Urinalysison Protein Ql (U) Negative [facility] Absolute lymphocyte countOrd ered By: Rosa Knight on 01-08-2023 Lymphocytes Auto (Unsp spec) [#/Vol] 1.42 10*3/uL 0.83-4.51 [facility] Basophil percentageOrdered B y: Rosa Knight on 01-08-2023 Basophils/100 WBC (Bld) 0.3 % 0-1 [facility] Eosinophils/100 WBC (Bld) 2.1 % 0-3 [facility] Neutrophils (Bld) [#/Vol] 10.3 10*3/uL 2.0-7.7 [facility] Neutrophils/100 WBC (Bld) 80.1 % 34-64 [facility] WBC (Bld) [#/Vol] 12.9 10*3/uL 4.5-13.0 [facility] Blood erythrocytes count (nu mber/volume)Ordered By: Rosa Knight on 01-08-2023 RBC (Bld) [#/Vol] 3.45 10*6/uL 4.1-4.8 [facility] Blood hemoglobin measurement (mass/volume)Ordered By: Rosa Knight on 01-08-2023 Hemoglobin (Bld) [Mass/Vol] 10.8 g/dL 12.0-15.0 [facility] Blood lymphocytes/100 leukoc ytesOrdered By: Rosa Knight on 01-08-2023 Lymphocytes/100 WBC (Bld) 11.0 % 25-45 [facility] Blood monocytes/100 leukocyt esOrdered By: Rosa Knight on 01-08-2023 Monocytes/100 WBC (Bld) 5.8 % 3-6 [facility] Blood platelet mean volumeOr dered By: Rosa Knight on 01-08-2023 Platelet mean volume (Bld) [Entitic vol] 11.3 fL 6.2-12.0 [facility] Determination of erythrocyte mean corpuscular volume (MCV)Ordered By: Rosa Knight on 01-08-2023 MCV (RBC) [Entitic vol] 98.0 fL 78-96 [facility] Gestational diabetes screen 1-hour screen with 50g oral glucose loadOrdered By: Rosa Knight on 01-08-2023 Glucose 1 Hr post 50 g glucose PO [Mass/Vol] 104 mg/dL 70-140 [facility] HIV 1 and HIV-2 antibody ass ay with HIV-1 p24 antigen detectionOrdered By: Rosa Knight on 01-08-2023 HIV 1+2 Ab+HIV1 p24 Ag IA Ql Non-Reactive Nonreactive [facility] Hematocrit Auto (Bld) [Volum e fraction]Ordered By: Rosa Knight on 01-08-2023 Hematocrit (Bld) [Volume fraction] 33.8 % 37-46 [facility] Laboratory - Hematology and Cell countsOrdered By: Rosa Knight on 01-08-2023 Erythrocyte distribution width (RBC) [Entitic vol] 45.4 fL 35.1-43.9 [facility] Erythrocyte distribution width (RBC) [Ratio] 12.8 % 11.6-14.6 [facility] Immature granulocytes/100 WBC (Bld) 0.700 % 0.0-0.9 [facility] Comment on above: IG% - Immature Granu locytes (promyelocytes, myelocytes and metamyelocytes) > 1% indicates that a LEFT SHIFT is Present. MCH (RBC) [Entitic mass] 31.3 pg 25.0-35.0 [facility] Nucleated RBC/100 WBC (Bld) [Ratio] 0 % 0-5 [facility] MCHC Auto (RBC) [Mass/Vol]Or dered By: Rosa Knight on 01-08-2023 MCHC (RBC) [Mass/Vol] 32.0 g/dL 32-36 [facility] Platelets bldOrdered By: Darshan Knight on 01-08-2023 Platelets (Bld) [#/Vol] 178 10*3/uL 150-450 [facility] Serum Treponema species anti body detectionOrdered By: Rosa Knight on 11-10-2023 Treponema sp Ab Ql (S) Non-Reactive [facility] - Chemistry and C hemistry - challengeon 10-16-2022 Glucose Ql (U) Negative [facility] - Urinalysison Protein Ql (U) Negative [facility] Absolute lymphocyte countOrd ered By: Tabatha Severino on 09-17-2022 Lymphocytes Auto (Unsp spec) [#/Vol] 1.42 10*3/uL 0.83-4.51 [facility] Basophil percentageOrdered B y: Tabatha Severino on 09-17-2022 Basophils/100 WBC (Bld) 0.2 % 0-1 [facility] Eosinophils/100 WBC (Bld) 0.3 % 0-3 [facility] Neutrophils (Bld) [#/Vol] 8.0 10*3/uL 2.0-7.7 [facility] Neutrophils/100 WBC (Bld) 80.5 % 34-64 [facility] WBC (Bld) [#/Vol] 10.0 10*3/uL 4.5-13.0 [facility] Blood erythrocytes count (nu mber/volume)Ordered By: Tabatha Severino on 09-17-2022 RBC (Bld) [#/Vol] 4.17 10*6/uL 4.1-4.8 [facility] Blood hemoglobin measurement (mass/volume)Ordered By: Tabatha Severino on 09-17-2022 Hemoglobin (Bld) [Mass/Vol] 12.9 g/dL 12.0-15.0 [facility] Blood lymphocytes/100 leukoc ytesOrdered By: Tabatha Severino on 09-17-2022 Lymphocytes/100 WBC (Bld) 14.3 % 25-45 [facility] Blood monocytes/100 leukocyt esOrdered By: Tabatha Severino on 09-17-2022 Monocytes/100 WBC (Bld) 4.1 % 3-6 [facility] Blood platelet mean volumeOr dered By: Tabatha Severino on 09-17-2022 Platelet mean volume (Bld) [Entitic vol] 10.3 fL 6.2-12.0 [facility] Chlamydia trachomatis rRNA d etection by probe and target amplification methodOrdered By: Tabatha Severino on 09-17-2022 C. trachomatis rRNA ANT+probe Ql (Unsp spec) Negative Negative [facility] Culture, urineOrdered By: Rick Severino on 09-17-2022 Bacteria identified Cx Nom (U) Staphylococcus saprophyticus [facility] Determination of erythrocyte mean corpuscular volume (MCV)Ordered By: Tabatha Severino on 09-17-2022 MCV (RBC) [Entitic vol] 92.1 fL 78-96 [facility] HIV 1 and HIV-2 antibody ass ay with HIV-1 p24 antigen detectionOrdered By: Tabatha Severino on 09-17-2022 HIV 1+2 Ab+HIV1 p24 Ag IA Ql Non-Reactive Nonreactive [facility] Hematocrit Auto (Bld) [Volum e fraction]Ordered By: Tabatha Severino on 09-17-2022 Hematocrit (Bld) [Volume fraction] 38.4 % 37-46 [facility] - Hematology and Cell countsOrdered By: Tabatha Severino on 09-17-2022 Erythrocyte distribution width (RBC) [Entitic vol] 40.5 fL 35.1-43.9 [facility] Erythrocyte distribution width (RBC) [Ratio] 12.0 % 11.6-14.6 [facility] Immature granulocytes/100 WBC (Bld) 0.600 % 0.0-0.9 [facility] Comment on above: IG% - Immature Granu locytes (promyelocytes, myelocytes and metamyelocytes) > 1% indicates that a LEFT SHIFT is Present. MCH (RBC) [Entitic mass] 30.9 pg 25.0-35.0 [facility] Nucleated RBC/100 WBC (Bld) [Ratio] 0 % 0-5 [facility] - Microbiology an d Antimicrobial susceptibilityOrdered By: Tabatha Severino on 09-17-2022 N. gonorrhoeae DNA ANT+probe Ql (Unsp spec) Negative Negative [facility] Comment on above: Performed at: =G - [address] [id number] Director: Rossy Modi MD, Phone: [phone] MCHC Auto (RBC) [Mass/Vol]Or dered By: Tabatha Severino on 09-17-2022 MCHC (RBC) [Mass/Vol] 33.6 g/dL 32-36 [facility] No Panel InformationOrdered By: Tabatha Severino on 09-17-2022 Hepatitis B Surface Antigen Non-Reactive Nonreactive [facility] Hepatitis C Antibody Non-Reactive Nonreactive [facility] Comment on above: Non Reactive: < 0.8 Equivocal: >/= 0.8 to < 1.0 Reactive: >/= 1.0The CDC recommends that a reactive/equivocal HCV antibody result be followed up by the HCV Nucleic Acid Amplificationtest (490153) Miscellaneous Test Comment MAILED SPECIMEN [facility] Rubella IgG Antibody Reactive Nonreactive [facility] Comment on above: Antibody Results Int erpretation of Immune Status Non Reactive Presumed Non-Immune Equivocal Equivocal Reactive Presumed Immune Platelets bldOrdered By: Lizbeth Severino on 09-17-2022 Platelets (Bld) [#/Vol] 192 10*3/uL 150-450 [facility] Serum Treponema species anti body detectionOrdered By: Tabahta Severino on 09-17-2022 Treponema sp Ab Ql (S) Non-Reactive [facility] PLASMA ZINCon 01-27-2017 PLASMA ZINC 84 ug/dL Normal 56-134 [facility] Comment on above: Result Comment: Dete ction Limit = 5PERFORMED AT [facility] Performed By: #### A CBC, CHEM7F, CHOL, FE2, FRTN ####[place] [address]#### GARRET XIONG ####Testing performed at [facility] [place][note 2] SERUM COPPERon 01-27-2017 SERUM COPPER 95 ug/dL Normal 72-166 [facility] Comment on above: Result Comment: Dete ction Limit = 5PERFORMED AT [facility] Performed By: #### A CBC, CHEM7F, CHOL, FE2, FRTN ####[place] [address]#### ANTHONYPGARRET ####Testing performed at [facility] [place][note 2] CBCon 11-27-2017 ABSOLUTE BAS 0.0 X10 Normal [facility] Comment on above: Result Comment: Test ing performed at [place] [address] Performed By: #### A CBC, CHEM7F, CHOL, FE2, FRTN ####[place] [address]#### LCOPP, LZN ####Testing performed at [facility] [place][note 2] ABSOLUTE EOS 0.30 X10 Normal [facility] Comment on above: Performed By: #### A CBC, CHEM7F, CHOL, FE2, FRTN ####[place] [address]#### LCOPP, LZN ####Testing performed at [facility] [place][note 2] Basophils/100 WBC Auto (Bld) 0.6 % Normal 0.0-2.0 [facility] Comment on above: Performed By: #### A CBC, CHEM7F, CHOL, FE2, FRTN ####[place] [address]#### LCOPP, LZN ####Testing performed at [facility] [place][note 2] DTYPE AUTO DIFF [facility] Comment on above: Performed By: #### A CBC, CHEM7F, CHOL, FE2, FRTN ####[place] [address]#### LCOPP, LZN ####Testing performed at [facility] [place][note 2] Eosinophils/100 leukocytes 4.1 % Normal 0.0-11.0 [facility] Comment on above: Performed By: #### A CBC, CHEM7F, CHOL, FE2, FRTN ####[place] [address]#### LCOPP, LZN ####Testing performed at [facility] [place][note 2] Lymphocytes 1.[address] [facility] Comment on above: Performed By: #### A CBC, CHEM7F, CHOL, FE2, FRTN ####[place] [address]#### LCOPP, LZN ####Testing performed at [facility] [place][note 2] Lymphocytes/100 leukocytes 27.9 % Normal 20.0-55.0 [facility] Comment on above: Performed By: #### A CBC, CHEM7F, CHOL, FE2, FRTN ####[place] [address]#### LCOPP, LZN ####Testing performed at [facility] [place][note 2] Monocytes 0.6 X10 Normal [facility] Comment on above: Performed By: #### A CBC, CHEM7F, CHOL, FE2, FRTN ####[place] [address]#### LCOPP, LZN ####Testing performed at [facility] [place][note 2] Monocytes/100 leukocytes 9.1 % Normal 0.0-10.0 [facility] Comment on above: Performed By: #### A CBC, CHEM7F, CHOL, FE2, FRTN ####[place] [address]#### LCOPP, LZN ####Testing performed at [facility] [place][note 2] Neutrophils 3.7 x10 Normal 1.0-7.0 [facility] Comment on above: Performed By: #### A CBC, CHEM7F, CHOL, FE2, FRTN ####[place] [address]#### LCOPP, LZN ####Testing performed at [facility] [place][note 2] Neutrophils/100 leukocytes 58.3 % Normal 37.0-75.0 [facility] Comment on above: Performed By: #### A CBC, CHEM7F, CHOL, FE2, FRTN ####[place] [address]#### LCOPP, LZN ####Testing performed at [facility] [place][note 2] Erythrocyte distribution width Auto Ratio (RBC) 12.9 % Normal 11.5-14.5 [facility] Comment on above: Performed By: #### A CBC, CHEM7F, CHOL, FE2, FRTN ####[place] [address]#### LCOPP, LZN ####Testing performed at [facility] [place][note 2] Erythrocytes (RBC) 4.46 /cmm Normal 4.0-5.4 [facility] Comment on above: Performed By: #### A CBC, CHEM7F, CHOL, FE2, FRTN ####[place] [address]#### LCOPP, LZN ####Testing performed at [facility] [place][note 2] Hematocrit (HCT) 39.9 % Normal 36.0-48.0 [facility] Comment on above: Performed By: #### A CBC, CHEM7F, CHOL, FE2, FRTN ####[place] [address]#### LCOPP, LZN ####Testing performed at [facility] [place][note 2] Hemoglobin mass conc (Bld) 13.3 g/dL Normal 12.0-16.0 [facility] Comment on above: Performed By: #### A CBC, CHEM7F, CHOL, FE2, FRTN ####[place] [address]#### LCOPP, LZN ####Testing performed at [facility] [place][note 2] MCH 30.0 pg Normal 26.0-35.0 [facility] Comment on above: Performed By: #### A CBC, CHEM7F, CHOL, FE2, FRTN ####[place] [address]#### LCOPP, LZN ####Testing performed at [facility] [place][note 2] MCHC mass conc (RBC) 33.5 g/dL Normal 27.0-37.0 [facility] Comment on above: Performed By: #### A CBC, CHEM7F, CHOL, FE2, FRTN ####[place] [address]#### LCOPP, LZN ####Testing performed at [facility] [place][note 2] MCV 89.5 fL Normal 80.0-100.0 [facility] Comment on above: Performed By: #### A CBC, CHEM7F, CHOL, FE2, FRTN ####[place] [address]#### LCOPP, LZN ####Testing performed at [facility] [place][note 2] Platelet mean volume (PMV) 8.9 fL Normal 7.4-11.0 [facility] Comment on above: Performed By: #### A CBC, CHEM7F, CHOL, FE2, FRTN ####[place] [address]#### LCOPP, LZN ####Testing performed at [facility] [place][note 2] Platelets 168 /cmm Normal 130.0-400.0 [facility] Comment on above: Performed By: #### A CBC, CHEM7F, CHOL, FE2, FRTN ####[place] [address]#### LCOPP, LZN ####Testing performed at [facility] [place][note 2] WBC (Leukocytes) 6.3 /cmm Normal 3.6-13.0 [facility] Comment on above: Performed By: #### A CBC, CHEM7F, CHOL, FE2, FRTN ####[place] [address]#### LCOPP, LZN ####Testing performed at [facility] [place][note 2] CHEM 7 FASTINGon 01-25-2017 BUN (urea nitrogen) 11 mg/dL Normal 7-18 [facility] Comment on above: Performed By: #### A CBC, CHEM7F, CHOL, FE2, FRTN ####[place] [address]#### LCOPP, LZN ####Testing performed at [facility] [place][note 2] Chloride 105 mmol/L Normal 98-107 [facility] Comment on above: Performed By: #### A CBC, CHEM7F, CHOL, FE2, FRTN ####[place] [address]#### LCOPP, LZN ####Testing performed at [facility] [place][note 2] CO2 26 mmol/L Normal 22-30 [facility] Comment on above: Performed By: #### A CBC, CHEM7F, CHOL, FE2, FRTN ####[place] [address]#### LCOPP, LZN ####Testing performed at [facility] [place][note 2] Creatinine 0.5 mg/dL Normal 0.4-1.0 [facility] Comment on above: Performed By: #### A CBC, CHEM7F, CHOL, FE2, FRTN ####[place] [address]#### LCOPP, LZN ####Testing performed at [facility] [place][note 2] eGFR (non-black) Unable to calculate GFR due to inappropriate age/gender/creatinin e value. Normal [facility] Comment on above: Result Comment: Test ing performed at [place] [address] Performed By: #### A CBC, CHEM7F, CHOL, FE2, FRTN ####[place] [address]#### LCOPP, LZN ####Testing performed at [facility] [place][note 2] Glucose mass conc 84 mg/dL Normal 70-100 [facility] Comment on above: Result Comment: NORM AL <100 mg/dLPREDIABETES 101-126 mg/dLDIABETES 126 mg/dL or higher Performed By: #### A CBC, CHEM7F, CHOL, FE2, FRTN ####[place] [address]#### LCOPP, LZN ####Testing performed at [facility] [place][note 2] Potassium molar conc 4.1 mmol/L Normal 3.5-5.1 [facility] Comment on above: Performed By: #### A CBC, CHEM7F, CHOL, FE2, FRTN ####[place] [address]#### LCOPP, LZN ####Testing performed at [facility] [place][note 2] Sodium 140 mmol/L Normal 137-145 [facility] Comment on above: Performed By: #### A CBC, CHEM7F, CHOL, FE2, FRTN ####[place] [address]#### LCOPP, LZN ####Testing performed at [facility] [place][note 2] CHOLESTEROLon 01-25-2017 Cholesterol 175 mg/dL Normal 126-214 [facility] Comment on above: Result Comment: Test ing performed at [place] [address] Performed By: #### A CBC, CHEM7F, CHOL, FE2, FRTN ####[place] [address]#### LCOPP, LZN ####Testing performed at [facility] [place][note 2] FERRITINon 01-25-2017 FERRITIN 20 NG/ML Normal 6.24-137 [facility] Comment on above: Result Comment: LUL ENOPAUSAL FEMALES 6.9-282.5POSTMENOPAUSAL FEMALES 14.0-233.1Testing performed at [place] [address] Performed By: #### A CBC, CHEM7F, CHOL, FE2, FRTN ####[place] [address]#### LCOPP, LZN ####Testing performed at [facility] [place][note 2] IRONon 01-25-2017 Iron 72 ug/dL Normal 37-170 [facility] Comment on above: Result Comment: Test ing performed at [place] [address] Performed By: #### A CBC, CHEM7F, CHOL, FE2, FRTN ####Testing performed at [facility] [place] [address]#### LCGARRET MODI ####Testing performed at [facility] 01-19-2017 [facility] NOTES Normal [facility] Vital Signs Date Time Vital Sign Value Performing Clinician Facility 08-03-2024 15:26-0400 Body height 167.64 cm Supriya Callahan [employer] Work Phone: [facility] 08-03-2024 15:26-0400 Body mass index (BMI) [Percentile] Per age and sex 90.7 % Supriya Callahan [employer] Work Phone: [facility] 08-03-2024 15:26-0400 Body mass index (BMI) [Ratio] 28.4 kg/m2 Supriya Callahan [employer] Work Phone: [facility] 08-03-2024 15:26-0400 Body weight 79.94 kg Supriya Callahan [employer] Work Phone: [facility] 08-03-2024 15:26-0400 Diastolic blood pressure 83 mm[Hg] Supriya Callahan [employer] Work Phone: [facility] 08-03-2024 15:26-0400 Systolic blood pressure 118 mm[Hg] Supriya Callahan [employer] Work Phone: [facility] 07-28-2024 14:12-0400 Body height 167.64 cm Supriya Callahan [employer] Work Phone: [facility] 07-28-2024 14:12-0400 Body mass index (BMI) [Percentile] Per age and sex 90.3 % Supriya Callahan [employer] Work Phone: [facility] 07-28-2024 14:12-0400 Body mass index (BMI) [Ratio] 28.2 kg/m2 Supriya Callahan [employer] Work Phone: [facility] 07-28-2024 14:12-0400 Body weight 79.37 kg Supriya Callahan [employer] Work Phone: [facility] 07-28-2024 14:12-0400 Diastolic blood pressure 69 mm[Hg] Supriya Callahan [employer] Work Phone: [facility] 07-28-2024 14:12-0400 Systolic blood pressure 103 mm[Hg] Supriya Callahan [employer] Work Phone: [facility] 07-20-2024 14:34-0400 Body height 167.64 cm Supriya Callahan [employer] Work Phone: [facility] 07-20-2024 14:34-0400 Body mass index (BMI) [Percentile] Per age and sex 90.5 % Supriya Callahan [employer] Work Phone: [facility] 07-20-2024 14:34-0400 Body mass index (BMI) [Ratio] 28.3 kg/m2 Supriya Callahan [employer] Work Phone: [facility] 07-20-2024 14:34-0400 Body weight 79.43 kg Supriya Callahan [employer] Work Phone: [facility] 07-20-2024 14:34-0400 Diastolic blood pressure 78 mm[Hg] Supriya Callahan [employer] Work Phone: [facility] 07-20-2024 14:34-0400 Systolic blood pressure 122 mm[Hg] Supriya Callahan [employer] Work Phone: [facility] 07-13-2024 13:42-0400 Body height 167.64 cm Supriya Callahan [employer] Work Phone: [facility] 07-13-2024 13:42-0400 Body mass index (BMI) [Percentile] Per age and sex 89.6 % Supriya Callahan [employer] Work Phone: [facility] 07-13-2024 13:42-0400 Body mass index (BMI) [Ratio] 27.9 kg/m2 Supriya Callahan [employer] Work Phone: [facility] 07-13-2024 13:42-0400 Body weight 78.52 kg Supriya Callahan [employer] Work Phone: [facility] 07-13-2024 13:42-0400 Diastolic blood pressure 72 mm[Hg] Supriya Callahan [employer] Work Phone: [facility] 07-13-2024 13:42-0400 Systolic blood pressure 103 mm[Hg] Supriya Callahan [employer] Work Phone: [facility] 07-04-2024 13:30-0400 Body height 167.64 cm Supriya Callahan [employer] Work Phone: [facility] 07-04-2024 13:30-0400 Body mass index (BMI) [Percentile] Per age and sex 89.4 % Supriya Callahan [employer] Work Phone: [facility] 07-04-2024 13:30-0400 Body mass index (BMI) [Ratio] 27.8 kg/m2 Supriya Callahan [employer] Work Phone: [facility] 07-04-2024 13:30-0400 Body weight 78.24 kg Supriya Callahan [employer] Work Phone: [facility] 07-04-2024 13:30-0400 Diastolic blood pressure 76 mm[Hg] Supriya Callahan [employer] Work Phone: [facility] 07-04-2024 13:30-0400 Systolic blood pressure 119 mm[Hg] Supriya Callahan [employer] Work Phone: [facility] 06-19-2024 13:33-0400 Body mass index (BMI) [Percentile] Per age and sex 88.5 % Supriya Callahan [employer] Work Phone: [facility] 06-19-2024 13:33-0400 Body mass index (BMI) [Ratio] 27.4 kg/m2 Supriya Callahan [employer] Work Phone: [facility] 06-19-2024 13:33-0400 Body weight 77.11 kg Supriya Callahan [employer] Work Phone: [facility] 06-19-2024 13:33-0400 Diastolic blood pressure 73 mm[Hg] Supriya Callahan [employer] Work Phone: [facility] 06-19-2024 13:33-0400 Systolic blood pressure 107 mm[Hg] Supriya Callahan [employer] Work Phone: [facility] 05-31-2024 14:46-0400 Body height 167.64 cm Supriya Callahan [employer] Work Phone: [facility] 05-31-2024 14:46-0400 Body mass index (BMI) [Percentile] Per age and sex 87.1 % Supriya Callahan [employer] Work Phone: [facility] 05-31-2024 14:46-0400 Body mass index (BMI) [Ratio] 26.9 kg/m2 Supriya Callahan [employer] Work Phone: [facility] 05-31-2024 14:46-0400 Body weight 75.86 kg Supriya Callahan [employer] Work Phone: [facility] 05-31-2024 14:46-0400 Diastolic blood pressure 65 mm[Hg] Supriya Callahan [employer] Work Phone: [facility] 05-31-2024 14:46-0400 Systolic blood pressure 105 mm[Hg] Supriya Callahan [employer] Work Phone: [facility] 04-28-2024 14:11-0500 Body height 167.64 cm Supriya Callahan [employer] Work Phone: [facility] 04-28-2024 14:11-0500 Body mass index (BMI) [Percentile] Per age and sex 81.4 % Supriya Callahan [employer] Work Phone: [facility] 04-28-2024 14:11-0500 Body mass index (BMI) [Ratio] 25.4 kg/m2 Supriya Callahan [employer] Work Phone: [facility] 04-28-2024 14:11-0500 Body weight 71.38 kg Supriya Callahan [employer] Work Phone: [facility] 04-28-2024 14:11-0500 Diastolic blood pressure 55 mm[Hg] Supriya Callahan [employer] Work Phone: [facility] 04-28-2024 14:11-0500 Systolic blood pressure 88 mm[Hg] Supriya Callahan [employer] Work Phone: [facility] 04-06-2024 13:40-0500 Body mass index (BMI) [Percentile] Per age and sex 71.7 % Supriya Callahan [employer] Work Phone: [facility] 04-06-2024 13:40-0500 Body mass index (BMI) [Ratio] 23.8 kg/m2 Supriya Callahan [employer] Work Phone: [facility] 04-06-2024 13:40-0500 Body weight 66.9 kg Supriya Callahan [employer] Work Phone: [facility] 04-06-2024 13:40-0500 Diastolic blood pressure 70 mm[Hg] Supriya Callahan [employer] Work Phone: [facility] 04-06-2024 13:40-0500 Systolic blood pressure 106 mm[Hg] Supriya Callahan [employer] Work Phone: [facility] 03-07-2024 11:36-0500 Body mass index (BMI) [Percentile] Per age and sex 58.1 % Supriya Callahan [employer] Work Phone: [facility] 03-07-2024 11:36-0500 Body mass index (BMI) [Ratio] 22.3 kg/m2 Supriya Callahan [employer] Work Phone: [facility] 03-07-2024 11:36-0500 Body weight 62.7 kg Supriya Callahan [employer] Work Phone: [facility] 03-07-2024 11:36-0500 Diastolic blood pressure 70 mm[Hg] Supriya Callahan [employer] Work Phone: [facility] 03-07-2024 11:36-0500 Systolic blood pressure 120 mm[Hg] Supriya Callahan [employer] Work Phone: [facility] 02-01-2024 14:30-0500 Body mass index (BMI) [Percentile] Per age and sex 46.4 % Supriya Callahan [employer] Work Phone: [facility] 02-01-2024 14:30-0500 Body mass index (BMI) [Ratio] 21.3 kg/m2 Supriya Callahan [employer] Work Phone: [facility] 02-01-2024 14:30-0500 Body weight 59.87 kg Supriya Callahan [employer] Work Phone: [facility] 02-01-2024 14:30-0500 Diastolic blood pressure 55 mm[Hg] Supriya Callahan [employer] Work Phone: [facility] 02-01-2024 14:30-0500 Systolic blood pressure 109 mm[Hg] Supriya Callahan [employer] Work Phone: [facility] 04-05-2023 09:15-0500 Diastolic blood pressure 59 mm[Hg] [employer] Supriya Callahan [employer] Work Phone: [facility] 04-05-2023 09:15-0500 Heart rate 89 /min [employer] Supriya Callahan [employer] Work Phone: [facility] 04-05-2023 09:15-0500 SaO2% (BldA) [Mass fraction] 98 % [employer] Supriya Callahan [employer] Work Phone: [facility] 04-05-2023 09:15-0500 Systolic blood pressure 100 mm[Hg] [employer] Supriya Callahan [employer] Work Phone: [facility] 04-05-2023 09:13-0500 Body temperature 97 [degF] [employer] Supriya Callahan [employer] Work Phone: [facility] 04-05-2023 09:13-0500 Respiratory rate 16 /min [employer] Supriya Callahan [employer] Work Phone: [facility] 04-02-2023 19:34-0500 Body height 167.64 cm [employer] Supriya Callahan [employer] Work Phone: [facility] 04-02-2023 19:34-0500 Body mass index (BMI) [Percentile] Per age and sex 92.3 % [employer] Supriya Callahan [employer] Work Phone: [facility] 04-02-2023 19:34-0500 Body mass index (BMI) [Ratio] 28.5 kg/m2 [employer] Supriya Callahan [employer] Work Phone: [facility] [facility] 04-[facility]-2023 19:34-0500 Body weight 80.1 kg [employer] Supriya Callahan [employer] Work Phone: [facility] 04-02-2023 14:23-0500 Body mass index (BMI) [Percentile] Per age and sex 92.1 % [employer] Supriya Callahan [employer] Work Phone: [facility] 04-02-2023 14:23-0500 Body mass index (BMI) [Ratio] 28.4 kg/m2 [employer] Supriya Callahan [employer] Work Phone: [facility] 04-02-2023 14:23-0500 Body weight 79.88 kg [employer] Supriya Callahan [employer] Work Phone: [facility] 04-02-2023 14:23-0500 Diastolic blood pressure 67 mm[Hg] [employer] Supriya Callahan [employer] Work Phone: [facility] 04-02-2023 14:23-0500 Systolic blood pressure 113 mm[Hg] [employer] Supriya Callahan [employer] Work Phone: [facility] 03-31-2023 14:01-0500 Body mass index (BMI) [Percentile] Per age and sex 92.3 % [employer] Supriya Callahan [employer] Work Phone: [facility] 03-31-2023 14:01-0500 Body mass index (BMI) [Ratio] 28.5 kg/m2 [employer] Supriya Callahan [employer] Work Phone: [facility] 03-31-2023 14:01-0500 Body weight 80.28 kg [employer] Supriya Callahan [employer] Work Phone: [facility] 03-31-2023 14:01-0500 Diastolic blood pressure 71 mm[Hg] [employer] Supriya Callahan [employer] Work Phone: [facility] 03-31-2023 14:01-0500 Systolic blood pressure 109 mm[Hg] [employer] Supriya Callahan [employer] Work Phone: [facility] 03-24-2023 15:05-0500 Body mass index (BMI) [Percentile] Per age and sex 91.5 % [employer] Supriya Callahan [employer] Work Phone: [facility] 03-24-2023 15:05-0500 Body mass index (BMI) [Ratio] 28.1 kg/m2 [employer] Supriya Callahan [employer] Work Phone: [facility] 03-24-2023 15:05-0500 Body weight 79.03 kg [employer] Supriya Callahan [employer] Work Phone: [facility] 03-24-2023 15:05-0500 Diastolic blood pressure 72 mm[Hg] [employer] Supriya Callahan [employer] Work Phone: [facility] 03-24-2023 15:05-0500 Systolic blood pressure 106 mm[Hg] [employer] Supriya Callahan [employer] Work Phone: [facility] 03-18-2023 14:24-0500 Body height 167.64 cm [employer] Supriya Callahan [employer] Work Phone: [facility] 03-18-2023 14:22-0500 Body mass index (BMI) [Percentile] Per age and sex 91.3 % [employer] Supriya Callahan [employer] Work Phone: [facility] 03-18-2023 14:22-0500 Body mass index (BMI) [Ratio] 28 kg/m2 [employer] Supriya Callahan [employer] Work Phone: [facility] 03-18-2023 14:22-0500 Body weight 78.92 kg [employer] Supriya Callahan [employer] Work Phone: [facility] 03-18-2023 14:22-0500 Diastolic blood pressure 62 mm[Hg] [employer] Supriya Callahan [employer] Work Phone: [facility] 03-18-2023 14:22-0500 Systolic blood pressure 97 mm[Hg] [employer] Supriya Callahan [employer] Work Phone: [facility] 03-10-2023 14:03-0500 Body mass index (BMI) [Percentile] Per age and sex 91.2 % [employer] Supriya Callahan [employer] Work Phone: [facility] 03-10-2023 14:03-0500 Body mass index (BMI) [Ratio] 27.9 kg/m2 [employer] Supryia Callahan [employer] Work Phone: [facility] 03-10-2023 14:03-0500 Body weight 78.58 kg [employer] Supriya Callahan [employer] Work Phone: [facility] 03-10-2023 14:03-0500 Diastolic blood pressure 66 mm[Hg] [employer] Supriya Callahan [employer] Work Phone: [facility] 03-10-2023 14:03-0500 Systolic blood pressure 102 mm[Hg] [employer] Supriya Callahan [employer] Work Phone: [facility] 03-03-2023 11:19-0500 Body height 167.64 cm [employer] Supriya Callahan [employer] Work Phone: [facility] 03-03-2023 11:19-0500 Body mass index (BMI) [Percentile] Per age and sex 89.6 % [employer] Supriya Vikki [employer] Work Phone: [facility] 03-03-2023 11:19-0500 Body mass index (BMI) [Ratio] 27.2 kg/m2 [employer] Supriya Vikki [employer] Work Phone: [facility] 03-03-2023 11:19-0500 Body weight 76.65 kg [employer] Supriya Callahan [employer] Work Phone: [facility] 03-03-2023 10:58-0500 Body temperature 98.3 [degF] [employer] Supriya Callahan [employer] Work Phone: [facility] 03-03-2023 10:58-0500 SaO2% (BldA) [Mass fraction] 98 % [employer] Supriya Callahan [employer] Work Phone: [facility] 02-24-2023 15:52-0500 Body mass index (BMI) [Percentile] Per age and sex 88.8 % [employer] Supriya Vikki [employer] Work Phone: [facility] 02-24-2023 15:52-0500 Body mass index (BMI) [Ratio] 26.9 kg/m2 [employer] Supriya Callahan [employer] Work Phone: [facility] 02-24-2023 15:52-0500 Body weight 75.86 kg [employer] Supriya Callahan [employer] Work Phone: [facility] 02-24-2023 15:52-0500 Diastolic blood pressure 74 mm[Hg] [employer] Supriya Callahan [employer] Work Phone: [facility] 02-24-2023 15:52-0500 Systolic blood pressure 112 mm[Hg] [employer] Supriya Callahan [employer] Work Phone: [facility] 02-09-2023 13:46-0500 Body mass index (BMI) [Percentile] Per age and sex 88.6 % [employer] Supriya Callahan [employer] Work Phone: [facility] 02-09-2023 13:46-0500 Body mass index (BMI) [Ratio] 26.8 kg/m2 [employer] Supriya Callahan [employer] Work Phone: [facility] 02-09-2023 13:46-0500 Body weight 75.4 kg [employer] Supriya Callahan [employer] Work Phone: [facility] 02-09-2023 13:46-0500 Diastolic blood pressure 72 mm[Hg] [employer] Supriya Callahan [employer] Work Phone: [facility] 02-09-2023 13:46-0500 Systolic blood pressure 111 mm[Hg] [employer] Supriya Callahan [employer] Work Phone: [facility] 01-29-2023 16:10-0500 Body mass index (BMI) [Percentile] Per age and sex 85.2 % [employer] Supriya Callahan [employer] Work Phone: [facility] 01-29-2023 16:10-0500 Body mass index (BMI) [Ratio] 25.8 kg/m2 [employer] Supriya Callahan [employer] Work Phone: [facility] 01-29-2023 16:10-0500 Body weight 72.63 kg [employer] Supriya Callahan [employer] Work Phone: [facility] 01-29-2023 16:10-0500 Diastolic blood pressure 72 mm[Hg] [employer] Supriya Callahan [employer] Work Phone: [facility] 01-29-2023 16:10-0500 Systolic blood pressure 110 mm[Hg] [employer] Supriya Callahan [employer] Work Phone: [facility] 01-08-2023 15:38-0500 Body height 167.64 cm [employer] Supriya Callahan [employer] Work Phone: [facility] 01-08-2023 15:38-0500 Body mass index (BMI) [Percentile] Per age and sex 84.1 % [employer] Supriya Callahan [employer] Work Phone: [facility] 01-08-2023 15:38-0500 Body mass index (BMI) [Ratio] 25.5 kg/m2 [employer] Supriya Callahan [employer] Work Phone: [facility] 01-08-2023 15:38-0500 Body weight 71.89 kg [employer] Supriya Callahan [employer] Work Phone: [facility] 01-08-2023 15:38-0500 Diastolic blood pressure 62 mm[Hg] [employer] Supriya Callahan [employer] Work Phone: [facility] 01-08-2023 15:38-0500 Systolic blood pressure 102 mm[Hg] [employer] Supriya Callahan [employer] Work Phone: [facility] 12-09-2022 13:43-0400 Body mass index (BMI) [Percentile] Per age and sex 71.9 % [employer] Supriya Callahan [employer] Work Phone: [facility] 12-09-2022 13:43-0400 Body mass index (BMI) [Ratio] 23.4 kg/m2 [employer] Supriya Callahan [employer] Work Phone: [facility] 12-09-2022 13:43-0400 Body weight 65.88 kg [employer] Supriya Callahan [employer] Work Phone: [facility] 12-09-2022 13:43-0400 Diastolic blood pressure 64 mm[Hg] [employer] Supriya Callahan [employer] Work Phone: [facility] 12-09-2022 13:43-0400 Systolic blood pressure 100 mm[Hg] [employer] Supriya Callahan [employer] Work Phone: [facility] 11-13-2022 13:10-0400 Body mass index (BMI) [Percentile] Per age and sex 62.1 % [employer] Supriya Callahan [employer] Work Phone: [facility] 11-13-2022 13:10-0400 Body mass index (BMI) [Ratio] 22.3 kg/m2 [employer] Supriya Callahan [employer] Work Phone: [facility] 11-13-2022 13:10-0400 Body weight 62.76 kg [employer] Supriya Callahan [employer] Work Phone: [facility] 11-13-2022 13:10-0400 Diastolic blood pressure 66 mm[Hg] [employer] Supriya Callahan [employer] Work Phone: [facility] 11-13-2022 13:10-0400 Systolic blood pressure 101 mm[Hg] [employer] Supriya Callahan [employer] Work Phone: [facility] 10-16-2022 14:43-0400 Body mass index (BMI) [Percentile] Per age and sex 56.9 % [employer] Supriya Calalhan [employer] Work Phone: [facility] 10-16-2022 14:43-0400 Body mass index (BMI) [Ratio] 21.8 kg/m2 [employer] Supriya Callahan [employer] Work Phone: [facility] 10-16-2022 14:43-0400 Body weight 61.34 kg [employer] Supriya Callahan [employer] Work Phone: [facility] 10-16-2022 14:43-0400 Diastolic blood pressure 62 mm[Hg] [employer] Supriya Callahan [employer] Work Phone: [facility] 10-16-2022 14:43-0400 Systolic blood pressure 97 mm[Hg] [employer] Supriya Callahan [employer] Work Phone: [facility] 09-17-2022 08:11-0400 Body mass index (BMI) [Percentile] Per age and sex 48.7 % [employer] Supriya Callahan [employer] Work Phone: [facility] 09-17-2022 08:11-0400 Body mass index (BMI) [Ratio] 21.1 kg/m2 [employer] Supriya Tarangoson [employer] Work Phone: [facility] 09-17-2022 08:11-0400 Body weight 59.42 kg [employer] Supriya Callahan [employer] Work Phone: [facility] 09-17-2022 08:11-0400 Diastolic blood pressure 66 mm[Hg] [employer] Supriya Callahan [employer] Work Phone: [facility] 09-17-2022 08:11-0400 Systolic blood pressure 96 mm[Hg] [employer] Supriya Callahan [employer] Work Phone: [facility] 03-17-2022 01:44-0500 Body height 167.6 cm ABRAHAM PISANO MD [facility] 03-17-2022 01:44-0500 Body temperature 98.24 [degF] ABRAHAM PISANO MD [facility] 03-17-2022 01:44-0500 Body weight 64 kg ABRAHAM PISANO MD [facility] 03-17-2022 01:44-0500 Diastolic Blood Pressure Non-Invasive 78 1 ABRAHAM PISANO MD [facility] 03-17-2022 01:44-0500 Heart rate 85 /min ABRAHAM PISANO MD [facility] 03-17-2022 01:44-0500 Height ZScore 0.71 ABRAHAM PISANO MD [facility] Comment on above: Result Comment: ^~:!ZScore Source -[facility] 03-17-2022 01:44-0500 Percent Height for Age 76.20 1 ABRAHAM PISANO MD [facility] Comment on above: Result Comment: ^~:!Percentile Source -[facility] 03-17-2022 01:44-0500 Respiratory rate 16 /min ABRAHAM PISANO MD [facility] 03-17-2022 01:44-0500 Systolic Blood Pressure Non-Invasive 123 1 ABRAHAM PISANO MD [facility] Encounters Encounter Date Encounter Type Care Provider Facility Start: 08-03-2024 End: 08-03-2024 Patient encounter procedure Julia Ortiz [facility] Work Phone: Start: 08-03-2024 End: 08-03-2024 ambulatory Supriya Callahan [employer] Facility:[facility] Start: 07-28-2024 End: 07-28-2024 Patient encounter procedure Seema Ruiz [facility] Work Phone: Start: 07-28-2024 End: 07-28-2024 ambulatory Supriya Callahan [employer] Work Phone: [facility] Work Phone: Start: 07-20-2024 End: 07-20-[address] Francesca Yeung [facility] Work Phone: Start: 07-20-2024 End: 07-20-2024 ambulatory Supriya Callahan [employer] Work Phone: [facility] Work Phone: Start: 07-20-2024 End: 07-20-2024 ambulatory Francesca Yeung Facility[facility] Start: 07-13-2024 End: 07-13-[address] Francesca Yeung [facility] Work Phone: Start: 07-13-2024 End: 07-13-2024 ambulatory Supriya Callahan [employer] Work Phone: [facility] Work Phone: Start: 07-04-2024 End: 07-04-2024 ambulatory Supriya Callahan [employer] Work Phone: [facility] Work Phone: Start: 07-04-2024 End: 07-04-2024 Patient encounter procedure Julia Ortiz CNM -[facility], Spec[facility] Work Phone: Start: 07-04-2024 End: 07-04-2024 Patient encounter procedure Julia Ortiz [facility] Work Phone: Start: 07-04-2024 End: 07-04-2024 ambulatory Supriya Callahan NP Facility:[facility] Start: 07-04-2024 End: 07-04-2024 ambulatory Supriya Callahan [employer] Facility[facility] Start: 06-29-2024 ambulatory Supriya Callahan [employer] Facil ity:[facility] Start: 06-19-2024 End: 06-19-2024 Patient encounter procedure Julia Ortiz [facility] Work Phone: Start: 06-19-2024 End: 06-19-2024 ambulatory Supriya Callahan [employer] Facility:[facility] Start: 05-31-2024 End: 05-31-[address] Francesca Yeung [facility] Work Phone: Start: 05-31-2024 End: 05-31-2024 ambulatory Francesca Yeung Facility:[facility] Start: 05-25-2024 End: 05-25-2024 ambulatory Supriya Callahan [employer] Work Phone: [facility] Work Phone: Start: 05-25-2024 End: 05-25-[address] Tabatha Daniel DO -[facility] Work Phone: Start: 05-25-2024 End: 05-25-2024 ambulatory Tabatha Daniel Facility[facility] Start: 05-18-2024 ambulatory Supriya Callahan NP Facil ity:[facility] Start: 04-28-2024 End: 04-28-2024 ambulatory Supriya Callahan [employer] Work Phone: [facility] Work Phone: Start: 04-28-2024 End: 04-28-2024 Patient encounter procedure Seema Ruiz [facility] Work Phone: Start: 04-28-2024 End: 04-28-2024 ambulatory Tabatha Daniel [facility] Start: 04-06-2024 End: 04-06-2024 Patient encounter procedure Julia Angel MAZARIEGOS [facility] Work Phone: Start: 04-06-2024 End: 04-06-2024 ambulatory Supriya Callahan [employer] Facility:[facility] Start: 03-28-2024 ambulatory Francesca Scott lity:[facility] Start: 03-23-2024 End: 03-23-2024 ambulatory TABATHA Erin [facility] Start: 03-09-2024 End: 03-09-2024 [facility] Start: 03-07-2024 End: 03-07-[address] Tabatha Daniel DO [facility] Work Phone: Start: 03-07-2024 End: 03-07-2024 ambulatory Tabatha Daniel Facility:[facility] Start: 02-01-2024 End: 02-01-[address] Tabatha Daniel DO [facility] Work Phone: Start: 02-01-2024 End: 02-01-2024 ambulatory Tabatha Daniel Facility:[facility] Start: 01-06-2024 End: 01-06-2024 ambulatory Supriya Callahan [employer] [facility] Start: 12-30-2023 End: 12-30-2023 ambulatory Supriya Callahan [employer] Facility:[facility] Start: 12-30-2023 End: 12-30-2023 ambulatory Supriya Callahan [employer] [facility] Start: 12-17-2023 ambulatory Missy Carter Facility :[facility] Start: 04-05-2023 Non-patient / Non-visit [employer] Supriya Callahan [employer] Work Phone: [facility] Start: 04-04-2023 Non-patient / Non-visit [employer] Supriya Callahan [employer] Work Phone: [facility] Start: 04-03-2023 Non-patient / Non-visit [employer] Supriya Callahan [employer] Work Phone: [facility] Start: 04-02-2023 Non-patient / Non-visit [employer] Supriya Callahan [employer] Work Phone: [facility] Start: 04-02-2023 End: 04-05-2023 Evaluation and management of inpatient [employer] Supriya Callahan [employer] Work Phone: [facility] Work Phone: Start: 04-02-2023 End: 04-02-2023 Patient encounter procedure [employer] Supriya Callahan [employer] Work Phone: [facility] Work Phone: Start: 04-02-2023 End: 04-02-2023 ambulatory [employer] Supriya Callahan [employer] Work Phone: [facility] Work Phone: Start: 04-02-2023 End: 04-02-2023 Patient encounter procedure [employer] Supriya Callahan [employer] Work Phone: [facility] Work Phone: Start: 03-31-2023 End: 03-31-2023 Patient encounter procedure [employer] Supriya Callahan [employer] Work Phone: [facility] Work Phone: Start: 03-24-2023 End: 03-24-2023 Patient encounter procedure [employer] Supriya Callahan [employer] Work Phone: [facility] Work Phone: Start: 03-18-2023 End: 03-18-2023 ambulatory [employer] Supriya Callahan [employer] Work Phone: [facility] Work Phone: Start: 03-18-2023 End: 03-18-2023 Patient encounter procedure [employer] Supriya Callahan [employer] Work Phone: [facility] Work Phone: Start: 03-18-2023 End: 03-18-2023 Patient encounter procedure [employer] Supriya Callahan [employer] Work Phone: [facility] Work Phone: Start: 03-10-2023 End: 03-10-2023 Patient encounter procedure [employer] Supriya Callahan [employer] Work Phone: [facility] Work Phone: Start: 03-03-2023 Non-patient / Non-visit [employer] Supriya Callahan [employer] Work Phone: [facility] Start: 03-03-2023 End: 03-03-2023 ambulatory [employer] Supriya Callahan [employer] Work Phone: [facility] Work Phone: Start: 03-03-2023 End: 03-03-2023 Patient encounter procedure [employer] Supriya Callahan [employer] [facility] Work Phone: Start: 02-24-2023 End: 02-24-2023 Patient encounter procedure [employer] Supriya Callahan [employer] Work Phone: [facility] Work Phone: Start: 02-09-2023 End: 02-09-2023 Patient encounter procedure [employer] Supriya Callahan [employer] Work Phone: [facility] Work Phone: Start: 01-29-2023 End: 01-29-2023 Patient encounter procedure [employer] Supriya Callahan [employer] Work Phone: [facility] Work Phone: Start: 01-08-2023 End: 01-08-2023 ambulatory [employer] Supriya Callahan [employer] Work Phone: [facility] Work Phone: Start: 01-08-2023 End: 01-08-2023 Patient encounter procedure [employer] Supriya Callahan [employer] Work Phone: [facility] Work Phone: Start: 12-17-2022 End: 12-17-2022 Patient encounter procedure [employer] Supriya Callahan [employer] Work Phone: [facility] Work Phone: Start: 12-09-2022 End: 12-09-2022 Patient encounter procedure [employer] Supriya Callahan [employer] Work Phone: [facility] Work Phone: Start: 11-13-2022 End: 11-13-2022 Patient encounter procedure [employer] Supriya Callahan [employer] Work Phone: [facility] Work Phone: Start: 10-16-2022 End: 10-16-2022 Patient encounter procedure [employer] Supriya Callahan [employer] Work Phone: [facility] Work Phone: Start: 09-17-2022 End: 09-17-2022 Patient encounter procedure [employer] Supriya Callahan [employer] Work Phone: [facility] Work Phone: Start: 03-17-2022 End: 03-17-2022 Emergency department patient visit ABRAHAM PISANO MD Facility:[facility] Start: 03-17-2022 End: 03-17-2022 Emergency department patient visit ABRAHAM PISANO MD [facility] Start: 02-19-2017 Ambulatory [facility] Start: 02-02-2017 Ambulatory [facility] Start: 01-25-2017 Ambulatory [facility] Start: 01-19-2017 Ambulatory [facility] Start: 01-19-2017 [facility] Procedures Date Procedure Procedure Detail Performing Clinician Start: 07-04-2024 Beta-hemolytic Strep tococcus culture Supriya Callahan [employer] Work Phone: Start: 04-28-2024 Serologic test for syphilis Supriya Callahan [employer] Work Phone: Start: 04-02-2023 Ultrasound scan for growth [employer]-Meeta Callahan [employer] Work Phone: Start: 03-18-2023 Group B Streptococcu s Culture [employer]-Meeta Callahan [employer] Work Phone: Start: 12-17-2022 Ultrasonography in f irst trimester [employer]-Meeta Callahan [employer] Work Phone: Start: 09-17-2022 Urine culture [employer] Jennifer Callahan [employer] Work Phone: Plan of Treatment Date Care Activity Detail Author Start: 04-05-2023 Patient discharge [facility] Start: 04-03-2023 Administration of medication [facility] Start: 04-03-2023 Application of ice c ollar, cap or bag [facility] Start: 04-03-2023 Catheterization of vein [facility] Start: 04-03-2023 Introduction of urinary catheter [facility] Start: 04-03-2023 Measuring intake and output [facility] Start: 04-03-2023 Notification of physician [facility] Start: 04-03-2023 Procedure discontinued [facility] Start: 04-03-2023 Provision of activity privileges [facility] Start: 04-03-2023 Vital signs measurements [facility] Start: 04-03-2023 [facility] Start: 04-03-2023 Consultation [facility] Start: 04-02-2023 Admission procedure [facility] Start: 03-03-2023 Nonstress test [facility] Start: 03-03-2023 Obstetric monitoring [facility] Start: 03-03-2023 [facility] Start: 03-03-2023 Vital signs measurements [facility] Start: 03-03-2023 Patient discharge [facility] Patient Education [facility] Work Phone: Patient referral [facility] Work Phone: [facility] Immunizations Immunization Date Immunization Notes Care Provider Fa cili 01-08-2019 influenza virus vacc ine, unspecified formulation ABRAHAM PISANO MD [facility] 10-22-2017 Human Papillomavirus Quadval ABRAHAM PISANO MD [facility] 10-22-2017 meningococcal polysaccharide (groups A, C, Y and W-135) diphtheria toxoid conjugate vaccine ([id number]) ABRAHAM PISANO MD [facility] 10-22-2017 tetanus toxoid, redu momo diphtheria toxoid, and acellular pertussis vaccine, adsorbed ABRAHAM PISANO MD [facility] 02-02-2017 meningococcal B vacc ine, recombinant, OMV, adjuvanted ABRAHAM PISANO MD [facility] 02-02-2017 tetanus toxoid, redu momo diphtheria toxoid, and acellular pertussis vaccine, adsorbed ABRAHAM PISANO MD [facility] 01-19-2017 influenza virus vacc ine, unspecified formulation ABRAHAM PISANO MD [facility] 01-19-2017 meningococcal polysaccharide (groups A, C, Y and W-135) diphtheria toxoid conjugate vaccine (MCV4P) ABRAHAM PISANO MD [facility] 12-29-2014 influenza virus vacc ine, unspecified formulation ABRAHAM PISANO MD [facility] 10-27-2013 hepatitis A vaccine, pediatric dosage, unspecified formulation ABRAHAM PISANO MD [facility] 09-22-2012 hepatitis A vaccine, pediatric dosage, unspecified formulation ABRAHAM PISANO MD [facility] 06-25-2010 varicella virus vaccine MAIKEL PISANO MD [facility] 01-02-2009 diphtheria, tetanus toxoids and acellular pertussis vaccine, unspecified formulation ABRAHAM PISANO MD [facility] 01-02-2009 measles/mumps/rubell a virus vaccine ABRAHAM PISANO MD [facility] 01-02-2009 poliovirus vaccine, inactivated ABRAHAM PISANO MD [facility] 06-01-2006 diphtheria, tetanus toxoids and acellular pertussis vaccine, unspecified formulation ABRAHAM PISANO MD [facility] 06-01-2006 poliovirus vaccine, inactivated ABRAHAM PISANO MD [facility] 04-01-2006 haemophilus influenz ae type b conjugate and Hepatitis B vaccine ABRAHAM PISANO MD [facility] 04-01-2006 measles/mumps/rubell a virus vaccine ABRAHAM PISANO MD [facility] 03-01-2006 measles/mumps/rubell a virus vaccine ABRAHAM PISANO MD [facility] 12-03-2005 pneumococcal conjuga te vaccine, 13 valboyd PISANO MD [facility] 12-03-2005 varicella virus vaccine MAIKEL PISANO MD [facility] 09-02-2005 pneumococcal conjuga te vaccine, 13 valboyd PISANO MD [facility] 06-02-2005 diphtheria, tetanus toxoids and acellular pertussis vaccine, unspecified formulation ABRAHAM PISANO MD [facility] 06-02-2005 pneumococcal conjuga te vaccine, 13 valboyd PISANO MD [facility] 04-02-2005 diphtheria, tetanus toxoids and acellular pertussis vaccine, unspecified formulation ABRAHAM PISANO MD [facility] 04-02-2005 haemophilus influenz ae type b conjugate and Hepatitis B vaccine ABRAHAM PISANO MD [facility] 04-02-2005 poliovirus vaccine, inactivated ABRAHAM PISANO MD [facility] 01-27-2005 diphtheria, tetanus toxoids and acellular pertussis vaccine, unspecified formulation ABRAHAM PISANO MD [facility] 01-27-2005 haemophilus influenz ae type b conjugate and Hepatitis B vaccine ABRAHMA PISANO MD [facility] 01-27-2005 poliovirus vaccine, inactivated ABRAHAM PISANO MD [facility] Payers Date Payer Category Payer Unknown [id number] 2023 Self-pay [id number] 2023 Unknown [id number] 2022 Private Health Insurance [facility] [id number] 2022 Unknown [id number] 2004 Unknown [id number] 2.16. 840.1.201755.3.579.2.479 2004 Unknown [id number] 2.16. 840.1.531685.3.579.2.479 1961 Unknown [id number] 2.16.8 40.1.283016.3.579.2.627 Unknown [id number] 2.16.8 40.1.357680.3.579.2.462 Unknown [id number] 2.16.8 40.1.361446.3.579.2.462 Unknown [id number] 2.16.8 40.1.977466.3.579.2.462 Unknown [id number] 2.16.8 40.1.286444.3.579.2.462 Unknown [id number] 2.16.8 40.1.811567.3.579.2.462 Unknown [id number] 2.16.8 40.1.187211.3.579.2.462 Unknown [id number] 2.16.8 40.1.826005.3.579.2.462 Unknown [id number] 2.16.8 40.1.478892.3.579.2.462 Unknown [id number] 2.16.8 40.1.845363.3.579.2.462 Unknown [id number] 2.16.8 40.1.161456.3.579.2.462 Unknown [id number] 2.16.8 40.1.514597.3.579.2.462 Unknown [id number] 2.16.8 40.1.457754.3.579.2.462 Unknown [id number] 2.16.8 40.1.946549.3.579.2.462 Unknown [id number] 2.16.8 40.1.195740.3.579.2.462 Unknown [id number] 2.16.8 40.1.560719.3.579.2.462 Unknown [id number] 2.16.8 40.1.380280.3.579.2.462 Unknown [id number] 2.16.8 40.1.391711.3.579.2.462 Unknown [id number] 2.16.8 40.1.503719.3.579.2.462 Unknown [id number] 2.16.8 40.1.365774.3.579.2.462 Unknown [id number] 2.16.8 40.1.409680.3.579.2.462 Unknown [id number] 2.16.8 40.1.317202.3.579.2.462 Unknown [id number] 2.16.8 40.1.196856.3.579.2.462 Social History Date Type Detail Facility Start: 11-10-2018 End: 12-17-2023 Tobacco smoking status Never smoked tobacco (finding) [facility] Start: 2005 Sex Assigned At Female A [facility] Start: 01-08-2023 End: 04-02-2023 Tobacco smoking status INIS Unknown if ever smoked [facility] Start: 05-12-2024 End: 06-01-2024 Sex Female (finding) [facility] Goals Date Patient Goal Desired Activity /State Functional Status Date Assessment Result Facility 03-17-2022 Functional Status Ambulating in rao, Ambulating in room, Awake [facility] Mental Status Date Assessment Result Facility 03-17-2022 Mental Status Orientation Oriented x 4 [facility] Clinical Notes 03-17-2022 to 08-03-2024 Note Date & Type Note Facility 08-03-2024 Progress note [facility] 08-03-2024 Progress note Note Date/Time August 03, 2024 3:48pm [facility] [address] [place] [address] OFFICE VISIT Date of Service: 08/03/24 MR#: [id number] Acct: [id number] Name: JD PRINGLE Rep #: [id number] : 2005 Provider: YAIR Ortiz Age/Sex: 18/F Location[place] [facility] Status: Signed Intake Vital Signs 07/28/24 14:12 08/03/24 15:26 Height 5 ft 6 in 5 ft 6 in Weight: 175 lb 176 lb 4 oz BMI 28.2 28.4 BP 103/69 118/83 H Intake Visit Reasons: Happy Due Date! 40wk Chief Complaint: 40 Week OB Drug Department Worker Required: No Is patient in pain?: No [...] children current occupational status: unemployed current occupation: [employer] current occupational exposures/hazards: No pets and animals: [...] 3-4 times per week duration: 15-30 minutes/day roseline/spiritism: Rastafarian seatbelt use: sometimes do you feel safe [...] - full term 7lbs 10oz Female epidural [facility] Julia Ortiz Altaf Delivery Date: [...] Monitoring, Signs and Symptoms of Preeclampsia and Riva Education ROS Const Reports system reviewed and [...] this visit. GA appropriate handout given. 08/03/24 5646 <Electronically signed by Julia bee CNM> Date _ Julia Ortiz CNM Cosignmarine Signature: Date (if applicable) CC: ~ [facility] Work Phone: 1(396) 589-157105-30-2025 Progress [facility] [address] [place] [address], [address] [place] [address] OFFICE VISIT Date of Service: 07/28/24 MR#: [id number] Acct: [id number] Name: JD PRINGLE Rep #: [id number] : 2005 Provider: YAIR Ruiz Age/Sex: 18/F Location[place] [facility] Status: Signed Intake Vital Signs 12/30/23 14:44 07/20/24 14:34 07/28/24 14:12 Height 5 ft 6 in 5 ft 6 in 5 ft 6 in Weight: 175 lb BMI 28.2 BP 103/69 Intake Visit Reasons: 39wk ob Drug Department Worker Required: No Is patient in pain?: No [...] children current occupational status: unemployed current occupation: [employer] current occupational exposures/hazards: No pets and [...] 3-4 times per week duration: 15-30 minutes/day roseline/spiritism: Rastafarian seatbelt use: sometimes do you feel safe [...] - full term 7lbs 10oz Female epidural [facility] Julia Solitario Delivery Date: 04/03/23 [...] Cosigner Signature: Date (if applicable) CC: ~ [facility]05-30-2025 Progress note Author Seema Ruiz [facility] Note Date/Time July 28, 2024 2:38p m [facility] [address] [place] [address], [address] [place] [address] OFFICE VISIT Date of Service: 07/28/24 MR#: [id number] Acct: [id number] Name: JD PRINGLE Rep #: [id number] : 2005 Provider: YAIR Ruiz Age/Sex: 18/F Location[place] [facility] Status: Signed Intake Vital Signs 12/30/23 14:44 07/20/24 14:34 07/28/24 14:12 Height 5 ft 6 in 5 ft 6 in 5 ft 6 in Weight: 175 lb BMI 28.2 BP 103/69 Intake Visit Reasons: 39wk ob Drug Department Worker Required: No Is patient in pain?: No [...] children current occupational status: unemployed current occupation: [employer] current occupational exposures/hazards: No pets and animals: [...] 3-4 times per week duration: 15-30 minutes/day roseline/spiritism: Rastafarian seatbelt use: sometimes do you feel safe [...] Monitoring, Signs and Symptoms of Preeclampsia and Riva Education ROS Const Reports system reviewed and [...] Acute Comment: PRR, , SARAHI 08/03/24, girl tain PC: [place], BF: Arnold (3) : Status: [...] Smith Signature: Date (if applicable) CC: ~ [facility] Work Phone: 1(643) 428-711605-15-2025 Progress [facility] [address] [place] [address], [address] [place] [address] OFFICE VISIT Date of Service: 07/13/24 MR#: [id number] Acct: [id number] Name: JD PRINGLE Rep #: [id number] : 2005 Provider: Dr. Mick Yeung MD Age/Sex: 18/F Location[place] [facility] Status: Signed Intake Vital Signs 12/30/23 14:44 06/19/24 13:37 07/04/24 13:30 07/13/24 13:42 Height 5 ft 6 in 5 ft 6 in 5 ft 6 in 5 ft 6 in Weight: 173 lb 2 oz BMI 27.9 BP 103/72 Intake Visit Reasons: 37wk ob Drug Department Worker Required: No Is patient in pain?: No [...] 3-4 times per week duration: 15-30 minutes/day roseline/spiritism: Rastafarian seatbelt use: sometimes do you feel safe at home: Yes additional social history: BF: Arnold - Unemployed History 2 Elective abortions Hx Para 1 Spontaneous abortions Hx # Term Pregnancies 1 Ectopic pregnancies Hx # Pregnancies Multiple births # of living children 1 Past Pregnancies Del. Date Name GA/Weeks Outcome Route Bth Weight Infant [facility]23 Everlee 39 live - full term 7lbs 10oz Female epidural [facility] Julia Solitario Delivery Date: 04/03/23 [...] Monitoring, Signs and Symptoms of Preeclampsia and Riva Education ROS Const Denies fever(s) GI Reports [...] Cosign Signature: Date (if applicable) CC: ~ [facility] [id number] Progress note Author Francesca Yeung [facility] Note Date/Time July 13, 2024 2:42p [facility] [address] [place] [address], [address] [place] [address] OFFICE VISIT Date of Service: 07/13/24 MR#: [id number] Acct: [id number] Name: JD PRINGLE Rep #: [id number] : 2005 Provider: Dr. Mick Yeung MD Age/Sex: 18/F Location: [facility] Status: Signed Intake Vital Signs 12/30/23 14:44 06/19/24 13:37 07/04/24 13:30 07/13/24 13:42 Height 5 ft 6 in 5 ft 6 in 5 ft 6 in 5 ft 6 in Weight: 173 lb 2 oz BMI 27.9 BP 103/72 Intake Visit Reasons: 37wk ob Drug Department Worker Required: No Is patient in pain?: No [...] children current occupational status: unemployed current occupation: [employer] current occupational exposures/hazards: No pets and animals: [...] 3-4 times per week duration: 15-30 minutes/day roseline/spiritism: Rastafarian seatbelt use: sometimes do you feel safe [...] - full term 7lbs 10oz Female epidural [facility] Julia Solitario Delivery Date: 04/03/23 [...] Monitoring, Signs and Symptoms of Preeclampsia and Riva Education ROS Const Denies fever(s) GI Reports [...] Cosigner Signature: Date (if applicable) CC: ~ [facility] Work Phone: 1(715) 424-417502-06-2025 Evaluation note* Diagnosis Onset Date Resolution Status [...] 1:26pm Depression chronic July 04, 2024 1:26pm [facility] Work Phone: 1(256) 317-309102-06-2025 Evaluation note* Diagnosis Onset Date Resolution Status [...] 1:15pm Depression chronic July 13, 2024 1:15pm [facility] Work Phone: 1([phone]) 778-398702-06-2025 Evaluation note* Diagnosis Onset Date Resolution Status [...] 2:25pm Depression chronic July 20, 2024 2:25pm [facility] Work Phone: 1([phone]) 947-285902-06-2025 Evaluation note* Diagnosis Onset Date Resolution Status [...] 2:09pm Depression chronic July 28, 2024 2:09pm [facility] Work Phone: 1(215) 666-925902-06-2025 Evaluation note* Diagnosis Onset Date Resolution Status [...] 3:37pm Depression chronic August 03, 2024 3:37pm [facility] Work Phone: [phone]) 733-834401-07-2025 Evaluation note* Diagnosis Onset Date Resolution Status [...] 31 2:38pm Depression chronic May 31 2:38pm [facility] Work Phone: [phone]) 899-531512-03-2024 Evaluation note* Diagnosis Onset Date Resolution Status [...] 2:08pm Depression chronic April 28, 2024 2:08pm [facility] Work Phone: 1([phone]) 365-251402-05-2024 Discharge summary Author Tabatha Severino [facility] April 05, 2023 6:54am Note Date/Time April 05, 2023 6 :55am [facility] Medical Records Department [address] [place] [address] Discharge Summary 04/05/23 0653 MR#: [id number] Acct: [id number] Name: JD PRINGLE Rep #:[id number] : 2005 17 From: Tabatha Daniel DO PCP: BRISEIDA Anderson Status:ADM I N Location: [place] [address] Providers Date of Admission: 04/02/23 Primary Care [...] NP Discharge Orders/Prescriptions Prescriptions: No Action PNV no.494-[id number]-[id number]-vbe-[id number] 400 mcg-35 mg- 25 mg-5 mg tablet,chewable 1 tab PO Referrals / Follow Up: Supriya Callahan NP, [facility] [Primary Care Provider] - 04/05/23 0654 <Electronically signed by Tabatha Daniel DO> Cosigner Signature (if applicable): CC: BRISEIDA Callahan; Dr. Tabatha Daniel DO~ Signed [facility] Work Phone: 1(243) 985-982002-04-2024 Progress note Author Julia Ortiz [facility] April 04, 2023 8:31am Note Date/Time April 04, 2023 8 :31am [facility] Medical Records Department [address] [place] [address] Progress Note - OBGYN 04/04/23 0829 MR#: [id number] Acct: [id number] Name: JD PRINGLE Rep #:[id number] : 2005 17 From: Julia Ortiz CNM PCP: SHONA AndersonC Status:ADM I N Location: [place] [address] Subjective Subjective Patient doing well without complaints. [...] trimester COMMENT: PRR , SARAHI 04/21/23 girl Ceres lives with aunt Kelsi Villar involved (13) : QUALIFIERS: Weeks of gestation: 39 weeks Qualified Code(s): Z3A.39 - 39 weeks gestation of COMMENT: GBS Negative, carrier testing neg. , NIPT low risk, anatomy nl Charges/Coding Multi Select Codes Urinary/Genital Urinary/Genital CPT Codes: No Charge 04/04/23 0831 <Electronically signed by Julia Ortiz CNM> Cosigner Signature (if applicable): CC: ~ Signed [facility] Work Phone: 1([phone]) 711-214002-03-2024 Procedure [facility] 04-03-2023 Progress note Author Francesca Yeung [facility] April 03, 2023 3:00am Note Date/Time April 03, 2023 3 :01am [facility] Medical Records Department [address] [place] [address] Progress Note 04/03/23257 MR#: [id number] Acct: [id number] Name: JD PRINGLE Rep #:[id number] : 2005 17 From: Francesca morales MD PCP: Supriya Callahan NP-C Status:ADM I N Location: [place] [address]-1 Progress Note arom clear fluid internal monitors placed with some blood noted in IUPC current tracing after ROM: FHT: 150 min-Moderate variability reactive no decelerations category II tracing Gabbs: q 1-2 Contractions reviewed tracing abnormalities since last note: had episode of recurrent late decels after lfoley came out, resolved with position changes and then ROM A/P: continue expectantmanagement, now 4-5 70 0 posterior, no pitocin at this time. will start PRN 04/03/23 0300 <Electronically signed by Francesca Yeung MD> Francesca Yeung MD Cosigner Signature (if applicable): CC: ~ Signed [facility] Work Phone: 1(906) 304-684502-03-2024 Progress note Author Julia Ortiz [facility] April 03, 2023 12:07am Note Date/Time April 03, 2023 1 2:08am [facility] Medical Records Department [address] [place] [address] Progress Note 04/03/23 0001 MR#: [id number] Acct: [id number] Name: JD PRINGLE Rep #:[id number] : 2005 17 From: Julia Ortiz CNM PCP: BRISEIDA Anderson Status:ADM I N Location: [place] [address] Progress Note Coping well with cramping. Cytotec 25mcg given at 2000. current tracing: FHT: 145 Moderate variability reactive occasional variable decelerations noted. overall reassuring with accelerations. category II tracing Gabbs: high frequency low amplitude cramping Membranes:intact SVE:1.5/80/-1 [...] Cosigner Signature (if applicable): CC: ~ Signed [facility] Work Phone: 1(882) [phone] History and physical note Author Julia Ortiz [facility] April 02, 2023 10:09pm Note Date/Time April 02, 2023 1 0:04pm [facility] Medical Records Department [address] [place] [address] H&P Exam - DIVERSITY SPECIALIST 04/02/232000 MR#: [id number] Acct: [id number] Name: JD PRINGLE Rep #:[id number] : 2005 17 From: Julia Ortiz CNM PCP: BRISEIDA Anderson Status:ADM I N Location: [id number] HPI - General General Date of Admission: [...] Cosigner Signature (if applicable): CC: YAIR Ortiz; FISHER TROLL LINEKatharine Callahan~ Signed ADDENDUM by YAIR Ortiz on 04/02/23 at 2209 Multi Select Codes Urinary/Genital Urinary/Genital CPT Codes: No Charge Assessment & Plan (1) Encounter for induction of labor: COMMENT: IOL cytotec 39.0 polyhydramnios PLAN: Patient presents IOL, plan management for with cytotec/cross bulb/ pitocin/AROM. Pain management: plans epidural. GBS negative. Management of any complications: polyhydramnios I have reviewed the [facility] and made any clinically relevant updates. Dr [...] trimester COMMENT: PRR , SARAHI 04/21/23 girl Ceres lives with aunt Kelsi Menendez FOB not involved (12) : QUALIFIERS: Weeks of gestation: 39 weeks Qualified Code(s): Z3A.39 - 39 weeks gestation of COMMENT: GBS Negative, carrier testing neg. , NIPT low risk, anatomy nl 04/02/231<Electronically signed by Julia Ortiz CNM> Cosigner Signature (if applicable): cc: YAIR Ortiz; BRISEIDA Callahan ~* Signed [facility] Work Phone: 1(398) 902-784301-17-2023 Hospital Discharge instructions Patient Education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
[2024-08-05] MEDS: Lactated Ringers 1,000 ML 50 ML IV (08:30)
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
[2024-08-05 09:37] LABS: Absolute Lymphocyte Count 1.94 X10^3/uL (0.83-4.51); Absolute Neutrophil Count 8.9 X10^3/uL (2.0-7.7); Basophil# 0.04 X10^3/uL; Basophil% 0.3 % (0-1); Eosinophil# 0.11 X10^3/uL; Eosinophils% 0.9 % (0-5); Hematocrit 31.1 % (37-47); Hemoglobin 10.4 g/dL (12.0-15.0); Lymphocyte # 1.94 X10^3/ul (0.83-4.51); Lymphocyte % 16.7 % (19-41); Mean Corp Hgb Conc 33.4 g/dL (32-36); Mean Corpuscular Hgb 28.7 pg (27.0-32.0); Mean Corpuscular Volume 85.9 fL (81-99); Mean Platelet Vol. 12.3 fl (6.2-12.0); Monocyte# 0.61 X10^3/uL; Monocyte% 5.2 % (0-10); NRBC Flagged by Analyzer 0 % (0-5); Neutrophil # 8.88 X10^3/uL (2.7-7.7); Neutrophil % 76.4 % (47-70); Platelet Count 134 K/mm3 (150-450); RBC Distribution Width CV 14.2 % (11.6-14.6); RBC Distribution Width SD 44.7 fl (35.1-43.9); Red Blood Count 3.62 M/mm3 (4.2-5.4); White Blood Count 11.6 K/mm3 (4.4-11.0)
[2024-08-05] MEDS: Lactated Ringers 1,000 ML 999 ML IV (09:43)
[2024-08-05 10:23] LABS: Syphilis Antibodies Nonreactive (Nonreactive)
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
[2024-08-05] MEDS: Ondansetron 4 MG/2 ML Vial IV (11:41)
[2024-08-05] MEDS: fentaNYL-bupivacaine (epidural) 100 ML BAG EPIDURAL (11:44)
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
[2024-08-05] MEDS: Oxytocin 15 Units/NS 250ml 15 UNITS/250 ML IV.SOLN 2 UNITS IV (12:37)
[2024-08-05] MEDS: Oxytocin 15 Units/NS 250ml 15 UNITS/250 ML IV.SOLN 334 UNITS IV (13:41)
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
--- NOTE | 2024-08-05 13:55 | DCINST_ITS ---
Discharge Instructions Diet Discharge Diet: No restrictions DC O2, CPAP, BIPAP needs Home O2 Discharge instructions: No Dressing / Incision Discharge Activity: Return to Normal Activity May resume sexual activity in: 6-8 weeks Dressing / Incision Call your doctor if you observe: Fever of 101 or Higher, Coldness, Increased Pain, Numbness or Tingling, Change in Color, Inability to urinate, Inability to have a bowel movement, Using more than 1 pad per hour, Shortness of breath, Dizziness, Fainting spells, Swelling in the ankles, Chest pain, Increased p alpitations (irregular heartbeat), Calf discomfort and Uncontrolled pain Follow Up Care Please Follow Up With: Julia Ortiz CNM When: Please call the office to schedule your follow up appointment in 6 weeks. If you had high blood pressure please call to schedule an appointment in 2 weeks. Test Results: Test results from this visit will be discussed in further detail at your follow- up appointment, if applicable. Discharge Plan Admission Admit Date/Time: 08/05/24 08:08 Attending Provider: Julia Ortiz Primary Care Provider: Supriya Florez NP Discharge Orders/Prescriptions Prescriptions: No Action PNV no.[id number] 400 mcg-35 mg- 25 mg-5 mg tablet,chewable 1 tab PO ferrous sulfate 325 mg (65 mg iron) tablet 325 mg PO QDAY Referrals / Follow Up: Supriya Florez NP, HEALTH INFORMATION TECHNICIAN-C [Primary Care Provider] -
[2024-08-05] MEDS: Oxytocin 15 Units/NS 250ml 15 UNITS/250 ML IV.SOLN 83 UNITS IV (14:45)
[2024-08-05] MEDS: Acetaminophen 500 MG Tablet PO (16:33)
[2024-08-06] VITALS (8 sets, daily range): BP systolic 103–116; BP diastolic 58–69; PULSE 76–85; RESP 14–16; TEMP 36.6–36.9; O2SAT 94–96
[2024-08-06] MEDS: Ibuprofen 600 MG Tablet PO (08:59)
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
== END 2024-08-06 16:30 | disposition home or self-care (01) | DRG 807 ==
PROVIDERS: Admitting Provider Advanced Practice Midwife; PCP Nurse Practitioner Family; Referring Provider Advanced Practice Midwife; Visit Provider Advanced Practice Midwife
DX: O48.0 Post-term pregnancy (principal); Z37.0 Single live birth; D64.9 Anemia, unspecified; O70.0 First degree perineal laceration during delivery; O69.82X0 Labor and delivery complicated by other cord entanglement, without compression, not applicable or unspecified; O99.02 Anemia complicating childbirth; Z3A.40 40 weeks gestation of pregnancy
CPT/HCPCS: 59025; 59050; 85025; 86780; 86850; 86900; 86901; 99221; G0378; J2405